=== PATIENT | female | born 1975 | race Caucasian/White ===

== ENCOUNTER 2019-12-11 06:45 | Outpatient (RCR) | payer BC, SELFPAY ==
--- NOTE | 2019-11-15 | CT_ITS ---
Radation Therapy Planning CT images; total exam DLP: 1465.07 mGy-cm MTDD
--- NOTE | 2019-11-15 17:37 | ONC CON_ITS ---
Dr. Mahoney New Patient Note Patient: KEN OLIVIER < Unit #: [id number]: 1975 Dicatated By: Beni Mahoney M.D.Date of Visit: Nov 15, 2019 Onc MED New Patient/Consult Referring Physician: Dr. oJel Carlos Jr, M.D. Chief Complaint: Lung cancer. 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 She is a non-smoker and she has been in good general health. In August she had seen her primary care physician with fever and cough, initially suspected to be pneumonia. Repeat chest x-ray after antibiotic therapy showed persistent mass in the left lung. Chest CT showed a large left upper lobe lung mass with associated mediastinal adenopathy, highly suspicious for malignancy. She underwent bronchoscopy on 09/17/2019 with brushings from the left upper lobe bronchus showing atypical cells, suspicious for malignancy. A repeat PET/CT on 10/10/2019 showed a 5.7 x 5.2 cm mass with SUV 22.7. A left hilar lymph node measuring 14 mm had elevated SUV of 5.0, and a small node in the aortopulmonary window had increased SUV at 4.4. There were no other areas of abnormal uptake. A left adrenal gland nodule measuring up to 2.5 cm appeared consistent with benign adenoma. On 11/12/2019 she underwent left video-assisted thorascopic surgical biopsy of station 5 AP window lymph nodes. At surgery was noted that her tumor was invading the left chest wall. The AP window lymph nodes were found to be positive for metastatic carcinoma, and with those findings resection was not attempted. Pathology report indicates just scant malignant cells which are consistent with non-small cell carcinoma. PD-L1 and molecular analysis are reportedly in process, but with results pending. She had been feeling well up until her illness and August. She has since then had some decline in activity tolerance, though prior to surgery she was still able to do light work. ECOG score is 1. She has had some decline in her appetite following the surgery, but her weight is stable. She has no fever, night sweats, or hot flashes. She has not had hoarseness, sore throat, or difficulty swallowing. She still has some cough, mainly in the mornings. She occasionally brings up clear mucus, but it is mostly nonproductive. She has had no hemoptysis. She has a having some mild pleuritic pain since the surgery. She says her breathing is okay, though. Her acid reflux is adequately managed with omeprazole. She sometimes has loose stools. She has frequent urination. She has no significant joint or bone pain. She reports having occasional headache and occasional orthostatic dizziness since the surgery. She has no focal neurologic symptoms. Past Medical History: Her only other medical illness is gastroesophageal reflux disease. Past Surgical History: She underwent bronchoscopy on 09/17/2019 and she underwent left videol-assisted thorascopic surgical biopsy of AP window lymph node on 11/09/2019. Her only other surgery was a tubal ligation. Medications: guaiFENesin ER (1200 mg) Tablet SR 12 HR Oral daily, HYDROcodone-Acetaminophen 1 Tablet (of 7.5-325 mg) Oral q 6 hours PRN, Omeprazole 1 Tablet (of 20 mg) Capsule Delayed Release Oral daily, Ondansetron HCl 1 Tablet (of 4 mg) Tablet Oral q 6 hours PRN Allergies: No Known Allergies. Social History: Ms. OLIVIER is . She is a non-smoker. She does not drink alcohol. Family History: Both parents are still living, father at age 70 and mother at age 68. She has one sister, age 39, who also is in good health. Review Of Symptoms: Constitutional - Her energy is generally pretty good. She is able to do light work. Her appetite has been down since her surgery. Her weight is stable. No fever, chills, hot flashes, or night sweats. ECOG score is 1, Eyes - Her vision is gradually worsening, but nothing severe, ENMT - No hearing loss or tinnitus. No sinus congestion/drainage. No mouth sores. No sore throat or difficulty swallowing, Hematologic/Lymphatic - No abnormal bruising or bleeding, Respiratory - No shortness of breath. She has a cough in the morning, but it is nonproductive. She is having mild pleuritic pain since the surgery. No hemoptysis, Cardiovascular - No angina pain. No palpitations, Gastrointestinal - No nausea or vomiting. Her acid reflux is managed with omeprazole. She has occasional loose stools. No blood in the stool or black stools, Genitourinary (F) - No dysuria or hematuria. She has urinary frequency. No urgency or incontinence, Musculoskeletal - She has some pain associated with her recent surgery. She has no other joint or bone pain, Integumentary - No skin complications, Neurologic - She has occasional sinus headaches. She has had occasional orthostatic dizziness since her surgery. No numbness/paresthesias or other focal neurologic symptoms, Psychiatric - She has had some stress and anxiety since her diagnosis. No insomnia. Vital Signs: Performed on Nov 15, 2019 14:06: 68.00 in, 227.8 lbs, 98.8 F, 79, 20, 119/81 mm(hg), 93 % (LOW), 3, and Performed on Nov 15, 2019 14:06: 34.637 kg/m2 (HIGH). Physical Examination: Constitutional - She appears to be in good general health, Eyes - Sclerae nonicteric. Conjunctivae clear, ENMT - No lesions noted in the oral cavity, Neck - No mass or thyromegaly, Hematologic/Lymphatic - No cervical, clavicular, or axillary adenopathy, Respiratory - The right lung sounds clear. Breath sounds are diminished at the left lung base, Cardiovascular - Heart rhythm is regular. There is no murmur, gallop, or rub noted, Chest - Her thoracotomy incision appears to be healing well, Abdomen - Soft and non-tender. Liver and spleen are not enlarged. There is no abdominal mass or ascites noted and there is no inguinal adenopathy, Back/Spine - No spine or CVA tenderness noted, Extremities - There is no edema, but the left leg appears larger than the right and the left calf circumference measures 3 cm greater. Pedal pulses are palpable bilaterally, Integumentary - No rashes. No suspicious skin lesions noted, Neurologic - No focal neurologic deficits noted. Impression: 1. 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 Molecular analysis and PD-L1 expression are not yet available. She is a non-smoker. 2. She underwent video-assisted thoracotomy with biopsy of station 5 AP window lymph nodes on 11/09/2019. Her tumor was found to be invading the chest wall. 3. She has pre-existing GERD, adequately managed with medication. Plan: I reviewed the PET/CT findings, the surgical findings, and the pathology results. We discussed the clinical implications. She has non-small cell carcinoma involving the upper lobe of the left lung. There is biopsy proven mediastinal lymph node involvement and there was evidence had thoracotomy of chest wall invasion. As such, her disease was inoperable. She has scheduled to have a brain MRI to complete her staging. In the absence of any evidence of metastatic involvement, the recommended treatment will be radiation administered concurrently with weekly carboplatin/paclitaxel chemotherapy. Recommendations for any further treatment will depend on additional pathologic studies. If these are not able to be obtained from the biopsy specimen, I will request a next generation sequencing study by liquid biopsy. I reviewed anticipated side effects with the chemotherapy which may include nausea/vomiting, fatigue, alopecia, low blood counts, and neuropathy, among others. She has indicated that she is willing to proceed with treatment as recommended. She will need to have a Port-A-Cath placed for venous access, I will try and have that arranged with Dr. Carlos. I anticipate starting treatment as soon as the radiation planning has been completed. Signed By: Beni Mahoney M.D. <<Signature on File>>
--- NOTE | 2019-11-18 14:37 | N.ONRAD NP_ITS ---
Radiation Oncology New Patient Visit Patient: KEN OLIVIER MR#: [id number] : 1975> Age: 44> Sex: Female> Dictated by: Dr. Derrick Lee Date of Service: 11/15/2019 Referring Physician(s) : Dr. Joel Carlos Jr Primary Diagnosis: C34.12 - malignant neoplasm of upper lobe, left bronchus or lung, Diagnosed 11/15/2019 (active), stage iiib, t3, n2, m0. Chief complaint: Lung cancer History of Present Illness: This is a 44-year-old female who presented with productive cough and fever and was diagnosed with pneumonia in August 2019. She was treated with antibiotics and had a follow-up CT of chest in September 2019 which showed a persistent large left upper lung mass and mediastinal lymphadenopathy suspicious for malignancy. She underwent a bronchoscopy with left upper lobe bronchus brushing on September 17, 2019 that showed some atypical cells suspicious for malignancy. Subsequently she had a PET/CT on September 20. It showed a large 5.7 x 5.2 cm left lateral upper lobe mass with max SUV of 22.7. There is a 1.4 cm left hilum lymphadenopathy with SUV of 5 and a lymph node in the AP window with increased FDG activity. A 2.5 cm low-density nodule of the left adrenal gland with no increased activity consistent with benign adenoma. The patient underwent left VATS with biopsy of the station 5 AP window lymphadenopathy. It was found that the large left upper lobe mass has invasion of the left chest wall. Pathology was consistent with non-small cell lung cancer, PD-L1 and molecular markers are pending. The patient notes severe dry cough and the pain at the incision sites of VATS but denies shortness of breath, hemoptysis, chest wall pain, headaches, nausea, vomiting, vision change, focal neurological deficits or significant weight loss. Current Medications: GuaiFENesin ER, hYDROcodone-Acetaminophen, omeprazole, ondansetron HCl. Allergies: No Known Allergies Medical History: - Gastroesophageal reflux disease. No history of collagen vascular disease. No previous radiation therapy. Surgical History: Bronchoscopy on 09/17/2019, left videol-assisted thorascopic surgical biopsy of AP window lymph node on 11/09/2019 and tubal ligation. Family History: Father is alive. Mother is alive. Sister is alive. Both parents are still living, father at age 70 and mother at age 68. She has one sister, age 39, who also is in good health. Social History: Last screened on 11/13/2019 - Never smoked. Last screened on 11/13/2019 - Never drank. Review of Systems: Constitutional - Complains of lack of appetite since surgery on last Tuesday11/09/19. Complains of mild fatigue. Denies fever, night sweats and change in weight. Eyes - Denies blurred vision. ENMT - Denies dysphagia, ear pain, mouth dryness, stomatitis and altered taste. Neck - Denies neck pain. Integumentary - Has healing incisional line along the left breast and where the chest tube was deaccessed. Breasts - Denies pain. Cardiovascular - Complains of edema in the left foot. Denies arrhythmias and chest pain. Respiratory - Complains of cough which is non-productive since August 2019.. Denies dyspnea, hemoptysis and wheezing. Gastrointestinal - Complains of intermittent diarrhea. Complains of satiety. Denies abdominal pain, constipation, melena / GI bleeding, nausea and vomiting. Genitourinary (F) - Complains of nocturia gets up about 3 to 4 times per night. Denies dysuria, frequency, urgency, vaginal discharge / bleeding and vaginal spotting. Musculoskeletal - Denies arthritis, bone pain, joint pain and muscle weakness. Has left side pain with coughing from having biopsy and chest tube. Neurologic - Complains of intermittent dizziness that occurs upon sitting to standing. Complains of headaches occasionally. Denies abnormal gait. Endocrine - Denies diabetes, hot flashes and thyroid disease. Hematologic/Lymphatic - Denies tender or enlarged lymph nodes.. Vital Signs: Performed on 11/15/2019 2:06 PM BMI - 34.637 kg/m2 (high), Height - 68.00 in, Weight - 227.8 lbs, Temperature - 98.8 f, Pulse - 79, Respiration - 20, O2 Sat - 93 % (low), Pain - 3 and BP - 119/ 81 mm(hg). Physical Exam: Pertinent to diagnosis and treatment. General: Alert and oriented x 3. No acute distress. HEENT: Normocephalic, atraumatic. EOMI ( Extraocular Movements Intact), PERRLA ( Pupils Equal, Round, Reactive to Light and Accommodation), Sclerae anicteric. Oral cavity is clear without lesions, masses or ulcers. NECK: Supple without supraclavicular or jugular lymphadenopathy. LUNGS: Clear to auscultation bilaterally without rales, rhonchi or wheeze. HEART: Regular rate and rhythm, normal S1 and S2 without murmur, gallop or rub. MUSCULOSKELETAL: No tenderness or percussion pain over the axial skeleton, scapulae or pelvis. ABDOMEN: Soft, nontender, nondistended without masses or organomegaly. Bowel sounds are present. EXTREMITIES: No peripheral edema is identified. Limited motor and sensory examination are grossly intact and symmetric bilaterally. NEUROLOGIC: Cranial nerves II ???XII are grossly intact. Normal sensation, strength 5/5 in all extremities, normal gait, no ataxia. Performance Status: 1 - No physically strenuous activity, but ambulatory and able to carry out light or sedentary work (e.g. office work, light house work). (ECOG) Pathology: non-small cell carcinoma Lab: None pending Imaging: See HPI Impression: This is a 44-year-old female with a recently diagnosed locally advanced non-small cell carcinoma involving the left upper lobe, hilum and mediastinum. Plan: The patient needs a MRI of the brain to complete staging work-up. If there is no evidence of diffuse brain metastasis, we would recommend concurrent chemoradiation therapy to the lung cancer. I went over the procedure for radiation therapy to the chest with the patient. The benefit, risks and potential side effects of radiotherapy to the chest were explained to the patient. The potential side effects include but not limited to fatigue, skin reaction, radiation pneumonitis, esophagitis with odynophagia/dysphagia, damages to the heart/vessels, brachial plexus and spinal cord. Ms Olivier expressed good understanding and decided to proceed with the recommended treatment. The patient has signed an informed consent for radiotherapy. She will undergo CT simulation today. Radiation treatment planning will be completed and radiotherapy will be ready to start on November 19, 2019 or as soon as chemotherapy/insurance approval is ready to start. Signed by: 11/18/2019 2:36:30 PM <<Signature on File>> CPT Code: CPT Code:
[2019-12-03 09:59] LABS: Basophils % 0.1 %; Hematocrit 36.7 % (37.0-47.0); Hemoglobin 11.1 g/dL (11.5-15.3); Lymphocytes # 0.6 10^3/uL (0.8-4.8); Mean Corpuscular HGB Conc 30.2 g/dL (30.0-36.0); Mean Corpuscular Hemoglobin 23.3 pg (28.0-34.0); Mean Corpuscular Volume 76.9 fL (81-99); Mean Platelet Volume 10.8 fL (7.4-10.4); Monocytes # 0.1 10^3/uL (0.2-0.9); Monocytes % 0.3 %; Neutrophils # 15.4 10^3/uL (1.8-7.7); Nucleated Red Blood Cells % 0 %; Platelet Count 345 10^3/cmm (130-400); Red Blood Count 4.77 10^6/uL (4.1-5.3); White Blood Count 16.2 10^3/uL (4.0-10.0)
[2019-12-03 10:17] LABS: Alanine Aminotransferase 16 U/L (0-33); Albumin Level 4.1 g/dL (3.5-5.2); Alkaline Phosphatase 104 IU/L (35-105); Anion Gap 14.8 (5-19); Aspartate Amino Transferase 13 U/L (0-32); Blood Urea Nitrogen 17 mg/dL (6-20); Calcium 10.3 mg/dL (8.5-10.5); Carbon Dioxide 28 mmol/L (22-29); Chloride 95 mmol/L (98-107); Globulin 3.7 g/dL (1.3-4.6); Glomerular Filtration Rate 59.7 mL/min (90-130); Glucose 285 mg/dL (65-115); Osmolality Calculated 285 mOsm/kg (285-295); Potassium 3.8 mmol/L (3.5-5.1); Sodium 134 mmol/L (136-145); Total Bilirubin 0.6 mg/dL (0.15-1.2); Total Protein 7.8 g/dL (6.6-8.7)
[2019-12-03] MEDS: sodium chloride 0.9% 250 ML 75 ML IV (11:05)
[2019-12-03] MEDS: sodium chloride 0.9% 1,000 ML 999 ML IV (12:05)
[2019-12-03] MEDS: EPINEPHrine 1 mg/mL INJ 0.5 MG SUBCUT (12:10)
[2019-12-03 12:24] LABS: Iron 20 ug/dL (37-145); Percent Saturation 9.7 % (20-50); Total Iron Binding Capacity 206 mcg/dl; Unsaturated Iron Binding 186 ug/dL (112-347)
[2019-12-03] MEDS: ibuprofen 600 mg Tablet PO (13:05)
[2019-12-03] MEDS: LORazepam 2 mg/mL INJ 1 mL 0.5 MG IV (13:08)
[2019-12-05] MEDS: sodium chloride 0.9% 250 ML 75 ML IV (09:30)
--- NOTE | 2019-12-05 09:33 | ONCRAD TMN_ITS ---
Radiation Oncology Weekly Treatment Management Patient: KEN OLIVIER MR#: [id number] : 1975> Age: 44> Sex: Female Dictated by: Dr. Cleve Herrera Date of Service: 12/05/2019 Referring Physician(s) : Dr. Joel Carlos Jr Primary Diagnosis: C34.12 - Malignant neoplasm of upper lobe, left bronchus or lung, Diagnosed 11/15/2019 (Active) Stage IIIB, T3, N2, M0 Radiotherapy to date: Course: LT Lung, Treatment Site: LT [id number], Ref. ID: [id number], Energy: 6X, Dose/Fx (cGy): 200, #Fx: , Dose Correction (cGy): 0, Total Dose (cGy): 600, Start Date: 12/03/2019, Elapsed Days: 2 Current Complaints/Interval History: She has had 3 treatments. Radiation is going well. On Tuesday she had chemotherapy initiated. However she had a reaction and it had to be stopped. She will be getting alternate chemotherapy today. Her weight measures down 21 pounds since 11/15/2019. Should her appetite had been low but it is improving. Her general appearance is that of being well-nourished. She does not appear to have had any excessive weight loss and she was surprised. She is eating well and so we will just continue to monitor her weight for now. Pulmonary symptoms are minimal. She has a mild nonproductive cough. She does have some tenderness where she had surgery on her chest. Lungs are clear to auscultation with no rales, rhonchi, or wheezes. Heart rhythm is regular. No murmur or gallop. Continue radiation. She will proceed on to chemotherapy this morning. She did ask for review of side effects related to radiation. I discussed the acute effects that might occur. Discussed that there is a small risk of severe lung or heart injury, though not expected. Current Medications: Abraxane, cARBOplatin, dexamethasone, dexamethasone Sodium Phosphate, diphenhydrAMINE HCl, famotidine in NaCl, ferrous Sulfate, guaiFENesin ER, hYDROcodone-Acetaminophen, lORazepam, omeprazole, ondansetron HCl, palonosetron HCl, prochlorperazine Maleate. Allergies: No Known Allergies Vital Signs: Physical Exam: Appears stable, no skin erythema or desquamation. Performance Status: 1 - No physically strenuous activity, but ambulatory and able to carry out light or sedentary work (e.g. office work, light house work). (ECOG) Lab: None pending in Radiation Oncology. Test performed on 12/03/2019 9:30 AM WBC - 16.2 10 3/ul (high), HGB - 11.1 g/dl (low), HCT - 36.7 % (low), MCV - 76.9 fl (low), MCH - 23.3 pg (low), MPV - 10.8 fl (high), Neutrophils - 15.4 10 3/ul (high), Lymphocytes - 0.6 10 3/ul (low), Monocytes - 0.1 10 3/ul (low), Sodium - 134 mmol/l (low), Chloride - 95 mmol/l (low), Creatinine - 1.0 mg/dl (high), eGFR - 59.7 ml/min (low), Glucose - 285 mg/dl (high), Iron - 20 mcg/dl (low) and % Iron Saturation - 9.7 % (low). Imaging: No new diagnostic imaging was performed since the last weekly treatment visit. All radiation therapy related imaging (including but not limited to kV, MV, and CBCT generated images) was reviewed. Appropriate changes, if any, were made to assure accurate target localization. Impression/Plan: Tolerating treatment well with expected side effects. Continue treatment as planned. CPT: 21330 Signed by: Dr. Cleve Herrera>12/05/2019 9:32:00 AM <<Signature on File>>
== END 2019-12-11 23:59 | disposition home or self-care (01) ==
LOC: ONCMED 06:45
PROVIDERS: Internal Medicine Medical Oncology; Absent Provider Radiology Radiation Oncology; PCP Family Medicine; Referring Provider Surgery
DX: Z51.0 Encounter for antineoplastic radiation therapy (principal); Z51.11 Encounter for antineoplastic chemotherapy; C34.12 Malignant neoplasm of upper lobe, left bronchus or lung; C77.1 Secondary and unspecified malignant neoplasm of intrathoracic lymph nodes; D35.02 Benign neoplasm of left adrenal gland; K21.9 Gastro-esophageal reflux disease without esophagitis; Z79.891 Long term (current) use of opiate analgesic; Z79.899 Other long term (current) drug therapy
CPT/HCPCS: 77300; 77301; 77334; 77338; 77386; 77470; 80053; 83540; 83550; 85025; 96361; 96367; 96372; 96375; 96409; 96413; 96417; 99205; 99215; J0171; J1100; J1200; J2060; J2469; J2930; J3490; J7030; J7050; J9045; J9264; J9267; Q9967

== ENCOUNTER 2020-01-10 06:49 | Outpatient (RCR) | payer BC, SELFPAY ==
[2019-12-12 08:39] LABS: Basophils % 0.3 %; Eosinophils # 0.2 10^3/uL (0.0-0.8); Eosinophils % 1.6 %; Hematocrit 31.1 % (37.0-47.0); Hemoglobin 9.6 g/dL (11.5-15.3); Lymphocytes # 0.4 10^3/uL (0.8-4.8); Lymphocytes % 2.7 %; Mean Corpuscular HGB Conc 30.9 g/dL (30.0-36.0); Mean Corpuscular Hemoglobin 24.1 pg (28.0-34.0); Mean Corpuscular Volume 77.9 fL (81-99); Monocytes % 6.8 %; Neutrophils # 12.2 10^3/uL (1.8-7.7); Neutrophils % 87.5 %; Nucleated Red Blood Cells % 0 %; Platelet Count 299 10^3/cmm (130-400); Red Blood Count 3.99 10^6/uL (4.1-5.3)
[2019-12-12 08:57] LABS: Alanine Aminotransferase 11 U/L (0-33); Albumin Level 3.3 g/dL (3.5-5.2); Alkaline Phosphatase 96 IU/L (35-105); Anion Gap 15.8 (5-19); Aspartate Amino Transferase 9 U/L (0-32); Blood Urea Nitrogen 8 mg/dL (6-20); Calcium 9.4 mg/dL (8.5-10.5); Carbon Dioxide 25 mmol/L (22-29); Chloride 97 mmol/L (98-107); Glomerular Filtration Rate 77.2 mL/min (90-130); Glucose 106 mg/dL (65-115); Osmolality Calculated 274 mOsm/kg (285-295); Potassium 3.8 mmol/L (3.5-5.1); Sodium 134 mmol/L (136-145); Total Bilirubin 0.5 mg/dL (0.15-1.2); Total Protein 6.3 g/dL (6.6-8.7)
[2019-12-12] MEDS: sodium chloride 0.9% 100 ML 75 ML (10:00)
[2019-12-12] MEDS: sodium chloride 0.9% 100 ML 45 ML (10:00)
--- NOTE | 2019-12-12 13:53 | ONC FU_ITS ---
Dr. Mahoney Patient Follow-Up Note Patient: KEN OLIVIER Unit #: [id number]: 1975 Dicatated By: Beni Mahoney M.D.Date of Visit:Dec 12, 2019 Onc Med Follow-up/Prog Note Chief Complaint: Lung cancer. 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 She is a non-smoker and she has been in good general health. In August she had seen her primary care physician with fever and cough, initially suspected to be pneumonia. Repeat chest x-ray after antibiotic therapy showed persistent mass in the left lung. Chest CT showed a large left upper lobe lung mass with associated mediastinal adenopathy, highly suspicious for malignancy. She underwent bronchoscopy on 09/17/2019 with brushings from the left upper lobe bronchus showing atypical cells, suspicious for malignancy. A repeat PET/CT on 10/10/2019 showed a 5.7 x 5.2 cm mass with SUV 22.7. A left hilar lymph node measuring 14 mm had elevated SUV of 5.0, and a small node in the aortopulmonary window had increased SUV at 4.4. There were no other areas of abnormal uptake. A left adrenal gland nodule measuring up to 2.5 cm appeared consistent with benign adenoma. On 11/12/2019 she underwent left video-assisted thorascopic surgical biopsy of station 5 AP window lymph nodes. At surgery it was noted that her tumor was invading the left chest wall. The AP window lymph nodes were found to be positive for metastatic carcinoma, and with those findings resection was not attempted. Pathology report indicated just scant malignant cells which were consistent with non-small cell carcinoma. A [employer] next generation sequencing study showed no actionable mutations. The PD-L1 was positive at 25%. I had seen her initially on 11/15/2019. In the setting of stage IIIb disease, she was recommended to undergo chemoradiation utilizing weekly cisplatin/paclitaxel. At the time I also recommended further molecular analysis with a [facility] 360 study. It showed the presence of an EGFR L747P mutation. Her only other medical illnesses GERD. She has a non-smoker. INTERIM HISTORY: On 12/03/2019 she began treatment with her week 1 carboplatin/paclitaxel concurrently with radiation. Her treatment had to be stopped due to an almost immediate hypersensitivity reaction to the paclitaxel. The reaction was adequately managed with IV Solu-Medrol, subcutaneous epinephrine, and other supportive measures which included IV fluids, oxygen, and albuterol/Atrovent by pulmonary nebulizer. She then returned on 12/05/2019 to restart treatment with carboplatin/Abraxane, which she tolerated without acute toxicity. She is seen for a follow-up visit. As noted, she had no acute toxicity with her chemotherapy treatment last week. That evening she did have an episode of burning in her throat and upper chest, but it resolved after drinking water. She says her energy is okay. Her ECOG score is 1. Her appetite is getting better, but she is still losing weight. She has not had fever. She had one episode of sweating after taking Tylenol. She has some sinus drainage, and she has a little bit of soreness in her mouth. She has started treatment for thrush. She says her breathing is okay. She has some mucus/cough. She has not been having chest pain. She had one episode of nausea. Her acid reflux is generally controlled with omeprazole. Bowel and bladder function have been okay. She has no significant joint or bone pain. She had a little bit of dizziness. She has not had headache, and she has no numbness/paresthesia or other focal neurologic symptoms. Medications: Ferrous Sulfate 1 Tablet (of 325 (65 fe) mg) Tablet Oral daily, HYDROcodone-Acetaminophen 1 Tablet (of 7.5-325 mg) Oral q 6 hours PRN, LORazepam 0.5 - 1 Tablet (of 1 mg) Oral t.i.d. PRN, Omeprazole 1 Tablet (of 20 mg) Capsule Delayed Release Oral daily, Ondansetron HCl 1 Tablet (of 4 mg) Tablet Oral q 6 hours PRN, Prochlorperazine Maleate 1 Tablet (of 10 mg) Oral q 4 hours PRN Allergies: No Known Allergies. Review of Systems: Constitutional - Her energy level is generally okay. She does some light housework. Her appetite is good and weight is down a few pounds. No fever, chills, hot flashes, or night sweats. ECOG score is 1, ENMT - She has some sinus drainage. She has trush to her mouth, she was started on Magic Mouthwash yesterday. No sore throat or difficulty swallowing, Hematologic/Lymphatic - No abnormal bruising or bleeding, Respiratory - No shortness of breath. No cough. No pleuritic pain or hemoptysis, Cardiovascular - No angina pain. No palpitations, Gastrointestinal - She had one episode of nausea that was controlled with Compazine. No vomiting. She takes Prilosec for heartburn. No diarrhea or constipation. No blood in the stool or black stools, Genitourinary (F) - No dysuria or hematuria. No urinary frequency. No urgency or incontinence, Musculoskeletal - No joint or bone pain, Integumentary - No skin complications, Neurologic - No headache or dizziness. No numbness/paresthesias or other focal neurologic symptoms, Psychiatric - Her anxiety is controlled with lorazepam. No insomnia. Vital Signs: Performed on Dec 12, 2019 09:17 Height - 68.00 in Weight - 199.8 lbs (LOW) BSA - 2.04 sq.m BMI - 30.38 (HIGH) Temperature - 97.9 F (LOW) Pulse - 90 /min Respiration - 18 /min BP - 122/73 mm(hg) O2 Sat - 99 % Pain - 0 Physical Examination: Constitutional - She looks pretty good generally, Eyes - Sclerae nonicteric. Conjunctivae clear, ENMT - There is a slight white exudate on the tongue. There are no other lesions noted in the oral cavity, Hematologic/Lymphatic - No cervical, clavicular, or axillary adenopathy, Respiratory - Lungs sound clear, Cardiovascular - Heart rhythm is regular. There is no murmur, gallop, or rub noted, Abdomen - Soft and non-tender. Liver and spleen are not enlarged. There is no abdominal mass or ascites noted and there is no inguinal adenopathy, Extremities - No edema, Integumentary - No skin eruption, Neurologic - No focal neurologic deficits noted. Lab/Imaging: Test performed on Dec 12, 2019 08:12 Sodium 134 mmol/L Potassium 3.8 mmol/L Chloride 97 mmol/L CO2 25 mmol/L Anion Gap 15.8 BUN 8 mg/dL Creatinine 0.8 mg/dL Cr Clearance (Est) 125.72 mL/min eGFR 77.2 mL/min Glucose 106 mg/dL Calcium 9.4 mg/dL Protein, Total 6.3 g/dL Albumin 3.3 g/dL Globulin 3.0 g/dL Bilirubin, Total 0.5 mg/dL ALT (SGPT) 11 U/L AST (SGOT) 9 U/L Alkaline Phosphatase 96 IU/L WBC 14.0 10 3/uL RBC 3.99 10 6/uL HGB 9.6 g/dL HCT 31.1 % MCV 77.9 fL MCH 24.1 pg MCHC 30.9 g/dL RDW 15.0 % Platelet Count 299 10 3/cmm MPV 10.0 fL Neutrophils 12.2 10 3/uL Lymphocytes 0.4 10 3/uL Monocytes 1.0 10 3/uL Eosinophils 0.2 10 3/uL Basophils 0.0 10 3/uL Neutrophil % 87.5 % Lymphocyte % 2.7 % Monocyte % 6.8 % Eosinophil % 1.6 % Basophils % 0.3 % Test performed on Dec 03, 2019 09:30 Iron 20 mcg/dL Iron Binding Capacity (TIBC) 206 mcg/dl % Iron Saturation 9.7 % UIBC 186 mcg/dL Impression: 1. 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 A [employer] next generation sequencing study showed no actionable mutations. The PD-L1 was positive at 25%. A [employer] 360 study showed the presence of an exon 19 EGFR mutation ( L747P mutation). 2. She underwent video-assisted thoracotomy with biopsy of station 5 AP window lymph nodes on 11/09/2019. Her tumor was found to be invading the chest wall. 3. She has pre-existing GERD, adequately managed with medication. 4. She has moderately severe anemia with serum iron studies consistent with iron deficiency. On 12/03/2019 she began weekly carboplatin/paclitaxel chemotherapy, currently with radiation. Her week 1 chemotherapy infusion was stopped almost immediately due to hypersensitivity reaction to paclitaxel. She then returned on 12/04/2021 restart treatment with week 1 carboplatin/Abraxane, which she began concurrently with radiation. She tolerated it well. Plan: She will continue with week 2 carboplatin/Abraxane. The dosages will remain the same. We discussed the fact that she potentially will be eligible for maintenance immunotherapy with durvalumab, depending on how well she responds to the chemoradiation. 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 As such, she also may be eligible for treatment with afatinib if there is evidence of disease progression. She will be scheduled for a follow-up visit in 1 week. In the meantime, she will continue oral iron supplementation with ferrous sulfate 325 mg daily. She was unable to tolerate it twice a day. Signed By: Beni Mahoney M.D. <<Signature on File>>
--- NOTE | 2019-12-18 09:09 | ONCRAD TMN_ITS ---
Radiation Oncology Weekly Treatment Management Patient: KEN LOIVIER MR#: [id number] : 1975> Age: 44> Sex: Female Dictated by: Dr. Baljit Abreu Date of Service: 12/18/2019 Referring Physician(s) : Dr. Joel Carlos Jr Primary Diagnosis: C34.12 - Malignant neoplasm of upper lobe, left bronchus or lung, Diagnosed 11/15/2019 (Active) Stage IIIB, T3, N2, M0 Radiotherapy to date: Course: LT Lung, Treatment Site: LT [id number], Ref. ID: [id number], Energy: 6X, Dose/Fx (cGy): 200, #Fx: , Dose Correction (cGy): 0, Total Dose (cGy): 2,400, Start Date: 12/03/2019, Elapsed Days: 15 Current Complaints/Interval History: Current Medications: Abraxane, cARBOplatin, dexamethasone, dexamethasone Sodium Phosphate, diphenhydrAMINE HCl, famotidine in NaCl, ferrous Sulfate, hYDROcodone-Acetaminophen, lORazepam, lORazepam, magic Mouthwash, omeprazole, ondansetron HCl, palonosetron HCl, prochlorperazine Maleate, prochlorperazine Maleate. Allergies: No Known Allergies Vital Signs: Physical Exam: Appears stable, no skin erythema or desquamation. Performance Status: 1 - No physically strenuous activity, but ambulatory and able to carry out light or sedentary work (e.g. office work, light house work). (ECOG) Lab: None pending in Radiation Oncology. Test performed on 12/03/2019 9:30 AM Iron - 20 mcg/dl (low), % Iron Saturation - 9.7 % (low), Test performed on 12/12/2019 8:12 AM WBC - 14.0 10 3/ul (high), RBC - 3.99 10 6/ul (low), HGB - 9.6 g/dl (low), HCT - 31.1 % (low), MCV - 77.9 fl (low), MCH - 24.1 pg (low), Neutrophils - 12.2 10 3/ul (high), Lymphocytes - 0.4 10 3/ul (low), Monocytes - 1.0 10 3/ul (high), Sodium - 134 mmol/l (low), Chloride - 97 mmol/l (low), eGFR - 77.2 ml/min (low), Protein, Total - 6.3 g/dl (low) and Albumin - 3.3 g/dl (low). Imaging: No new diagnostic imaging was performed since the last weekly treatment visit. All radiation therapy related imaging (including but not limited to kV, MV, and CBCT generated images) was reviewed. Appropriate changes, if any, were made to assure accurate target localization. Impression/Plan: Tolerating treatment well with expected side effects. Continue treatment as planned. CPT: 27333 Signed by: Dr. Baljit Abreu>12/18/2019 9:07:30 AM <<Signature on File>>
[2019-12-19 08:34] LABS: Basophils % 0.4 %; Eosinophils # 0.1 10^3/uL (0.0-0.8); Eosinophils % 0.9 %; Hematocrit 30.2 % (37.0-47.0); Hemoglobin 9.2 g/dL (11.5-15.3); Lymphocytes # 0.2 10^3/uL (0.8-4.8); Lymphocytes % 2.9 %; Mean Corpuscular HGB Conc 30.5 g/dL (30.0-36.0); Mean Corpuscular Hemoglobin 23.9 pg (28.0-34.0); Mean Corpuscular Volume 78.4 fL (81-99); Mean Platelet Volume 9.8 fL (7.4-10.4); Monocytes # 0.5 10^3/uL (0.2-0.9); Monocytes % 6.7 %; Neutrophils # 6.2 10^3/uL (1.8-7.7); Neutrophils % 88.2 %; Nucleated Red Blood Cells % 0 %; Platelet Count 241 10^3/cmm (130-400); Red Blood Count 3.85 10^6/uL (4.1-5.3); Red Cell Distribution Width 16.3 % (12.1-15.1)
[2019-12-19 09:02] LABS: Alanine Aminotransferase 7 U/L (0-33); Albumin Level 3.5 g/dL (3.5-5.2); Alkaline Phosphatase 93 IU/L (35-105); Anion Gap 17.3 (5-19); Aspartate Amino Transferase 9 U/L (0-32); Blood Urea Nitrogen 6 mg/dL (6-20); Calcium 9.5 mg/dL (8.5-10.5); Carbon Dioxide 26 mmol/L (22-29); Chloride 95 mmol/L (98-107); Globulin 3.6 g/dL (1.3-4.6); Glomerular Filtration Rate 67.4 mL/min (90-130); Glucose 130 mg/dL (65-115); Osmolality Calculated 278 mOsm/kg (285-295); Potassium 3.3 mmol/L (3.5-5.1); Sodium 135 mmol/L (136-145); Total Bilirubin 0.6 mg/dL (0.15-1.2); Total Protein 7.1 g/dL (6.6-8.7)
[2019-12-19] MEDS: sodium chloride 0.9% 200 ML 300 ML (10:00)
--- NOTE | 2019-12-19 13:01 | ONC FU_ITS ---
Dr. Mahoney Patient Follow-Up Note Patient: KEN OLIVIER < Unit #: [id number]: 1975 Dicatated By: Beni Mahoney M.D.Date of Visit:Dec 19, 2019 Onc Med Follow-up/Prog Note Chief Complaint: Lung cancer. 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 Her tumor was determined to be PD-L1 positive at 25%. 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 She is a non-smoker and she has been in good general health. In August she had seen her primary care physician with fever and cough, initially suspected to be pneumonia. Repeat chest x-ray after antibiotic therapy showed persistent mass in the left lung. Chest CT showed a large left upper lobe lung mass with associated mediastinal adenopathy, highly suspicious for malignancy. She underwent bronchoscopy on 09/17/2019 with brushings from the left upper lobe bronchus showing atypical cells, suspicious for malignancy. A repeat PET/CT on 10/10/2019 showed a 5.7 x 5.2 cm mass with SUV 22.7. A left hilar lymph node measuring 14 mm had elevated SUV of 5.0, and a small node in the aortopulmonary window had increased SUV at 4.4. There were no other areas of abnormal uptake. A left adrenal gland nodule measuring up to 2.5 cm appeared consistent with benign adenoma. On 11/12/2019 she underwent left video-assisted thorascopic surgical biopsy of station 5 AP window lymph nodes. At surgery it was noted that her tumor was invading the left chest wall. The AP window lymph nodes were found to be positive for metastatic carcinoma, and with those findings resection was not attempted. Pathology report indicated just scant malignant cells which were consistent with non-small cell carcinoma. A [employer] next generation sequencing study showed no actionable mutations. The PD-L1 was positive at 25%. I had seen her initially on 11/15/2019. In the setting of stage IIIb disease, she was recommended to undergo chemoradiation utilizing weekly cisplatin/paclitaxel. At the time I also recommended further molecular analysis with a [facility] 360 study. It showed the presence of an EGFR L747P mutation. Her only other medical illnesses GERD. She has a non-smoker. INTERIM HISTORY: On 12/03/2019 she began treatment with her week 1 carboplatin/paclitaxel concurrently with radiation. Her treatment had to be stopped due to an almost immediate hypersensitivity reaction to the paclitaxel. The reaction was adequately managed with IV Solu-Medrol, subcutaneous epinephrine, and other supportive measures which included IV fluids, oxygen, and albuterol/Atrovent by pulmonary nebulizer. She then returned on 12/05/2019 to restart treatment with carboplatin/Abraxane, which she tolerated without acute toxicity. She continued with her week 2 treatment on 12/12/2019. She is seen for a follow-up visit. She has been feeling pretty good generally. She does have significant fatigue and some decrease in appetite for the first 2 to 3 days after treatment, but she then gradually feels better. Her ECOG score is 1. Her appetite is okay now. She has not had fever or night sweats. Her oral thrush has improved. She has noticed a little more mucus in her throat, and she does have a slight cough with it. She has no shortness of breath. She still occasionally has a little pain in the left side of her chest. She has had some acid reflux, but that has improved with taking omeprazole twice a day. Bowel and bladder function have been okay. She has no significant joint or bone pain. She has no numbness/paresthesia or other neuropathy symptoms. Medications: Ferrous Sulfate 1 Tablet (of 325 (65 fe) mg) Tablet Oral daily, HYDROcodone-Acetaminophen 1 Tablet (of 7.5-325 mg) Oral q 6 hours PRN, LORazepam 0.5 - 1 Tablet (of 1 mg) Oral t.i.d. PRN, Omeprazole 1 Tablet (of 20 mg) Capsule Delayed Release Oral daily, Ondansetron HCl 1 Tablet (of 4 mg) Tablet Oral q 6 hours PRN, Prochlorperazine Maleate 1 Tablet (of 10 mg) Oral q 4 hours PRN Allergies: No Known Allergies. Review of Systems: Constitutional - Her energy level is okay. She is able to do some light work at night. Her appetite is improved. Her weight is down a few pounds. No fever, chills, hot flashes, or night sweats. ECOG score is 1, ENMT - She has sinus drainage. The thrush in her mouth and throat has improved. No sore throat or difficulty swallowing, Hematologic/Lymphatic - No abnormal bruising or bleeding, Respiratory - No shortness of breath. No cough. No pleuritic pain or hemoptysis, Cardiovascular - No angina pain. No palpitations, Gastrointestinal - No nausea or vomiting. She has heartburn, slightly worse at night. It is adequately managed with Prilosec. No diarrhea or constipation. No blood in the stool or black stools, Genitourinary (F) - No dysuria or hematuria. No urinary frequency. No urgency or incontinence, Musculoskeletal - No joint or bone pain, Integumentary - No skin complications, Neurologic - No headache or dizziness. No numbness/paresthesias or other focal neurologic symptoms, Psychiatric - She has some mild anxiety, but it is well controlled with lorazapam. No depression. No insomnia. Vital Signs: Performed on Dec 19, 2019 09:35 Height - 68.00 in Weight - 194.4 lbs (LOW) BSA - 2.02 sq.m BMI - 29.56 Temperature - 97.3 F (LOW) Pulse - 98 /min Respiration - 18 /min BP - 121/60 mm(hg) O2 Sat - 98 % Pain - 0 Physical Examination: Constitutional - She looks pretty good generally, Eyes - Sclerae nonicteric. Conjunctivae clear, ENMT - There are no lesions noted in the oral cavity, Hematologic/Lymphatic - No cervical, clavicular, or axillary adenopathy, Respiratory - Lungs sound clear with slightly diminished air movement at the left base, Cardiovascular - Heart rhythm is regular. There is no murmur, gallop, or rub noted, Abdomen - Soft and non-tender. Liver and spleen are not enlarged. There is no abdominal mass or ascites noted and there is no inguinal adenopathy, Extremities - No edema, Integumentary - No skin eruption, Neurologic - No focal neurologic deficits noted. Lab/Imaging: Test performed on Dec 19, 2019 08:10 Sodium 135 mmol/L Potassium 3.3 mmol/L Chloride 95 mmol/L CO2 26 mmol/L Anion Gap 17.3 BUN 6 mg/dL eGFR 67.4 mL/min Glucose 130 mg/dL Calcium 9.5 mg/dL Protein, Total 7.1 g/dL Albumin 3.5 g/dL Globulin 3.6 g/dL Bilirubin, Total 0.6 mg/dL ALT (SGPT) 7 U/L AST (SGOT) 9 U/L Alkaline Phosphatase 93 IU/L WBC 7.0 10 3/uL RBC 3.85 10 6/uL HGB 9.2 g/dL HCT 30.2 % MCV 78.4 fL MCH 23.9 pg MCHC 30.5 g/dL RDW 16.3 % Platelet Count 241 10 3/cmm MPV 9.8 fL Neutrophils 6.2 10 3/uL Lymphocytes 0.2 10 3/uL Monocytes 0.5 10 3/uL Eosinophils 0.1 10 3/uL Basophils 0.0 10 3/uL Neutrophil % 88.2 % Lymphocyte % 2.9 % Monocyte % 6.7 % Eosinophil % 0.9 % Basophils % 0.4 % Impression: 1. 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 A [employer] next generation sequencing study showed no actionable mutations. The PD-L1 was positive at 25%. A [employer] 360 study showed the presence of an exon 19 EGFR mutation ( L747P mutation). 2. She underwent video-assisted thoracotomy with biopsy of station 5 AP window lymph nodes on 11/09/2019. Her tumor was found to be invading the chest wall. 3. She has pre-existing GERD, adequately managed with medication. 4. She has moderately severe anemia with serum iron studies consistent with iron deficiency. On 12/03/2019 she began weekly carboplatin/paclitaxel chemotherapy, currently with radiation. Her week 1 chemotherapy infusion was stopped almost immediately due to hypersensitivity reaction to paclitaxel. She then returned on 12/04/2021 to restart treatment with week 1 carboplatin/Abraxane, which she began concurrently with radiation. She tolerated it well. She continued with her week 2 treatment on 12/12/2019. She is having some fatigue and anorexia for the first 2 to 3 days following treatment, but she is otherwise tolerating it well. In particular, she is having no neuropathy symptoms. She remains moderately anemic. Plan: She will continue with week 3 carboplatin/Abraxane. The dosages will remain the same. She will increase her iron supplement to twice a day. Her medications will otherwise remain the same. I will see her again in 1 week. Signed By: Beni Mahoney M.D. <<Signature on File>>
[2019-12-25 09:36] LABS: Basophils % 0.5 %; Eosinophils % 0.4 %; Hematocrit 32.8 % (37.0-47.0); Lymphocytes # 0.4 10^3/uL (0.8-4.8); Lymphocytes % 6.6 %; Mean Corpuscular HGB Conc 30.5 g/dL (30.0-36.0); Mean Corpuscular Hemoglobin 24.3 pg (28.0-34.0); Mean Corpuscular Volume 79.6 fL (81-99); Mean Platelet Volume 9.6 fL (7.4-10.4); Monocytes # 0.4 10^3/uL (0.2-0.9); Monocytes % 7.1 %; Neutrophils # 4.8 10^3/uL (1.8-7.7); Neutrophils % 84.9 %; Nucleated Red Blood Cells % 0 %; Platelet Count 212 10^3/cmm (130-400); Red Blood Count 4.12 10^6/uL (4.1-5.3); Red Cell Distribution Width 17.5 % (12.1-15.1); White Blood Count 5.6 10^3/uL (4.0-10.0)
--- NOTE | 2019-12-25 09:50 | ONCRAD TMN_ITS ---
Radiation Oncology Weekly Treatment Management Patient: KEN OLIVIER MR#: [id number] : 1975> Age: 44> Sex: Female Dictated by: Dr. Baljit Abreu Date of Service: 12/25/2019 Referring Physician(s) : Dr. Joel Carlos Jr Primary Diagnosis: C34.12 - Malignant neoplasm of upper lobe, left bronchus or lung, Diagnosed 11/15/2019 (Active) Stage IIIB, T3, N2, M0 Radiotherapy to date: Course: LT Lung, Treatment Site: LT [id number], Ref. ID: [id number], Energy: 6X, Dose/Fx (cGy): 200, #Fx: , Dose Correction (cGy): 0, Total Dose (cGy): 3,400, Start Date: 12/03/2019, Elapsed Days: Current Complaints/Interval History: Constitutional Complains of mild fatigue. Denies lack of appetite, fever, night sweats and change in weight. ENMT Denies dysphagia, stomatitis and altered taste. Integumentary Has no redness to the skin Cardiovascular Denies chest pain. Respiratory Complains of a mild cough and has improved. Denies dyspnea and wheezing. Current Medications: Abraxane, cARBOplatin, dexamethasone, dexamethasone Sodium Phosphate, diphenhydrAMINE HCl, famotidine in NaCl, ferrous Sulfate, hYDROcodone-Acetaminophen, lORazepam, lORazepam, magic Mouthwash, omeprazole, ondansetron HCl, palonosetron HCl, prochlorperazine Maleate, prochlorperazine Maleate. Allergies: No Known Allergies Vital Signs: Performed on 12/25/2019 9:25 AM BMI - 29.467 kg/m2 (high), Height - 68.00 in, Weight - 193.8 lbs, Temperature - 97.8 f, Pulse - 88, Respiration - 18, O2 Sat - 96 %, Pain - 0 and BP - 100/ 64 mm(hg)(/low). Physical Exam: Appears stable, no skin erythema or desquamation. Performance Status: 1 - No physically strenuous activity, but ambulatory and able to carry out light or sedentary work (e.g. office work, light house work). (ECOG) Lab: None pending in Radiation Oncology. Test performed on 12/03/2019 9:30 AM Iron - 20 mcg/dl (low), % Iron Saturation - 9.7 % (low), Test performed on 12/19/2019 8:10 AM RBC - 3.85 10 6/ul (low), HGB - 9.2 g/dl (low), HCT - 30.2 % (low), MCV - 78.4 fl (low), MCH - 23.9 pg (low), RDW - 16.3 % (high), Lymphocytes - 0.2 10 3/ul (low), Sodium - 135 mmol/l (low), Potassium - 3.3 mmol/l (low), Chloride - 95 mmol/l (low), eGFR - 67.4 ml/min (low) and Glucose - 130 mg/dl (high). Imaging: No new diagnostic imaging was performed since the last weekly treatment visit. All radiation therapy related imaging (including but not limited to kV, MV, and CBCT generated images) was reviewed. Appropriate changes, if any, were made to assure accurate target localization. Impression/Plan: Tolerating treatment well with expected side effects. Continue treatment as planned. CPT: 76212 Signed by: Dr. Baljit Abreu>12/25/2019 9:49:09 AM <<Signature on File>>
[2019-12-25 10:06] LABS: Alanine Aminotransferase 7 U/L (0-33); Albumin Level 3.8 g/dL (3.5-5.2); Alkaline Phosphatase 87 IU/L (35-105); Aspartate Amino Transferase 14 U/L (0-32); Blood Urea Nitrogen 8 mg/dL (6-20); Calcium 9.8 mg/dL (8.5-10.5); Carbon Dioxide 26 mmol/L (22-29); Chloride 96 mmol/L (98-107); Globulin 3.4 g/dL (1.3-4.6); Glomerular Filtration Rate 67.4 mL/min (90-130); Glucose 102 mg/dL (65-115); Osmolality Calculated 278 mOsm/kg (285-295); Sodium 136 mmol/L (136-145); Total Bilirubin 0.4 mg/dL (0.15-1.2); Total Protein 7.2 g/dL (6.6-8.7)
[2019-12-25] MEDS: sodium chloride 0.9% 100 ML 35 ML (11:10)
--- NOTE | 2019-12-26 | CT_ITS ---
Radiation Therapy Planning CT images; total exam DLP: 1075.44 mGy-cm MTDD
--- NOTE | 2019-12-26 10:29 | ONC FU_ITS ---
Dr. Mahoney Patient Follow-Up Note Patient: KEN OLIVIER < Unit #: [id number]: 1975 Dicatated By: Beni Mahoney M.D.Date of Visit:Dec 25, 2019 Onc Med Follow-up/Prog Note Chief Complaint: Lung cancer. 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 Her tumor was determined to be PD-L1 positive at 25%. 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 She is a non-smoker and she has been in good general health. In August she had seen her primary care physician with fever and cough, initially suspected to be pneumonia. Repeat chest x-ray after antibiotic therapy showed persistent mass in the left lung. Chest CT showed a large left upper lobe lung mass with associated mediastinal adenopathy, highly suspicious for malignancy. She underwent bronchoscopy on 09/17/2019 with brushings from the left upper lobe bronchus showing atypical cells, suspicious for malignancy. A repeat PET/CT on 10/10/2019 showed a 5.7 x 5.2 cm mass with SUV 22.7. A left hilar lymph node measuring 14 mm had elevated SUV of 5.0, and a small node in the aortopulmonary window had increased SUV at 4.4. There were no other areas of abnormal uptake. A left adrenal gland nodule measuring up to 2.5 cm appeared consistent with benign adenoma. On 11/12/2019 she underwent left video-assisted thorascopic surgical biopsy of station 5 AP window lymph nodes. At surgery it was noted that her tumor was invading the left chest wall. The AP window lymph nodes were found to be positive for metastatic carcinoma, and with those findings resection was not attempted. Pathology report indicated just scant malignant cells which were consistent with non-small cell carcinoma. A [employer] next generation sequencing study showed no actionable mutations. The PD-L1 was positive at 25%. I had seen her initially on 11/15/2019. In the setting of stage IIIb disease, she was recommended to undergo chemoradiation utilizing weekly cisplatin/paclitaxel. At the time I also recommended further molecular analysis with a [facility] 360 study. It showed the presence of an EGFR L747P mutation. Her only other medical illnesses GERD. She has a non-smoker. INTERIM HISTORY: On 12/03/2019 she began treatment with her week 1 carboplatin/paclitaxel concurrently with radiation. Her treatment had to be stopped due to an almost immediate hypersensitivity reaction to the paclitaxel. The reaction was adequately managed with IV Solu-Medrol, subcutaneous epinephrine, and other supportive measures which included IV fluids, oxygen, and albuterol/Atrovent by pulmonary nebulizer. She then returned on 12/05/2019 to restart treatment with carboplatin/Abraxane, which she tolerated without acute toxicity. She continued with her week 2 chemotherapy on 12/12/2019 and with week 3 on 12/19/2019. She is seen for a scheduled visit. She has been feeling good generally. She says her energy is decent. She is able to do light work. ECOG score is 1. She has good appetite. She has no fever or night sweats. She had sore mouth, but that has improved. She still has some cough, but that also is better. She does not complain of shortness of breath or chest pain. She has not been having nausea. Her acid reflux symptoms are being managed adequately with Prilosec. Constipation is being managed adequately with MiraLAX. She has no complaints. She has no significant joint or bone pain. She has no numbness/paresthesia or other symptoms of neuropathy. Medications: Ferrous Sulfate 1 Tablet (of 325 (65 fe) mg) Tablet Oral daily, HYDROcodone-Acetaminophen 1 Tablet (of 7.5-325 mg) Oral q 6 hours PRN, LORazepam 0.5 - 1 Tablet (of 1 mg) Oral t.i.d. PRN, Omeprazole 1 Tablet (of 20 mg) Capsule Delayed Release Oral daily, Ondansetron HCl 1 Tablet (of 4 mg) Tablet Oral q 6 hours PRN, Prochlorperazine Maleate 1 Tablet (of 10 mg) Oral q 4 hours PRN Allergies: No Known Allergies. Review of Systems: Constitutional - Her energy level is good. She has felt good over this past week. She is doing some light housework. Her appetite is better and weight is stable. No fever, chills, hot flashes, or night sweats. ECOG score is 1, ENMT - She has sinus drainage. Her mouth and throat soreness has improved. No difficulty swallowing, Hematologic/Lymphatic - No abnormal bruising or bleeding, Respiratory - No shortness of breath. No cough. No pleuritic pain or hemoptysis, Cardiovascular - No angina pain. No palpitations, Gastrointestinal - No nausea or vomiting. Her heartburn is well managed with Prilosec. No diarrhea. S he has constipation that is adequately managed with Miralax. No blood in the stool or black stools, Genitourinary (F) - No dysuria or hematuria. No urinary frequency. No urgency or incontinence, Musculoskeletal - No joint or bone pain, Integumentary - No skin complications, Neurologic - No headache or dizziness. No numbness/paresthesias or other focal neurologic symptoms, Psychiatric - No anxiety or depression. No insomnia, Constitutional - Complains of mild fatigue. Denies lack of appetite, fever, night sweats and change in weight, ENMT - Denies dysphagia, stomatitis and altered taste, Integumentary - Has no redness to the skin, Cardiovascular - Denies chest pain, Respiratory - Complains of a mild cough and has improved. Denies dyspnea and wheezing. Vital Signs: Performed on Dec 25, 2019 09:25 Height - 68.00 in Weight - 193.8 lbs Temperature - 97.8 F Pulse - 88 Respiration - 18 BP - 100/64 mm(hg) O2 Sat - 96 % Pain - 0 Performed on Dec 25, 2019 09:25 BMI - 29.467 kg/m2 (HIGH) Performed on Oct 26, 2019 10:30 Height - 68.00 in Weight - 194.2 lbs (HIGH) BSA - 2.02 sq.m BMI - 29.53 Temperature - 97.8 F (LOW) Pulse - 94 /min Respiration - 18 /min BP - 108/71 mm(hg) O2 Sat - 96 % Pain - 0 Physical Examination: Constitutional - She looks pretty good generally, Eyes - Sclerae nonicteric. Conjunctivae clear, ENMT - There are no lesions noted in the oral cavity, Hematologic/Lymphatic - No cervical, clavicular, or axillary adenopathy, Respiratory - Lungs sound clear, Cardiovascular - Heart rhythm is regular. There is no murmur, gallop, or rub noted, Abdomen - Soft and non-tender. Liver and spleen are not enlarged. There is no abdominal mass or ascites noted and there is no inguinal adenopathy, Extremities - No edema, Integumentary - No skin eruption, Neurologic - No focal neurologic deficits noted. Lab/Imaging: Test performed on Dec 25, 2019 09:10 Sodium 136 mmol/L Potassium 4.0 mmol/L Chloride 96 mmol/L CO2 26 mmol/L Anion Gap 18.0 BUN 8 mg/dL Creatinine 0.9 mg/dL Cr Clearance (Est) 111.7500 mL/min eGFR 67.4 mL/min Glucose 102 mg/dL Calcium 9.8 mg/dL Protein, Total 7.2 g/dL Albumin 3.8 g/dL Globulin 3.4 g/dL Bilirubin, Total 0.4 mg/dL ALT (SGPT) 7 U/L AST (SGOT) 14 U/L Alkaline Phosphatase 87 IU/L WBC 5.6 10 3/uL RBC 4.12 10 6/uL HGB 10.0 g/dL HCT 32.8 % MCV 79.6 fL MCH 24.3 pg MCHC 30.5 g/dL RDW 17.5 % Platelet Count 212 10 3/cmm MPV 9.6 fL Neutrophils 4.8 10 3/uL Lymphocytes 0.4 10 3/uL Monocytes 0.4 10 3/uL Eosinophils 0.0 10 3/uL Basophils 0.0 10 3/uL Neutrophil % 84.9 % Lymphocyte % 6.6 % Monocyte % 7.1 % Eosinophil % 0.4 % Basophils % 0.5 % Impression: 1. 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 A [employer] next generation sequencing study showed no actionable mutations. The PD-L1 was positive at 25%. A [employer] 360 study showed the presence of an exon 19 EGFR mutation ( L747P mutation). 2. She underwent video-assisted thoracotomy with biopsy of station 5 AP window lymph nodes on 11/09/2019. Her tumor was found to be invading the chest wall. 3. She has pre-existing GERD, adequately managed with medication. 4. She has moderately severe anemia with serum iron studies consistent with iron deficiency. On 12/03/2019 she began weekly carboplatin/paclitaxel chemotherapy, currently with radiation. Her week 1 chemotherapy infusion was stopped almost immediately due to hypersensitivity reaction to paclitaxel. She then returned on 12/04/2021 to restart treatment with week 1 carboplatin/Abraxane, which she began concurrently with radiation. She tolerated it well. She continued with her week 2 treatment on 12/12/2019 and with week 3 on 12/19/2019. She initially had some fatigue and anorexia following treatment, but thosse symptoms have improved. She has otherwise been tolerating it very well. She remains mildly anemic. Plan: She will continue with week 4 carboplatin/Abraxane and she continues her radiation. The chemotherapy dosages will remain the same. She will continue her iron supplement twice a day. I will see her again in 1 week. Signed By: Beni Mahoney M.D. <<Signature on File>>
[2020-01-02 09:59] LABS: Basophils % 1.1 %; Eosinophils % 0.4 %; Hematocrit 30.1 % (37.0-47.0); Hemoglobin 9.2 g/dL (11.5-15.3); Lymphocytes # 0.3 10^3/uL (0.8-4.8); Lymphocytes % 10.8 %; Mean Corpuscular HGB Conc 30.6 g/dL (30.0-36.0); Mean Corpuscular Hemoglobin 24.3 pg (28.0-34.0); Mean Corpuscular Volume 79.6 fL (81-99); Mean Platelet Volume 9.8 fL (7.4-10.4); Monocytes # 0.2 10^3/uL (0.2-0.9); Monocytes % 8.3 %; Neutrophils # 2.2 10^3/uL (1.8-7.7); Neutrophils % 78.7 %; Nucleated Red Blood Cells % 0 %; Platelet Count 119 10^3/cmm (130-400); Red Blood Count 3.78 10^6/uL (4.1-5.3); Red Cell Distribution Width 19.5 % (12.1-15.1); White Blood Count 2.8 10^3/uL (4.0-10.0)
[2020-01-02 10:19] LABS: Alanine Aminotransferase 11 U/L (0-33); Albumin Level 3.8 g/dL (3.5-5.2); Alkaline Phosphatase 78 IU/L (35-105); Anion Gap 14.8 (5-19); Aspartate Amino Transferase 15 U/L (0-32); Blood Urea Nitrogen 8 mg/dL (6-20); Calcium 9.4 mg/dL (8.5-10.5); Carbon Dioxide 27 mmol/L (22-29); Chloride 102 mmol/L (98-107); Globulin 2.6 g/dL (1.3-4.6); Glomerular Filtration Rate 77.2 mL/min (90-130); Glucose 90 mg/dL (65-115); Osmolality Calculated 285 mOsm/kg (285-295); Potassium 3.8 mmol/L (3.5-5.1); Sodium 140 mmol/L (136-145); Total Bilirubin 0.4 mg/dL (0.15-1.2); Total Protein 6.4 g/dL (6.6-8.7)
[2020-01-02] MEDS: sodium chloride 0.9% 250 ML 75 ML IV (12:35)
--- NOTE | 2020-01-02 13:48 | ONCRAD TMN_ITS ---
Radiation Oncology Weekly Treatment Management Patient: KEN OLIVIER MR#: [id number] : 1975> Age: 44> Sex: Female Dictated by: Kurt Menendez Date of Service: 01/02/2020 Referring Physician(s) : Dr. Joel Carlos Jr Primary Diagnosis: C34.12 - Malignant neoplasm of upper lobe, left bronchus or lung, Diagnosed 11/15/2019 (Active) Stage IIIB, T3, N2, M0 Radiotherapy to date: Course: LT Lung, Treatment Site: LT [id number], Ref. ID: [id number], Energy: 6X, Dose/Fx (cGy): 200, #Fx: , Dose Correction (cGy): 0, Total Dose (cGy): 4,400, Start Date: 12/03/2019, End Date: 01/01/2020, Elapsed Days: 29 Treatment Site: [id number], Ref. ID: [id number], Energy: 6X, Dose/Fx (cGy): 200, #Fx: , Dose Correction (cGy): 0, Total Dose (cGy): 200, Start Date: 01/02/2020, Elapsed Days: 0 Current Complaints/Interval History: Had an episode of presumed thrush that cleared with gargling and magic mouth wash. Eating ok with normal swallowing. No F,C,N,or V. Cough improved now just sinus drainage. Energy ok with mild fatigue. Constitutional Complains of mild fatigue off and on. Denies lack of appetite, fever, night sweats and change in weight. ENMT Denies dysphagia. Cardiovascular Denies chest pain. Respiratory Complains of a mild cough which happens occasionally. Denies dyspnea, hemoptysis and wheezing. Current Medications: Abraxane, cARBOplatin, dexamethasone, dexamethasone Sodium Phosphate, diphenhydrAMINE HCl, famotidine in NaCl, ferrous Sulfate, hYDROcodone-Acetaminophen, lORazepam, magic Mouthwash, omeprazole, ondansetron HCl, palonosetron HCl, prochlorperazine Maleate, prochlorperazine Maleate. Allergies: No Known Allergies Vital Signs: Performed on 01/02/2020 8:43 AM BMI - 29.559 kg/m2 (high), Height - 68.00 in, Weight - 194.4 lbs, Temperature - 97.7 f, Pulse - 91, Respiration - 20, O2 Sat - 98 %, Pain - 0 and BP - 104/ 73 mm(hg). Physical Exam: Appears stable, no skin erythema or desquamation. Performance Status: 1 - No physically strenuous activity, but ambulatory and able to carry out light or sedentary work (e.g. office work, light house work). (ECOG) Lab: None pending in Radiation Oncology. Test performed on 12/03/2019 9:30 AM Iron - 20 mcg/dl (low), % Iron Saturation - 9.7 % (low), Test performed on 12/25/2019 9:10 AM HGB - 10.0 g/dl (low), HCT - 32.8 % (low), MCV - 79.6 fl (low), MCH - 24.3 pg (low), RDW - 17.5 % (high), Lymphocytes - 0.4 10 3/ul (low), Chloride - 96 mmol/l (low) and eGFR - 67.4 ml/min (low). Imaging: No new diagnostic imaging was performed since the last weekly treatment visit. All radiation therapy related imaging (including but not limited to kV, MV, and CBCT generated images) was reviewed. Appropriate changes, if any, were made to assure accurate target localization. Impression/Plan: Tolerating treatment well with expected side effects. Continue treatment as planned. CPT: 48526 Signed by: Dr. Kurt Menendez>01/02/2020 1:48:33 PM <<Signature on File>>
--- NOTE | 2020-01-05 14:29 | ONC FU_ITS ---
Dr. Mahoney Patient Follow-Up Note Patient: KEN OLIVIER < Unit #: [id number]: 1975 Dicatated By: Beni Mahoney M.D.Date of Visit:Jan 02, 2020 Onc Med Follow-up/Prog Note Chief Complaint: Lung cancer. 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 Her tumor was determined to be PD-L1 positive at 25%. 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 She is a non-smoker and she has been in good general health. In August she had seen her primary care physician with fever and cough, initially suspected to be pneumonia. Repeat chest x-ray after antibiotic therapy showed persistent mass in the left lung. Chest CT showed a large left upper lobe lung mass with associated mediastinal adenopathy, highly suspicious for malignancy. She underwent bronchoscopy on 09/17/2019 with brushings from the left upper lobe bronchus showing atypical cells, suspicious for malignancy. A repeat PET/CT on 10/10/2019 showed a 5.7 x 5.2 cm mass with SUV 22.7. A left hilar lymph node measuring 14 mm had elevated SUV of 5.0, and a small node in the aortopulmonary window had increased SUV at 4.4. There were no other areas of abnormal uptake. A left adrenal gland nodule measuring up to 2.5 cm appeared consistent with benign adenoma. On 11/12/2019 she underwent left video-assisted thorascopic surgical biopsy of station 5 AP window lymph nodes. At surgery it was noted that her tumor was invading the left chest wall. The AP window lymph nodes were found to be positive for metastatic carcinoma, and with those findings resection was not attempted. Pathology report indicated just scant malignant cells which were consistent with non-small cell carcinoma. A [employer] next generation sequencing study showed no actionable mutations. The PD-L1 was positive at 25%. I had seen her initially on 11/15/2019. In the setting of stage IIIb disease, she was recommended to undergo chemoradiation utilizing weekly cisplatin/paclitaxel. At the time I also recommended further molecular analysis with a [facility] study. It showed the presence of an EGFR L747P mutation. Her only other medical illnesses GERD. She has a non-smoker. INTERIM HISTORY: On 12/03/2019 she began treatment with her week 1 carboplatin/paclitaxel concurrently with radiation. Her treatment had to be stopped due to an almost immediate hypersensitivity reaction to the paclitaxel. The reaction was adequately managed with IV Solu-Medrol, subcutaneous epinephrine, and other supportive measures which included IV fluids, oxygen, and albuterol/Atrovent by pulmonary nebulizer. She then returned on 12/05/2019 to restart treatment with carboplatin/Abraxane, which she tolerated without acute toxicity. She continued with her week 2 chemotherapy on 12/12/2019, with week 3 on 12/19/2019, and with week 4 on 12/25/2019. She is seen for a scheduled visit. She has been feeling pretty good generally. She has had more fatigue since her treatment last week. During the first night after that treatment and she had an episode in which she became very chilled and then felt very hot. She then had a couple of episodes of vomiting. Her appetite was down for a couple of days. She is still doing light work. ECOG score is 1. She has had no mouth sores. She has some cough, but not that bad. She does not complain of shortness of breath. She has occasional sharp pain in the chest. She has no other GI or complaints. She has no significant joint or bone pain. She has had a little shaking in her hands at times. She has had no numbness/paresthesia or other symptoms of neuropathy. Medications: Ferrous Sulfate 1 Tablet (of 325 (65 fe) mg) Tablet Oral daily, HYDROcodone-Acetaminophen 1 Tablet (of 7.5-325 mg) Oral q 6 hours PRN, LORazepam 0.5 - 1 Tablet (of 1 mg) Oral t.i.d. PRN, Omeprazole 1 Tablet (of 20 mg) Capsule Delayed Release Oral daily, Ondansetron HCl 1 Tablet (of 4 mg) Tablet Oral q 6 hours PRN, Prochlorperazine Maleate 1 Tablet (of 10 mg) Oral q 4 hours PRN Allergies: No Known Allergies. Review of Systems: Constitutional - Her energy level has declined somewthat. Her appetite is good and weight is stable. No fever. She had an episode of chilling followed by hot flashes the day after her last treatment. No sweating. ECOG score is 1, ENMT - She has sinus drainage. No mouth sores. No sore throat or difficulty swallowing, Hematologic/Lymphatic - No abnormal bruising or bleeding, Respiratory - No shortness of breath. She has a slight cough. No pleuritic pain or hemoptysis, Cardiovascular - No angina pain. No palpitations, Gastrointestinal - She had some nausea and vomiting the day after last treatment, since resolved. Her acid reflux is well managed with Prilosec. No diarrhea or constipation. No blood in the stool or black stools, Genitourinary (F) - No dysuria or hematuria. No urinary frequency. No urgency or incontinence, Musculoskeletal - No joint or bone pain, Integumentary - No skin complications, Neurologic - No headache or dizziness. No numbness/paresthesias. She is having some intermittent shaking in hands, Psychiatric - No anxiety or depression. No insomnia, Constitutional - Complains of mild fatigue off and on. Denies lack of appetite, fever, night sweats and change in weight, ENMT - Denies dysphagia, Cardiovascular - Denies chest pain, Respiratory - Complains of a mild cough which happens occasionally. Denies dyspnea, hemoptysis and wheezing. Vital Signs: Performed on Jan 02, 2020 11:20 Height - 68.00 in Weight - 194.4 lbs BSA - 2.02 sq.m BMI - 29.56 Temperature - 97.7 F (LOW) Pulse - 91 /min Respiration - 20 /min BP - 104/73 mm(hg) O2 Sat - 98 % Pain - 0 Performed on Jan 02, 2020 08:43 Height - 68.00 in Weight - 194.4 lbs Temperature - 97.7 F Pulse - 91 Respiration - 20 BP - 104/73 mm(hg) O2 Sat - 98 % Pain - 0 Performed on Jan 02, 2020 08:43 BMI - 29.559 kg/m2 (HIGH) Physical Examination: Constitutional - She looks pretty good generally, Eyes - Sclerae nonicteric. Conjunctivae clear, ENMT - No lesions noted in the oral cavity, Hematologic/Lymphatic - No cervical, clavicular, or axillary adenopathy, Respiratory - Lungs are clear with good air movement bilaterally, Cardiovascular - Heart rhythm is regular. There is no murmur, gallop, or rub noted, Abdomen - Soft and non-tender. Liver and spleen are not enlarged. There is no abdominal mass or ascites noted and there is no inguinal adenopathy, Extremities - No edema, Integumentary - No skin eruption, Neurologic - No focal neurologic deficits noted. Lab/Imaging: Test performed on Jan 02, 2020 09:45 Sodium 140 mmol/L Potassium 3.8 mmol/L Chloride 102 mmol/L CO2 27 mmol/L Anion Gap 14.8 BUN 8 mg/dL Creatinine 0.8 mg/dL Cr Clearance (Est) 125.7200 mL/min eGFR 77.2 mL/min Glucose 90 mg/dL Calcium 9.4 mg/dL Protein, Total 6.4 g/dL Albumin 3.8 g/dL Globulin 2.6 g/dL Bilirubin, Total 0.4 mg/dL ALT (SGPT) 11 U/L AST (SGOT) 15 U/L Alkaline Phosphatase 78 IU/L WBC 2.8 10 3/uL RBC 3.78 10 6/uL HGB 9.2 g/dL HCT 30.1 % MCV 79.6 fL MCH 24.3 pg MCHC 30.6 g/dL RDW 19.5 % Platelet Count 119 10 3/cmm MPV 9.8 fL Neutrophils 2.2 10 3/uL Lymphocytes 0.3 10 3/uL Monocytes 0.2 10 3/uL Eosinophils 0.0 10 3/uL Basophils 0.0 10 3/uL Neutrophil % 78.7 % Lymphocyte % 10.8 % Monocyte % 8.3 % Eosinophil % 0.4 % Basophils % 1.1 % Impression: 1. 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 A [employer] next generation sequencing study showed no actionable mutations. The PD-L1 was positive at 25%. A [employer] 360 study showed the presence of an exon 19 EGFR mutation ( L747P mutation). 2. She underwent video-assisted thoracotomy with biopsy of station 5 AP window lymph nodes on 11/09/2019. Her tumor was found to be invading the chest wall. 3. She has pre-existing GERD, adequately managed with medication. 4. She has moderately severe anemia with serum iron studies consistent with iron deficiency. On 12/03/2019 she began weekly carboplatin/paclitaxel chemotherapy, currently with radiation. Her week 1 chemotherapy infusion was stopped almost immediately due to hypersensitivity reaction to paclitaxel. She then returned on 12/04/2021 to restart treatment with week 1 carboplatin/Abraxane, which she began concurrently with radiation. She tolerated it well. She continued with her week 2 treatment on 12/12/2019, with week 3 on 12/19/2019, and with week 4 on 12/25/2019. She has had some fatigue and anorexia with the chemotherapy. Following her week 4 treatment she also had an episode in which she became chilled and then hot, and she had a couple episodes of vomiting. She remains moderately anemic. Overall, though, she is tolerating the treatment well. Plan: She will continue with week 5 carboplatin/Abraxane and she continues her radiation. The chemotherapy dosages will remain the same. I will see her for her 6th treatment in 1 week. Signed By: Beni Mahoney M.D. <<Signature on File>>
[2020-01-08 09:09] LABS: Basophils % 1.3 %; Eosinophils % 1.3 %; Hematocrit 28.5 % (37.0-47.0); Hemoglobin 8.8 g/dL (11.5-15.3); Lymphocytes # 0.3 10^3/uL (0.8-4.8); Lymphocytes % 17.4 %; Mean Corpuscular HGB Conc 30.9 g/dL (30.0-36.0); Mean Corpuscular Hemoglobin 24.3 pg (28.0-34.0); Mean Corpuscular Volume 78.7 fL (81-99); Mean Platelet Volume 10.2 fL (7.4-10.4); Monocytes # 0.1 10^3/uL (0.2-0.9); Monocytes % 5.4 %; Neutrophils # 1.1 10^3/uL (1.8-7.7); Neutrophils % 73.3 %; Nucleated Red Blood Cells % 0 %; Platelet Count 68 10^3/cmm (130-400); Red Blood Count 3.62 10^6/uL (4.1-5.3); Red Cell Distribution Width 20.6 % (12.1-15.1); White Blood Count 1.5 10^3/uL (4.0-10.0)
[2020-01-08 09:19] LABS: Alanine Aminotransferase 18 U/L (0-33); Albumin Level 4.1 g/dL (3.5-5.2); Alkaline Phosphatase 68 IU/L (35-105); Anion Gap 16.9 (5-19); Aspartate Amino Transferase 17 U/L (0-32); Blood Urea Nitrogen 9 mg/dL (6-20); Calcium 9.3 mg/dL (8.5-10.5); Carbon Dioxide 26 mmol/L (22-29); Chloride 99 mmol/L (98-107); Globulin 2.9 g/dL (1.3-4.6); Glomerular Filtration Rate 90.1 mL/min (90-130); Glucose 99 mg/dL (65-115); Osmolality Calculated 282 mOsm/kg (285-295); Potassium 3.9 mmol/L (3.5-5.1); Sodium 138 mmol/L (136-145); Total Bilirubin 0.5 mg/dL (0.15-1.2)
--- NOTE | 2020-01-08 13:12 | ONCRAD TMN_ITS ---
Radiation Oncology Weekly Treatment Management Patient: KEN OLIVIER MR#: [id number] : 1975> Age: 44> Sex: Female Dictated by: Dr. Kurt Menendez Date of Service: 01/08/2020 Referring Physician(s) : Dr. Joel Carlos Jr Primary Diagnosis: C34.12 - Malignant neoplasm of upper lobe, left bronchus or lung, Diagnosed 11/15/2019 (Active) Stage IIIB, T3, N2, M0 Radiotherapy to date: Course: LT Lung, Treatment Site: LT [id number], Ref. ID: [id number], Energy: 6X, Dose/Fx (cGy): 200, #Fx: , Dose Correction (cGy): 0, Total Dose (cGy): 4,400, Start Date: 12/03/2019, End Date: 01/01/2020, Elapsed Days: 29 Treatment Site: [id number], Ref. ID: [id number], Energy: 6X, Dose/Fx (cGy): 200, #Fx: , Dose Correction (cGy): 0, Total Dose (cGy): 1,000, Start Date: 01/02/2020, Elapsed Days: 6 Current Complaints/Interval History: Loss of appetite but some improvement over the last 1 ??? days. Energy ok. Swallowing ok. No WIGGINS, N or V. Resumes chemo today if CBC is ok. Constitutional Complains of lack of appetite. Complains of mild fatigue. Complains of change in weight in which she is down 3.2 lbs. since last OTV. Denies fever and night sweats. ENMT Complains of altered taste. Denies dysphagia and stomatitis. Cardiovascular Denies arrhythmias, chest pain and edema. Respiratory Denies cough, dyspnea, hemoptysis and wheezing. Current Medications: Abraxane, cARBOplatin, dexamethasone, dexamethasone Sodium Phosphate, diphenhydrAMINE HCl, famotidine in NaCl, ferrous Sulfate, hYDROcodone-Acetaminophen, lORazepam, magic Mouthwash, omeprazole, ondansetron HCl, palonosetron HCl, prochlorperazine Maleate, prochlorperazine Maleate. Allergies: No Known Allergies Vital Signs: Performed on 01/08/2020 9:06 AM BMI - 29.072 kg/m2 (high), Height - 68.00 in, Weight - 191.2 lbs, Temperature - 97.0 f, Pulse - 90, Respiration - 18, O2 Sat - 98 %, Pain - 0 and BP - 106/ 75 mm(hg). Physical Exam: Appears stable, no skin erythema or desquamation. Performance Status: 1 - No physically strenuous activity, but ambulatory and able to carry out light or sedentary work (e.g. office work, light house work). (ECOG) Lab: None pending in Radiation Oncology. Test performed on 12/03/2019 9:30 AM Iron - 20 mcg/dl (low), % Iron Saturation - 9.7 % (low), Test performed on 01/02/2020 9:45 AM WBC - 2.8 10 3/ul (low), RBC - 3.78 10 6/ul (low), HGB - 9.2 g/dl (low), HCT - 30.1 % (low), MCV - 79.6 fl (low), MCH - 24.3 pg (low), RDW - 19.5 % (high), Platelet Count - 119 10 3/cmm (low), Lymphocytes - 0.3 10 3/ul (low), eGFR - 77.2 ml/min (low) and Protein, Total - 6.4 g/dl (low). Imaging: No new diagnostic imaging was performed since the last weekly treatment visit. All radiation therapy related imaging (including but not limited to kV, MV, and CBCT generated images) was reviewed. Appropriate changes, if any, were made to assure accurate target localization. Impression/Plan: Tolerating treatment well with expected side effects. Continue treatment as planned. CPT: 84834 Signed by: Dr. Kurt Menendez>01/08/2020 1:10:56 PM <<Signature on File>>
--- NOTE | 2020-01-09 12:55 | ONC FU_ITS ---
Dr. Mahoney Patient Follow-Up Note Patient: KEN OLIVIER < Unit #: [id number]: 1975 Dicatated By: Beni Mahoney M.D.Date of Visit:Jan 08, 2020 Onc Med Follow-up/Prog Note Chief Complaint: Lung cancer. 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 Her tumor was determined to be PD-L1 positive at 25%. 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 She is a non-smoker and she has been in good general health. In August she had seen her primary care physician with fever and cough, initially suspected to be pneumonia. Repeat chest x-ray after antibiotic therapy showed persistent mass in the left lung. Chest CT showed a large left upper lobe lung mass with associated mediastinal adenopathy, highly suspicious for malignancy. She underwent bronchoscopy on 09/17/2019 with brushings from the left upper lobe bronchus showing atypical cells, suspicious for malignancy. A repeat PET/CT on 10/10/2019 showed a 5.7 x 5.2 cm mass with SUV 22.7. A left hilar lymph node measuring 14 mm had elevated SUV of 5.0, and a small node in the aortopulmonary window had increased SUV at 4.4. There were no other areas of abnormal uptake. A left adrenal gland nodule measuring up to 2.5 cm appeared consistent with benign adenoma. On 11/12/2019 she underwent left video-assisted thorascopic surgical biopsy of station 5 AP window lymph nodes. At surgery it was noted that her tumor was invading the left chest wall. The AP window lymph nodes were found to be positive for metastatic carcinoma, and with those findings resection was not attempted. Pathology report indicated just scant malignant cells which were consistent with non-small cell carcinoma. A [employer] next generation sequencing study showed no actionable mutations. The PD-L1 was positive at 25%. I had seen her initially on 11/15/2019. In the setting of stage IIIb disease, she was recommended to undergo chemoradiation utilizing weekly cisplatin/paclitaxel. At the time I also recommended further molecular analysis [facility]. It showed the presence of an EGFR L747P mutation. Her only other medical illnesses GERD. She has a non-smoker. INTERIM HISTORY: On 12/03/2019 she began treatment with her week 1 carboplatin/paclitaxel concurrently with radiation. Her treatment had to be stopped due to an almost immediate hypersensitivity reaction to the paclitaxel. The reaction was adequately managed with IV Solu-Medrol, subcutaneous epinephrine, and other supportive measures which included IV fluids, oxygen, and albuterol/Atrovent by pulmonary nebulizer. She then returned on 12/05/2019 to restart treatment with carboplatin/Abraxane, which she tolerated without acute toxicity. She continued with her week 2 chemotherapy on 12/12/2019, with week 3 on 12/19/2019, and with week 4 on 12/25/2019. She is seen for a scheduled visit. She has been feeling a little well for this past week. She again had a chill followed by 1 episode of nausea/vomiting during the evening after her treatment last week. Since then she has been more tired and she has had no appetite. She has had no mouth sores. She has barely any residual cough, and she does not complain of shortness of breath. She has just occasional twinge of pain in the chest area. She has no other GI or complaints. She has no significant joint or bone pain. She has no numbness/paresthesia or other focal neurologic symptoms. Medications: Ferrous Sulfate 1 Tablet (of 325 (65 fe) mg) Tablet Oral daily, HYDROcodone-Acetaminophen 1 Tablet (of 7.5-325 mg) Oral q 6 hours PRN, LORazepam 0.5 - 1 Tablet (of 1 mg) Oral t.i.d. PRN, Omeprazole 1 Tablet (of 20 mg) Capsule Delayed Release Oral daily, Ondansetron HCl 1 Tablet (of 4 mg) Tablet Oral q 6 hours PRN, Prochlorperazine Maleate 1 Tablet (of 10 mg) Oral q 4 hours PRN Allergies: Review of Systems: Constitutional - She is feeling slightly weaker, and her energy is low. Her appetite is good and weight is stable. No fever. She had one episode of chills after last treatment. No hot flashes or night sweats. ECOG score is 1, ENMT - No sinus congestion/drainage. No mouth sores. No sore throat or difficulty swallowing, Hematologic/Lymphatic - No abnormal bruising or bleeding, Respiratory - No shortness of breath. Her cough is improved. No pleuritic pain or hemoptysis, Cardiovascular - No angina pain. No palpitations, Gastrointestinal - She had one episode of nausea or vomiting following last treatment, since resolved. Her heartburn is well managed with Prilosec twice daily. No diarrhea or constipation. No blood in the stool or black stools, Genitourinary (F) - No dysuria or hematuria. No urinary frequency. No urgency or incontinence, Musculoskeletal - No joint or bone pain, Integumentary - No skin complications, Neurologic - No headache or dizziness. No numbness/paresthesias or other focal neurologic symptoms, Psychiatric - No anxiety or depression. No insomnia, Constitutional - Complains of lack of appetite. Complains of mild fatigue. Complains of change in weight in which she is down 3.2 lbs. since last OTV. Denies fever and night sweats, ENMT - Complains of altered taste. Denies dysphagia and stomatitis, Cardiovascular - Denies arrhythmias, chest pain and edema, Respiratory - Denies cough, dyspnea, hemoptysis and wheezing. Vital Signs: Performed on Jan 08, 2020 09:06 Height - 68.00 in Weight - 191.2 lbs Temperature - 97.0 F Pulse - 90 Respiration - 18 BP - 106/75 mm(hg) O2 Sat - 98 % Pain - 0 Performed on Jan 08, 2020 09:06 BMI - 29.072 kg/m2 (HIGH) Physical Examination: Constitutional - She still looks pretty good generally, Eyes - Sclerae nonicteric. Conjunctivae clear, ENMT - No lesions noted in the oral cavity, Hematologic/Lymphatic - No cervical, clavicular, or axillary adenopathy, Respiratory - Lungs sound clear, Cardiovascular - Heart rhythm is regular. There is no murmur, gallop, or rub noted, Abdomen - Soft and non-tender. Liver and spleen are not enlarged. There is no abdominal mass or ascites noted and there is no inguinal adenopathy, Extremities - No edema, Integumentary - No skin eruption, Neurologic - No focal neurologic deficits noted. Lab/Imaging: Test performed on Jan 08, 2020 08:50 Sodium 138 mmol/L Potassium 3.9 mmol/L Chloride 99 mmol/L CO2 26 mmol/L Anion Gap 16.9 BUN 9 mg/dL Creatinine 0.7 mg/dL Cr Clearance (Est) 143.6800 mL/min eGFR 90.1 mL/min Glucose 99 mg/dL Calcium 9.3 mg/dL Protein, Total 7.0 g/dL Albumin 4.1 g/dL Globulin 2.9 g/dL Bilirubin, Total 0.5 mg/dL ALT (SGPT) 18 U/L AST (SGOT) 17 U/L Alkaline Phosphatase 68 IU/L WBC 1.5 10 3/uL RBC 3.62 10 6/uL HGB 8.8 g/dL HCT 28.5 % MCV 78.7 fL MCH 24.3 pg MCHC 30.9 g/dL RDW 20.6 % Platelet Count 68 10 3/cmm MPV 10.2 fL Neutrophils 1.1 10 3/uL Lymphocytes 0.3 10 3/uL Monocytes 0.1 10 3/uL Eosinophils 0.0 10 3/uL Basophils 0.0 10 3/uL Neutrophil % 73.3 % Lymphocyte % 17.4 % Monocyte % 5.4 % Eosinophil % 1.3 % Basophils % 1.3 % Impression: 1. 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 A [employer] next generation sequencing study showed no actionable mutations. The PD-L1 was positive at 25%. A [employer] study showed the presence of an exon 19 EGFR mutation ( L747P mutation). 2. She underwent video-assisted thoracotomy with biopsy of station 5 AP window lymph nodes on 11/09/2019. Her tumor was found to be invading the chest wall. 3. She has pre-existing GERD, adequately managed with medication. 4. She has moderately severe anemia with serum iron studies consistent with iron deficiency. On 12/03/2019 she began weekly carboplatin/paclitaxel chemotherapy, currently with radiation. Her week 1 chemotherapy infusion was stopped almost immediately due to hypersensitivity reaction to paclitaxel. She then returned on 12/04/2021 to restart treatment with week 1 carboplatin/Abraxane, which she began concurrently with radiation. She tolerated it well. She continued with her week 2 treatment on 12/12/2019, with week 3 on 12/19/2019, and with week 4 on 12/25/2019. She has had some fatigue and anorexia with the chemotherapy. Following her week 4 she also had an episode in which she became chilled and then hot, and she had a couple episodes of vomiting. She again experienced a chill followed by nausea/vomiting after her week 5 treatment. She has since then had more fatigue and anorexia, and there has been further decline in her blood counts. Plan: In view of her declining blood counts and performance status, I am going to withhold her week 6 chemotherapy. She will continue with radiation. She also will continue her oral iron supplement. I will see her again in 2 weeks. I will repeat her serum iron studies with that visit. If she is not showing response to the oral iron supplementation, I will plan then to give her parenteral iron replacement with Injectafer. In addition, she will then be evaluated for maintenance immunotherapy with durvalumab. Signed By: Beni Mahoney M.D. <<Signature on File>>
== END 2020-01-10 23:59 | disposition home or self-care (01) ==
LOC: ONCMED 06:49
PROVIDERS: Internal Medicine Medical Oncology; Absent Provider Radiology Radiation Oncology; PCP Family Medicine; Referring Provider Surgery; Visit Provider Radiology Radiation Oncology
DX: Z51.0 Encounter for antineoplastic radiation therapy (principal); Z51.11 Encounter for antineoplastic chemotherapy; C34.12 Malignant neoplasm of upper lobe, left bronchus or lung; D64.9 Anemia, unspecified; K21.9 Gastro-esophageal reflux disease without esophagitis; Z79.899 Other long term (current) drug therapy; Z79.891 Long term (current) use of opiate analgesic
CPT/HCPCS: 36591; 77300; 77301; 77336; 77338; 77386; 80053; 85025; 96367; 96413; 96417; 99214; J1100; J1200; J2469; J3490; J7050; J9045; J9264

== ENCOUNTER 2020-01-30 06:45 | Outpatient (RCR) | payer BC, SELFPAY ==
[2020-01-30 15:50] LABS: Basophils % 0.8 %; Hematocrit 29.4 % (37.0-47.0); Hemoglobin 9.4 g/dL (11.5-15.3); Lymphocytes # 0.5 10^3/uL (0.8-4.8); Lymphocytes % 12.1 %; Mean Corpuscular Hemoglobin 28.9 pg (28.0-34.0); Mean Corpuscular Volume 90.5 fL (81-99); Mean Platelet Volume 9.7 fL (7.4-10.4); Monocytes # 0.5 10^3/uL (0.2-0.9); Monocytes % 12.9 %; Neutrophils # 2.8 10^3/uL (1.8-7.7); Neutrophils % 72.7 %; Nucleated Red Blood Cells % 0 %; Platelet Count 244 10^3/cmm (130-400); Positive M 1; Red Blood Count 3.25 10^6/uL (4.1-5.3); White Blood Count 3.9 10^3/uL (4.0-10.0)
[2020-01-30 16:14] LABS: Alanine Aminotransferase 11 U/L (0-33); Albumin Level 3.7 g/dL (3.5-5.2); Alkaline Phosphatase 63 IU/L (35-105); Anion Gap 13.7 (5-19); Aspartate Amino Transferase 15 U/L (0-32); Blood Urea Nitrogen 12 mg/dL (6-20); Calcium 9.1 mg/dL (8.5-10.5); Carbon Dioxide 24 mmol/L (22-29); Chloride 107 mmol/L (98-107); Ferritin 45 ng/mL (15-150); Globulin 2.5 g/dL (1.3-4.6); Glomerular Filtration Rate 77.2 mL/min (90-130); Glucose 100 mg/dL (65-115); Iron 194 ug/dL (37-145); Osmolality Calculated 288 mOsm/kg (285-295); Percent Saturation 91.5 % (20-50); Potassium 3.7 mmol/L (3.5-5.1); Sodium 141 mmol/L (136-145); Thyroid Stimulating Hormone 2.36 uIU/mL (0.27-4.20); Total Bilirubin 0.3 mg/dL (0.15-1.2); Total Iron Binding Capacity 212 mcg/dl; Total Protein 6.2 g/dL (6.6-8.7); Unsaturated Iron Binding 18 ug/dL (112-347)
--- NOTE | 2020-02-03 12:21 | ONC FU_ITS ---
Dr. Mahoney Patient Follow-Up Note Patient: KEN OLIVIER Unit #: [id number]: 1975 Dicatated By: Beni Mahoney M.D.Date of Visit:January 30, 2020 Onc Med Follow-up/Prog Note Chief Complaint: Lung cancer. 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 Her tumor was determined to be PD-L1 positive at 25%. 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 She is a non-smoker and she has been in good general health. In August she had seen her primary care physician with fever and cough, initially suspected to be pneumonia. Repeat chest x-ray after antibiotic therapy showed persistent mass in the left lung. Chest CT showed a large left upper lobe lung mass with associated mediastinal adenopathy, highly suspicious for malignancy. She underwent bronchoscopy on 09/17/2019 with brushings from the left upper lobe bronchus showing atypical cells, suspicious for malignancy. A repeat PET/CT on 10/10/2019 showed a 5.7 x 5.2 cm mass with SUV 22.7. A left hilar lymph node measuring 14 mm had elevated SUV of 5.0, and a small node in the aortopulmonary window had increased SUV at 4.4. There were no other areas of abnormal uptake. A left adrenal gland nodule measuring up to 2.5 cm appeared consistent with benign adenoma. On 11/12/2019 she underwent left video-assisted thorascopic surgical biopsy of station 5 AP window lymph nodes. At surgery it was noted that her tumor was invading the left chest wall. The AP window lymph nodes were found to be positive for metastatic carcinoma, and with those findings resection was not attempted. Pathology report indicated just scant malignant cells which were consistent with non-small cell carcinoma. A [employer] next generation sequencing study showed no actionable mutations. The PD-L1 was positive at 25%. I had seen her initially on 11/15/2019. In the setting of stage IIIb disease, she was recommended to undergo chemoradiation utilizing weekly cisplatin/paclitaxel. At the time I also recommended further molecular analysis with a [employer] study. It showed the presence of an EGFR L747P mutation. Her only other medical illnesses GERD. She has a non-smoker. INTERIM HISTORY: On 12/03/2019 she began treatment with her week 1 carboplatin/paclitaxel concurrently with radiation. Her treatment had to be stopped due to an almost immediate hypersensitivity reaction to the paclitaxel. The reaction was adequately managed with IV Solu-Medrol, subcutaneous epinephrine, and other supportive measures which included IV fluids, oxygen, and albuterol/Atrovent by pulmonary nebulizer. She then returned on 12/05/2019 to restart treatment with carboplatin/Abraxane, which she tolerated without acute toxicity. She continued with her week 2 chemotherapy on 12/12/2019, with week 3 on 12/19/2019, with week 4 on 12/25/2019, and with week 5 on 01/02/2020. Her week 6 treatment was held due to declining blood counts and performance status. She completed radiation on 01/16/2020 to a total dose of 6600 cGy. She is seen for a scheduled visit. She has been feeling better generally since completing treatment. Her energy and activity tolerance have improved. Her ECOG score is 1. She has good appetite. She has no fever or night sweats. Her main complaint is that she has had occasional episodes of gasping for a deep breath, though she doesn't really feel short of breath. She does not have cough. She has had some discomfort in her chest or back on the left side. She recurrently has no GI or complaints. She has no other joint or bone pain. She does not complain of headache. She does tend to get dizzy if she bends over. She has no focal neurologic symptoms. She still has some shaking. Medications: Ferrous Sulfate 1 Tablet (of 325 (65 fe) mg) Tablet Oral daily, HYDROcodone-Acetaminophen 1 Tablet (of 7.5-325 mg) Oral q 6 hours PRN, LORazepam 0.5 - 1 Tablet (of 1 mg) Oral t.i.d. PRN, Omeprazole 1 Tablet (of 20 mg) Capsule Delayed Release Oral daily, Ondansetron HCl 1 Tablet (of 4 mg) Tablet Oral q 6 hours PRN, Prochlorperazine Maleate 1 Tablet (of 10 mg) Oral q 4 hours PRN Allergies: She has no known medication allergies. Review of Systems: Constitutional - She is feeling better generally. She is doing some walking and some housework. Her appetite is good and weight is stable. No fever or night sweats. ECOG score is 1, ENMT - No sinus congestion/drainage. No mouth sores. No sore throat or difficulty swallowing, Hematologic/Lymphatic - No abnormal bruising or bleeding, Respiratory - She has occasional gasping for a deep breath, though she doesn't feel short of breath. She does not complain of cough. She has had some pain in her chest or back on the left side. No hemoptysis, Cardiovascular - No angina pain. No palpitations, Gastrointestinal - No nausea or vomiting. No heartburn or acid reflux. No diarrhea or constipation. No blood in the stool or black stools, Genitourinary (F) - No dysuria or hematuria. No urinary frequency. No urgency or incontinence, Musculoskeletal - No other joint or bone pain, Integumentary - No skin complications, Neurologic - No headache. She has dizziness with bending over. No numbness/paresthesias or other focal neurologic symptoms. She still has some shaking, Psychiatric - No anxiety or depression. No insomnia. Vital Signs: Performed on January 30, 2020 16:13 Height - 68.00 in Weight - 201.4 lbs (HIGH) BSA - 2.05 sq.m BMI - 30.62 (HIGH) Temperature - 97.8 F (LOW) Pulse - 66 /min Respiration - 18 /min BP - 124/72 mm(hg) O2 Sat - 100 % Pain - 0 Physical Examination: Constitutional - She looks better generally, Eyes - Sclerae nonicteric. Conjunctivae clear, ENMT - No lesions noted in the oral cavity, Hematologic/Lymphatic - No cervical, clavicular, or axillary adenopathy, Respiratory - Lungs are clear. She has good air movement bilaterally, Cardiovascular - Heart rhythm is regular. There is no murmur, gallop, or rub noted, Abdomen - Soft. Liver and spleen are not enlarged. There is no abdominal mass or ascites noted and there is no inguinal adenopathy, Extremities - No edema, Integumentary - No skin eruption, Neurologic - No focal neurologic deficits noted. Lab/Imaging: Test performed on January 30, 2020 15:20 Ferritin 45 ng/mL Iron 194 mcg/dL Sodium 141 mmol/L TSH 2.36 uIU/mL Iron Binding Capacity (TIBC) 212 mcg/dl Potassium 3.7 mmol/L % Iron Saturation 91.5 % Chloride 107 mmol/L CO2 24 mmol/L UIBC 18 mcg/dL Anion Gap 13.7 BUN 12 mg/dL Creatinine 0.8 mg/dL Cr Clearance (Est) 125.7200 mL/min eGFR 77.2 mL/min Glucose 100 mg/dL Calcium 9.1 mg/dL Protein, Total 6.2 g/dL Albumin 3.7 g/dL Globulin 2.5 g/dL Bilirubin, Total 0.3 mg/dL ALT (SGPT) 11 U/L AST (SGOT) 15 U/L Alkaline Phosphatase 63 IU/L WBC 3.9 10 3/uL RBC 3.25 10 6/uL HGB 9.4 g/dL HCT 29.4 % MCV 90.5 fL MCH 28.9 pg MCHC 32.0 g/dL Platelet Count 244 10 3/cmm MPV 9.7 fL Neutrophils 2.8 10 3/uL Lymphocytes 0.5 10 3/uL Monocytes 0.5 10 3/uL Eosinophils 0.0 10 3/uL Basophils 0.0 10 3/uL Neutrophil % 72.7 % Lymphocyte % 12.1 % Monocyte % 12.9 % Eosinophil % 1.0 % Basophils % 0.8 % Impression: 1. 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 A [employer] next generation sequencing study showed no actionable mutations. The PD-L1 was positive at 25%. A [employer] study showed the presence of an exon 19 EGFR mutation ( L747P mutation). 2. She underwent video-assisted thoracotomy with biopsy of station 5 AP window lymph nodes on 11/09/2019. Her tumor was found to be invading the chest wall. 3. She has pre-existing GERD, adequately managed with medication. 4. She has moderately severe anemia with serum iron studies consistent with iron deficiency. On 12/03/2019 she began weekly carboplatin/paclitaxel chemotherapy, currently with radiation. Her week 1 chemotherapy infusion was stopped almost immediately due to hypersensitivity reaction to paclitaxel. She then returned on 12/04/2021 to restart treatment with week 1 carboplatin/Abraxane, which she began concurrently with radiation. She tolerated it well. She continued with her week 2 treatment on 12/12/2019, with week 3 on 12/19/2019, with week 4 on 12/25/2019, and with week 5 on 01/02/2020. Her week 6 treatment was withheld due to declining blood counts and performance status. She completed radiation on 01/16/2020, total dose 6600 cGy. She has since then been showing some improvement in her energy/activity tolerance, though she remains mildly anemic. Overall, she has tolerated the treatment well. Based on the treatment planning CT for her boost, she likely has had a very good response to the treatment. Plan: She will be scheduled for restaging chest CT. If she is confirmed to have responded well to the treatment, she will then begin maintenance therapy with durvalumab. If or when she has disease progression, she would potentially be a candidate for treatment with a TKI for the EGFR mutation. Signed By: Beni Maohney M.D. <<Signature on File>>
== END 2020-02-10 23:59 | disposition home or self-care (01) ==
LOC: ONCMED 06:45
PROVIDERS: PCP Family Medicine; Referring Provider Surgery; Visit Provider Internal Medicine Medical Oncology
DX: Z51.0 Encounter for antineoplastic radiation therapy (principal); C34.12 Malignant neoplasm of upper lobe, left bronchus or lung; K21.9 Gastro-esophageal reflux disease without esophagitis; D50.9 Iron deficiency anemia, unspecified; Z79.899 Other long term (current) drug therapy
CPT/HCPCS: 36591; 77386; 80053; 82728; 83540; 83550; 84443; 85025; 99214

== ENCOUNTER 2020-02-06 10:20 | Outpatient (CLI) | payer BC, SELFPAY ==
--- NOTE | 2020-02-06 | CT_ITS ---
WS: [id number] CT CHEST WITH INTRAVENOUS CONTRAST HISTORY: LUNG CANCER TECHNIQUE: Contiguous 5 mm axial imaging performed on the thorax. Coronal and sagittal reformats are submitted. All CT scans at [facility] use at least one of these dose optimization techniq ues: automated exposure control; mA and/or kV adjustment per patient size (includes targeted exams wh ere dose is matched to clinical indication); or iterative reconstruction. CONTRAST: Omnipaque 300; 95 mL IV. DLP: 718.97 mGy.cm COMPARISON: PET/CT 10/10/2019 Lungs and central airway: Hyperexpanded lungs from emphysema. No neoplasm centered in the LEFT upper lobe along the fissure has slightly decreased in size now extending over length of 4.6 cm x 3.4 x 2.8 cm. There is adjacent pleural thickening and tethering. Soft tissue extends along the adjacent bronc hus. No new masses. Pleura: There is pleural thickening along the mid LEFT thorax measuring up to 9 mm. This is associate d with the neoplasm in the LEFT upper lobe. Heart and pericardium: Mildly enlarged cardiac chambers. Mediastinum and sobia: Enlarged lymph node lateral to the LEFT pulmonary artery measures 1.4 cm in melissa meter. Slight decrease in size since the prior PET/CT. No additional enlarged lymph nodes. Vessels: Normal size aortic and pulmonary artery. No coronary artery calcifications. Chest wall and lower neck: No soft tissue masses. Upper abdomen: Cholelithiasis. Numerous stones in the gallbladder without acute cholecystitis. LEFT adrenal gland mass measures 2.0 x 1.5 cm with no change in size. Normal RIGHT adrenal gland. Vis ualized liver is negative. Spleen is incompletely visualized but does appear to be enlarged. There is at least mild enlargement of the spleen. Osseous structures: No osteoblastic or osteolytic bone disease. CT/CT chest w con* [id number] IMPRESSION: 1. Slight decrease in size of the LEFT upper lobe neoplasm now measuring 4.6 x 3.4 x 2.8 cm. 2. Slight decrease in size of the LEFT suprahilar (AP window) lymph node now m easuring 1.4 cm. 3. No change in the LEFT adrenal gland mass likely metastatic disease.
[2020-02-06] MEDS: iohexol 300 mg/mL 100 mL Btl IV (11:22)
== END 2020-02-06 10:21 | disposition home or self-care (01) ==
LOC: RAD 10:23
PROVIDERS: PCP Family Medicine; Visit Provider Internal Medicine Medical Oncology
DX: C34.92 Malignant neoplasm of unspecified part of left bronchus or lung (principal)
CPT/HCPCS: 71260

== ENCOUNTER 2020-03-03 06:44 | Outpatient (RCR) | payer BC, SELFPAY ==
[2020-02-18] MEDS: sodium chloride 0.9% 250 ML 300 ML IV (10:50)
--- NOTE | 2020-02-25 17:45 | ONCRAD EPV_ITS ---
Radiation Oncology Established Patient Visit Patient: YUAN MR#: [id number] : 1975> Age: 44> Sex: Female> Dictated by: Dr. Cleve Herrera Date of Service: 02/25/2020 Referring Physician(s) : Dr. Joel Carlos Jr Diagnosis: C34.12 - Malignant neoplasm of upper lobe, left bronchus or lung, Diagnosed 11/15/2019 (Active) Stage IIIB, T3, N2, M0 Radiotherapy to Date: Course: LT Lung, Treatment Site: LT [id number], Ref. ID: [id number], Energy: 6X, Dose/Fx (cGy): 200, #Fx: , Dose Correction (cGy): 0, Total Dose (cGy): 4,400, Start Date: 12/03/2019, End Date: 01/01/2020, Elapsed Days: 29 Treatment Site: [id number], Ref. ID: [id number], Energy: 6X, Dose/Fx (cGy): 200, #Fx: , Dose Correction (cGy): 0, Total Dose (cGy): 2,200, Start Date: 01/02/2020, End Date: 01/16/2020, Elapsed Days: 14 Chief Complaint / History of Present Illness: Ms. Alvarez returns for follow-up approximately 6 weeks after finishing combined chemotherapy and radiation for non-small cell carcinoma of the lung. She tolerated treatment well. Her sixth course of chemotherapy was deleted because of a decline in blood counts and performance status. She tolerated radiation well. She had mild esophagitis briefly during treatment but that symptom resolved promptly. She had a mild skin reaction on her back which has resolved, though she does have some itching of the skin at times. She has no dyspnea, troublesome cough, sputum production, or hemoptysis. No troublesome chest discomfort. She had a chest CT performed 02/06/2020. The scan shows a slight decrease and the left upper lobe primary cancer as well as the left suprahilar lymphadenopathy. No change was noted gilmar left adrenal gland mass that is likely benign in view of no change in size at all. The scan did show slight splenomegaly, unlikely related to the cancer but significance uncertain. She has started immunotherapy which is planned for a year. Current Medications: Dexamethasone, ferrous Sulfate, hYDROcodone-Acetaminophen, imfinzi, lORazepam, omeprazole, ondansetron HCl, prochlorperazine Maleate, prochlorperazine Maleate. Allergies: paclitaxel. Current Complaints / Review of Systems: Constitutional - Denies lack of appetite, fatigue, fever, night sweats and change in weight. Eyes - Denies blurred vision and double vision. ENMT - Denies dysphagia, ear pain, mouth dryness, stomatitis, altered taste and tinnitus. Neck - Denies neck pain. Integumentary - Denies rash. Breasts - Denies pain. Cardiovascular - Complains of chest pain in the anterior left chest wall that causes her to gasp for air and then goes away. Denies arrhythmias and edema. Respiratory - Denies cough, dyspnea and wheezing. Gastrointestinal - Denies abdominal pain, constipation, diarrhea, heartburn / dyspepsia, melena / GI bleeding, nausea and vomiting. Genitourinary (F) - Complains of nocturia gets up about 3 times per night. Denies dysuria, frequency, urgency, vaginal discharge / bleeding and vaginal spotting. Musculoskeletal - Denies bone pain and joint pain. Neurologic - Denies dizziness, abnormal gait and headaches. Endocrine - Denies diabetes and thyroid disease. Hematologic/Lymphatic - Denies tender or enlarged lymph nodes.. Vital Signs: Performed on 02/25/2020 3:27 PM BMI - 31.383 kg/m2 (high), Height - 68.00 in, Weight - 206.4 lbs, Temperature - 98.2 f, Pulse - 84, Respiration - 18, O2 Sat - 98 %, Pain - 0, Fatigue - 0 and BP - 111/ 75 mm(hg). Physical Exam: General: Alert and oriented x 3. No acute distress. NECK: Supple without supraclavicular or jugular lymphadenopathy. LUNGS: Clear to auscultation bilaterally without rales, rhonchi or wheeze. HEART: Regular rate and rhythm, normal S1 and S2 without murmur, gallop or rub. MUSCULOSKELETAL: No tenderness or percussion pain over the axial skeleton, scapulae or pelvis. ABDOMEN: Soft, nontender, nondistended without masses or organomegaly. Bowell sounds are normal. Performance Status: KPS: 9/10 Lab: None pending. Test performed on 01/08/2020 8:50 AM RDW - 20.6 % (high), Test performed on 01/30/2020 3:20 PM WBC - 3.9 10 3/ul (low), RBC - 3.25 10 6/ul (low), HGB - 9.4 g/dl (low), HCT - 29.4 % (low), Lymphocytes - 0.5 10 3/ul (low), eGFR - 77.2 ml/min (low), Protein, Total - 6.2 g/dl (low), Iron - 194 mcg/dl (high), % Iron Saturation - 91.5 % (high) and UIBC - 18 mcg/dl (low). Pathology: Primary, c34.12 - malignant neoplasm of upper lobe, left bronchus or lung, Diagnosed 11/15/2019 (active) stage iiib, t3, n2, m0. Imaging: See HPI Impression: Doing well.. She tolerated treatment well. She has slight chest discomfort associated with intermittent and unpredictable episodes of gasping for air. She feels normal prior to such episodes and normal after them as well. I discussed with her this may be related to inflammation of the lung caused by treatment. She was somewhat concerned about the CT report. I pointed out that it was done only 3 weeks after completing treatment. She has had a decrease in the measurements of the areas of known cancer. The adrenal mass is completely unchanged and that means that it is likely benign. Splenomegaly appears to be minimal. She will continue immunotherapy. Disposition she will return for follow-up in approximately 4 months. We will attempt to schedule her on a day she receives immunotherapy. Signed by: 02/25/2020 5:44:58 PM <<Signature on File>> Time spent with patient: CPT Code: CPT Code:
[2020-03-03 15:05] LABS: Alanine Aminotransferase 12 U/L (0-33); Alkaline Phosphatase 74 IU/L (35-105); Anion Gap 15.9 (5-19); Aspartate Amino Transferase 15 U/L (0-32); Blood Urea Nitrogen 14 mg/dL (6-20); Calcium 9.4 mg/dL (8.5-10.5); Carbon Dioxide 26 mmol/L (22-29); Chloride 102 mmol/L (98-107); Globulin 2.6 g/dL (1.3-4.6); Glomerular Filtration Rate 90.1 mL/min (90-130); Glucose 130 mg/dL (65-115); Osmolality Calculated 288 mOsm/kg (285-295); Potassium 3.9 mmol/L (3.5-5.1); Sodium 140 mmol/L (136-145); Thyroid Stimulating Hormone 0.11 uIU/mL (0.27-4.20); Total Bilirubin 0.3 mg/dL (0.15-1.2); Total Protein 6.6 g/dL (6.6-8.7)
--- NOTE | 2020-03-03 16:07 | ONC FU_ITS ---
[facility] Patient Note Patient: KEN ALVAREZ Unit #: [id number]: 1975 Dictated By: Glen MadridDate of Visit: Mar 03, 2020 Onc MED Follow-Up/Prog Note Chief Complaint: Lung cancer. 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 Her tumor was determined to be PD-L1 positive at 25%. 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 She is a non-smoker and she has been in good general health. In August she had seen her primary care physician with fever and cough, initially suspected to be pneumonia. Repeat chest x-ray after antibiotic therapy showed persistent mass in the left lung. Chest CT showed a large left upper lobe lung mass with associated mediastinal adenopathy, highly suspicious for malignancy. She underwent bronchoscopy on 09/17/2019 with brushings from the left upper lobe bronchus showing atypical cells, suspicious for malignancy. A repeat PET/CT on 10/10/2019 showed a 5.7 x 5.2 cm mass with SUV 22.7. A left hilar lymph node measuring 14 mm had elevated SUV of 5.0, and a small node in the aortopulmonary window had increased SUV at 4.4. There were no other areas of abnormal uptake. A left adrenal gland nodule measuring up to 2.5 cm appeared consistent with benign adenoma. On 11/12/2019 she underwent left video-assisted thorascopic surgical biopsy of station 5 AP window lymph nodes. At surgery it was noted that her tumor was invading the left chest wall. The AP window lymph nodes were found to be positive for metastatic carcinoma, and with those findings resection was not attempted. Pathology report indicated just scant malignant cells which were consistent with non-small cell carcinoma. A [employer] - Financial Reconciliation next generation sequencing study showed no actionable mutations. The PD-L1 was positive at 25%. Dr Mahoney had seen her initially on 11/15/2019. In the setting of stage IIIb disease, she was recommended to undergo chemoradiation utilizing weekly cisplatin/paclitaxel. At the time he also recommended further molecular analysis with a Guardant 360 study. It showed the presence of an EGFR L747P mutation. Her only other medical illnesses GERD. She has a non-smoker. INTERIM HISTORY: On 12/03/2019 she began treatment with her week 1 carboplatin/paclitaxel concurrently with radiation. Her treatment had to be stopped due to an almost immediate hypersensitivity reaction to the paclitaxel. The reaction was adequately managed with IV Solu-Medrol, subcutaneous epinephrine, and other supportive measures which included IV fluids, oxygen, and albuterol/Atrovent by pulmonary nebulizer. She then returned on 12/05/2019 to restart treatment with carboplatin/Abraxane, which she tolerated without acute toxicity. She continued with her week 2 chemotherapy on 12/12/2019, with week 3 on 12/19/2019, with week 4 on 12/25/2019, and with week 5 on 01/02/2020. Her week 6 treatment was held due to declining blood counts and performance status. She completed radiation on 01/16/2020 to a total dose of [address] of the chest with contrast on 02/06/2020 reported slight decrease in the size of the left upper lobe neoplasm now measuring 4.6 x 3.4 x 2.8 cm. Also slight decrease in the size of the left suprahilar (AP window0 lymph node now measuring 1.4 cm. There was no change in the left adrenal gland mass- likely metastatic disease . Mrs. Alvarez began her first cycle of maintenance durvalumab on February 18, 2020. Mrs Alvarez is here today for followup. She is due for cycle 2 durvalumab (Imfinzi). She states overall she feels good. Her energy is good. She states that she did have some muscle soreness as if she had been working too hard although she has been active she states she has not done anything out of her ordinary as far as lifting pulling or doing a lot of strenuous work. She states she been cleaning her house and organizing but not enough to justify the myalgias and joint pain she had been having. She denies any fever or chills. She denies any diarrhea or constipation. She denies any abdominal pain. She denies shortness of breath or cough. She states she has occasional sudden gasp that comes and goes. She states that is been there for some time and is no different???no more frequent or lasting longer than her normal. She denies any productive cough. She denies any vision changes or headaches. She denies chest pain or palpitations. She has had no nausea or vomiting. She denies any lower extremity edema. She states that she has had some neck soreness. She states her throat feels fine and has had no trouble swallowing. She denies mouth sores. She states the neck is just tender and had been sore to touch. She states she has not been sure if it has been swelling or not. She denies any rash. She denies any periods of confusion or mental status changes. Her ECOG is 0. Past Medical History: Gastroesophageal reflux disease Past Surgical History: Tubal ligation Left video-assisted thorascopic surgical biopsy of AP window lymph node in 2019 Bronchoscopy in 2020 Allergies: paclitaxel Medications: Ferrous Sulfate 1 Tablet (of 325 (65 fe) mg) Tablet Oral daily HYDROcodone-Acetaminophen 1 Tablet (of 7.5-325 mg) Oral q 6 hours PRN LORazepam 0.5 - 1 Tablet (of 1 mg) Oral t.i.d. PRN Omeprazole 1 Tablet (of 20 mg) Capsule Delayed Release Oral daily Ondansetron HCl 1 Tablet (of 4 mg) Tablet Oral q 6 hours PRN Prochlorperazine Maleate 1 Tablet (of 10 mg) Oral q 4 hours PRN Family History: Ms. ALVAREZ's mother is alive. Ms. ALVAREZ's father is alive. Ms. ALVAREZ has 1 sister who is alive. Both parents are still living, father at age 70 and mother at age 68. She has one sister, age 39, who also is in good health. Social History: Ms. ALVAREZ is and she is an unknown. Ms. ALVAREZ has never smoked. She has no history of drinking. Review Of Symptoms: Constitutional Denies fevers, chills, night sweats, excessive fatigue or weight loss. Allergic/Immunologic No reactions. Eyes Denies significant visual changes. No diplopia. No amaurosis. ENMT Denies changes in hearing, sore throat, mouth sores, difficulty or changes in swallowing ability, and/or sinus drainage. She states her neck is sore and some tenderness to touch. NO problems swallowing and no mouth sores. Neck is just sore and tender. She states she is not sure if it has been swelling or not. Endocrine No diabetes, thyroid disease or hormone replacement. Denies hot flashes or night sweats. Hematologic/Lymphatic Denies easy bruising or bleeding. The patient denies any tender or palpable lymph nodes. Respiratory Denies dyspnea on exertion, chest pain, cough or hemoptysis. Denies orthopnea. Occasional catch my breath spells -sudden onset and leave as quick. No more frequent or lasting any longer than her normal . Cardiovascular Denies anginal chest pain, palpitations or orthopnea. Gastrointestinal Denies nausea, vomiting, diarrhea, GI bleeding, or constipation. Denies change in bowel habits and/or stool color, no heartburn or early satiety. Genitourinary (F) No hematuria, hesitancy, incontinence, vaginal bleeding, discharge or other problems with urination. Musculoskeletal She has been having myalgia in her quads, arms and generalized joint pain over the last week. She denies any swelling or redness. No decreased range of motion. Integumentary Denies chronic rashes, inflammation, ulcerations or skin changes. Neurologic Denies headache, blurred vision, and no areas of focal weakness or numbness. Normal gait. No sensory problems. Psychiatric Denies insomnia, depression, wm or mood swings. Vital Signs: Performed on Mar 03, 2020 13:47 Height - 68.00 in Weight - 205.6 lbs (LOW) BSA - 2.07 sq.m BMI - 31.26 (HIGH) Temperature - 98.2 F (LOW) Pulse - 80 /min Respiration - 16 /min BP - 145/69 mm(hg) (HIGH) O2 Sat - 98 % Pain - 0,0 - Fully active, able to carry on all predisease activities without restrictions. (ECOG) Physical Examination: Constitutional Alert, oriented, no acute distress. Skin pink, warm and dry. Head Normocephalic; atraumatic. Eyes Conjunctivae and sclerae are clear and without icterus. Pupils are reactive and equal. Neck Supple without masses or thyromegaly. No jugular venous distension. Slight tenderness on exam on both sides of her neck. Mild swelling without redness or any rash/lesions noted. Unable to palpate thyroid at present. Hematologic/Lymphatic No petechiae or purpura. No tender or palpable lymph nodes in the cervical or supraclavicular areas. Respiratory Lungs are clear to auscultation without rhonchi or wheezing. Cardiovascular Regular rate and rhythm of heart without murmurs,clicks, gallops or rubs. Abdomen Non-tender, non-distended, no masses or ascites. No guarding or rebound tenderness. No pulsatile masses. Back/Spine Non-tender to palpation. Extremities No visible deformities, no cyanosis, clubbing or edema. Musculoskeletal No tenderness or swelling, normal range of motion without obvious weakness. Integumentary No rashes or lesions. Neurologic No sensory or motor deficits, normal cerebellar function, normal gait. Psychiatric Alert and oriented times three. Coherent speech. Verbalizes understanding of our discussions today. Laboratory:Test performed on Mar 03, 2020 14:25 Sodium 140 mmol/L TSH 0.11 uIU/mL Potassium 3.9 mmol/L Chloride 102 mmol/L CO2 26 mmol/L Anion Gap 15.9 BUN 14 mg/dL Creatinine 0.7 mg/dL Cr Clearance (Est) 144.8300 mL/min eGFR 90.1 mL/min Glucose 130 mg/dL Calcium 9.4 mg/dL Protein, Total 6.6 g/dL Albumin 4.0 g/dL Globulin 2.6 g/dL Bilirubin, Total 0.3 mg/dL ALT (SGPT) 12 U/L AST (SGOT) 15 U/L Alkaline Phosphatase 74 IU/L Test performed on January 30, 2020 15:20 Ferritin 45 ng/mL Iron 194 mcg/dL Iron Binding Capacity (TIBC) 212 mcg/dl % Iron Saturation 91.5 % UIBC 18 mcg/dL WBC 3.9 10 3/uL RBC 3.25 10 6/uL HGB 9.4 g/dL HCT 29.4 % MCV 90.5 fL MCH 28.9 pg MCHC 32.0 g/dL Platelet Count 244 10 3/cmm MPV 9.7 fL Neutrophils 2.8 10 3/uL Lymphocytes 0.5 10 3/uL Monocytes 0.5 10 3/uL Eosinophils 0.0 10 3/uL Basophils 0.0 10 3/uL Neutrophil % 72.7 % Lymphocyte % 12.1 % Monocyte % 12.9 % Eosinophil % 1.0 % Basophils % 0.8 % Test performed on Jan 08, 2020 08:50 RDW 20.6 % Impression: 1. 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 A [employer] - Financial Reconciliation next generation sequencing study showed no actionable mutations. The PD-L1 was positive at 25%. A Guardant 360 study showed the presence of an exon 19 EGFR mutation ( [id number] mutation). 2. She underwent video-assisted thoracotomy with biopsy of station 5 AP window lymph nodes on 11/09/2019. Her tumor was found to be invading the chest wall. 3. She has pre-existing GERD, adequately managed with medication. 4. She has moderately severe anemia with serum iron studies consistent with iron deficiency. On 12/03/2019 she began weekly carboplatin/paclitaxel chemotherapy, currently with radiation. Her week 1 chemotherapy infusion was stopped almost immediately due to hypersensitivity reaction to paclitaxel. She then returned on 12/04/2021 to restart treatment with week 1 carboplatin/Abraxane, which she began concurrently with radiation. She tolerated it well. She continued with her week 2 treatment on 12/12/2019, with week 3 on 12/19/2019, with week 4 on 12/25/2019, and with week 5 on 01/02/2020. Her week 6 treatment was withheld due to declining blood counts and performance status. She completed radiation on 01/16/2020, total dose 6600 cGy. She has since then been showing some improvement in her energy/activity tolerance, though she remains mildly anemic. Overall, she has tolerated the treatment well. Based on the treatment planning CT for her boost, she likely had a very good response to the treatment. This was confirmed with CT of the chest with contrast on 02/06/2020. It reported slight decrease in the size of the left upper lobe neoplasm now measuring 4.6 x 3.4 x 2.8 cm. Also slight decrease in the size of the left suprahilar (AP window0 lymph node now measuring 1.4 cm. There was no change in the left adrenal gland mass- likely metastatic disease . Mrs. Alvarez began her first cycle of maintenance durvalumab on February 18, 2020. She presents today with myalgia, generalized joint and throat pain. The TSH is suppressed at 0.11 compared to 2.36 in January 2020. We will hold the planned dose of durvalumab for today due to thyroiditis by subjective assessment and TSH of 0.11. Plan: 1. TSH and CMP today prior to treatment. Need to rule out thyroiditis before proceed with treatment. (No labs were ordered for today). 2. Hold planned Durvalumab due to thyroiditis. Her TSH today is 0.11 compared to 2.36 in January 2020. Her symptoms are improving by her report today therefore we will hold off on treating her with steroids at this point. She is aware that if she has any worsening symptoms such as increased tenderness any difficulty swallowing any fever or chills anything is different for her she is to call us at which time we will most likely implement the steroids. 3. She is due to be back in 2 weeks at which time to have a CBC CMP and TSH. We will reassess treated her with the durvalumab at that time. 4. Her CMP did not show any liver inflammation or any elevation of her alk phos. 5. Mrs. Alvarez was instructed to contact us in the interim should questions or problems arise. Again she was encouraged to contact us of any symptoms worsening or if she feels that she is having any additional problems. 6. Per Dr Mahoney's last office note: If or when she has disease progression, she would potentially be a candidate for treatment with a TKI for the EGFR mutation. Signed By: Glen Madrid-, AOCNP Beni Mahoney MD <<Signature on File>>
== END 2020-03-11 23:59 | disposition home or self-care (01) ==
LOC: ONCMED 06:44
PROVIDERS: PCP Family Medicine; Referring Provider Surgery; Visit Provider Nurse Practitioner
DX: Z51.12 Encounter for antineoplastic immunotherapy (principal); C34.12 Malignant neoplasm of upper lobe, left bronchus or lung; E06.4 Drug-induced thyroiditis; T45.1X5A Adverse effect of antineoplastic and immunosuppressive drugs, initial encounter; K21.9 Gastro-esophageal reflux disease without esophagitis; D50.9 Iron deficiency anemia, unspecified; Z79.899 Other long term (current) drug therapy; Z92.3 Personal history of irradiation; Z92.21 Personal history of antineoplastic chemotherapy
CPT/HCPCS: 36591; 80053; 84443; 96413; 99214; J7050; J9173

== ENCOUNTER 2020-03-31 06:47 | Outpatient (RCR) | payer BC, SELFPAY ==
[2020-03-17 12:43] LABS: Basophils % 0.5 %; Eosinophils # 0.3 10^3/uL (0.0-0.8); Eosinophils % 4.8 %; Hematocrit 34.6 % (37.0-47.0); Hemoglobin 11.5 g/dL (11.5-15.3); Lymphocytes # 0.7 10^3/uL (0.8-4.8); Lymphocytes % 11.1 %; Mean Corpuscular HGB Conc 33.2 g/dL (30.0-36.0); Mean Corpuscular Hemoglobin 30.5 pg (28.0-34.0); Mean Corpuscular Volume 91.8 fL (81-99); Monocytes # 0.6 10^3/uL (0.2-0.9); Monocytes % 9.6 %; Neutrophils # 4.3 10^3/uL (1.8-7.7); Neutrophils % 73.8 %; Nucleated Red Blood Cells % 0 %; Platelet Count 176 10^3/cmm (130-400); Red Blood Count 3.77 10^6/uL (4.1-5.3); White Blood Count 5.8 10^3/uL (4.0-10.0)
[2020-03-17 13:17] LABS: Alanine Aminotransferase 11 U/L (0-33); Albumin Level 3.8 g/dL (3.5-5.2); Alkaline Phosphatase 72 IU/L (35-105); Anion Gap 15.9 (5-19); Aspartate Amino Transferase 14 U/L (0-32); Blood Urea Nitrogen 13 mg/dL (6-20); Calcium 9.2 mg/dL (8.5-10.5); Carbon Dioxide 26 mmol/L (22-29); Chloride 102 mmol/L (98-107); Globulin 2.9 g/dL (1.3-4.6); Glomerular Filtration Rate 90.1 mL/min (90-130); Glucose 118 mg/dL (65-115); Osmolality Calculated 287 mOsm/kg (285-295); Potassium 3.9 mmol/L (3.5-5.1); Sodium 140 mmol/L (136-145); Thyroid Stimulating Hormone 0.13 uIU/mL (0.27-4.20); Total Bilirubin 0.2 mg/dL (0.15-1.2); Total Protein 6.7 g/dL (6.6-8.7)
[2020-03-17 14:27] LABS: Free T4 Free Thyroxine 0.86 ng/dL (0.82-1.77); T3 Free 2.5 PG/ML (2.0-4.4)
--- NOTE | 2020-03-21 14:24 | ONC FU_ITS ---
Dr. Mahoney Patient Follow-Up Note Patient: KEN OLIVIER Unit #: [id number]: 1975 Dicatated By: Beni Mahoney M.D.Date of Visit:Mar 17, 2020 Onc Med Follow-up/Prog Note Chief Complaint: Lung cancer. 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 Her tumor was determined to be PD-L1 positive at 25%. 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 She is a non-smoker and she has been in good general health. In August she had seen her primary care physician with fever and cough, initially suspected to be pneumonia. Repeat chest x-ray after antibiotic therapy showed persistent mass in the left lung. Chest CT showed a large left upper lobe lung mass with associated mediastinal adenopathy, highly suspicious for malignancy. She underwent bronchoscopy on 09/17/2019 with brushings from the left upper lobe bronchus showing atypical cells, suspicious for malignancy. A repeat PET/CT on 10/10/2019 showed a 5.7 x 5.2 cm mass with SUV 22.7. A left hilar lymph node measuring 14 mm had elevated SUV of 5.0, and a small node in the aortopulmonary window had increased SUV at 4.4. There were no other areas of abnormal uptake. A left adrenal gland nodule measuring up to 2.5 cm appeared consistent with benign adenoma. On 11/12/2019 she underwent left video-assisted thorascopic surgical biopsy of station 5 AP window lymph nodes. At surgery it was noted that her tumor was invading the left chest wall. The AP window lymph nodes were found to be positive for metastatic carcinoma, and with those findings resection was not attempted. Pathology report indicated just scant malignant cells which were consistent with non-small cell carcinoma. A [employer] next generation sequencing study showed no actionable mutations. The PD-L1 was positive at 25%. I had seen her initially on 11/15/2019. In the setting of stage IIIb disease, she was recommended to undergo chemoradiation utilizing weekly cisplatin/paclitaxel. At the time I also recommended further molecular analysis with a Guardant 360 study. It showed the presence of an EGFR L747P mutation. On 12/03/2019 she began treatment with her week 1 carboplatin/paclitaxel concurrently with radiation. Her treatment had to be stopped due to an almost immediate hypersensitivity reaction to the paclitaxel. The reaction was adequately managed with IV Solu-Medrol, subcutaneous epinephrine, and other supportive measures which included IV fluids, oxygen, and albuterol/Atrovent by pulmonary nebulizer. She then returned on 12/05/2019 to restart treatment with carboplatin/Abraxane, which she tolerated without acute toxicity. She continued with her week 2 chemotherapy on 12/12/2019, with week 3 on 12/19/2019, with week 4 on 12/25/2019, and with week 5 on 01/02/2020. Her week 6 treatment was held due to declining blood counts and performance status. She completed radiation on 01/16/2020 to a total dose of 6600 cGy. Her restaging chest CT on 02/06/2020 showed a slight decrease in the left upper lobe neoplasm measuring 4.6 x 3.4 x 2.8 cm and a slight decrease in the size of the left suprahilar lymph node measuring 1.4 cm. There was no change in the left adrenal gland mass. As there was evidence of some response, she was recommended to begin maintenance immunotherapy with durvalumab. Her only other medical illnesses GERD. She has a non-smoker. INTERIM HISTORY: She began cycle 1 of maintenance durvalumab on 02/18/2020. She tolerated it without acute toxicity. At her scheduled follow-up visit on 03/03/2020, she was had clinical evidence of acute thyroiditis, and her treatment was put on hold. She is seen for a scheduled visit. She reports that she has been feeling a little tired. She has doing housework, though, and she also is working part-time at the [employer]. She has good appetite. She has not had fever or night sweats. She does have some hot flashes. She does not complain of shortness of breath, cough, or chest pain. Her acid reflux symptoms are adequately managed with omeprazole. She has no other GI or complaints. She has no significant joint or bone pain. She has no focal neurologic symptoms. Medications: Ferrous Sulfate 1 Tablet (of 325 (65 fe) mg) Tablet Oral daily, HYDROcodone-Acetaminophen 1 Tablet (of 7.5-325 mg) Oral q 6 hours PRN, LORazepam 0.5 - 1 Tablet (of 1 mg) Oral t.i.d. PRN, Omeprazole 1 Tablet (of 20 mg) Capsule Delayed Release Oral daily, Ondansetron HCl 1 Tablet (of 4 mg) Tablet Oral q 6 hours PRN, Prochlorperazine Maleate 1 Tablet (of 10 mg) Oral q 4 hours PRN Allergies: paclitaxel Review of Systems: Constitutional - She is feeling pretty tired. She is able to do light house work and she is working part-time. Her appetite is good and weight is stable. No fever or night sweats. She is having hot flashes. ECOG score is 1, ENMT - No sinus congestion/drainage. No mouth sores. No sore throat or difficulty swallowing, Hematologic/Lymphatic - No abnormal bruising or bleeding, Respiratory - No shortness of breath. No cough. No pleuritic pain or hemoptysis, Cardiovascular - No angina pain. No palpitations, Gastrointestinal - No nausea or vomiting. Her heartburn is adequately managed with omeprazole. No diarrhea or constipation. No blood in the stool or black stools, Genitourinary (F) - No dysuria or hematuria. No urinary frequency. No urgency or incontinence, Musculoskeletal - No joint or bone pain, Integumentary - No skin complications, Neurologic - No headache or dizziness. No numbness or tingling. No other focal neurologic symptoms, Psychiatric - No anxiety or depression. No insomnia. Vital Signs: Performed on Mar 17, 2020 13:32 Height - 68.00 in Weight - 205.4 lbs (LOW) BSA - 2.07 sq.m BMI - 31.23 (HIGH) Temperature - 97.8 F (LOW) Pulse - 74 /min Respiration - 18 /min BP - 123/76 mm(hg) O2 Sat - 100 % Pain - 0 Physical Examination: Neck - She has a palpable goiter, but it is not tender, Constitutional - She looks pretty good generally, Eyes - Sclerae nonicteric. Conjunctivae clear, ENMT - No lesions noted in the oral cavity, Hematologic/Lymphatic - No cervical, clavicular, or axillary adenopathy, Respiratory - Lungs are clear with slightly diminished air movement bilaterally, Cardiovascular - Heart rhythm is regular. There is no murmur, gallop, or rub noted, Abdomen - Soft. Liver and spleen are not enlarged. There is no abdominal mass or ascites noted and there is no inguinal adenopathy, Extremities - No edema, Integumentary - No skin eruption, Neurologic - No focal neurologic deficits noted. Lab/Imaging: Test performed on Mar 17, 2020 12:10 Sodium 140 mmol/L T3, Free 2.5 PG/ML T4, Free 0.86 ng/dL TSH 0.13 uIU/mL Potassium 3.9 mmol/L Chloride 102 mmol/L CO2 26 mmol/L Anion Gap 15.9 BUN 13 mg/dL Creatinine 0.7 mg/dL Cr Clearance (Est) 144.8300 mL/min eGFR 90.1 mL/min Glucose 118 mg/dL Calcium 9.2 mg/dL Protein, Total 6.7 g/dL Albumin 3.8 g/dL Globulin 2.9 g/dL Bilirubin, Total 0.2 mg/dL ALT (SGPT) 11 U/L AST (SGOT) 14 U/L Alkaline Phosphatase 72 IU/L WBC 5.8 10 3/uL RBC 3.77 10 6/uL HGB 11.5 g/dL HCT 34.6 % MCV 91.8 fL MCH 30.5 pg MCHC 33.2 g/dL RDW 11.0 % Platelet Count 176 10 3/cmm MPV 10.0 fL Neutrophils 4.3 10 3/uL Lymphocytes 0.7 10 3/uL Monocytes 0.6 10 3/uL Eosinophils 0.3 10 3/uL Basophils 0.0 10 3/uL Neutrophil % 73.8 % Lymphocyte % 11.1 % Monocyte % 9.6 % Eosinophil % 4.8 % Basophils % 0.5 % NRBC % 0 % Impression: 1. 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 A [employer] next generation sequencing study showed no actionable mutations. The PD-L1 was positive at 25%. A Guardant 360 study showed the presence of an exon 19 EGFR mutation ( L747P mutation). 2. She underwent video-assisted thoracotomy with biopsy of station 5 AP window lymph nodes on 11/09/2019. Her tumor was found to be invading the chest wall. 3. She has pre-existing GERD, adequately managed with medication. 4. She has moderately severe anemia with serum iron studies consistent with iron deficiency. On 12/03/2019 she began weekly carboplatin/paclitaxel chemotherapy, currently with radiation. Her week 1 chemotherapy infusion was stopped almost immediately due to hypersensitivity reaction to paclitaxel. She then returned on 12/04/2021 to restart treatment with week 1 carboplatin/Abraxane, which she began concurrently with radiation. She tolerated it well. She continued with her week 2 treatment on 12/12/2019, with week 3 on 12/19/2019, with week 4 on 12/25/2019, and with week 5 on 01/02/2020. Her week 6 treatment was withheld due to declining blood counts and performance status. She completed radiation on 01/16/2020, total dose [address] on 02/06/2020 showed only a slight decrease in the left upper lobe mass and in the left suprahilar mass. The left adrenal mass appeared unchanged. With evidence of some response to the treatment, she was recommended to continue on to maintenance immunotherapy with durvalumab. She began cycle 1 on 02/18/2020. At her scheduled follow-up visit on 03/03/2020 she had clinical evidence of acute thyroiditis, and her treatment was put on hold. Her symptoms have since then improved, though her TSH level is still mildly decreased. She continues to have some fatigue. Overall, she appears to be doing well clinically. Plan: She will continue now with cycle 2 of maintenance durvalumab at 914 mg by IV infusion. She returns for treatment in 2 weeks and for a follow-up visit in 4 weeks. Signed By: Beni Mahoney M.D. <<Signature on File>>
== END 2020-04-11 23:59 | disposition home or self-care (01) ==
LOC: ONCMED 06:47
PROVIDERS: PCP Family Medicine; Referring Provider Surgery; Visit Provider Internal Medicine Medical Oncology
DX: Z51.12 Encounter for antineoplastic immunotherapy (principal); C34.12 Malignant neoplasm of upper lobe, left bronchus or lung; C77.1 Secondary and unspecified malignant neoplasm of intrathoracic lymph nodes; E06.4 Drug-induced thyroiditis; T45.1X5A Adverse effect of antineoplastic and immunosuppressive drugs, initial encounter; D35.02 Benign neoplasm of left adrenal gland; K21.9 Gastro-esophageal reflux disease without esophagitis; Z79.891 Long term (current) use of opiate analgesic; E04.9 Nontoxic goiter, unspecified; D50.9 Iron deficiency anemia, unspecified; Z92.3 Personal history of irradiation; Z92.21 Personal history of antineoplastic chemotherapy
CPT/HCPCS: 80053; 84439; 84443; 84481; 85025; 96413; 99214; J7050; J9173

== ENCOUNTER 2020-05-06 05:38 | Outpatient (RCR) | payer BC, SELFPAY ==
[2020-04-14 12:18] LABS: Basophils # 0.1 10^3/uL (0.0-0.1); Basophils % 1.1 %; Eosinophils # 0.2 10^3/uL (0.0-0.8); Eosinophils % 3.1 %; Hematocrit 37.3 % (37.0-47.0); Hemoglobin 12.2 g/dL (11.5-15.3); Lymphocytes # 0.7 10^3/uL (0.8-4.8); Lymphocytes % 12.5 %; Mean Corpuscular HGB Conc 32.7 g/dL (30.0-36.0); Mean Corpuscular Hemoglobin 29.7 pg (28.0-34.0); Mean Corpuscular Volume 90.8 fL (81-99); Mean Platelet Volume 9.5 fL (7.4-10.4); Monocytes # 0.4 10^3/uL (0.2-0.9); Monocytes % 7.7 %; Neutrophils # 4.08 10^3/uL (1.8-7.7); Neutrophils % 75.2 %; Nucleated Red Blood Cells % 0 %; Platelet Count 165 10^3/cmm (130-400); Red Blood Count 4.11 10^6/uL (4.1-5.3); Red Cell Distribution Width 11.9 % (12.1-15.1); White Blood Count 5.4 10^3/uL (4.0-10.0)
[2020-04-14 12:45] LABS: Alanine Aminotransferase 8 U/L (0-33); Albumin Level 4.2 g/dL (3.5-5.2); Alkaline Phosphatase 66 IU/L (35-105); Aspartate Amino Transferase 19 U/L (0-32); Blood Urea Nitrogen 15 mg/dL (6-20); Calcium 9.1 mg/dL (8.5-10.5); Carbon Dioxide 25 mmol/L (22-29); Chloride 102 mmol/L (98-107); Globulin 2.4 g/dL (1.3-4.6); Glucose 92 mg/dL (65-115); Sodium 136 mmol/L (136-145); Total Bilirubin 0.2 mg/dL (0.15-1.2); Total Protein 6.6 g/dL (6.6-8.7)
[2020-04-14 12:54] LABS: Glomerular Filtration Rate 53.5 mL/min (90-130)
[2020-04-14 13:42] LABS: T3 Free 0.4 PG/ML (2.0-4.4)
--- NOTE | 2020-04-17 09:11 | CT_ITS ---
WS: [id number] CT CHEST TECHNIQUE: Contrast enhanced CT of the chest with coronal and sagittal reformatted images. CLINICAL INFORMATION: LUNG CANCER, POST TREATMENT NEW PAIN , SHORTNESS OF BREATH COMPARISON: CT chest February 06, 2020 and PET/CT October 10, 2019 DLP: 978.[address] scans at [facility] use at least one of these dose optimization techniques: automat ed exposure control; mA and/or kV adjustment per patient size (includes targeted exams where dose is matched to clinical indication); or iterative reconstruction. FINDINGS: Chronic emphysematous changes. Again seen is the left upper lobe neoplasm measuring approximately 2.6 x 2.1 x 2.6 cm AP by transverse by craniocaudal. This is decreased in size from previous. Associated pleural thickening is unchanged. Interstitial thickening in the left upper lobe likely inflammatory. New patchy airspace infiltrates in the left lower lobe likely infectious or inflammatory. Recommend correlation for pneumonitis. Right lung is well aerated. No mediastinal or hilar lymphadenopathy. Small pericardial effusion. Prev iously described AP window lymph node has essentially resolved. Normal caliber thoracic aorta. Cholelithiasis. Stable 2.0x 1.[address] mass[address] CT/CT chest w con* [id number] IMPRESSION: 1. Left upper lobe neoplasm decreased in size today measuring 2.6 x 2.1 x 2.6 CM. Stable pleural thickening. 2. Patchy airspace infiltrates in the left lower lobe new from previous likely infectious or inflammatory. Recommend correlation for pneumonitis. 3. Presented described left AP window lymph node has resolved. No mediastinal or hilar lymphadenopathy. 4. Small pericardial effusion. 5. Stable left adrenal mass measuring 2.0 x1.5 CM. 6. Cholelithiasis.
[2020-04-17] MEDS: iohexol 300 mg/mL 100 mL Btl IV (09:27)
--- NOTE | 2020-04-18 11:53 | ONC FU_ITS ---
Dr. Mahoney Patient Follow-Up Note Patient: KEN OLIVIER Unit #: [id number]: 1975 Dicatated By: Beni Mahoney M.D.Date of Visit:Apr 18, 2020 Onc Med Follow-up/Prog Note Chief Complaint: Lung cancer. 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 Her tumor was determined to be PD-L1 positive at 25%. 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 She is a non-smoker and she has been in good general health. In August she had seen her primary care physician with fever and cough, initially suspected to be pneumonia. Repeat chest x-ray after antibiotic therapy showed persistent mass in the left lung. Chest CT showed a large left upper lobe lung mass with associated mediastinal adenopathy, highly suspicious for malignancy. She underwent bronchoscopy on 09/17/2019 with brushings from the left upper lobe bronchus showing atypical cells, suspicious for malignancy. A repeat PET/CT on 10/10/2019 showed a 5.7 x 5.2 cm mass with SUV 22.7. A left hilar lymph node measuring 14 mm had elevated SUV of 5.0, and a small node in the aortopulmonary window had increased SUV at 4.4. There were no other areas of abnormal uptake. A left adrenal gland nodule measuring up to 2.5 cm appeared consistent with benign adenoma. On 11/12/2019 she underwent left video-assisted thorascopic surgical biopsy of station 5 AP window lymph nodes. At surgery it was noted that her tumor was invading the left chest wall. The AP window lymph nodes were found to be positive for metastatic carcinoma, and with those findings resection was not attempted. Pathology report indicated just scant malignant cells which were consistent with non-small cell carcinoma. A [employer] next generation sequencing study showed no actionable mutations. The PD-L1 was positive at 25%. I had seen her initially on 11/15/2019. In the setting of stage IIIb disease, she was recommended to undergo chemoradiation utilizing weekly cisplatin/paclitaxel. At the time I also recommended further molecular analysis with a [employer] 360 study. It showed the presence of an EGFR L747P mutation. On 12/03/2019 she began treatment with her week 1 carboplatin/paclitaxel concurrently with radiation. Her treatment had to be stopped due to an almost immediate hypersensitivity reaction to the paclitaxel. The reaction was adequately managed with IV Solu-Medrol, subcutaneous epinephrine, and other supportive measures which included IV fluids, oxygen, and albuterol/Atrovent by pulmonary nebulizer. She then returned on 12/05/2019 to restart treatment with carboplatin/Abraxane, which she tolerated without acute toxicity. She continued with her week 2 chemotherapy on 12/12/2019, with week 3 on 12/19/2019, with week 4 on 12/25/2019, and with week 5 on 01/02/2020. Her week 6 treatment was held due to declining blood counts and performance status. She completed radiation on 01/16/2020 to a total dose of 6600 [address]Gy[address] Her [address] CT on 02/06/2020 showed a slight decrease in the left upper lobe neoplasm measuring 4.6 x 3.4 x 2.8 cm and a slight decrease in the size of the left suprahilar lymph node measuring 1.4 cm. There was no change in the left adrenal gland mass. As there was evidence of some response, she was recommended to begin maintenance immunotherapy with durvalumab. Her only other medical illnesses GERD. She has a non-smoker. INTERIM HISTORY: She began cycle 1 of maintenance durvalumab on 02/18/2020. She tolerated it without acute toxicity. At her scheduled follow-up visit on 03/03/2020, she was had clinical evidence of acute thyroiditis, and her treatment was put on hold. She was then able to continue with cycle 2 on 03/17/2020 and with cycle 3 on 03/31/2020. She was seen for a scheduled visit on 04/14/2020. At that point she had multiple new complaints, the most significant being numbness/tingling in both arms. She had significant weight gain. Her TSH was found to be markedly elevated at 223.60 ???IU/mL compared to 0.13 ???IU/mL 1 month earlier. Her treatment was put on hold, and she started steroid therapy with prednisone 20 mg daily along with levothyroxine [address] of the chest on 04/17/2020 showed decrease in the size of the left upper lobe neoplasm measuring 2.6 x 2.1 x 2.6 cm. There was new patchy airspace infiltrates in the left lower lobe, likely infectious or inflammatory. A previously described left AP window was noted to have resolved. There was no mediastinal or hilar lymphadenopathy noted. There was a small pericardial effusion. A left adrenal mass measuring 2.0 x 1.5 cm appeared stable. She is seen for a followup visit. She has been feeling somewhat better on the steroid therapy, though she continues to have tingling and burning pain in both arms, right worse than left. She also has some pressure and stiffness in her hands. She says her energy is fairly decent. She has been working more, but she does have to rest. ECOG score is 1. She has good appetite. She has had significant weight gain during the past month, at least 10 pounds. She does not have fever or night sweats. She has a little bit of cough associated with sinus drainage. She does not complain of shortness of breath or chest pain. Overall, she does feel that her breathing is better. She has no GI/ complaints other than a little bit of heartburn. She is not having any other joint or bone pain. Medications: Ferrous Sulfate 1 Tablet (of 325 (65 fe) mg) Tablet Oral daily, HYDROcodone-Acetaminophen 1 Tablet (of 7.5-325 mg) Oral q 6 hours PRN, Levothyroxine Sodium 1 Tablet (of 50 mcg) Oral daily, LORazepam 0.5 - 1 Tablet (of 1 mg) Oral t.i.d. PRN, Omeprazole 1 Tablet (of 20 mg) Capsule Delayed Release Oral daily, Ondansetron HCl 1 Tablet (of 4 mg) Tablet Oral q 6 hours PRN, predniSONE 1 Tablet (of 20 mg) Oral daily, Prochlorperazine Maleate 1 Tablet (of 10 mg) Oral q 4 hours PRN Allergies: paclitaxel Review of Systems: Constitutional - Her energy is fairly decent. She has been working more, but she does have to rest. Appetite is good. She has had significant weight gain. No fever, night sweats, or hot flashes. ECOG score is 1, ENMT - She has some sinus drainage. No mouth sores. No sore throat or difficulty swallowing, Hematologic/Lymphatic - No abnormal bruising or bleeding, Respiratory - No shortness of breath. She has cough with the sinus drainage. No pleuritic pain or hemoptysis, Cardiovascular - No angina pain. No palpitations, Gastrointestinal - No nausea or vomiting. She has been having a little heartburn. No diarrhea or constipation. No blood in the stool or black stools, Genitourinary (F) - No dysuria or hematuria. No urinary frequency. No urgency or incontinence, Musculoskeletal - She has pressure and stiffness in her hands, Integumentary - No skin rash, Neurologic - She has had some headache. No dizziness. She has numbness/tingling and burning pain in both arms, right worse than left, Psychiatric - No anxiety or depression. She is sleeping better now. Vital Signs: Performed on Apr 18, 2020 08:49 Height - 68.00 in Weight - 216.0 lbs (HIGH) BSA - 2.11 sq.m BMI - 32.84 (HIGH) Temperature - 97.1 F (LOW) Pulse - 60 /min Respiration - 20 /min BP - 135/77 mm(hg) O2 Sat - 99 % Pain - 1 Physical Examination: Constitutional - She looks good generally, Eyes - Sclerae nonicteric. Conjunctivae clear, ENMT - No lesions noted in the oral cavity, Hematologic/Lymphatic - No cervical, clavicular, or axillary adenopathy, Respiratory - Lungs sound clear. She has pretty good air movement bilaterally, Cardiovascular - Heart rhythm is regular. There is no murmur, gallop, or rub noted, Abdomen - Soft. Liver and spleen are not enlarged. There is no abdominal mass or ascites noted and there is no inguinal adenopathy, Extremities - No edema, Neurologic - No focal neurologic deficits noted. Lab/Imaging: Test performed on Apr 14, 2020 11:42 Sodium 136 mmol/L T3, Free 0.4 PG/ML T4, Free 0.10 ng/dL TSH 223.60 uIU/mL Potassium 4.0 mmol/L Chloride 102 mmol/L CO2 25 mmol/L Anion Gap 13.0 BUN 15 mg/dL Creatinine 1.1 mg/dL Cr Clearance (Est) 92.1600 mL/min eGFR 53.5 mL/min Glucose 92 mg/dL Calcium 9.1 mg/dL Protein, Total 6.6 g/dL Albumin 4.2 g/dL Globulin 2.4 g/dL Bilirubin, Total 0.2 mg/dL ALT (SGPT) 8 U/L AST (SGOT) 19 U/L Alkaline Phosphatase 66 IU/L WBC 5.4 10 3/uL RBC 4.11 10 6/uL HGB 12.2 g/dL HCT 37.3 % MCV 90.8 fL MCH 29.7 pg MCHC 32.7 g/dL RDW 11.9 % Platelet Count 165 10 3/cmm MPV 9.5 fL Neutrophils 4.08 10 3/uL Lymphocytes 0.7 10 3/uL Monocytes 0.4 10 3/uL Eosinophils 0.2 10 3/uL Basophils 0.1 10 3/uL Neutrophil % 75.2 % Lymphocyte % 12.5 % Monocyte % 7.7 % Eosinophil % 3.1 % Basophils % 1.1 % NRBC % 0 % Impression: 1. 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 A [employer] next generation sequencing study showed no actionable mutations. The PD-L1 was positive at 25%. A [employer] study showed the presence of an exon 19 EGFR mutation ( L747P mutation). 2. She underwent video-assisted thoracotomy with biopsy of station 5 AP window lymph nodes on 11/09/2019. Her tumor was found to be invading the chest wall. 3. She has pre-existing GERD, adequately managed with medication. 4. She has moderately severe anemia with serum iron studies consistent with iron deficiency. On 12/03/2019 she began weekly carboplatin/paclitaxel chemotherapy, currently with radiation. Her week 1 chemotherapy infusion was stopped almost immediately due to hypersensitivity reaction to paclitaxel. She then returned on 12/04/2021 to restart treatment with week 1 carboplatin/Abraxane, which she began concurrently with radiation. She tolerated it well. She continued with her week 2 treatment on 12/12/2019, with week 3 on 12/19/2019, with week 4 on 12/25/2019, and with week 5 on 01/02/2020. Her week 6 treatment was withheld due to declining blood counts and performance status. She completed radiation on 01/16/2020, total dose [address] on 02/06/2020 showed only a slight decrease in the left upper lobe mass and in the left suprahilar mass. The left adrenal mass appeared unchanged. With evidence of some response to the treatment, she was recommended to continue on to maintenance immunotherapy with durvalumab. She began cycle 1 on 02/18/2020. At her scheduled follow-up visit on 03/03/2020 she had clinical evidence of acute thyroiditis, and her treatment was put on hold. Her symptoms had subsequently improved, and she then continued with cycle 2 of durvalumab on 03/17/2020 and with cycle 3 on 03/31/2020. At her follow-up visit on 04/14/2020, she had multiple new complaints, most significantly numbness/tingling in both arms. Her TSH level was found to be markedly elevated. Her treatment was put on hold. She restarted steroid therapy with prednisone 20 mg daily she also started levothyroxine 50 mcg daily. Her restaging chest CT on 04/17/2020 showed significant decrease in the left upper lobe mass compared to the pretreatment study. There was some new left lower lobe infiltrate, which I suspect is due to treatment related pneumonitis. She is not symptomatic with it. Overall, she has been feeling better since she restarted the prednisone, though she continues to have significant numbness/tingling in both arms. Plan: Her treatment will remain on hold. She is advised to increase the prednisone to 40 mg daily for 1 week, then decrease back to 20 mg daily. She will continue levothyroxine 50 mcg daily. She will be scheduled for a follow-up visit in 2 weeks. Signed By: Beni Mahoney M.D. <<Signature on File>>
--- NOTE | 2020-04-18 23:02 | ONC FU_ITS ---
[facility] Patient Note Patient: KEN ALVAREZ Unit #: [id number]: 1975 Dictated By: Glen MadridDate of Visit: Apr 14, 2020 Onc MED Follow-Up/Prog Note Chief Complaint: Lung cancer. 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 Her tumor was determined to be PD-L1 positive at 25%. 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 She is a non-smoker and she has been in good general health. In August she had seen her primary care physician with fever and cough, initially suspected to be pneumonia. Repeat chest x-ray after antibiotic therapy showed persistent mass in the left lung. Chest CT showed a large left upper lobe lung mass with associated mediastinal adenopathy, highly suspicious for malignancy. She underwent bronchoscopy on 09/17/2019 with brushings from the left upper lobe bronchus showing atypical cells, suspicious for malignancy. A repeat PET/CT on 10/10/2019 showed a 5.7 x 5.2 cm mass with SUV 22.7. A left hilar lymph node measuring 14 mm had elevated SUV of 5.0, and a small node in the aortopulmonary window had increased SUV at 4.4. There were no other areas of abnormal uptake. A left adrenal gland nodule measuring up to 2.5 cm appeared consistent with benign adenoma. On 11/12/2019 she underwent left video-assisted thorascopic surgical biopsy of station 5 AP window lymph nodes. At surgery it was noted that her tumor was invading the left chest wall. The AP window lymph nodes were found to be positive for metastatic carcinoma, and with those findings resection was not attempted. Pathology report indicated just scant malignant cells which were consistent with non-small cell carcinoma. A [employer] next generation sequencing study showed no actionable mutations. The PD-L1 was positive at 25%. Dr Mahoney had seen her initially on 11/15/2019. In the setting of stage IIIb disease, she was recommended to undergo chemoradiation utilizing weekly cisplatin/paclitaxel. At the time Dr Mahoney also recommended further molecular analysis with a [employer]ant 360 study. It showed the presence of an EGFR L747P mutation. On 12/03/2019 she began treatment with her week 1 carboplatin/paclitaxel concurrently with radiation. Her treatment had to be stopped due to an almost immediate hypersensitivity reaction to the paclitaxel. The reaction was adequately managed with IV Solu-Medrol, subcutaneous epinephrine, and other supportive measures which included IV fluids, oxygen, and albuterol/Atrovent by pulmonary nebulizer. She then returned on 12/05/2019 to restart treatment with carboplatin/Abraxane, which she tolerated without acute toxicity. She continued with her week 2 chemotherapy on 12/12/2019, with week 3 on 12/19/2019, with week 4 on 12/25/2019, and with week 5 on 01/02/2020. Her week 6 treatment was held due to declining blood counts and performance status. She completed radiation on 01/16/2020 to a total dose of 6600 cGy. Her restaging chest CT on 02/06/2020 showed a slight decrease in the left upper lobe neoplasm measuring 4.6 x 3.4 x 2.8 cm and a slight decrease in the size of the left suprahilar lymph node measuring 1.4 cm. There was no change in the left adrenal gland mass. As there was evidence of some response, she was recommended to begin maintenance immunotherapy with durvalumab. Her only other medical illnesses GERD. She has a non-smoker. INTERIM HISTORY: She began cycle 1 of maintenance durvalumab on 02/18/2020. She tolerated it without acute toxicity. At her scheduled follow-up visit on 03/03/2020, she was had clinical evidence of acute thyroiditis, and her treatment was put on hold. She did resume the durvalumab on 03/17/2020 and 03/31/2020. Ms Alvarez is here today for followup. She is due for durvalumab. She state she has been having shooting pain from her elbos to her fingers & thumb, which can also feel like pressure, burning. She states is has been there off and on for sometime, but suddenly worsened about 2-3 days after her last treatment. She also states she has been having shoulder pain in the upper part and this seems to make my hands tingle too . She state Tylenol and Aleve do not help the discomfort. She states Advil may a little. She denies any shortness of breath or dyspnea. She states the gasphing spells she had been having have resolved. She denies any diarrhea or constipation. She denies any edema. She states her hair has not been thing like it was. She states for the most part her energy is good. She denies any fever or chills. He appetite has been good. Her ECOG is 1. Past Medical History: Gastroesophageal reflux disease Past Surgical History: Tubal ligation Left video-assisted thorascopic surgical biopsy of AP window lymph node in 2019 Bronchoscopy in 2019 Allergies: paclitaxel Medications: Ferrous Sulfate 1 Tablet (of 325 (65 fe) mg) Tablet Oral daily HYDROcodone-Acetaminophen 1 Tablet (of 7.5-325 mg) Oral q 6 hours PRN Levothyroxine Sodium 1 Tablet (of 50 mcg) Oral daily LORazepam 0.5 - 1 Tablet (of 1 mg) Oral t.i.d. PRN Omeprazole 1 Tablet (of 20 mg) Capsule Delayed Release Oral daily Ondansetron HCl 1 Tablet (of 4 mg) Tablet Oral q 6 hours PRN predniSONE 1 Tablet (of 20 mg) Oral daily Prochlorperazine Maleate 1 Tablet (of 10 mg) Oral q 4 hours PRN Family History: Ms. ALVAREZ's mother is alive. Ms. ALVAREZ's father is alive. Ms. ALVAREZ has 1 sister who is alive. Both parents are still living, father at age 70 and mother at age 68. She has one sister, age 39, who also is in good health. Social History: Ms. ALVAREZ is and she is an unknown. Ms. ALVAREZ has never smoked. She has no history of drinking. Review Of Symptoms: Constitutional Denies fevers, chills, night sweats. Has had increased fatigue weight gain-10 pounds since last visit. Allergic/Immunologic seasonal allergies Eyes Denies significant visual changes. No diplopia. No amaurosis. ENMT Denies changes in hearing, sore throat, mouth sores, difficulty or changes in swallowing ability. Has had increased sinus drainage. She states her neck is sore and some tenderness to touch. NO problems swallowing and no mouth sores. Neck is just sore and tender. She states she is not sure if it has been swelling or not. Endocrine increased fatigue, hair loss better. Hematologic/Lymphatic Denies easy bruising or bleeding. The patient denies any tender or palpable lymph nodes. Respiratory Denies dyspnea on exertion, chest pain, cough or hemoptysis. Denies orthopnea. Occasional catch my breath spells -have essentially resolved. Cardiovascular Denies anginal chest pain, palpitations or orthopnea. Gastrointestinal Denies nausea, vomiting, diarrhea, GI bleeding, or constipation. Denies change in bowel habits and/or stool color, no heartburn or early satiety. Genitourinary (F) No hematuria, hesitancy, incontinence, vaginal bleeding, discharge or other problems with urination. Musculoskeletal She has been having myalgia in her quads, arms and generalized joint pain better but still there. Integumentary Denies chronic rashes, inflammation, ulcerations or skin changes. Neurologic Denies headache, blurred vision, and no areas of focal weakness or numbness. Normal gait. New onset of sharp, pressure burning pain from shoulders to hands. Seems to start in elbows and radiates to middle fingers R > L but both sides affected. Started about 2-3 days after Imfinzi treatment on 03/31/2020. Worse at night. Psychiatric Denies insomnia, depression, wm or mood swings. Vital Signs: Performed on Apr 14, 2020 13:11 Height - 68.00 in Weight - 215.2 lbs (HIGH) BSA - 2.11 sq.m BMI - 32.72 (HIGH) Temperature - 96.9 F (LOW) Pulse - 60 /min Respiration - 17 /min BP - 120/74 mm(hg) O2 Sat - 100 % Pain - 0,0 - Fully active, able to carry on all predisease activities without restrictions. (ECOG) Physical Examination: Constitutional Alert, oriented, no acute distress. Skin pink, warm and dry. Head Normocephalic; atraumatic. Eyes Conjunctivae and sclerae are clear and without icterus. Pupils are reactive and equal. Chest Left chest wall port a cath unremarkable. Back/Spine Non-tender to palpation. Extremities No visible deformities, no cyanosis, clubbing or edema. Musculoskeletal No tenderness or swelling, normal range of motion without obvious weakness. Integumentary No rashes or lesions. Neurologic No sensory or motor deficits, normal cerebellar function, normal gait. Psychiatric Alert and oriented times three. Coherent speech. Verbalizes understanding of our discussions today. Laboratory:Test performed on Apr 14, 2020 11:42 Sodium 136 mmol/L T3, Free 0.4 PG/ML T4, Free 0.10 ng/dL TSH 223.60 uIU/mL Potassium 4.0 mmol/L Chloride 102 mmol/L CO2 25 mmol/L Anion Gap 13.0 BUN 15 mg/dL Creatinine 1.1 mg/dL Cr Clearance (Est) 92.1600 mL/min eGFR 53.5 mL/min Glucose 92 mg/dL Calcium 9.1 mg/dL Protein, Total 6.6 g/dL Albumin 4.2 g/dL Globulin 2.4 g/dL Bilirubin, Total 0.2 mg/dL ALT (SGPT) 8 U/L AST (SGOT) 19 U/L Alkaline Phosphatase 66 IU/L WBC 5.4 10 3/uL RBC 4.11 10 6/uL HGB 12.2 g/dL HCT 37.3 % MCV 90.8 fL MCH 29.7 pg MCHC 32.7 g/dL RDW 11.9 % Platelet Count 165 10 3/cmm MPV 9.5 fL Neutrophils 4.08 10 3/uL Lymphocytes 0.7 10 3/uL Monocytes 0.4 10 3/uL Eosinophils 0.2 10 3/uL Basophils 0.1 10 3/uL Neutrophil % 75.2 % Lymphocyte % 12.5 % Monocyte % 7.7 % Eosinophil % 3.1 % Basophils % 1.1 % NRBC % 0 % Test performed on January 30, 2020 15:20 Ferritin 45 ng/mL Iron 194 mcg/dL Iron Binding Capacity (TIBC) 212 mcg/dl % Iron Saturation 91.5 % UIBC 18 mcg/dL Impression: 1. 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 A [employer] next generation sequencing study showed no actionable mutations. The PD-L1 was positive at 25%. A Guardant 360 study showed the presence of an exon 19 EGFR mutation ( [id number] mutation). 2. She underwent video-assisted thoracotomy with biopsy of station 5 AP window lymph nodes on 11/09/2019. Her tumor was found to be invading the chest wall. 3. She has pre-existing GERD, adequately managed with medication. 4. She has moderately severe anemia with serum iron studies consistent with iron deficiency. On 12/03/2019 she began weekly carboplatin/paclitaxel chemotherapy, currently with radiation. Her week 1 chemotherapy infusion was stopped almost immediately due to hypersensitivity reaction to paclitaxel. She then returned on 12/04/2021 to restart treatment with week 1 carboplatin/Abraxane, which she began concurrently with radiation. She tolerated it well. She continued with her week 2 treatment on 12/12/2019, with week 3 on 12/19/2019, with week 4 on 12/25/2019, and with week 5 on 01/02/2020. Her week 6 treatment was withheld due to declining blood counts and performance status. She completed radiation on 01/16/2020, total dose 6600 cGy. She has since then been showing some improvement in her energy/activity tolerance, though she remains mildly anemic. Overall, she has tolerated the treatment well. Based on the treatment planning CT for her boost, she likely had a very good response to the treatment. This was confirmed with CT of the chest with contrast on 02/06/2020. It reported slight decrease in the size of the left upper lobe neoplasm now measuring 4.6 x 3.4 x 2.8 cm. Also slight decrease in the size of the left suprahilar (AP window0 lymph node now measuring 1.4 cm. There was no change in the left adrenal gland mass- likely metastatic disease . Mrs. Alvarez began her first cycle of maintenance durvalumab on February 18, 2020. She presented for followup in February with myalgia, generalized joint and throat pain. The TSH was suppressed at 0.11 compared to 2.36 in January 2020. We held the planned dose of durvalumab due to thyroiditis by subjective assessment and TSH of 0.11. She did resume the durvalumab on 03/17/2020 and 03/31/2020. She presents today for consideration of treatment and was found to have a significantly elevated TSH. Plan: 1. TSH is reported at 223.6 today. 2. Hold planned Durvalumab due to thyroiditis. 3. Start Prednisone 20 mg daily and Synthyroid 50 mcg daily for thyroiditis. . 4. Her CMP did not show any liver inflammation or any elevation of her alk phos. 5. She will have restaging imaging and followup after that with repeat CBC, CMP ,Thyroid profile. 6. Mrs. Alvarez was instructed to contact us in the interim should questions or problems arise. Again she was encouraged to contact us of any symptoms worsening or if she feels that she is having any additional problems. 6. Per Dr Mahoney's previous office note: If or when she has disease progression, she would potentially be a candidate for treatment with a TKI for the EGFR mutation. 7. We did discuss possibly using gabapentin 100 mg at hs for the neuropathy type pain, but have elected to hold off for now due to implementing the steroid and thyroid medication. Signed By: Glen Madrid-, AOCNP Beni Mahoney MD <<Signature on File>>
[2020-05-06 09:50] LABS: Basophils % 0.4 %; Hematocrit 41.2 % (37.0-47.0); Hemoglobin 13.1 g/dL (11.5-15.3); Lymphocytes # 1.4 10^3/uL (0.8-4.8); Lymphocytes % 16.1 %; Mean Corpuscular HGB Conc 31.8 g/dL (30.0-36.0); Mean Corpuscular Hemoglobin 29.3 pg (28.0-34.0); Mean Corpuscular Volume 92.2 fL (81-99); Mean Platelet Volume 9.3 fL (7.4-10.4); Monocytes # 0.6 10^3/uL (0.2-0.9); Monocytes % 6.7 %; Neutrophils # 6.78 10^3/uL (1.8-7.7); Neutrophils % 76.2 %; Nucleated Red Blood Cells % 0 %; Platelet Count 182 10^3/cmm (130-400); Red Blood Count 4.47 10^6/uL (4.1-5.3); Red Cell Distribution Width 13.2 % (12.1-15.1); White Blood Count 8.9 10^3/uL (4.0-10.0)
[2020-05-06 10:24] LABS: Alanine Aminotransferase 10 U/L (0-33); Albumin Level 4.2 g/dL (3.5-5.2); Alkaline Phosphatase 64 IU/L (35-105); Anion Gap 14.1 (5-19); Aspartate Amino Transferase 12 U/L (0-32); Blood Urea Nitrogen 16 mg/dL (6-20); Calcium 9.3 mg/dL (8.5-10.5); Carbon Dioxide 27 mmol/L (22-29); Chloride 103 mmol/L (98-107); Free T4 Free Thyroxine 0.61 ng/dL (0.82-1.77); Globulin 2.6 g/dL (1.3-4.6); Glomerular Filtration Rate 59.7 mL/min (90-130); Glucose 89 mg/dL (65-115); Osmolality Calculated 286 mOsm/kg (285-295); Potassium 4.1 mmol/L (3.5-5.1); Sodium 140 mmol/L (136-145); T3 Free 1.1 PG/ML (2.0-4.4); Total Bilirubin 0.3 mg/dL (0.15-1.2); Total Protein 6.8 g/dL (6.6-8.7)
--- NOTE | 2020-05-10 21:41 | ONC FU_ITS ---
[facility] Patient Note Patient: KEN ALVAREZ Unit #: [id number]: 1975 Dictated By: Glen MadridDate of Visit: May 06, 2020 Onc MED Follow-Up/Prog Note Chief Complaint: Lung cancer. 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 Her tumor was determined to be PD-L1 positive at 25%. 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 She is a non-smoker and she has been in good general health. In August she had seen her primary care physician with fever and cough, initially suspected to be pneumonia. Repeat chest x-ray after antibiotic therapy showed persistent mass in the left lung. Chest CT showed a large left upper lobe lung mass with associated mediastinal adenopathy, highly suspicious for malignancy. She underwent bronchoscopy on 09/17/2019 with brushings from the left upper lobe bronchus showing atypical cells, suspicious for malignancy. A repeat PET/CT on 10/10/2019 showed a 5.7 x 5.2 cm mass with SUV 22.7. A left hilar lymph node measuring 14 mm had elevated SUV of 5.0, and a small node in the aortopulmonary window had increased SUV at 4.4. There were no other areas of abnormal uptake. A left adrenal gland nodule measuring up to 2.5 cm appeared consistent with benign adenoma. On 11/12/2019 she underwent left video-assisted thorascopic surgical biopsy of station 5 AP window lymph nodes. At surgery it was noted that her tumor was invading the left chest wall. The AP window lymph nodes were found to be positive for metastatic carcinoma, and with those findings resection was not attempted. Pathology report indicated just scant malignant cells which were consistent with non-small cell carcinoma. A [employer] next generation sequencing study showed no actionable mutations. The PD-L1 was positive at 25%. Dr Mahoney had seen her initially on 11/15/2019. In the setting of stage IIIb disease, she was recommended to undergo chemoradiation utilizing weekly cisplatin/paclitaxel. At the time he also recommended further molecular analysis with a [employer] 360 study. It showed the presence of an EGFR L747P mutation. On 12/03/2019 she began treatment with her week 1 carboplatin/paclitaxel concurrently with radiation. Her treatment had to be stopped due to an almost immediate hypersensitivity reaction to the paclitaxel. The reaction was adequately managed with IV Solu-Medrol, subcutaneous epinephrine, and other supportive measures which included IV fluids, oxygen, and albuterol/Atrovent by pulmonary nebulizer. She then returned on 12/05/2019 to restart treatment with carboplatin/Abraxane, which she tolerated without acute toxicity. She continued with her week 2 chemotherapy on 12/12/2019, with week 3 on 12/19/2019, with week 4 on 12/25/2019, and with week 5 on 01/02/2020. Her week 6 treatment was held due to declining blood counts and performance status. She completed radiation on 01/16/2020 to a total dose of 6600 cGy. Her restaging chest CT on 02/06/2020 showed a slight decrease in the left upper lobe neoplasm measuring 4.6 x 3.4 x 2.8 cm and a slight decrease in the size of the left suprahilar lymph node measuring 1.4 cm. There was no change in the left adrenal gland mass. As there was evidence of some response, she was recommended to begin maintenance immunotherapy with durvalumab. Her only other medical illnesses GERD. She has a non-smoker. INTERIM HISTORY: She began cycle 1 of maintenance durvalumab on 02/18/2020. She tolerated it without acute toxicity. At her scheduled follow-up visit on 03/03/2020, she was had clinical evidence of acute thyroiditis, and her treatment was put on hold. She was then able to continue with cycle 2 on 03/17/2020 and with cycle 3 on 03/31/2020. She was seen for a scheduled visit on 04/14/2020. At that point she had multiple new complaints, the most significant being numbness/tingling in both arms. She had significant weight gain. Her TSH was found to be markedly elevated at 223.60 ???IU/mL compared to 0.13 ???IU/mL 1 month earlier. Her treatment was put on hold, and she started steroid therapy with prednisone 20 mg daily along with levothyroxine [address] of the chest on 04/17/2020 showed decrease in the size of the left upper lobe neoplasm measuring 2.6 x 2.1 x 2.6 cm. There was new patchy airspace infiltrates in the left lower lobe, likely infectious or inflammatory. A previously described left AP window was noted to have resolved. There was no mediastinal or hilar lymphadenopathy noted. There was a small pericardial effusion. A left adrenal mass measuring 2.0 x 1.5 cm appeared stable. Ms. Alvarez is here today for follow-up. She states overall she is doing much better. She states she feels more human and is able to concentrate better. She states her energy is better. She denies any fever or chills. She is had some hot flashes which are significantly better. She denies any mouth sores sore throat or difficulty swallowing. She denies any cough. She is had no hemoptysis. She is occasionally short of breath but states overall it is significantly better. She denies any chest wall pain. She denies any angina. She denies palpitations. She states overall she is doing good. She is working more regular and is having to fill in for her [id number] at work which makes me work a little harder and challenges me some as it is a new job for me . She states she is tolerating this well. She states before she started on the thyroid medication a steroid she felt foggy but thinks that that is much better now. She denies any new pain. Her ECOG is 0. Past Medical History: Gastroesophageal reflux disease Past Surgical History: Tubal ligation Left video-assisted thorascopic surgical biopsy of AP window lymph node in 2019 Bronchoscopy in 2019 Allergies: paclitaxel Medications: Ferrous Sulfate 1 Tablet (of 325 (65 fe) mg) Tablet Oral daily HYDROcodone-Acetaminophen 1 Tablet (of 7.5-325 mg) Oral q 6 hours PRN Levothyroxine Sodium 1 Tablet (of 50 mcg) Oral daily LORazepam 0.5 - 1 Tablet (of 1 mg) Oral t.i.d. PRN Omeprazole 1 Tablet (of 20 mg) Capsule Delayed Release Oral daily Ondansetron HCl 1 Tablet (of 4 mg) Tablet Oral q 6 hours PRN predniSONE 1 Tablet (of 20 mg) Oral daily Prochlorperazine Maleate 1 Tablet (of 10 mg) Oral q 4 hours PRN Family History: Ms. ALVAREZ's mother is alive. Ms. ALVAREZ's father is alive. Ms. ALVAREZ has 1 sister who is alive. Both parents are still living, father at age 70 and mother at age 68. She has one sister, age 39, who also is in good health. Social History: Ms. ALVAREZ is and she is an unknown. Ms. ALVAREZ has never smoked. She has no history of drinking. Review Of Symptoms: Constitutional Denies fevers, chills, night sweats. Feels much better overall. Allergic/Immunologic seasonal allergies Eyes Denies significant visual changes. No diplopia. No amaurosis. ENMT Denies changes in hearing, sore throat, mouth sores, difficulty or changes in swallowing ability. Endocrine Feels better overall- less fogginess Hematologic/Lymphatic Denies easy bruising or bleeding. The patient denies any tender or palpable lymph nodes. Respiratory Denies dyspnea on exertion, chest pain, cough or hemoptysis. Denies orthopnea. Cardiovascular Denies anginal chest pain, palpitations or orthopnea. Gastrointestinal Denies nausea, vomiting, diarrhea, GI bleeding, or constipation. Denies change in bowel habits and/or stool color, no heartburn or early satiety. Genitourinary (F) No hematuria, hesitancy, incontinence, vaginal bleeding, discharge or other problems with urination. Musculoskeletal Denies joint pain, swelling or redness. No decreased range of motion. Integumentary Denies chronic rashes, inflammation, ulcerations or skin changes. Neurologic Denies headache, blurred vision, and no areas of focal weakness or numbness. Normal gait. No sensory problems. Psychiatric Denies insomnia, depression, wm or mood swings. Vital Signs: Performed on May 06, 2020 11:09 Height - 68.00 in Weight - 218.2 lbs (HIGH) BSA - 2.12 sq.m BMI - 33.18 (HIGH) Temperature - 97.4 F (LOW) Pulse - 97 /min Respiration - 18 /min BP - 116/80 mm(hg) O2 Sat - 95 % (LOW) Pain - 0,0 - Fully active, able to carry on all predisease activities without restrictions. (ECOG) Physical Examination: Constitutional Alert, oriented, no acute distress. Skin pink, warm and dry. Head Normocephalic; atraumatic. Eyes Conjunctivae and sclerae are clear and without icterus. Pupils are reactive and equal. Neck Supple without masses or thyromegaly. No jugular venous distension. Hematologic/Lymphatic No petechiae or purpura. No tender or palpable lymph nodes in the cervical or supraclavicular areas. Chest Left chest wall port a cath unremarkable. Abdomen Non-tender, non-distended, no masses or ascites. Back/Spine Non-tender to palpation. Extremities No visible deformities, no cyanosis, clubbing or edema. Musculoskeletal No tenderness or swelling, normal range of motion without obvious weakness. Integumentary No rashes or lesions. Neurologic No sensory or motor deficits, normal cerebellar function, normal gait. Psychiatric Alert and oriented times three. Coherent speech. Verbalizes understanding of our discussions today. Laboratory:Test performed on May 06, 2020 09:35 Sodium 140 mmol/L T3, Free 1.1 PG/ML T4, Free 0.61 ng/dL TSH 144.10 uIU/mL Potassium 4.1 mmol/L Chloride 103 mmol/L CO2 27 mmol/L Anion Gap 14.1 BUN 16 mg/dL Creatinine 1.0 mg/dL Cr Clearance (Est) 101.3800 mL/min eGFR 59.7 mL/min Glucose 89 mg/dL Calcium 9.3 mg/dL Protein, Total 6.8 g/dL Albumin 4.2 g/dL Globulin 2.6 g/dL Bilirubin, Total 0.3 mg/dL ALT (SGPT) 10 U/L AST (SGOT) 12 U/L Alkaline Phosphatase 64 IU/L WBC 8.9 10 3/uL RBC 4.47 10 6/uL HGB 13.1 g/dL HCT 41.2 % MCV 92.2 fL MCH 29.3 pg MCHC 31.8 g/dL RDW 13.2 % Platelet Count 182 10 3/cmm MPV 9.3 fL Neutrophils 6.78 10 3/uL Lymphocytes 1.4 10 3/uL Monocytes 0.6 10 3/uL Eosinophils 0.0 10 3/uL Basophils 0.0 10 3/uL Neutrophil % 76.2 % Lymphocyte % 16.1 % Monocyte % 6.7 % Eosinophil % 0.0 % Basophils % 0.4 % NRBC % 0 % Test performed on January 30, 2020 15:20 Ferritin 45 ng/mL Iron 194 mcg/dL Iron Binding Capacity (TIBC) 212 mcg/dl % Iron Saturation 91.5 % UIBC 18 mcg/dL Impression: 1. 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 A [employer] next generation sequencing study showed no actionable mutations. The PD-L1 was positive at 25%. A [employer] study showed the presence of an exon 19 EGFR mutation ( [id number] mutation). 2. She underwent video-assisted thoracotomy with biopsy of station 5 AP window lymph nodes on 11/09/2019. Her tumor was found to be invading the chest wall. 3. She has pre-existing GERD, adequately managed with medication. 4. She has moderately severe anemia with serum iron studies consistent with iron deficiency. On 12/03/2019 she began weekly carboplatin/paclitaxel chemotherapy, currently with radiation. Her week 1 chemotherapy infusion was stopped almost immediately due to hypersensitivity reaction to paclitaxel. She then returned on 12/04/2021 to restart treatment with week 1 carboplatin/Abraxane, which she began concurrently with radiation. She tolerated it well. She continued with her week 2 treatment on 12/12/2019, with week 3 on 12/19/2019, with week 4 on 12/25/2019, and with week 5 on 01/02/2020. Her week 6 treatment was withheld due to declining blood counts and performance status. She completed radiation on 01/16/2020, total dose [address] on 02/06/2020 showed only a slight decrease in the left upper lobe mass and in the left suprahilar mass. The left adrenal mass appeared unchanged. With evidence of some response to the treatment, she was recommended to continue on to maintenance immunotherapy with durvalumab. She began cycle 1 on 02/18/2020. At her scheduled follow-up visit on 03/03/2020 she had clinical evidence of acute thyroiditis, and her treatment was put on hold. Her symptoms had subsequently improved, and she then continued with cycle 2 of durvalumab on 03/17/2020 and with cycle 3 on 03/31/2020. At her follow-up visit on 04/14/2020, she had multiple new complaints, most significantly numbness/tingling in both arms. Her TSH level was found to be markedly elevated. Her treatment was put on hold. She restarted steroid therapy with prednisone 20 mg daily she also started levothyroxine 50 mcg daily. Her restaging chest CT on 04/17/2020 showed significant decrease in the left upper lobe mass compared to the pretreatment study. There was some new left lower lobe infiltrate, which was suspected to be due to treatment related pneumonitis. She was not symptomatic with it. Overall, she has been feeling better since she restarted the prednisone. She completed Prednisone 20 mg dosing today. Plan: 1. Her treatment will remain on hold. 2. Continue Prednisone @ 10 mg po daily until next followup. 3. Increase levothyroxine to 100 mcg daily. 4. Today's labs were reviewed in detail and discussed with Ms Alvarez and a copy was given to her. WBC 8.9, hemoglobin 13.1, platelets 182,000, potassium 4.1 glucose 89 creatinine 1.0 LFTs are normal TSH is improved at 144.10. It was 223.6 on April 14, 2020. Her free T4 is 0.61 and free T3 is 1.1 both of which are improved. 5. We will plan to see her back in 2 weeks with repeat CBC CMP TSH free T3 and free T4. 6. Ms. Alvarez was encouraged to contact us in the interim should questions or problems arise. Signed By: Glen Madrid-, AOCNP Beni Mahoney MD <<Signature on File>>
== END 2020-05-12 23:59 | disposition home or self-care (01) ==
LOC: ONCMED 05:38
PROVIDERS: PCP Family Medicine; Referring Provider Surgery; Visit Provider Nurse Practitioner
DX: C34.12 Malignant neoplasm of upper lobe, left bronchus or lung (principal); E06.4 Drug-induced thyroiditis; T45.1X5A Adverse effect of antineoplastic and immunosuppressive drugs, initial encounter; K21.9 Gastro-esophageal reflux disease without esophagitis; D50.9 Iron deficiency anemia, unspecified
CPT/HCPCS: 36591; 71260; 80053; 84439; 84443; 84481; 85025; 99214; Q9967

== ENCOUNTER 2020-06-04 06:20 | Outpatient (RCR) | payer BC, SELFPAY ==
[2020-05-21 08:51] LABS: Basophils % 0.4 %; Hematocrit 40.3 % (37.0-47.0); Lymphocytes # 0.9 10^3/uL (0.8-4.8); Lymphocytes % 11.9 %; Mean Corpuscular HGB Conc 32.3 g/dL (30.0-36.0); Mean Corpuscular Hemoglobin 29.7 pg (28.0-34.0); Mean Corpuscular Volume 92.2 fL (81-99); Monocytes # 0.6 10^3/uL (0.2-0.9); Monocytes % 7.7 %; Neutrophils # 6.04 10^3/uL (1.8-7.7); Neutrophils % 79.3 %; Nucleated Red Blood Cells % 0 %; Platelet Count 172 10^3/cmm (130-400); Red Blood Count 4.37 10^6/uL (4.1-5.3); Red Cell Distribution Width 14.3 % (12.1-15.1); White Blood Count 7.6 10^3/uL (4.0-10.0)
[2020-05-21 09:17] LABS: Alanine Aminotransferase 9 U/L (0-33); Albumin Level 4.1 g/dL (3.5-5.2); Alkaline Phosphatase 67 IU/L (35-105); Anion Gap 12.9 (5-19); Aspartate Amino Transferase 11 U/L (0-32); Blood Urea Nitrogen 16 mg/dL (6-20); Carbon Dioxide 28 mmol/L (22-29); Chloride 103 mmol/L (98-107); Free T4 Free Thyroxine 1.19 ng/dL (0.82-1.77); Globulin 2.7 g/dL (1.3-4.6); Glomerular Filtration Rate 77.2 mL/min (90-130); Glucose 100 mg/dL (65-115); Osmolality Calculated 286 mOsm/kg (285-295); Potassium 3.9 mmol/L (3.5-5.1); Sodium 140 mmol/L (136-145); Thyroid Stimulating Hormone 21.72 uIU/mL (0.27-4.20); Total Bilirubin 0.4 mg/dL (0.15-1.2); Total Protein 6.8 g/dL (6.6-8.7)
--- NOTE | 2020-05-24 13:56 | ONC FU_ITS ---
Dr. Mahoney Patient Follow-Up Note Patient: KEN OLIVIER Unit #: [id number]: 1975 Dicatated By: Beni Mahoney M.D.Date of Visit:May 21, 2020 Onc Med Follow-up/Prog Note Chief Complaint: Lung cancer. 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 Her tumor was determined to be PD-L1 positive at 25%. 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 She is a non-smoker and she has been in good general health. In August she had seen her primary care physician with fever and cough, initially suspected to be pneumonia. Repeat chest x-ray after antibiotic therapy showed persistent mass in the left lung. Chest CT showed a large left upper lobe lung mass with associated mediastinal adenopathy, highly suspicious for malignancy. She underwent bronchoscopy on 09/17/2019 with brushings from the left upper lobe bronchus showing atypical cells, suspicious for malignancy. A repeat PET/CT on 10/10/2019 showed a 5.7 x 5.2 cm mass with SUV 22.7. A left hilar lymph node measuring 14 mm had elevated SUV of 5.0, and a small node in the aortopulmonary window had increased SUV at 4.4. There were no other areas of abnormal uptake. A left adrenal gland nodule measuring up to 2.5 cm appeared consistent with benign adenoma. On 11/12/2019 she underwent left video-assisted thorascopic surgical biopsy of station 5 AP window lymph nodes. At surgery it was noted that her tumor was invading the left chest wall. The AP window lymph nodes were found to be positive for metastatic carcinoma, and with those findings resection was not attempted. Pathology report indicated just scant malignant cells which were consistent with non-small cell carcinoma. A [employer] next generation sequencing study showed no actionable mutations. The PD-L1 was positive at 25%. I had seen her initially on 11/15/2019. In the setting of stage IIIb disease, she was recommended to undergo chemoradiation utilizing weekly cisplatin/paclitaxel. At the time I also recommended further molecular analysis with a [employer] 360 study. It showed the presence of an EGFR L747P mutation. On 12/03/2019 she began treatment with her week 1 carboplatin/paclitaxel concurrently with radiation. Her treatment had to be stopped due to an almost immediate hypersensitivity reaction to the paclitaxel. The reaction was adequately managed with IV Solu-Medrol, subcutaneous epinephrine, and other supportive measures which included IV fluids, oxygen, and albuterol/Atrovent by pulmonary nebulizer. She then returned on 12/05/2019 to restart treatment with carboplatin/Abraxane, which she tolerated without acute toxicity. She continued with her week 2 chemotherapy on 12/12/2019, with week 3 on 12/19/2019, with week 4 on 12/25/2019, and with week 5 on 01/02/2020. Her week 6 treatment was held due to declining blood counts and performance status. She completed radiation on 01/16/2020 to a total dose of 6600 [address] Her [address]aging chest [address] on 02/06/2020 showed a slight decrease in the left upper lobe neoplasm measuring 4.6 x 3.4 x 2.8 cm and a slight decrease in the size of the left suprahilar lymph node measuring 1.4 cm. There was no change in the left adrenal gland mass. As there was evidence of some response, she was recommended to begin maintenance immunotherapy with durvalumab. Her only other medical illnesses GERD. She has a non-smoker. INTERIM HISTORY: She began cycle 1 of maintenance durvalumab on 02/18/2020. She tolerated it without acute toxicity. At her scheduled follow-up visit on 03/03/2020, she was had clinical evidence of acute thyroiditis, and her treatment was put on hold. She was then able to continue with cycle 2 on 03/17/2020 and with cycle 3 on 03/31/2020. She was seen for a scheduled visit on 04/14/2020. At that point she had multiple new complaints, the most significant being numbness/tingling in both arms. She had significant weight gain. Her TSH was found to be markedly elevated at 223.60 ???IU/mL compared to 0.13 ???IU/mL 1 month earlier. Her treatment was put on hold, and she started steroid therapy with prednisone 20 mg daily along with levothyroxine [address] of the chest on 04/17/2020 showed decrease in the size of the left upper lobe neoplasm measuring 2.6 x 2.1 x 2.6 cm. There was new patchy airspace infiltrates in the left lower lobe, likely infectious or inflammatory. A previously described left AP window was noted to have resolved. There was no mediastinal or hilar lymphadenopathy noted. There was a small pericardial effusion. A left adrenal mass measuring 2.0 x 1.5 cm appeared stable. At that point her treatment remained on hold. She is seen for a followup visit. She still has some fatigue, but overall she is doing more. She has good appetite. She has not had fever or night sweating. She has hot flashes off and on. She occasionally has gasps of air, but her breathing is otherwise okay. She has been having a little more cough. She has some tenderness in the area of her radiation field. She otherwise does not have chest pain. She has no GI or complaints. She has no significant joint or bone pain. She does not complain of headache or dizziness. She has no focal neurologic symptoms. Medications: Ferrous Sulfate 1 Tablet (of 325 (65 fe) mg) Tablet Oral daily, HYDROcodone-Acetaminophen 1 Tablet (of 7.5-325 mg) Oral q 6 hours PRN, Levothyroxine Sodium 1 Tablet (of 100 mcg) Oral daily, LORazepam 0.5 - 1 Tablet (of 1 mg) Oral t.i.d. PRN, Omeprazole 1 Tablet (of 20 mg) Capsule Delayed Release Oral daily, Ondansetron HCl 1 Tablet (of 4 mg) Tablet Oral q 6 hours PRN, predniSONE 0.5 Tablet (of 20 mg) Oral daily, Prochlorperazine Maleate 1 Tablet (of 10 mg) Oral q 4 hours PRN Allergies: paclitaxel Review of Systems: Constitutional - She has some fatigue. Appetite is good and weight is stable. No fever or night sweats. She has hot flashes. ECOG score is 1, ENMT - No sinus congestion/drainage. No mouth sores. No sore throat or difficulty swallowing, Hematologic/Lymphatic - No abnormal bruising or bleeding, Respiratory - She occasioanally gasps for air. Her breathing is otherwise OK. She has a little more cough. No pleuritic pain or hemoptysis, Cardiovascular - No angina pain. No palpitations, Gastrointestinal - No nausea or vomiting. No heartburn or acid reflux. No diarrhea or constipation. No blood in the stool or black stools, Genitourinary (F) - No dysuria or hematuria. No urinary frequency. No urgency or incontinence, Musculoskeletal - No joint or bone pain, Integumentary - No skin rash, Neurologic - No headache or dizziness. No numbness or tingling. No other focal neurologic symptoms, Psychiatric - No anxiety or depression. No insomnia. Vital Signs: Performed on May 21, 2020 09:59 Height - 68.00 in Weight - 220.4 lbs (HIGH) BSA - 2.13 sq.m BMI - 33.51 (HIGH) Temperature - 97.5 F (LOW) Pulse - 82 /min Respiration - 22 /min BP - 120/53 mm(hg) O2 Sat - 98 % Pain - 0 Physical Examination: Constitutional - She looks good generally, Eyes - Sclerae nonicteric. Conjunctivae clear, ENMT - No lesions noted in the oral cavity, Hematologic/Lymphatic - No cervical, clavicular, or axillary adenopathy, Respiratory - Lungs sound clear with slightly diminished air movement bilaterally, Cardiovascular - Heart rhythm is regular. There is no murmur, gallop, or rub noted, Abdomen - Soft. Liver and spleen are not enlarged. There is no abdominal mass or ascites noted and there is no inguinal adenopathy, Extremities - No edema, Neurologic - No focal neurologic deficits noted. Lab/Imaging: Test performed on May 21, 2020 08:40 Sodium 140 mmol/L TSH 21.72 uIU/mL Potassium 3.9 mmol/L T4, Free 1.19 ng/dL Chloride 103 mmol/L CO2 28 mmol/L Anion Gap 12.9 BUN 16 mg/dL Creatinine 0.8 mg/dL Cr Clearance (Est) 126.7200 mL/min eGFR 77.2 mL/min Glucose 100 mg/dL Calcium 9.0 mg/dL Protein, Total 6.8 g/dL Albumin 4.1 g/dL Globulin 2.7 g/dL Bilirubin, Total 0.4 mg/dL ALT (SGPT) 9 U/L AST (SGOT) 11 U/L Alkaline Phosphatase 67 IU/L WBC 7.6 10 3/uL RBC 4.37 10 6/uL HGB 13.0 g/dL HCT 40.3 % MCV 92.2 fL MCH 29.7 pg MCHC 32.3 g/dL RDW 14.3 % Platelet Count 172 10 3/cmm MPV 9.0 fL Neutrophils 6.04 10 3/uL Lymphocytes 0.9 10 3/uL Monocytes 0.6 10 3/uL Eosinophils 0.0 10 3/uL Basophils 0.0 10 3/uL Neutrophil % 79.3 % Lymphocyte % 11.9 % Monocyte % 7.7 % Eosinophil % 0.0 % Basophils % 0.4 % NRBC % 0 % Test performed on May 06, 2020 09:35 T3, Free 1.1 PG/ML Test performed on January 30, 2020 15:20 Ferritin 45 ng/mL Iron 194 mcg/dL Iron Binding Capacity (TIBC) 212 mcg/dl % Iron Saturation 91.5 % UIBC 18 mcg/dL Impression: 1. 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 A [employer] next generation sequencing study showed no actionable mutations. The PD-L1 was positive at 25%. A [employer] 360 study showed the presence of an exon 19 EGFR mutation ( [id number] mutation). 2. She underwent video-assisted thoracotomy with biopsy of station 5 AP window lymph nodes on 11/09/2019. Her tumor was found to be invading the chest wall. 3. She has pre-existing GERD, adequately managed with medication. 4. She has moderately severe anemia with serum iron studies consistent with iron deficiency. On 12/03/2019 she began weekly carboplatin/paclitaxel chemotherapy, currently with radiation. Her week 1 chemotherapy infusion was stopped almost immediately due to hypersensitivity reaction to paclitaxel. She then returned on 12/04/2021 to restart treatment with week 1 carboplatin/Abraxane, which she began concurrently with radiation. She tolerated it well. She continued with her week 2 treatment on 12/12/2019, with week 3 on 12/19/2019, with week 4 on 12/25/2019, and with week 5 on 01/02/2020. Her week 6 treatment was withheld due to declining blood counts and performance status. She completed radiation on 01/16/2020, total dose [address] on 02/06/2020 showed only a slight decrease in the left upper lobe mass and in the left suprahilar mass. The left adrenal mass appeared unchanged. With evidence of some response to the treatment, she was recommended to continue on to maintenance immunotherapy with durvalumab. She began cycle 1 on 02/18/2020. At her scheduled follow-up visit on 03/03/2020 she had clinical evidence of acute thyroiditis, and her treatment was put on hold. Her symptoms had subsequently improved, and she then continued with cycle 2 of durvalumab on 03/17/2020 and with cycle 3 on 03/31/2020. At her follow-up visit on 04/14/2020, she had multiple new complaints, most significantly numbness/tingling in both arms. Her TSH level was found to be markedly elevated. Her treatment was put on hold. She restarted steroid therapy with prednisone 20 mg daily she also started levothyroxine 50 mcg daily. Her restaging chest CT on 04/17/2020 showed significant decrease in the left upper lobe mass compared to the pretreatment study. There was some new left lower lobe infiltrate, which I suspected to have been treatment related pneumonitis. She was not symptomatic with it. Overall, she improved clinically on the prednisone and levothyroxine, and she was able to begin tapering prednisone. Her TSH now has come down significantly, and she appears to be doing well clinically on 20 mg of prednisone daily. Plan: She will restart treatment with durvalumab at the same dosage. Prednisone will now be decreased to 10 mg daily. She continues levothyroxine 100 mcg daily. She returns in 2 weeks. Signed By: Beni Mahoney M.D. <<Signature on File>>
[2020-06-04] MEDS: sodium chloride 0.9% (100 ml) 100 ML 75 ML (15:05)
--- NOTE | 2020-06-14 15:22 | ONC FU_ITS ---
[facility] Patient Note Patient: KEN ALVAREZ Unit #: [id number]: [id number] Dictated By: Glen MadridDate of Visit: Jun 04, 2020 Onc MED Follow-Up/Prog Note Chief Complaint: Lung cancer. 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 Her tumor was determined to be PD-L1 positive at 25%. 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 She is a non-smoker and she has been in good general health. In August she had seen her primary care physician with fever and cough, initially suspected to be pneumonia. Repeat chest x-ray after antibiotic therapy showed persistent mass in the left lung. Chest CT showed a large left upper lobe lung mass with associated mediastinal adenopathy, highly suspicious for malignancy. She underwent bronchoscopy on 09/17/2019 with brushings from the left upper lobe bronchus showing atypical cells, suspicious for malignancy. A repeat PET/CT on 10/10/2019 showed a 5.7 x 5.2 cm mass with SUV 22.7. A left hilar lymph node measuring 14 mm had elevated SUV of 5.0, and a small node in the aortopulmonary window had increased SUV at 4.4. There were no other areas of abnormal uptake. A left adrenal gland nodule measuring up to 2.5 cm appeared consistent with benign adenoma. On 11/12/2019 she underwent left video-assisted thorascopic surgical biopsy of station 5 AP window lymph nodes. At surgery it was noted that her tumor was invading the left chest wall. The AP window lymph nodes were found to be positive for metastatic carcinoma, and with those findings resection was not attempted. Pathology report indicated just scant malignant cells which were consistent with non-small cell carcinoma. A DTT next generation sequencing study showed no actionable mutations. The PD-L1 was positive at 25%. Dr Mahoney had seen her initially on 11/15/2019. In the setting of stage IIIb disease, she was recommended to undergo chemoradiation utilizing weekly cisplatin/paclitaxel. At the time it was also recommended further molecular analysis with a Guardant 360 study. It showed the presence of an EGFR L747P mutation. On 12/03/2019 she began treatment with her week 1 carboplatin/paclitaxel concurrently with radiation. Her treatment had to be stopped due to an almost immediate hypersensitivity reaction to the paclitaxel. The reaction was adequately managed with IV Solu-Medrol, subcutaneous epinephrine, and other supportive measures which included IV fluids, oxygen, and albuterol/Atrovent by pulmonary nebulizer. She then returned on 12/05/2019 to restart treatment with carboplatin/Abraxane, which she tolerated without acute toxicity. She continued with her week 2 chemotherapy on 12/12/2019, with week 3 on 12/19/2019, with week 4 on 12/25/2019, and with week 5 on 01/02/2020. Her week 6 treatment was held due to declining blood counts and performance status. She completed radiation on 01/16/2020 to a total dose of 6600 cGy[address] Her restaging chest CT on 02/06/2020 showed a slight decrease in the left upper lobe neoplasm measuring 4.6 x 3.4 x 2.8 cm and a slight decrease in the size of the left suprahilar lymph node measuring 1.4 cm. There was no change in the left adrenal gland mass. As there was evidence of some response, she was recommended to begin maintenance immunotherapy with durvalumab. Her only other medical illnesses GERD. She has a non-smoker. INTERIM HISTORY: She began cycle 1 of maintenance durvalumab on 02/18/2020. She tolerated it without acute toxicity. At her scheduled follow-up visit on 03/03/2020, she was had clinical evidence of acute thyroiditis, and her treatment was put on hold. She was then able to continue with cycle 2 on 03/17/2020 and with cycle 3 on 03/31/2020. She was seen for a scheduled visit on 04/14/2020. At that point she had multiple new complaints, the most significant being numbness/tingling in both arms. She had significant weight gain. Her TSH was found to be markedly elevated at 223.60 ???IU/mL compared to 0.13 ???IU/mL 1 month earlier. Her treatment was put on hold, and she started steroid therapy with prednisone 20 mg daily along with levothyroxine [address] of the chest on 04/17/2020 showed decrease in the size of the left upper lobe neoplasm measuring 2.6 x 2.1 x 2.6 cm. There was new patchy airspace infiltrates in the left lower lobe, likely infectious or inflammatory. A previously described left AP window was noted to have resolved. There was no mediastinal or hilar lymphadenopathy noted. There was a small pericardial effusion. A left adrenal mass measuring 2.0 x 1.5 cm appeared stable. At that point her treatment remained on hold. Was able to resume the durvalumab on May 21, 2020. Her TSH at that time had significantly improved to 21.72. Ms. Alvarez is here today for follow-up. She states she is doing well. She states she felt really good after her last treatment and has had no further fatigue. She states she is actually working full-time doing her job and 1 of her coworkers. She states she is staying mentally challenged and has some fatigue from that but not physically. She states overall she feels great. She is had some seasonal allergy but states overall they have been mild. She denies any fever or chills. She is had no symptoms of COVID-19. She denies any known exposure or pending personal COVID testing. She states her appetite is good. She denies any shortness of breath orthopnea. She denies any dyspnea. She has had no orthopnea. She denies any pain with expiration. She has had no diarrhea or constipation. She denies any joint/muscle pain. She denies any lower extremity edema. Her ECOG is 0. Past Medical History: Gastroesophageal reflux disease Past Surgical History: Tubal ligation Left video-assisted thorascopic surgical biopsy of AP window lymph node in 2019 Bronchoscopy in 2019 Allergies: paclitaxel Medications: Ferrous Sulfate 1 Tablet (of 325 (65 fe) mg) Tablet Oral daily HYDROcodone-Acetaminophen 1 Tablet (of 7.5-325 mg) Oral q 6 hours PRN Levothyroxine Sodium 1 Tablet (of 100 mcg) Oral daily LORazepam 0.5 - 1 Tablet (of 1 mg) Oral t.i.d. PRN Omeprazole 1 Tablet (of 20 mg) Capsule Delayed Release Oral daily Ondansetron HCl 1 Tablet (of 4 mg) Tablet Oral q 6 hours PRN predniSONE 0.5 Tablet (of 20 mg) Oral daily Prochlorperazine Maleate 1 Tablet (of 10 mg) Oral q 4 hours PRN Family History: Ms. ALVAREZ's mother is alive. Ms. ALVAREZ's father is alive. Ms. ALVAREZ has 1 sister who is alive. Both parents are still living, father at age 70 and mother at age 68. She has one sister, age 39, who also is in good health. Social History: Ms. ALVAREZ is and she is an unknown. Ms. ALVAREZ has never smoked. She has no history of drinking. Review Of Symptoms: Constitutional Denies fevers, chills, night sweats. Feels good overall. Allergic/Immunologic seasonal allergies-mild Eyes Denies significant visual changes. No diplopia. No amaurosis. ENMT Denies changes in hearing, sore throat, mouth sores, difficulty or changes in swallowing ability. Endocrine Feels better overall- less fogginess Hematologic/Lymphatic Denies easy bruising or bleeding. The patient denies any tender or palpable lymph nodes. Respiratory Denies dyspnea on exertion, chest pain, cough or hemoptysis. Denies orthopnea. Cardiovascular Denies anginal chest pain, palpitations or orthopnea. Gastrointestinal Denies nausea, vomiting, diarrhea, GI bleeding, or constipation. Denies change in bowel habits and/or stool color, no heartburn or early satiety. Genitourinary (F) No hematuria, hesitancy, incontinence, vaginal bleeding, discharge or other problems with urination. Musculoskeletal Denies joint pain, swelling or redness. No decreased range of motion. Integumentary Denies chronic rashes, inflammation, ulcerations or skin changes. Neurologic Denies headache, blurred vision, and no areas of focal weakness or numbness. Normal gait. No sensory problems. Psychiatric Denies insomnia, depression, wm or mood swings. Vital Signs: Performed on Jun 04, 2020 14:28 Height - 68.00 in Weight - 227.0 lbs (HIGH) BSA - 2.16 sq.m BMI - 34.52 (HIGH) Temperature - 97.6 F (LOW) Pulse - 71 /min Respiration - 24 /min BP - 128/71 mm(hg) O2 Sat - 97 % Pain - 0,0 - Fully active, able to carry on all predisease activities without restrictions. (ECOG) Physical Examination: Constitutional Alert, oriented, no acute distress. Skin pink, warm and dry. Head Normocephalic; atraumatic. Eyes Conjunctivae and sclerae are clear and without icterus. Pupils are reactive and equal. Neck Supple without masses or thyromegaly. No jugular venous distension. Hematologic/Lymphatic No petechiae or purpura. No tender or palpable lymph nodes in the cervical or supraclavicular areas. Respiratory Lungs are clear to auscultation without rhonchi or wheezing. Cardiovascular Regular rate and rhythm of heart without murmurs,clicks, gallops or rubs. Chest Left chest wall port a cath unremarkable. Abdomen Non-tender, non-distended, no masses or ascites. Back/Spine Non-tender to palpation. Extremities No visible deformities, no cyanosis, clubbing or edema. Musculoskeletal No tenderness or swelling, normal range of motion without obvious weakness. Integumentary No rashes or lesions. Neurologic No sensory or motor deficits, normal cerebellar function, normal gait. Psychiatric Alert and oriented times three. Coherent speech. Verbalizes understanding of our discussions today. Laboratory:Test performed on Jun 04, 2020 14:57 TSH 7.80 uIU/mL Test performed on May 21, 2020 08:40 Sodium 140 mmol/L Potassium 3.9 mmol/L T4, Free 1.19 ng/dL Chloride 103 mmol/L CO2 28 mmol/L Anion Gap 12.9 BUN 16 mg/dL Creatinine 0.8 mg/dL Cr Clearance (Est) 142.83 mL/min eGFR 77.2 mL/min Glucose 100 mg/dL Calcium 9.0 mg/dL Osmolality - Calculated 286 mOsm/kg Protein, Total 6.8 g/dL Albumin 4.1 g/dL Globulin 2.7 g/dL Bilirubin, Total 0.4 mg/dL ALT (SGPT) 9 U/L AST (SGOT) 11 U/L Alkaline Phosphatase 67 IU/L WBC 7.6 10 3/uL RBC 4.37 10 6/uL HGB 13.0 g/dL HCT 40.3 % MCV 92.2 fL MCH 29.7 pg MCHC 32.3 g/dL RDW 14.3 % Platelet Count 172 10 3/cmm MPV 9.0 fL Neutrophils 6.04 10 3/uL Lymphocytes 0.9 10 3/uL Monocytes 0.6 10 3/uL Eosinophils 0.0 10 3/uL Basophils 0.0 10 3/uL Neutrophil % 79.3 % Lymphocyte % 11.9 % Monocyte % 7.7 % Eosinophil % 0.0 % Basophils % 0.4 % NRBC % 0 % Impression: 1. 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 A DTT next generation sequencing study showed no actionable mutations. The PD-L1 was positive at 25%. A Guardant 360 study showed the presence of an exon 19 EGFR mutation ( [id number] mutation). 2. She underwent video-assisted thoracotomy with biopsy of station 5 AP window lymph nodes on 11/09/2019. Her tumor was found to be invading the chest wall. 3. She has pre-existing GERD, adequately managed with medication. 4. She has moderately severe anemia with serum iron studies consistent with iron deficiency. On 12/03/2019 she began weekly carboplatin/paclitaxel chemotherapy, currently with radiation. Her week 1 chemotherapy infusion was stopped almost immediately due to hypersensitivity reaction to paclitaxel. She then returned on 12/04/2021 to restart treatment with week 1 carboplatin/Abraxane, which she began concurrently with radiation. She tolerated it well. She continued with her week 2 treatment on 12/12/2019, with week 3 on 12/19/2019, with week 4 on 12/25/2019, and with week 5 on 01/02/2020. Her week 6 treatment was withheld due to declining blood counts and performance status. She completed radiation on 01/16/2020, total dose [address] on 02/06/2020 showed only a slight decrease in the left upper lobe mass and in the left suprahilar mass. The left adrenal mass appeared unchanged. With evidence of some response to the treatment, she was recommended to continue on to maintenance immunotherapy with durvalumab. She began cycle 1 on 02/18/2020. At her scheduled follow-up visit on 03/03/2020 she had clinical evidence of acute thyroiditis, and her treatment was put on hold. Her symptoms had subsequently improved, and she then continued with cycle 2 of durvalumab on 03/17/2020 and with cycle 3 on 03/31/2020. At her follow-up visit on 04/14/2020, she had multiple new complaints, most significantly numbness/tingling in both arms. Her TSH level was found to be markedly elevated. Her treatment was put on hold. She restarted steroid therapy with prednisone 20 mg daily she also started levothyroxine 50 mcg daily. Her restaging chest CT on 04/17/2020 showed significant decrease in the left upper lobe mass compared to the pretreatment study. There was some new left lower lobe infiltrate, which I suspected to have been treatment related pneumonitis. She was not symptomatic with it. Overall, she improved clinically on the prednisone and levothyroxine, and she was able to begin tapering prednisone. Her TSH now has come down significantly, and she appears to be doing well clinically on 10 mg of prednisone daily. Plan: 1. Proceed with cycle 5 durvalumab at the same dosage. 2. Prednisone is at 10 mg daily. She may try weaning to 5 mg daily if she has no recurrence of her symptoms. IF she does, she will resume at 10 mg daily. 3. She continues levothyroxine 100 mcg daily. TSH today is 7.8 after resuming durvalumab last week. On May 21 it was 21.72. 4. We will plan to see her back in 2 weeks with CBC CMP and repeat TSH. She may need further thyroid medication adjustment at that time. 5. Mrs. Alvarez is instructed to contact us in interim should questions or problems arise. Signed By: Glen Madrid-, [facility] Beni Mahoney MD <<Signature on File>>
== END 2020-06-11 23:59 | disposition home or self-care (01) ==
LOC: ONCMED 06:20
PROVIDERS: Internal Medicine Medical Oncology; PCP Family Medicine; Referring Provider Surgery; Visit Provider Nurse Practitioner
DX: Z51.12 Encounter for antineoplastic immunotherapy (principal); C34.12 Malignant neoplasm of upper lobe, left bronchus or lung; E06.4 Drug-induced thyroiditis; T45.1X5A Adverse effect of antineoplastic and immunosuppressive drugs, initial encounter; K21.9 Gastro-esophageal reflux disease without esophagitis; D50.9 Iron deficiency anemia, unspecified; Z92.3 Personal history of irradiation; Z79.899 Other long term (current) drug therapy; Z79.52 Long term (current) use of systemic steroids
CPT/HCPCS: 80053; 84439; 84443; 85025; 96413; 99214; J7050; J9173

== ENCOUNTER 2020-07-02 05:41 | Outpatient (RCR) | payer BC, SELFPAY ==
[2020-06-18 10:00] LABS: Basophils % 0.5 %; Hematocrit 39.8 % (37.0-47.0); Hemoglobin 12.9 g/dL (11.5-15.3); Lymphocytes % 12.7 %; Mean Corpuscular HGB Conc 32.4 g/dL (30.0-36.0); Mean Corpuscular Hemoglobin 31.1 pg (28.0-34.0); Mean Corpuscular Volume 95.9 fL (81-99); Mean Platelet Volume 9.4 fL (7.4-10.4); Monocytes # 0.6 10^3/uL (0.2-0.9); Monocytes % 7.8 %; Neutrophils # 5.85 10^3/uL (1.8-7.7); Neutrophils % 78.5 %; Nucleated Red Blood Cells % 0 %; Platelet Count 178 10^3/cmm (130-400); Red Blood Count 4.15 10^6/uL (4.1-5.3); Red Cell Distribution Width 14.9 % (12.1-15.1); White Blood Count 7.5 10^3/uL (4.0-10.0)
[2020-06-18 10:40] LABS: Alanine Aminotransferase 11 U/L (0-33); Albumin Level 3.9 g/dL (3.5-5.2); Alkaline Phosphatase 69 IU/L (35-105); Anion Gap 14.6 (5-19); Aspartate Amino Transferase 10 U/L (0-32); Blood Urea Nitrogen 13 mg/dL (6-20); Calcium 8.9 mg/dL (8.5-10.5); Carbon Dioxide 24 mmol/L (22-29); Chloride 105 mmol/L (98-107); Globulin 2.4 g/dL (1.3-4.6); Glomerular Filtration Rate 67.4 mL/min (90-130); Glucose 111 mg/dL (65-115); Osmolality Calculated 291 mOsm/kg (285-295); Potassium 3.6 mmol/L (3.5-5.1); Sodium 140 mmol/L (136-145); Thyroid Stimulating Hormone 5.22 uIU/mL (0.27-4.20); Total Bilirubin 0.3 mg/dL (0.15-1.2); Total Protein 6.3 g/dL (6.6-8.7)
[2020-06-18] MEDS: sodium chloride 0.9% 250 ML 200 ML IV (11:18)
--- NOTE | 2020-06-18 13:05 | ONC FU_ITS ---
Dr. Mahoney Patient Follow-Up Note Patient: Luz Elena Alvarez < Unit #: [id number]: 1975 Dicatated By: Beni Mahoney M.D.Date of Visit:Jun 18, 2020 Onc Med Follow-up/Prog Note Chief Complaint: Lung cancer. 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 Her tumor was determined to be PD-L1 positive at 25%. 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 She is a non-smoker and she has been in good general health. In August she had seen her primary care physician with fever and cough, initially suspected to be pneumonia. Repeat chest x-ray after antibiotic therapy showed persistent mass in the left lung. Chest CT showed a large left upper lobe lung mass with associated mediastinal adenopathy, highly suspicious for malignancy. She underwent bronchoscopy on 09/17/2019 with brushings from the left upper lobe bronchus showing atypical cells, suspicious for malignancy. A repeat PET/CT on 10/10/2019 showed a 5.7 x 5.2 cm mass with SUV 22.7. A left hilar lymph node measuring 14 mm had elevated SUV of 5.0, and a small node in the aortopulmonary window had increased SUV at 4.4. There were no other areas of abnormal uptake. A left adrenal gland nodule measuring up to 2.5 cm appeared consistent with benign adenoma. On 11/12/2019 she underwent left video-assisted thorascopic surgical biopsy of station 5 AP window lymph nodes. At surgery it was noted that her tumor was invading the left chest wall. The AP window lymph nodes were found to be positive for metastatic carcinoma, and with those findings resection was not attempted. Pathology report indicated just scant malignant cells which were consistent with non-small cell carcinoma. A [employer] next generation sequencing study showed no actionable mutations. The PD-L1 was positive at 25%. I had seen her initially on 11/15/2019. In the setting of stage IIIb disease, she was recommended to undergo chemoradiation utilizing weekly cisplatin/paclitaxel. At the time I also recommended further molecular analysis with a Guardant 360 study. It showed the presence of an EGFR [id number] mutation. On 12/03/2019 she began treatment with her week 1 carboplatin/paclitaxel concurrently with radiation. Her treatment had to be stopped due to an almost immediate hypersensitivity reaction to the paclitaxel. The reaction was adequately managed with IV Solu-Medrol, subcutaneous epinephrine, and other supportive measures which included IV fluids, oxygen, and albuterol/Atrovent by pulmonary nebulizer. She then returned on 12/05/2019 to restart treatment with carboplatin/Abraxane, which she tolerated without acute toxicity. She continued with her week 2 chemotherapy on 12/12/2019, with week 3 on 12/19/2019, with week 4 on 12/25/2019, and with week 5 on 01/02/2020. Her week 6 treatment was held due to declining blood counts and performance status. She completed radiation on 01/16/2020 to a total dose of 6600 cGy. Her restaging chest CT on 02/06/2020 showed a slight decrease in the left upper lobe neoplasm measuring 4.6 x 3.4 x 2.8 cm and a slight decrease in the size of the left suprahilar lymph node measuring 1.4 cm. There was no change in the left adrenal gland mass. As there was evidence of some response, she was recommended to begin maintenance immunotherapy with durvalumab. Her only other medical illnesses GERD. She has a non-smoker. INTERIM HISTORY: She began cycle 1 of maintenance durvalumab on 02/18/2020. She tolerated it without acute toxicity. At her scheduled follow-up visit on 03/03/2020, she was had clinical evidence of acute thyroiditis, and her treatment was put on hold. She was then able to continue with cycle 2 on 03/17/2020 and with cycle 3 on 03/31/2020. She was seen for a scheduled visit on 04/14/2020. At that point she had multiple new complaints, the most significant being numbness/tingling in both arms. She had significant weight gain. Her TSH was found to be markedly elevated at 223.60 ???IU/mL compared to 0.13 ???IU/mL 1 month earlier. Her treatment was put on hold, and she started steroid therapy with prednisone 20 mg daily along with levothyroxine [address] of the chest on 04/17/2020 showed decrease in the size of the left upper lobe neoplasm measuring 2.6 x 2.1 x 2.6 cm. There was new patchy airspace infiltrates in the left lower lobe, likely infectious or inflammatory. A previously described left AP window was noted to have resolved. There was no mediastinal or hilar lymphadenopathy noted. There was a small pericardial effusion. A left adrenal mass measuring 2.0 x 1.5 cm appeared stable. At that point her treatment remained on hold. As of 05/21/2020 she was able to continue with cycle 4 of divalumab at the full dosage. She tolerated it well and continued with cycle 5 on 06/04/2020. She is seen for a follow-up visit. She has been feeling good generally. She has good energy and she has normal activity. ECOG score is 0. Her appetite is good. She has no fever or night sweats. She still has some shortness of breath with occasional gasping moments. She still has a little bit of cough and she has some tenderness in her upper left chest area. She otherwise does not have chest pain. She currently has no GI or complaints. She has no significant joint or bone pain. She does not complain of headache or dizziness. She has no focal neurologic symptoms. Medications: Citalopram Hydrobromide 1 Tablet (of 20 mg) Tablet Oral daily, Ferrous Sulfate 1 Tablet (of 325 (65 fe) mg) Tablet Oral daily, HYDROcodone-Acetaminophen 1 Tablet (of 7.5-325 mg) Oral q 6 hours PRN, Levothyroxine Sodium 1 Tablet (of 100 mcg) Oral daily, LORazepam 0.5 - 1 Tablet (of 1 mg) Oral t.i.d. PRN, Omeprazole 1 Tablet (of 20 mg) Capsule Delayed Release Oral daily, Ondansetron HCl 1 Tablet (of 4 mg) Tablet Oral q 6 hours PRN, predniSONE 0.5 Tablet (of 20 mg) Oral daily, Prochlorperazine Maleate 1 Tablet (of 10 mg) Oral q 4 hours PRN Allergies: paclitaxel Review of Systems: Constitutional - She has good energy and she has normal activity. Appetite is good and weight is stable. No fever, night sweats, or hot flashes. ECOG score is 0, ENMT - She has some sinus drainage. No mouth sores. No sore throat or difficulty swallowing, Hematologic/Lymphatic - No abnormal bruising or bleeding, Respiratory - She has some shortness of breath with activity and she still has occasional gasping moments. She has a little bit of cough. She still has a little tenderness on the upper left chest area. No pleuritic pain or hemoptysis, Cardiovascular - No angina pain. No palpitations, Gastrointestinal - No nausea or vomiting. Her acid reflux is adequately managed with medication. No diarrhea or constipation. No blood in the stool or black stools, Genitourinary (F) - No dysuria or hematuria. No urinary frequency. No urgency or incontinence, Musculoskeletal - No joint or bone pain, Integumentary - No skin rash, Neurologic - No headache or dizziness. No numbness or tingling. No other focal neurologic symptoms, Psychiatric - No anxiety or depression. No insomnia. Vital Signs: Performed on Jun 18, 2020 10:17 Height - 68.00 in Weight - 225.4 lbs Temperature - 98.0 F Pulse - 71 Respiration - 16 BP - 115/75 mm(hg) O2 Sat - 97 % Pain - 0 Fatigue - 0 Performed on Jun 18, 2020 10:17 BMI - 34.272 kg/m2 (HIGH) Physical Examination: Constitutional - She looks good generally, Eyes - Sclerae nonicteric. Conjunctivae clear, ENMT - No lesions noted in the oral cavity, Hematologic/Lymphatic - No cervical, clavicular, or axillary adenopathy, Respiratory - Lungs sound clear with slightly diminished air movement bilaterally, Cardiovascular - Heart rhythm is regular. There is no murmur, gallop, or rub noted, Abdomen - Soft. Liver and spleen are not enlarged. There is no abdominal mass or ascites noted and there is no inguinal adenopathy, Extremities - No edema, Neurologic - No focal neurologic deficits noted. Lab/Imaging: Test performed on Jun 18, 2020 09:30 Sodium 140 mmol/L TSH 5.22 uIU/mL Potassium 3.6 mmol/L Chloride 105 mmol/L CO2 24 mmol/L Anion Gap 14.6 BUN 13 mg/dL Creatinine 0.9 mg/dL Cr Clearance (Est) 126.9600 mL/min eGFR 67.4 mL/min Glucose 111 mg/dL Osmolality - Calculated 291 mOsm/kg Calcium 8.9 mg/dL Protein, Total 6.3 g/dL Albumin 3.9 g/dL Globulin 2.4 g/dL Bilirubin, Total 0.3 mg/dL ALT (SGPT) 11 U/L AST (SGOT) 10 U/L Alkaline Phosphatase 69 IU/L WBC 7.5 10 3/uL RBC 4.15 10 6/uL HGB 12.9 g/dL HCT 39.8 % MCV 95.9 fL MCH 31.1 pg MCHC 32.4 g/dL RDW 14.9 % Platelet Count 178 10 3/cmm MPV 9.4 fL Neutrophils 5.85 10 3/uL Lymphocytes 1.0 10 3/uL Monocytes 0.6 10 3/uL Eosinophils 0.0 10 3/uL Basophils 0.0 10 3/uL Neutrophil % 78.5 % Lymphocyte % 12.7 % Monocyte % 7.8 % Eosinophil % 0.0 % Basophils % 0.5 % NRBC % 0 % Impression: 1. 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 A [employer] next generation sequencing study showed no actionable mutations. The PD-L1 was positive at 25%. A Guardant 360 study showed the presence of an exon 19 EGFR mutation ( [id number] mutation). 2. She underwent video-assisted thoracotomy with biopsy of station 5 AP window lymph nodes on 11/09/2019. Her tumor was found to be invading the chest wall. 3. She has pre-existing GERD, adequately managed with medication. 4. She has moderately severe anemia with serum iron studies consistent with iron deficiency. On 12/03/2019 she began weekly carboplatin/paclitaxel chemotherapy, currently with radiation. Her week 1 chemotherapy infusion was stopped almost immediately due to hypersensitivity reaction to paclitaxel. She then returned on 12/04/2021 to restart treatment with week 1 carboplatin/Abraxane, which she began concurrently with radiation. She tolerated it well. She continued with her week 2 treatment on 12/12/2019, with week 3 on 12/19/2019, with week 4 on 12/25/2019, and with week 5 on 01/02/2020. Her week 6 treatment was withheld due to declining blood counts and performance status. She completed radiation on 01/16/2020, total dose [address] on 02/06/2020 showed only a slight decrease in the left upper lobe mass and in the left suprahilar mass. The left adrenal mass appeared unchanged. With evidence of some response to the treatment, she was recommended to continue on to maintenance immunotherapy with durvalumab. She began cycle 1 on 02/18/2020. At her scheduled follow-up visit on 03/03/2020 she had clinical evidence of acute thyroiditis, and her treatment was put on hold. Her symptoms had subsequently improved, and she then continued with cycle 2 of durvalumab on 03/17/2020 and with cycle 3 on 03/31/2020. At her follow-up visit on 04/14/2020, she had multiple new complaints, most significantly numbness/tingling in both arms. Her TSH level was found to be markedly elevated. Her treatment was put on hold. She restarted steroid therapy with prednisone 20 mg daily she also started levothyroxine 50 mcg daily. Her restaging chest CT on 04/17/2020 showed significant decrease in the left upper lobe mass compared to the pretreatment study. There was some new left lower lobe infiltrate, which I suspected to have been treatment related pneumonitis. She was not symptomatic with it. Overall, she improved clinically on the prednisone and levothyroxine, and she was able to begin tapering prednisone. Her TSH now has come down significantly, and she appears to be doing well clinically on 20 mg of prednisone daily. She then continue to taper prednisone and she continued with cycle 4 of durvalumab on 05/21/2020 and with cycle 5 on 06/04/2020. She is currently tolerating treatment well and she appears to be doing very well clinically. Plan: She will continue with cycle 6 of durvalumab. The dosage remains the same. She also will continue levothyroxine at 100 mcg daily. She will be scheduled for treatment in 2 weeks and for a follow-up visit with restaging CT scans in 4 weeks. Signed By: Beni Mahoney M.D. <<Signature on File>>
--- NOTE | 2020-06-18 21:38 | ONCRAD EPV_ITS ---
Radiation Oncology Established Patient Visit Patient: Antonio Laguna [id number] : 1975> Age: 44> Sex: Female> Dictated by: Dr. Jimmy Little Date of Service: 06/18/2020 Referring Physician(s) : Dr. Joel Carlos Jr Diagnosis: E06.4 - Drug-induced thyroiditis, Diagnosed 03/03/2020 (Active) C34.12 - Malignant neoplasm of upper lobe, left bronchus or lung, Diagnosed 11/15/2019 (Active) Stage IIIB, T3, N2, M0 Radiotherapy to Date: Course: LT Lung, Treatment Site: LT [id number], Ref. ID: [id number], Energy: 6X, Dose/Fx (cGy): 200, #Fx: , Dose Correction (cGy): 0, Total Dose (cGy): 4,400, Start Date: 12/03/2019, End Date: 01/01/2020, Elapsed Days: 29 Course: LT Lung, Treatment Site: [id number], Ref. ID: [id number], Energy: 6X, Dose/Fx (cGy): 200, #Fx: , Dose Correction (cGy): 0, Total Dose (cGy): 2,200, Start Date: 01/02/2020, End Date: 01/16/2020, Elapsed Days: 14 Current History: The patient is seen in follow-up today and she is tolerating adjuvant durvalumab well. The patient reports no progressive shortness of breath, no hemoptysis, no chest wall pain, no bone pain, no headaches, no seizures, no numbness/weakness. Most recent CT of the chest (04/17/2020 versus 02/06/2020 and PET/CT dated 10/10/2019) revealed a decrease in size in the left upper lobe mass now measuring 2.6 x 2.1 x 2.6 cm. Current Medications: Dexamethasone, ferrous Sulfate, hYDROcodone-Acetaminophen, imfinzi, levo-T, levothyroxine Sodium, levothyroxine Sodium, lORazepam, omeprazole, ondansetron HCl, predniSONE, predniSONE, prochlorperazine Maleate, prochlorperazine Maleate. Allergies: paclitaxel. Current Complaints / Review of Systems: ROS Constitutional - She has good energy and she has normal activity. Appetite is good and weight is stable. No fever, night sweats, or hot flashes. ECOG score is 0. ROS ENMT - She has some sinus drainage. No mouth sores. No sore throat or difficulty swallowing. ROS Hematologic/Lymphatic - No abnormal bruising or bleeding. ROS Respiratory - She has some shortness of breath with activity and she still has occasional gasping moments. She has a little bit of cough. She still has a little tenderness on the upper left chest area. No pleuritic pain or hemoptysis. ROS Cardiovascular - No angina pain. No palpitations. ROS Gastrointestinal - No nausea or vomiting. Her acid reflux is adequately managed with medication. No diarrhea or constipation. No blood in the stool or black stools. ROS Genitourinary (F) - No dysuria or hematuria. No urinary frequency. No urgency or incontinence. ROS Musculoskeletal - No joint or bone pain. ROS Integumentary - No skin rash. ROS Neurologic - No headache or dizziness. No numbness or tingling. No other focal neurologic symptoms. ROS Psychiatric - No anxiety or depression. No insomnia.. Vital Signs: Performed on 06/18/2020 10:17 AM BMI - 34.272 kg/m2 (high), Height - 68.00 in, Weight - 225.4 lbs, Temperature - 98.0 f, Pulse - 71, Respiration - 16, O2 Sat - 97 %, Pain - 0, Fatigue - 0 and BP - 115/ 75 mm(hg). Physical Exam: General: Alert and oriented x 3. No acute distress. HEENT: Normocephalic, atraumatic. Extraocular Movements Intact: Pupils Equal, Round, Reactive to Light and Accommodation: Sclerae anicteric. Oral cavity is clear without lesions, masses or ulcers. NECK: Supple without supraclavicular or jugular lymphadenopathy. LUNGS: Clear to auscultation bilaterally without rales, rhonchi or wheeze. HEART: Regular rate and rhythm, normal S1 and S2 without murmur, gallop or rub. MUSCULOSKELETAL: No tenderness or percussion pain over the axial skeleton, scapulae or pelvis. EXTREMITIES: No peripheral edema is identified. Limited motor and sensory examination are grossly intact and symmetric bilaterally. NEUROLOGIC: Cranial nerves II ???XII are grossly intact. Normal sensation, strength 5/5 in all extremities, normal gait, no ataxia. Performance Status: 0 - Fully active, able to carry on all predisease activities without restrictions. (ECOG) Lab: None pending. Test performed on 01/30/2020 3:20 PM Iron - 194 mcg/dl (high), % Iron Saturation - 91.5 % (high), UIBC - 18 mcg/dl (low), Test performed on 05/06/2020 9:35 AM T3, Free - 1.1 pg/ml (low), Test performed on 05/21/2020 8:40 AM eGFR - 77.2 ml/min (low) and Test performed on 06/04/2020 2:57 PM TSH - 7.80 uiu/ml (high). Impression: The patient is a 44-year-old female with stage IIIb non-small cell lung carcinoma status post definitive concurrent chemoradiation therapy (completed 01/16/2020), who is currently undergoing durvalumab therapy. She is tolerating therapy well and there is no clinical or radiographic evidence of disease progression. Dr. Mahoney intends to obtain a CT of the chest in the next 3 months. It is recommended that the patient follow-up with radiation oncology in 6 months. Signed by: 06/18/2020 9:36:46 PM <<Signature on File>> Time spent with patient: CPT Code: CPT Code:
== END 2020-07-12 23:59 | disposition home or self-care (01) ==
LOC: ONCMED 05:41
PROVIDERS: PCP Family Medicine; Referring Provider Surgery; Visit Provider Internal Medicine Medical Oncology
DX: Z51.12 Encounter for antineoplastic immunotherapy (principal); C34.12 Malignant neoplasm of upper lobe, left bronchus or lung; C77.1 Secondary and unspecified malignant neoplasm of intrathoracic lymph nodes; C79.89 Secondary malignant neoplasm of other specified sites; D50.9 Iron deficiency anemia, unspecified; E03.9 Hypothyroidism, unspecified; Z92.3 Personal history of irradiation; Z79.899 Other long term (current) drug therapy; Z79.52 Long term (current) use of systemic steroids
CPT/HCPCS: 80053; 84443; 85025; 96413; 99214; J7050; J9173

== ENCOUNTER 2020-07-28 11:10 | Outpatient (CLI) | payer BC, SELFPAY ==
--- NOTE | 2020-07-28 11:31 | CT_ITS ---
WS: [id number] Exam: CT chest w con* [id number] Date/Time of Exam: 07/28/2020 11:38 AM Reason For Exam: MALIGNANT NEOPLASM OF UPPER LOBE, LEFT BRONCHUS OR LUNG DLP: 1011.[address] scans at [facility] use at least one of these dose optimization techniques: automat ed exposure control; mA and/or kV adjustment per patient size (includes targeted exams where dose is matched to clinical indication); or iterative reconstruction. Comparison 04/17/2020. Left upper lobe pulmonary mass again noted which is slightly larger. The mass measures approximately 2.2 x 2.8 cm with associated lateral pleural thickening. Pleural thickening is increased along the up per lateral left pleural cavity. There are associated patchy infiltrates in the left upper lobe and l eft lower lobe that may be secondary to post obstructive pneumonia. The right lung is fully inflated and clear. The trachea and proximal mainstem bronchi are patent. There is atelectasis and infiltrate in the lingula. No significant mediastinal lymphadenopathy seen. The thoracic aorta is normal in ramsey iber. The central pulmonary arteries are clear. Small pericardial effusion. No pleural effusion. Enla rging left adrenal mass measures 2.3 x 3.1 cm on today's exam as opposed to 1.8 x 8 2.3 cm on the matty or study. This may represent a metastatic adrenal lesion. Normal right adrenal gland. Gallstones but no sign of acute cholecystitis. No destructive bone lesions. Signs of left thoracotomy. A left subcla vian port extends into the right atrium. CT/CT chest w con* [id number] IMPRESSION: 1. Left upper lobe pulmonary mass slightly larger than noted on the previous st udy. Increased pleural thickening along the upper lateral left pleural cavity. 2. Patchy infiltrates in the left upper and lower lobes which may represent pos tobstructive pneumonia. 3. No significant mediastinal lymphadenopathy. 4. Enlarging left adrenal mass since previous exam.
[2020-07-28] MEDS: iohexol 300 mg/mL 100 mL Btl IV (11:53)
== END 2020-07-28 11:11 | disposition home or self-care (01) ==
LOC: RADWPI 11:15
PROVIDERS: PCP Family Medicine; Visit Provider Internal Medicine Medical Oncology
DX: C34.12 Malignant neoplasm of upper lobe, left bronchus or lung (principal); R91.8 Other nonspecific abnormal finding of lung field; D44.12 Neoplasm of uncertain behavior of left adrenal gland
CPT/HCPCS: 71260; Q9967

== ENCOUNTER 2020-07-30 05:32 | Outpatient (RCR) | payer BC, SELFPAY ==
[2020-07-16 09:31] LABS: Basophils % 0.5 %; Hematocrit 38.4 % (37.0-47.0); Hemoglobin 12.7 g/dL (11.5-15.3); Lymphocytes # 0.6 10^3/uL (0.8-4.8); Lymphocytes % 7.3 %; Mean Corpuscular HGB Conc 33.1 g/dL (30.0-36.0); Mean Corpuscular Hemoglobin 31.4 pg (28.0-34.0); Mean Platelet Volume 9.2 fL (7.4-10.4); Monocytes # 0.5 10^3/uL (0.2-0.9); Monocytes % 6.4 %; Neutrophils # 6.61 10^3/uL (1.8-7.7); Neutrophils % 85.3 %; Nucleated Red Blood Cells % 0 %; Platelet Count 173 10^3/cmm (130-400); Red Blood Count 4.04 10^6/uL (4.1-5.3); Red Cell Distribution Width 12.6 % (12.1-15.1); White Blood Count 7.8 10^3/uL (4.0-10.0)
[2020-07-16 10:03] LABS: Alanine Aminotransferase 11 U/L (0-33); Albumin Level 3.7 g/dL (3.5-5.2); Alkaline Phosphatase 71 IU/L (35-105); Anion Gap 11.3 (5-19); Aspartate Amino Transferase 10 U/L (0-32); Blood Urea Nitrogen 13 mg/dL (6-20); Calcium 8.6 mg/dL (8.5-10.5); Carbon Dioxide 27 mmol/L (22-29); Chloride 104 mmol/L (98-107); Globulin 2.5 g/dL (1.3-4.6); Glomerular Filtration Rate 67.4 mL/min (90-130); Glucose 95 mg/dL (65-115); Osmolality Calculated 286 mOsm/kg (285-295); Potassium 4.3 mmol/L (3.5-5.1); Sodium 138 mmol/L (136-145); Thyroid Stimulating Hormone 9.92 uIU/mL (0.27-4.20); Total Bilirubin 0.2 mg/dL (0.15-1.2); Total Protein 6.2 g/dL (6.6-8.7)
[2020-07-16 10:44] LABS: Free T4 Free Thyroxine 1.13 ng/dL (0.82-1.77)
[2020-07-16] MEDS: sodium chloride 0.9% 250 ML 75 ML IV (10:45)
--- NOTE | 2020-07-19 14:27 | ONC FU_ITS ---
Dr. Mahoney Patient Follow-Up Note Patient: Luz Elena Alvarez Unit #: [id number]: 1975 Dicatated By: Beni Mahoney M.D.Date of Visit:Jul 16, 2020 Onc Med Follow-up/Prog Note Chief Complaint: Lung cancer. 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 Her tumor was determined to be PD-L1 positive at 25%. 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 She is a non-smoker and she has been in good general health. In August she had seen her primary care physician with fever and cough, initially suspected to be pneumonia. Repeat chest x-ray after antibiotic therapy showed persistent mass in the left lung. Chest CT showed a large left upper lobe lung mass with associated mediastinal adenopathy, highly suspicious for malignancy. She underwent bronchoscopy on 09/17/2019 with brushings from the left upper lobe bronchus showing atypical cells, suspicious for malignancy. A repeat PET/CT on 10/10/2019 showed a 5.7 x 5.2 cm mass with SUV 22.7. A left hilar lymph node measuring 14 mm had elevated SUV of 5.0, and a small node in the aortopulmonary window had increased SUV at 4.4. There were no other areas of abnormal uptake. A left adrenal gland nodule measuring up to 2.5 cm appeared consistent with benign adenoma. On 11/12/2019 she underwent left video-assisted thorascopic surgical biopsy of station 5 AP window lymph nodes. At surgery it was noted that her tumor was invading the left chest wall. The AP window lymph nodes were found to be positive for metastatic carcinoma, and with those findings resection was not attempted. Pathology report indicated just scant malignant cells which were consistent with non-small cell carcinoma. A [employer] next generation sequencing study showed no actionable mutations. The PD-L1 was positive at 25%. I had seen her initially on 11/15/2019. In the setting of stage IIIb disease, she was recommended to undergo chemoradiation utilizing weekly cisplatin/paclitaxel. At the time I also recommended further molecular analysis with a Guardant 360 study. It showed the presence of an EGFR L747P mutation. On 12/03/2019 she began treatment with her week 1 carboplatin/paclitaxel concurrently with radiation. Her treatment had to be stopped due to an almost immediate hypersensitivity reaction to the paclitaxel. The reaction was adequately managed with IV Solu-Medrol, subcutaneous epinephrine, and other supportive measures which included IV fluids, oxygen, and albuterol/Atrovent by pulmonary nebulizer. She then returned on 12/05/2019 to restart treatment with carboplatin/Abraxane, which she tolerated without acute toxicity. She continued with her week 2 chemotherapy on 12/12/2019, with week 3 on 12/19/2019, with week 4 on 12/25/2019, and with week 5 on 01/02/2020. Her week 6 treatment was held due to declining blood counts and performance status. She completed radiation on 01/16/2020 to a total dose of 6600 cGy[address] Her restaging chest CT on 02/06/2020 showed a slight decrease in the left upper lobe neoplasm measuring 4.6 x 3.4 x 2.8 cm and a slight decrease in the size of the left suprahilar lymph node measuring 1.4 cm. There was no change in the left adrenal gland mass. As there was evidence of some response, she was recommended to begin maintenance immunotherapy with durvalumab. Her only other medical illnesses GERD. She has a non-smoker. INTERIM HISTORY: She began cycle 1 of maintenance durvalumab on 02/18/2020. She tolerated it without acute toxicity. At her scheduled follow-up visit on 03/03/2020, she was had clinical evidence of acute thyroiditis, and her treatment was put on hold. She was then able to continue with cycle 2 on 03/17/2020 and with cycle 3 on 03/31/2020. She was seen for a scheduled visit on 04/14/2020. At that point she had multiple new complaints, the most significant being numbness/tingling in both arms. She had significant weight gain. Her TSH was found to be markedly elevated at 223.60 ???IU/mL compared to 0.13 ???IU/mL 1 month earlier. Her treatment was put on hold, and she started steroid therapy with prednisone 20 mg daily along with levothyroxine [address] of the chest on 04/17/2020 showed decrease in the size of the left upper lobe neoplasm measuring 2.6 x 2.1 x 2.6 cm. There was new patchy airspace infiltrates in the left lower lobe, likely infectious or inflammatory. A previously described left AP window was noted to have resolved. There was no mediastinal or hilar lymphadenopathy noted. There was a small pericardial effusion. A left adrenal mass measuring 2.0 x 1.5 cm appeared stable. At that point her treatment remained on hold. As of 05/21/2020 she was able to continue with cycle 4 of divalumab at the full dosage. She tolerated it well and she then continued treatment at 2-week intervals. She is seen for a follow-up visit. She has been feeling pretty good generally, though her energy is down a little. She also has been a little more short of breath and she has been coughing more. She continues have some mild pain intermittently in the upper left chest. Her ECOG score is 1. She has good appetite. She has no fever or night sweats. She has no GI or complaints. She has no significant joint or bone pain. She does not complain of headache or dizziness. She has no focal neurologic symptoms. Medications: Citalopram Hydrobromide 1 Tablet (of 20 mg) Tablet Oral daily, Ferrous Sulfate 1 Tablet (of 325 (65 fe) mg) Tablet Oral daily, HYDROcodone-Acetaminophen 1 Tablet (of 7.5-325 mg) Oral q 6 hours PRN, Levothyroxine Sodium 1 Tablet (of 100 mcg) Oral daily, LORazepam 0.5 - 1 Tablet (of 1 mg) Oral t.i.d. PRN, Omeprazole 1 Tablet (of 20 mg) Capsule Delayed Release Oral daily, Ondansetron HCl 1 Tablet (of 4 mg) Tablet Oral q 6 hours PRN, predniSONE 0.5 Tablet (of 20 mg) Oral daily, Prochlorperazine Maleate 1 Tablet (of 10 mg) Oral q 4 hours PRN Allergies: paclitaxel Review of Systems: Constitutional - She has been feeling pretty good, but her energy has been down a little. Her appetite is good. She has no fever, night sweats, or hot flashes. ECOG score is 1, ENMT - No sinus congestion/drainage. No mouth sores. No sore throat or difficulty swallowing, Hematologic/Lymphatic - No abnormal bruising or bleeding, Respiratory - She has some shortness of breath and she has been coughing a little more. She has a little pain in the upper chest. No hemoptysis, Cardiovascular - No angina pain. No palpitations, Gastrointestinal - No nausea or vomiting. No heartburn or acid reflux. No diarrhea or constipation. No blood in the stool or black stools, Genitourinary (F) - No dysuria or hematuria. No urinary frequency. No urgency or incontinence, Musculoskeletal - No joint or bone pain, Integumentary - No skin rash, Neurologic - No headache or dizziness. No numbness or tingling. No other focal neurologic symptoms, Psychiatric - No anxiety or depression. No insomnia. Vital Signs: Performed on Jul 16, 2020 10:04 Height - 68.00 in Weight - 234.2 lbs (HIGH) BSA - 2.19 sq.m BMI - 35.61 (HIGH) Temperature - 97.5 F (LOW) Pulse - 72 /min Respiration - 20 /min BP - 124/71 mm(hg) O2 Sat - 100 % Pain - 0 Physical Examination: Constitutional - She looks good generally, Eyes - Sclerae nonicteric. Conjunctivae clear, ENMT - No lesions noted in the oral cavity, Hematologic/Lymphatic - No cervical, clavicular, or axillary adenopathy, Respiratory - Lungs sound clear with slightly diminished air movement bilaterally, Cardiovascular - Heart rhythm is regular. There is no murmur, gallop, or rub noted, Abdomen - Soft. Liver and spleen are not enlarged. There is no abdominal mass or ascites noted and there is no inguinal adenopathy, Extremities - No edema, Neurologic - No focal neurologic deficits noted. Lab/Imaging: Test performed on Jul 16, 2020 09:00 Sodium 138 mmol/L T4, Free 1.13 ng/dL TSH 9.92 uIU/mL Potassium 4.3 mmol/L Chloride 104 mmol/L CO2 27 mmol/L Anion Gap 11.3 BUN 13 mg/dL Creatinine 0.9 mg/dL Cr Clearance (Est) 126.9600 mL/min eGFR 67.4 mL/min Glucose 95 mg/dL Osmolality - Calculated 286 mOsm/kg Calcium 8.6 mg/dL Protein, Total 6.2 g/dL Albumin 3.7 g/dL Globulin 2.5 g/dL Bilirubin, Total 0.2 mg/dL ALT (SGPT) 11 U/L AST (SGOT) 10 U/L Alkaline Phosphatase 71 IU/L WBC 7.8 10 3/uL RBC 4.04 10 6/uL HGB 12.7 g/dL HCT 38.4 % MCV 95.0 fL MCH 31.4 pg MCHC 33.1 g/dL RDW 12.6 % Platelet Count 173 10 3/cmm MPV 9.2 fL Neutrophils 6.61 10 3/uL Lymphocytes 0.6 10 3/uL Monocytes 0.5 10 3/uL Eosinophils 0.0 10 3/uL Basophils 0.0 10 3/uL Neutrophil % 85.3 % Lymphocyte % 7.3 % Monocyte % 6.4 % Eosinophil % 0.0 % Basophils % 0.5 % NRBC % 0 % Impression: 1. 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 A [employer] next generation sequencing study showed no actionable mutations. The PD-L1 was positive at 25%. A Guardant 360 study showed the presence of an exon 19 EGFR mutation ( [id number] mutation). 2. She underwent video-assisted thoracotomy with biopsy of station 5 AP window lymph nodes on 11/09/2019. Her tumor was found to be invading the chest wall. 3. She has pre-existing GERD, adequately managed with medication. 4. She has moderately severe anemia with serum iron studies consistent with iron deficiency. On 12/03/2019 she began weekly carboplatin/paclitaxel chemotherapy, currently with radiation. Her week 1 chemotherapy infusion was stopped almost immediately due to hypersensitivity reaction to paclitaxel. She then returned on 12/04/2021 to restart treatment with week 1 carboplatin/Abraxane, which she began concurrently with radiation. She tolerated it well. She continued with her week 2 treatment on 12/12/2019, with week 3 on 12/19/2019, with week 4 on 12/25/2019, and with week 5 on 01/02/2020. Her week 6 treatment was withheld due to declining blood counts and performance status. She completed radiation on 01/16/2020, total dose [address] on 02/06/2020 showed only a slight decrease in the left upper lobe mass and in the left suprahilar mass. The left adrenal mass appeared unchanged. With evidence of some response to the treatment, she was recommended to continue on to maintenance immunotherapy with durvalumab. She began cycle 1 on 02/18/2020. At her scheduled follow-up visit on 03/03/2020 she had clinical evidence of acute thyroiditis, and her treatment was put on hold. Her symptoms had subsequently improved, and she then continued with cycle 2 of durvalumab on 03/17/2020 and with cycle 3 on 03/31/2020. At her follow-up visit on 04/14/2020, she had multiple new complaints, most significantly numbness/tingling in both arms. Her TSH level was found to be markedly elevated. Her treatment was put on hold. She restarted steroid therapy with prednisone 20 mg daily she also started levothyroxine 50 mcg daily. Her restaging chest CT on 04/17/2020 showed significant decrease in the left upper lobe mass compared to the pretreatment study. There was some new left lower lobe infiltrate, which I suspected to have been treatment related pneumonitis. She was not symptomatic with it. Overall, she improved clinically on the prednisone and levothyroxine, and she was able to begin tapering prednisone. Her TSH now has come down significantly, and she appears to be doing well clinically on 20 mg of prednisone daily. She then continue to taper prednisone and she continued with cycle 4 of durvalumab on 05/21/2020. She tolerated it well and she then continued treatment at 2-week intervals. She has now completed 7 cycles. She is still doing well clinically, though she is now having a little more fatigue and there has been some increase in her shortness of breath and cough. Her TSH level has increased slightly. Plan: She will continue with cycle 8 of durvalumab. The dosage remains the same. Her levothyroxine dosage will be increased to 112 mcg daily. Prednisone will now be reduced to 5 mg daily. She will have restaging CT scan prior to her next treatment, which will be in 2 weeks. Signed By: Beni Mahoney M.D. <<Signature on File>>
[2020-07-30] MEDS: sodium chloride 0.9% 250 ML 75 ML IV (08:35)
== END 2020-08-11 23:59 | disposition home or self-care (01) ==
LOC: ONCMED 05:32
PROVIDERS: PCP Family Medicine; Referring Provider Surgery; Visit Provider Internal Medicine Medical Oncology
DX: Z51.12 Encounter for antineoplastic immunotherapy (principal); C34.12 Malignant neoplasm of upper lobe, left bronchus or lung; E06.4 Drug-induced thyroiditis; T45.1X5A Adverse effect of antineoplastic and immunosuppressive drugs, initial encounter; K21.9 Gastro-esophageal reflux disease without esophagitis; D50.9 Iron deficiency anemia, unspecified; Z79.899 Other long term (current) drug therapy
CPT/HCPCS: 80053; 84439; 84443; 85025; 90471; 90686; 96413; 99214; J7050; J9173

== ENCOUNTER 2020-09-10 05:33 | Outpatient (RCR) | payer BC, SELFPAY ==
[2020-08-13 09:26] LABS: Basophils % 0.5 %; Hematocrit 38.2 % (37.0-47.0); Hemoglobin 12.7 g/dL (11.5-15.3); Lymphocytes # 0.8 10^3/uL (0.8-4.8); Lymphocytes % 10.3 %; Mean Corpuscular HGB Conc 33.2 g/dL (30.0-36.0); Mean Corpuscular Hemoglobin 31.2 pg (28.0-34.0); Mean Corpuscular Volume 93.9 fL (81-99); Mean Platelet Volume 9.3 fL (7.4-10.4); Monocytes # 0.7 10^3/uL (0.2-0.9); Monocytes % 9.9 %; Neutrophils # 5.79 10^3/uL (1.8-7.7); Neutrophils % 78.6 %; Nucleated Red Blood Cells % 0 %; Platelet Count 196 10^3/cmm (130-400); Red Blood Count 4.07 10^6/uL (4.1-5.3); Red Cell Distribution Width 11.8 % (12.1-15.1); White Blood Count 7.4 10^3/uL (4.0-10.0)
[2020-08-13 10:08] LABS: Alanine Aminotransferase 12 U/L (0-33); Albumin Level 3.9 g/dL (3.5-5.2); Alkaline Phosphatase 75 IU/L (35-105); Anion Gap 13.1 (5-19); Aspartate Amino Transferase 11 U/L (0-32); Blood Urea Nitrogen 16 mg/dL (6-20); Calcium 8.9 mg/dL (8.5-10.5); Carbon Dioxide 28 mmol/L (22-29); Chloride 105 mmol/L (98-107); Globulin 2.4 g/dL (1.3-4.6); Glomerular Filtration Rate 59.4 mL/min (90-130); Glucose 90 mg/dL (65-115); Osmolality Calculated 295 mOsm/kg (285-295); Potassium 4.1 mmol/L (3.5-5.1); Sodium 142 mmol/L (136-145); Thyroid Stimulating Hormone 3.49 uIU/mL (0.27-4.20); Total Bilirubin 0.3 mg/dL (0.15-1.2); Total Protein 6.3 g/dL (6.6-8.7)
[2020-08-13 11:56] LABS: Free T4 Free Thyroxine 1.37 ng/dL (0.82-1.77)
[2020-08-13 15:13] LABS: Erythrocyte Sedimentation Rate 14 mm/hr (0-15)
--- NOTE | 2020-08-17 13:54 | ONC FU_ITS ---
Dr. Mahoney Patient Follow-Up Note Patient: Luz Elena Alvarez Unit #: [id number]: 1975 Dicatated By: Beni Mahoney M.D.Date of Visit:Aug 13, 2020 Onc Med Follow-up/Prog Note Chief Complaint: Lung cancer. 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 Her tumor was determined to be PD-L1 positive at 25%. 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 She is a non-smoker and she has been in good general health. In August she had seen her primary care physician with fever and cough, initially suspected to be pneumonia. Repeat chest x-ray after antibiotic therapy showed persistent mass in the left lung. Chest CT showed a large left upper lobe lung mass with associated mediastinal adenopathy, highly suspicious for malignancy. She underwent bronchoscopy on 09/17/2019 with brushings from the left upper lobe bronchus showing atypical cells, suspicious for malignancy. A repeat PET/CT on 10/10/2019 showed a 5.7 x 5.2 cm mass with SUV 22.7. A left hilar lymph node measuring 14 mm had elevated SUV of 5.0, and a small node in the aortopulmonary window had increased SUV at 4.4. There were no other areas of abnormal uptake. A left adrenal gland nodule measuring up to 2.5 cm appeared consistent with benign adenoma. On 11/12/2019 she underwent left video-assisted thorascopic surgical biopsy of station 5 AP window lymph nodes. At surgery it was noted that her tumor was invading the left chest wall. The AP window lymph nodes were found to be positive for metastatic carcinoma, and with those findings resection was not attempted. Pathology report indicated just scant malignant cells which were consistent with non-small cell carcinoma. A [employer] next generation sequencing study showed no actionable mutations. The PD-L1 was positive at 25%. I had seen her initially on 11/15/2019. In the setting of stage IIIb disease, she was recommended to undergo chemoradiation utilizing weekly cisplatin/paclitaxel. At the time I also recommended further molecular analysis with a Guardant 360 study. It showed the presence of an EGFR L747P mutation. On 12/03/2019 she began treatment with her week 1 carboplatin/paclitaxel concurrently with radiation. Her treatment had to be stopped due to an almost immediate hypersensitivity reaction to the paclitaxel. The reaction was adequately managed with IV Solu-Medrol, subcutaneous epinephrine, and other supportive measures which included IV fluids, oxygen, and albuterol/Atrovent by pulmonary nebulizer. She then returned on 12/05/2019 to restart treatment with carboplatin/Abraxane, which she tolerated without acute toxicity. She continued with her week 2 chemotherapy on 12/12/2019, with week 3 on 12/19/2019, with week 4 on 12/25/2019, and with week 5 on 01/02/2020. Her week 6 treatment was held due to declining blood counts and performance status. She completed radiation on 01/16/2020 to a total dose of 6600 [address] Her [address] on 02/06/2020 showed a slight decrease in the left upper lobe neoplasm measuring 4.6 x 3.4 x 2.8 cm and a slight decrease in the size of the left suprahilar lymph node measuring 1.4 cm. There was no change in the left adrenal gland mass. As there was evidence of some response, she was recommended to begin maintenance immunotherapy with durvalumab. Her only other medical illnesses GERD. She has a non-smoker. INTERIM HISTORY: She began cycle 1 of maintenance durvalumab on 02/18/2020. She tolerated it without acute toxicity. At her scheduled follow-up visit on 03/03/2020, she was had clinical evidence of acute thyroiditis, and her treatment was put on hold. She was then able to continue with cycle 2 on 03/17/2020 and with cycle 3 on 03/31/2020. She was seen for a scheduled visit on 04/14/2020. At that point she had multiple new complaints, the most significant being numbness/tingling in both arms. She had significant weight gain. Her TSH was found to be markedly elevated at 223.60 ???IU/mL compared to 0.13 ???IU/mL 1 month earlier. Her treatment was put on hold, and she started steroid therapy with prednisone 20 mg daily along with levothyroxine [address] of the chest on 04/17/2020 showed decrease in the size of the left upper lobe neoplasm measuring 2.6 x 2.1 x 2.6 cm. There was new patchy airspace infiltrates in the left lower lobe, likely infectious or inflammatory. A previously described left AP window was noted to have resolved. There was no mediastinal or hilar lymphadenopathy noted. There was a small pericardial effusion. A left adrenal mass measuring 2.0 x 1.5 cm appeared stable. At that point her treatment remained on hold. As of 05/21/2020 she was able to continue with cycle 4 of divalumab at the full dosage. She tolerated it well and she then continued treatment at 2-week intervals. Repeat chest CT on 07/28/2020 showed slight increase in the left upper lobe pulmonary mass along with increased pleural thickening. Patchy infiltrates in the left upper and lower lobes were felt to possibly be due to obstructive pneumonia. The left adrenal mass had increased slightly, to 2.3 x 3.1 cm compared to 1.8 x 2.3 cm. She continued with cycle 9 of nivolumab on 07/30/2020. She is seen for a follow-up visit. She continues to have some fatigue. She says she has not been resting very well. Her ECOG score is 1. She has good appetite. She has no fever or night sweats. She has some shortness of breath with activity. She also has cough, which has gotten a little worse. She has some discomfort and tenderness in the upper left chest and in the left arm. She also has noticed that her numbness has gotten a little worse with the lower dose of prednisone. Medications: Citalopram Hydrobromide 1 Tablet (of 20 mg) Tablet Oral daily, Ferrous Sulfate 1 Tablet (of 325 (65 fe) mg) Tablet Oral daily, HYDROcodone-Acetaminophen 1 Tablet (of 7.5-325 mg) Oral q 6 hours PRN, Levothyroxine Sodium 1 Tablet (of 100 mcg) Oral daily, LORazepam 0.5 - 1 Tablet (of 1 mg) Oral t.i.d. PRN, Omeprazole 1 Tablet (of 20 mg) Capsule Delayed Release Oral daily, Ondansetron HCl 1 Tablet (of 4 mg) Tablet Oral q 6 hours PRN, predniSONE 1 Tablet (of 5 mg) Oral daily, Prochlorperazine Maleate 1 Tablet (of 10 mg) Oral q 4 hours PRN Allergies: paclitaxel Review of Systems: Constitutional - She still has fatigue and she has not been resting well. She is doing light work. Appetite is good and weight is stable. No fever, night sweats, or hot flashes. ECOG score is 1, ENMT - No sinus congestion/drainage. No mouth sores. No sore throat or difficulty swallowing, Hematologic/Lymphatic - No abnormal bruising or bleeding, Respiratory - She has mild shortness of breath activity. Her cough is a little worse. No pleuritic pain or hemoptysis, Cardiovascular - No angina pain. No palpitations, Gastrointestinal - No nausea or vomiting. No heartburn or acid reflux. No diarrhea or constipation. No blood in the stool or black stools, Genitourinary (F) - No dysuria or hematuria. No urinary frequency. No urgency or incontinence, Musculoskeletal - She is having some pain in her left arm and she has some mild discomfort in the upper left chest area, Integumentary - No skin rash, Neurologic - No headache or dizziness. She has started having some numbness again with the lower dose of prednisone. No other focal neurologic symptoms, Psychiatric - She has some anxiety/depression. Vital Signs: Performed on Aug 13, 2020 10:24 Height - 68.00 in Weight - 236.2 lbs (HIGH) BSA - 2.19 sq.m BMI - 35.91 (HIGH) Temperature - 97.6 F (LOW) Pulse - 60 /min Respiration - 18 /min BP - 141/73 mm(hg) (HIGH) O2 Sat - 98 % Pain - 0 Physical Examination: Constitutional - She looks pretty good generally, Eyes - Sclerae nonicteric. Conjunctivae clear, ENMT - No lesions noted in the oral cavity, Hematologic/Lymphatic - No cervical, clavicular, or axillary adenopathy, Respiratory - Lungs sound clear with some decrease in air movement bilaterally, Cardiovascular - Heart rhythm is regular. There is no murmur, gallop, or rub noted, Abdomen - Soft. Liver and spleen are not enlarged. There is no abdominal mass or ascites noted and there is no inguinal adenopathy, Extremities - No edema, Neurologic - No focal neurologic deficits noted. Lab/Imaging: Test performed on Aug 13, 2020 09:09 Sodium 142 mmol/L T4, Free 1.37 ng/dL TSH 3.49 uIU/mL Potassium 4.1 mmol/L Chloride 105 mmol/L CO2 28 mmol/L Anion Gap 13.1 BUN 16 mg/dL Creatinine 1.0 mg/dL Cr Clearance (Est) 113.0500 mL/min eGFR 59.4 mL/min Glucose 90 mg/dL Osmolality - Calculated 295 mOsm/kg Calcium 8.9 mg/dL Protein, Total 6.3 g/dL Albumin 3.9 g/dL Globulin 2.4 g/dL Bilirubin, Total 0.3 mg/dL ALT (SGPT) 12 U/L AST (SGOT) 11 U/L Alkaline Phosphatase 75 IU/L ESR (Sed Rate) 14 mm/hr WBC 7.4 10 3/uL RBC 4.07 10 6/uL HGB 12.7 g/dL HCT 38.2 % MCV 93.9 fL MCH 31.2 pg MCHC 33.2 g/dL RDW 11.8 % Platelet Count 196 10 3/cmm MPV 9.3 fL Neutrophils 5.79 10 3/uL Lymphocytes 0.8 10 3/uL Monocytes 0.7 10 3/uL Eosinophils 0.0 10 3/uL Basophils 0.0 10 3/uL Neutrophil % 78.6 % Lymphocyte % 10.3 % Monocyte % 9.9 % Eosinophil % 0.0 % Basophils % 0.5 % NRBC % 0 % Impression: 1. 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 A [employer] next generation sequencing study showed no actionable mutations. The PD-L1 was positive at 25%. A Guardant 360 study showed the presence of an exon 19 EGFR mutation ( [id number] mutation). 2. She underwent video-assisted thoracotomy with biopsy of station 5 AP window lymph nodes on 11/09/2019. Her tumor was found to be invading the chest wall. 3. She has pre-existing GERD, adequately managed with medication. 4. She has moderately severe anemia with serum iron studies consistent with iron deficiency. On 12/03/2019 she began weekly carboplatin/paclitaxel chemotherapy, currently with radiation. Her week 1 chemotherapy infusion was stopped almost immediately due to hypersensitivity reaction to paclitaxel. She then returned on 12/04/2021 to restart treatment with week 1 carboplatin/Abraxane, which she began concurrently with radiation. She tolerated it well. She continued with her week 2 treatment on 12/12/2019, with week 3 on 12/19/2019, with week 4 on 12/25/2019, and with week 5 on 01/02/2020. Her week 6 treatment was withheld due to declining blood counts and performance status. She completed radiation on 01/16/2020, total dose [address] on 02/06/2020 showed only a slight decrease in the left upper lobe mass and in the left suprahilar mass. The left adrenal mass appeared unchanged. With evidence of some response to the treatment, she was recommended to continue on to maintenance immunotherapy with durvalumab. She began cycle 1 on 02/18/2020. At her scheduled follow-up visit on 03/03/2020 she had clinical evidence of acute thyroiditis, and her treatment was put on hold. Her symptoms had subsequently improved, and she then continued with cycle 2 of durvalumab on 03/17/2020 and with cycle 3 on 03/31/2020. At her follow-up visit on 04/14/2020, she had multiple new complaints, most significantly numbness/tingling in both arms. Her TSH level was found to be markedly elevated. Her treatment was put on hold. She restarted steroid therapy with prednisone 20 mg daily she also started levothyroxine 50 mcg daily. Her restaging chest CT on 04/17/2020 showed significant decrease in the left upper lobe mass compared to the pretreatment study. There was some new left lower lobe infiltrate, which I suspected to have been treatment related pneumonitis. She was not symptomatic with it. Overall, she improved clinically on the prednisone and levothyroxine, and she was able to begin tapering prednisone. Her TSH now has come down significantly, and she appears to be doing well clinically on 20 mg of prednisone daily. She then continue to taper prednisone and she continued with cycle 4 of durvalumab on 05/21/2020. She tolerated it well and she then continued treatment at 2-week intervals. Her restaging chest CT on 07/28/2020 reported a slight increase in the left upper lobe pulmonary mass and some increased infiltrate, felt to be suspicious for postobstructive pneumonia. There was a slight increase in the left adrenal mass. She continued with cycle 9 of nivolumab on 07/30/2020. In the meantime, I did have an opportunity to review the CT scan with the radiologist, and there appears to be a significantly increased infiltrates in the area around the pulmonary mass, though did appear to be more likely inflammatory, either from radiation or from pneumonitis associated with her immunotherapy. The left adrenal mass had definitely increased, it was previously PET negative, so the significance of that finding is uncertain. In the meantime, she does report some worsening of cough and her numbness also has increased with her prednisone dosage reduced to 5 mg daily. Plan: She will continue with cycle 10 of durvalumab. The dosage remains the same. She will increase prednisone back up to 20 mg daily for 3 days and she will then continue at 10 mg daily. She will be scheduled for treatment in 2 weeks and for a follow-up visit in 4 weeks. Signed By: Beni Mahoney M.D. <<Signature on File>>
[2020-08-27] MEDS: sodium chloride 0.9% 250 ML 75 ML IV (14:28)
[2020-09-10 12:00] LABS: Basophils # 0.1 10^3/uL (0.0-0.1); Basophils % 0.6 %; Hematocrit 40.3 % (37.0-47.0); Hemoglobin 13.1 g/dL (11.5-15.3); Lymphocytes # 0.9 10^3/uL (0.8-4.8); Lymphocytes % 9.8 %; Mean Corpuscular HGB Conc 32.5 g/dL (30.0-36.0); Mean Corpuscular Hemoglobin 30.6 pg (28.0-34.0); Mean Corpuscular Volume 94.2 fL (81-99); Mean Platelet Volume 9.4 fL (7.4-10.4); Monocytes # 0.6 10^3/uL (0.2-0.9); Monocytes % 6.7 %; Neutrophils # 7.22 10^3/uL (1.8-7.7); Neutrophils % 82.3 %; Nucleated Red Blood Cells % 0 %; Platelet Count 209 10^3/cmm (130-400); Red Blood Count 4.28 10^6/uL (4.1-5.3); Red Cell Distribution Width 11.9 % (12.1-15.1); White Blood Count 8.8 10^3/uL (4.0-10.0)
[2020-09-10 12:31] LABS: Alanine Aminotransferase 9 U/L (0-33); Albumin Level 3.8 g/dL (3.5-5.2); Alkaline Phosphatase 72 IU/L (35-105); Anion Gap 15.8 (5-19); Aspartate Amino Transferase 10 U/L (0-32); Blood Urea Nitrogen 17 mg/dL (6-20); Calcium 8.9 mg/dL (8.5-10.5); Carbon Dioxide 26 mmol/L (22-29); Chloride 103 mmol/L (98-107); Globulin 2.8 g/dL (1.3-4.6); Glomerular Filtration Rate 59.4 mL/min (90-130); Glucose 123 mg/dL (65-115); Osmolality Calculated 295 mOsm/kg (285-295); Potassium 3.8 mmol/L (3.5-5.1); Sodium 141 mmol/L (136-145); Thyroid Stimulating Hormone 9.98 uIU/mL (0.27-4.20); Total Bilirubin 0.3 mg/dL (0.15-1.2); Total Protein 6.6 g/dL (6.6-8.7)
[2020-09-10] MEDS: sodium chloride 0.9% 250 ML 75 ML IV (15:36)
--- NOTE | 2020-09-16 09:16 | ONC FU_ITS ---
[facility] Patient Note Patient: Luz Elena Alvarez Unit #: [id number]: [id number] Dictated By: Glen MadridDate of Visit: Sep 10, 2020 Onc MED Follow-Up/Prog Note Chief Complaint: Lung cancer. 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 Her tumor was determined to be PD-L1 positive at 25%. 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 She is a non-smoker and she has been in good general health. In August she had seen her primary care physician with fever and cough, initially suspected to be pneumonia. Repeat chest x-ray after antibiotic therapy showed persistent mass in the left lung. Chest CT showed a large left upper lobe lung mass with associated mediastinal adenopathy, highly suspicious for malignancy. She underwent bronchoscopy on 09/17/2019 with brushings from the left upper lobe bronchus showing atypical cells, suspicious for malignancy. A repeat PET/CT on 10/10/2019 showed a 5.7 x 5.2 cm mass with SUV 22.7. A left hilar lymph node measuring 14 mm had elevated SUV of 5.0, and a small node in the aortopulmonary window had increased SUV at 4.4. There were no other areas of abnormal uptake. A left adrenal gland nodule measuring up to 2.5 cm appeared consistent with benign adenoma. On 11/12/2019 she underwent left video-assisted thorascopic surgical biopsy of station 5 AP window lymph nodes. At surgery it was noted that her tumor was invading the left chest wall. The AP window lymph nodes were found to be positive for metastatic carcinoma, and with those findings resection was not attempted. Pathology report indicated just scant malignant cells which were consistent with non-small cell carcinoma. A [employer] next generation sequencing study showed no actionable mutations. The PD-L1 was positive at 25%. Dr Mahoney had seen her initially on 11/15/2019. In the setting of stage IIIb disease, she was recommended to undergo chemoradiation utilizing weekly cisplatin/paclitaxel. At the time he also recommended further molecular analysis with a [employer] 360 study. It showed the presence of an EGFR L747P mutation. On 12/03/2019 she began treatment with her week 1 carboplatin/paclitaxel concurrently with radiation. Her treatment had to be stopped due to an almost immediate hypersensitivity reaction to the paclitaxel. The reaction was adequately managed with IV Solu-Medrol, subcutaneous epinephrine, and other supportive measures which included IV fluids, oxygen, and albuterol/Atrovent by pulmonary nebulizer. She then returned on 12/05/2019 to restart treatment with carboplatin/Abraxane, which she tolerated without acute toxicity. She continued with her week 2 chemotherapy on 12/12/2019, with week 3 on 12/19/2019, with week 4 on 12/25/2019, and with week 5 on 01/02/2020. Her week 6 treatment was held due to declining blood counts and performance status. She completed radiation on 01/16/2020 to a total dose of 6600 cGy. Her restaging chest CT on 02/06/2020 showed a slight decrease in the left upper lobe neoplasm measuring 4.6 x 3.4 x 2.8 cm and a slight decrease in the size of the left suprahilar lymph node measuring 1.4 cm. There was no change in the left adrenal gland mass. As there was evidence of some response, she was recommended to begin maintenance immunotherapy with durvalumab. Her only other medical illnesses GERD. She has a non-smoker. INTERIM HISTORY: She began cycle 1 of maintenance durvalumab on 02/18/2020. She tolerated it without acute toxicity. At her scheduled follow-up visit on 03/03/2020, she was had clinical evidence of acute thyroiditis, and her treatment was put on hold. She was then able to continue with cycle 2 on 03/17/2020 and with cycle 3 on 03/31/2020. She was seen for a scheduled visit on 04/14/2020. At that point she had multiple new complaints, the most significant being numbness/tingling in both arms. She had significant weight gain. Her TSH was found to be markedly elevated at 223.60 ???IU/mL compared to 0.13 ???IU/mL 1 month earlier. Her treatment was put on hold, and she started steroid therapy with prednisone 20 mg daily along with levothyroxine [address] of the chest on 04/17/2020 showed decrease in the size of the left upper lobe neoplasm measuring 2.6 x 2.1 x 2.6 cm. There was new patchy airspace infiltrates in the left lower lobe, likely infectious or inflammatory. A previously described left AP window was noted to have resolved. There was no mediastinal or hilar lymphadenopathy noted. There was a small pericardial effusion. A left adrenal mass measuring 2.0 x 1.5 cm appeared stable. At that point her treatment remained on hold. As of 05/21/2020 she was able to continue with cycle 4 of divalumab at the full dosage. She tolerated it well and she then continued treatment at 2-week intervals. Repeat chest CT on 07/28/2020 showed slight increase in the left upper lobe pulmonary mass along with increased pleural thickening. Patchy infiltrates in the left upper and lower lobes were felt to possibly be due to obstructive pneumonia. The left adrenal mass had increased slightly, to 2.3 x 3.1 cm compared to 1.8 x 2.3 cm. She continued with cycle 9 of durvalumab on 07/30/2020. She is now completed 11 cycles of the durvalumab. Ms. Alvarez is here today for follow-up. She is due for cycle 12 durvalumab. She states since resuming the prednisone her neuropathy is better. She denies any new concerns. She denies any fever or chills. She is had no mouth sores sore throat or difficulty swallowing. She denies any cough or shortness of breath. She denies any hemoptysis. She states overall she feels pretty good. She denies any diarrhea or abdominal pain. She denies any constipation. She is had no urinary symptoms. She is had no vaginal bleeding or discharge. 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 She does tire but recovers well with rest. Her ECOG is 0. Past Medical History: Gastroesophageal reflux disease Past Surgical History: Tubal ligation Flu vaccine in 2019 - 2019 Left video-assisted thorascopic surgical biopsy of AP window lymph node in 2020 Bronchoscopy in 2020 Allergies: paclitaxel Medications: Citalopram Hydrobromide 1 Tablet (of 20 mg) Tablet Oral daily Ferrous Sulfate 1 Tablet (of 325 (65 fe) mg) Tablet Oral daily HYDROcodone-Acetaminophen 1 Tablet (of 7.5-325 mg) Oral q 6 hours PRN Levothyroxine Sodium 1 Tablet (of 100 mcg) Oral daily LORazepam 0.5 - 1 Tablet (of 1 mg) Oral t.i.d. PRN Omeprazole 1 Tablet (of 20 mg) Capsule Delayed Release Oral daily Ondansetron HCl 1 Tablet (of 4 mg) Tablet Oral q 6 hours PRN predniSONE 1 Tablet (of 10 mg) Oral b.i.d. Prochlorperazine Maleate 1 Tablet (of 10 mg) Oral q 4 hours PRN Family History: Ms. Alvarez's mother is alive. Ms. Alvarez's father is alive. Ms. Alvarez has 1 sister who is alive. Both parents are still living, father at age 70 and mother at age 68. She has one sister, age 39, who also is in good health. Social History: Ms. Alvarez is and she is an unknown. Ms. Alvarez has never smoked. She has no history of drinking. Review Of Symptoms: Constitutional Denies fevers, chills, night sweats. She states she is doing good overall. Eyes Denies significant visual changes. No diplopia. No amaurosis. ENMT Denies changes in hearing, sore throat, mouth sores, difficulty or changes in swallowing ability. Endocrine Feels better overall- less fogginess Hematologic/Lymphatic Denies easy bruising or bleeding. The patient denies any tender or palpable lymph nodes. Respiratory Denies dyspnea on exertion, chest pain, cough or hemoptysis. Denies orthopnea. Cardiovascular Denies anginal chest pain, palpitations or orthopnea. Gastrointestinal Denies nausea, vomiting, diarrhea, GI bleeding, or constipation. Denies change in bowel habits and/or stool color, no heartburn or early satiety. Genitourinary (F) No hematuria, hesitancy, incontinence, vaginal bleeding, discharge or other problems with urination. Musculoskeletal Denies joint pain, swelling or redness. No decreased range of motion. Integumentary Denies chronic rashes, inflammation, ulcerations or skin changes. Neurologic Denies headache, blurred vision, and no areas of focal weakness or numbness. Normal gait. No sensory problems. Psychiatric Denies insomnia, depression, wm or mood swings. Vital Signs: Performed on Sep 10, 2020 14:50 Height - 68.00 in Temperature - 98 F (LOW) Pulse - 73 /min Respiration - 18 /min BP - 118/77 mm(hg) O2 Sat - 98 % Pain - 0 Fatigue - 0 Performed on Sep 10, 2020 12:59 Height - 68.00 in Weight - 245.4 lbs (HIGH) BSA - 2.23 sq.m BMI - 37.31 (HIGH) Temperature - 97.3 F (LOW) Pulse - 76 /min Respiration - 18 /min BP - 120/65 mm(hg) O2 Sat - 94 % (LOW) Pain - 0,0 - Fully active, able to carry on all predisease activities without restrictions. (ECOG) Physical Examination: Constitutional Alert, oriented, no acute distress. Skin pink, warm and dry. Head Normocephalic; atraumatic. Eyes Conjunctivae and sclerae are clear and without icterus. Pupils are reactive and equal. Neck Supple without masses or thyromegaly. No jugular venous distension. Hematologic/Lymphatic No petechiae or purpura. No tender or palpable lymph nodes in the cervical or supraclavicular areas. Respiratory Lungs are clear to auscultation without rhonchi or wheezing. Cardiovascular Regular rate and rhythm of heart without murmurs,clicks, gallops or rubs. Chest Left chest wall port a cath unremarkable. Abdomen Non-tender, non-distended, no masses or ascites. Back/Spine Non-tender to palpation. Extremities No visible deformities, no cyanosis, clubbing or edema. Musculoskeletal No tenderness or swelling, normal range of motion without obvious weakness. Integumentary No rashes or lesions. Neurologic No sensory or motor deficits, normal cerebellar function, normal gait. Psychiatric Alert and oriented times three. Coherent speech. Verbalizes understanding of our discussions today. Laboratory:Test performed on Sep 10, 2020 11:33 Sodium 141 mmol/L TSH 9.98 uIU/mL Potassium 3.8 mmol/L Chloride 103 mmol/L CO2 26 mmol/L Anion Gap 15.8 BUN 17 mg/dL Creatinine 1.0 mg/dL Cr Clearance (Est) 113.0500 mL/min eGFR 59.4 mL/min Glucose 123 mg/dL Osmolality - Calculated 295 mOsm/kg Calcium 8.9 mg/dL Protein, Total 6.6 g/dL Albumin 3.8 g/dL Globulin 2.8 g/dL Bilirubin, Total 0.3 mg/dL ALT (SGPT) 9 U/L AST (SGOT) 10 U/L Alkaline Phosphatase 72 IU/L WBC 8.8 10 3/uL RBC 4.28 10 6/uL HGB 13.1 g/dL HCT 40.3 % MCV 94.2 fL MCH 30.6 pg MCHC 32.5 g/dL RDW 11.9 % Platelet Count 209 10 3/cmm MPV 9.4 fL Neutrophils 7.22 10 3/uL Lymphocytes 0.9 10 3/uL Monocytes 0.6 10 3/uL Eosinophils 0.0 10 3/uL Basophils 0.1 10 3/uL Neutrophil % 82.3 % Lymphocyte % 9.8 % Monocyte % 6.7 % Eosinophil % 0.0 % Basophils % 0.6 % NRBC % 0 % Test performed on Aug 13, 2020 09:09 T4, Free 1.37 ng/dL ESR (Sed Rate) 14 mm/hr Test performed on May 06, 2020 09:35 T3, Free 1.1 PG/ML Impression: 1. 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 A [employer] next generation sequencing study showed no actionable mutations. The PD-L1 was positive at 25%. A [employer] study showed the presence of an exon 19 EGFR mutation ( [id number] mutation). 2. She underwent video-assisted thoracotomy with biopsy of station 5 AP window lymph nodes on 11/09/2019. Her tumor was found to be invading the chest wall. 3. She has pre-existing GERD, adequately managed with medication. 4. She has moderately severe anemia with serum iron studies consistent with iron deficiency. On 12/03/2019 she began weekly carboplatin/paclitaxel chemotherapy, currently with radiation. Her week 1 chemotherapy infusion was stopped almost immediately due to hypersensitivity reaction to paclitaxel. She then returned on 12/04/2021 to restart treatment with week 1 carboplatin/Abraxane, which she began concurrently with radiation. She tolerated it well. She continued with her week 2 treatment on 12/12/2019, with week 3 on 12/19/2019, with week 4 on 12/25/2019, and with week 5 on 01/02/2020. Her week 6 treatment was withheld due to declining blood counts and performance status. She completed radiation on 01/16/2020, total dose [address] on 02/06/2020 showed only a slight decrease in the left upper lobe mass and in the left suprahilar mass. The left adrenal mass appeared unchanged. With evidence of some response to the treatment, she was recommended to continue on to maintenance immunotherapy with durvalumab. She began cycle 1 on 02/18/2020. At her scheduled follow-up visit on 03/03/2020 she had clinical evidence of acute thyroiditis, and her treatment was put on hold. Her symptoms had subsequently improved, and she then continued with cycle 2 of durvalumab on 03/17/2020 and with cycle 3 on 03/31/2020. At her follow-up visit on 04/14/2020, she had multiple new complaints, most significantly numbness/tingling in both arms. Her TSH level was found to be markedly elevated. Her treatment was put on hold. She restarted steroid therapy with prednisone 20 mg daily she also started levothyroxine 50 mcg daily. Her restaging chest CT on 04/17/2020 showed significant decrease in the left upper lobe mass compared to the pretreatment study. There was some new left lower lobe infiltrate, which I suspected to have been treatment related pneumonitis. She was not symptomatic with it. Overall, she improved clinically on the prednisone and levothyroxine, and she was able to begin tapering prednisone. Her TSH now has come down significantly, and she appears to be doing well clinically on 20 mg of prednisone daily. She then continue to taper prednisone and she continued with cycle 4 of durvalumab on 05/21/2020. She tolerated it well and she then continued treatment at 2-week intervals. Her restaging chest CT on 07/28/2020 reported a slight increase in the left upper lobe pulmonary mass and some increased infiltrate, felt to be suspicious for postobstructive pneumonia. There was a slight increase in the left adrenal mass. She continued with cycle 9 of nivolumab on 07/30/2020. In the meantime, I did have an opportunity to review the CT scan with the radiologist, and there appears to be a significantly increased infiltrates in the area around the pulmonary mass, though did appear to be more likely inflammatory, either from radiation or from pneumonitis associated with her immunotherapy. The left adrenal mass had definitely increased, it was previously PET negative, so the significance of that finding is uncertain. In the meantime, she does report some worsening of cough and her numbness also has increased with her prednisone dosage reduced to 5 mg daily. Plan: 1. Proceed with cycle 12 durvalumab. 2. She may taper the prednisone back to 20 mg daily for 3 days after treatment and then continue back at 10 mg daily if needed. 3. Labs from 09/10/2020 were reviewed in detail and discussed with Ms. Alvarez and a copy was given to her. WBC 8.8, hemoglobin 13.1, platelets are 9000 ANC is 7220. Potassium 3.8 creatinine 1.0 LFTs are normal. TSH is 9.98. 4. She will return in 2 weeks for durvalumab and plan for follow-up visit in 4 weeks with CBC CMP repeat thyroid profile. I did not change her thyroid dosing today as she is asymptomatic and it tends to wax and wane for her. Her last dose change was July 16, 2020 at which time she was given 112 mcg of levothyroxine. 5. Mrs. Alvarez was instructed to contact us in interim should questions or problems arise. Signed By: Glen Madrid-, [facility] Beni Mahoney MD <<Signature on File>>
== END 2020-09-11 23:59 | disposition home or self-care (01) ==
LOC: ONCMED 05:33
PROVIDERS: Internal Medicine Medical Oncology; PCP Family Medicine; Referring Provider Surgery; Visit Provider Nurse Practitioner
DX: Z51.12 Encounter for antineoplastic immunotherapy (principal); C34.12 Malignant neoplasm of upper lobe, left bronchus or lung; E06.4 Drug-induced thyroiditis; T45.1X5A Adverse effect of antineoplastic and immunosuppressive drugs, initial encounter; K21.9 Gastro-esophageal reflux disease without esophagitis; D50.9 Iron deficiency anemia, unspecified; Z79.899 Other long term (current) drug therapy
CPT/HCPCS: 80053; 84439; 84443; 85025; 85651; 96413; 99214; J7050; J9173

== ENCOUNTER 2020-10-08 05:34 | Outpatient (RCR) | payer BC, SELFPAY ==
[2020-09-24] MEDS: sodium chloride 0.9% 250 ML 75 ML IV (14:58)
[2020-10-08 14:30] LABS: Basophils # 0.1 10^3/uL (0.0-0.1); Basophils % 0.5 %; Hematocrit 40.7 % (37.0-47.0); Lymphocytes # 0.6 10^3/uL (0.8-4.8); Lymphocytes % 4.3 %; Mean Corpuscular HGB Conc 31.9 g/dL (30.0-36.0); Mean Corpuscular Hemoglobin 30.1 pg (28.0-34.0); Mean Corpuscular Volume 94.2 fL (81-99); Monocytes # 0.5 10^3/uL (0.2-0.9); Monocytes % 3.3 %; Nucleated Red Blood Cells % 0 %; Platelet Count 226 10^3/cmm (130-400); Red Blood Count 4.32 10^6/uL (4.1-5.3); Red Cell Distribution Width 12.3 % (12.1-15.1); White Blood Count 14.1 10^3/uL (4.0-10.0)
[2020-10-08 15:11] LABS: Alanine Aminotransferase 11 U/L (0-33); Albumin Level 3.8 g/dL (3.5-5.2); Alkaline Phosphatase 83 IU/L (35-105); Anion Gap 14.3 (5-19); Aspartate Amino Transferase 13 U/L (0-32); Blood Urea Nitrogen 14 mg/dL (6-20); Calcium 9.2 mg/dL (8.5-10.5); Carbon Dioxide 26 mmol/L (22-29); Chloride 104 mmol/L (98-107); Free T4 Free Thyroxine 1.13 ng/dL (0.82-1.77); Globulin 2.8 g/dL (1.3-4.6); Glomerular Filtration Rate 67.1 mL/min (90-130); Glucose 139 mg/dL (65-115); Osmolality Calculated 293 mOsm/kg (285-295); Potassium 4.3 mmol/L (3.5-5.1); Sodium 140 mmol/L (136-145); T3 Free 2.2 PG/ML (2.0-4.4); Thyroid Stimulating Hormone 3.94 uIU/mL (0.27-4.20); Total Bilirubin 0.3 mg/dL (0.15-1.2); Total Protein 6.6 g/dL (6.6-8.7)
--- NOTE | 2020-10-10 08:06 | ONC FU_ITS ---
Dr. Mahoney Patient Follow-Up Note Patient: Luz Elena Alvarez Unit #: [id number]: 1975 Dicatated By: Beni Mahoney M.D.Date of Visit:Oct 08, 2020 Onc Med Follow-up/Prog Note Chief Complaint: Lung cancer. 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 Her tumor was determined to be PD-L1 positive at 25%. 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 She is a non-smoker and she has been in good general health. In August she had seen her primary care physician with fever and cough, initially suspected to be pneumonia. Repeat chest x-ray after antibiotic therapy showed persistent mass in the left lung. Chest CT showed a large left upper lobe lung mass with associated mediastinal adenopathy, highly suspicious for malignancy. She underwent bronchoscopy on 09/17/2019 with brushings from the left upper lobe bronchus showing atypical cells, suspicious for malignancy. A repeat PET/CT on 10/10/2019 showed a 5.7 x 5.2 cm mass with SUV 22.7. A left hilar lymph node measuring 14 mm had elevated SUV of 5.0, and a small node in the aortopulmonary window had increased SUV at 4.4. There were no other areas of abnormal uptake. A left adrenal gland nodule measuring up to 2.5 cm appeared consistent with benign adenoma. On 11/12/2019 she underwent left video-assisted thorascopic surgical biopsy of station 5 AP window lymph nodes. At surgery it was noted that her tumor was invading the left chest wall. The AP window lymph nodes were found to be positive for metastatic carcinoma, and with those findings resection was not attempted. Pathology report indicated just scant malignant cells which were consistent with non-small cell carcinoma. A [employer] next generation sequencing study showed no actionable mutations. The PD-L1 was positive at 25%. Dr Mahoney had seen her initially on 11/15/2019. In the setting of stage IIIb disease, she was recommended to undergo chemoradiation utilizing weekly cisplatin/paclitaxel. At the time he also recommended further molecular analysis with a Guardant 360 study. It showed the presence of an EGFR L747P mutation. On 12/03/2019 she began treatment with her week 1 carboplatin/paclitaxel concurrently with radiation. Her treatment had to be stopped due to an almost immediate hypersensitivity reaction to the paclitaxel. The reaction was adequately managed with IV Solu-Medrol, subcutaneous epinephrine, and other supportive measures which included IV fluids, oxygen, and albuterol/Atrovent by pulmonary nebulizer. She then returned on 12/05/2019 to restart treatment with carboplatin/Abraxane, which she tolerated without acute toxicity. She continued with her week 2 chemotherapy on 12/12/2019, with week 3 on 12/19/2019, with week 4 on 12/25/2019, and with week 5 on 01/02/2020. Her week 6 treatment was held due to declining blood counts and performance status. She completed radiation on 01/16/2020 to a total dose of 6600 cGy. Her restaging chest CT on 02/06/2020 showed a slight decrease in the left upper lobe neoplasm measuring 4.6 x 3.4 x 2.8 cm and a slight decrease in the size of the left suprahilar lymph node measuring 1.4 cm. There was no change in the left adrenal gland mass. As there was evidence of some response, she was recommended to begin maintenance immunotherapy with durvalumab. Her only other medical illnesses GERD. She has a non-smoker. INTERIM HISTORY: She began cycle 1 of maintenance durvalumab on 02/18/2020. She tolerated it without acute toxicity. At her scheduled follow-up visit on 03/03/2020, she was had clinical evidence of acute thyroiditis, and her treatment was put on hold. She was then able to continue with cycle 2 on 03/17/2020 and with cycle 3 on 03/31/2020. She was seen for a scheduled visit on 04/14/2020. At that point she had multiple new complaints, the most significant being numbness/tingling in both arms. She had significant weight gain. Her TSH was found to be markedly elevated at 223.60 ???IU/mL compared to 0.13 ???IU/mL 1 month earlier. Her treatment was put on hold, and she started steroid therapy with prednisone 20 mg daily along with levothyroxine [address] of the chest on 04/17/2020 showed decrease in the size of the left upper lobe neoplasm measuring 2.6 x 2.1 x 2.6 cm. There was new patchy airspace infiltrates in the left lower lobe, likely infectious or inflammatory. A previously described left AP window was noted to have resolved. There was no mediastinal or hilar lymphadenopathy noted. There was a small pericardial effusion. A left adrenal mass measuring 2.0 x 1.5 cm appeared stable. At that point her treatment remained on hold. As of 05/21/2020 she was able to continue with cycle 4 of divalumab at the full dosage. She tolerated it well and she then continued treatment at 2-week intervals. Repeat chest CT on 07/28/2020 showed slight increase in the left upper lobe pulmonary mass along with increased pleural thickening. Patchy infiltrates in the left upper and lower lobes were felt to possibly be due to obstructive pneumonia. The left adrenal mass had increased slightly, to 2.3 x 3.1 cm compared to 1.8 x 2.3 cm. She continued with cycle 9 of durvalumab on 07/30/2020. As of 09/24/2020 she completed cycle 13 of durvalumab. She is seen for a scheduled visit. She complains that she has no energy. For the past week and a half she has been having sinusitis symptoms, including sinus pressure and draining of yellow and sometimes blood mucus. She has not had fever or night sweats, but she has had some chills. Appetite has been okay and her weight has been stable. She has not had sore mouth or throat. She does have some shortness of breath and she has had some cough. She does not complain of chest pain. She occasionally has nausea. Her acid reflux is adequately managed with medication. Bowel and bladder function have been okay. She occasionally has joint pain, but that has been doing pretty well. She reports having some dizziness and she occasionally has numbness/tingling. Medications: Citalopram Hydrobromide 1 Tablet (of 20 mg) Tablet Oral daily, Ferrous Sulfate 1 Tablet (of 325 (65 fe) mg) Tablet Oral daily, Levothyroxine Sodium 1 Tablet (of 112 mcg) Oral daily, Omeprazole 1 Tablet (of 20 mg) Capsule Delayed Release Oral daily, predniSONE 1 Tablet (of 10 mg) Oral daily Allergies: paclitaxel Vital Signs: Performed on Oct 08, 2020 15:10 Height - 68.00 in Weight - 249 lbs (HIGH) BSA - 2.24 sq.m BMI - 37.86 (HIGH) Temperature - 98.0 F (LOW) Pulse - 76 /min Respiration - 18 /min BP - 156/80 mm(hg) (HIGH) O2 Sat - 98 % Pain - 0 Physical Examination: Constitutional - She looks pretty good generally, Eyes - Sclerae nonicteric. Conjunctivae clear, ENMT - No lesions noted in the oral cavity, Neck - There is slight soft tissue swelling in the neck area. There is no mass or thyromegaly noted, Hematologic/Lymphatic - No cervical, clavicular, or axillary adenopathy, Respiratory - Lungs sound clear with some decrease in air movement bilaterally, Cardiovascular - Heart rhythm is regular. There is no murmur, gallop, or rub noted, Abdomen - Soft. Liver and spleen are not enlarged. There is no abdominal mass or ascites noted and there is no inguinal adenopathy, Extremities - No edema, Neurologic - No focal neurologic deficits noted. Lab/Imaging: Test performed on Oct 08, 2020 14:17 Sodium 140 mmol/L T3, Free 2.2 PG/ML T4, Free 1.13 ng/dL TSH 3.94 uIU/mL Potassium 4.3 mmol/L Chloride 104 mmol/L CO2 26 mmol/L Anion Gap 14.3 BUN 14 mg/dL Creatinine 0.9 mg/dL Cr Clearance (Est) 125.6100 mL/min eGFR 67.1 mL/min Glucose 139 mg/dL Osmolality - Calculated 293 mOsm/kg Calcium 9.2 mg/dL Protein, Total 6.6 g/dL Albumin 3.8 g/dL Globulin 2.8 g/dL Bilirubin, Total 0.3 mg/dL ALT (SGPT) 11 U/L AST (SGOT) 13 U/L Alkaline Phosphatase 83 IU/L WBC 14.1 10 3/uL RBC 4.32 10 6/uL HGB 13.0 g/dL HCT 40.7 % MCV 94.2 fL MCH 30.1 pg MCHC 31.9 g/dL RDW 12.3 % Platelet Count 226 10 3/cmm MPV 9.0 fL Neutrophils 12.80 10 3/uL Lymphocytes 0.6 10 3/uL Monocytes 0.5 10 3/uL Eosinophils 0.0 10 3/uL Basophils 0.1 10 3/uL Neutrophil % 91.0 % Lymphocyte % 4.3 % Monocyte % 3.3 % Eosinophil % 0.0 % Basophils % 0.5 % NRBC % 0 % Problem List: 1. Non-small cell carcinoma involving the upper lobe of the left lung, stage IIIB (T3, N2, M0). A [employer] next generation sequencing study showed no actionable mutations. The PD-L1 was positive at 25%. A Guardant 360 study showed the presence of an exon 19 EGFR mutation ( L747P mutation). 2. She underwent video-assisted thoracotomy with biopsy of station 5 AP window lymph nodes on 11/09/2019. Her tumor was found to be invading the chest wall. 3. She has pre-existing GERD, adequately managed with medication. 4. She had moderately severe anemia with serum iron studies consistent with iron deficiency. Problems Addressed with this Encounter and Plan: 1. Non-small cell carcinoma involving the upper lobe of the left lung, stage IIIB (T3, N2, M0). She underwent video-assisted thoracotomy with biopsy of station 5 AP window lymph nodes on 11/09/2019. Her tumor was found to be invading the chest wall. PD-L1 expression was positive at 25%. A Guardant 360 study showed the presence of an exon 19 EGFR mutation ( L747P mutation). She had CT evidence of response to intial chemoradiation, completed on 01/16/2020 to a total dose of 6600 cGy. She began cycle 1 of maintenance immunotherapy with durvalumab on 02/18/2020. It was complicated by acute thyroiditis, requiring treatment interruption and steroid therapy. She later required steroid therapy for radiation pneumonitis. Her restaging chest CT on 04/17/2020, though, did show significant decrease in the left upper lobe mass compared to the pretreatment study. She continued maintenance durvalumab with low-dose prednisone. She continues to have some fatigue and shortness of breath, though overall she still feels pretty good generally. In the absence of any evidence of diseae progression she will continue with cycle 14 of durvalumab. The dosage remains the same. She will be scheduled for treatment in 2 weeks and for a follow-up visit in 4 weeks. She will have restaging CT scans with that visit. 2. Treatment related pneumonitis. It has improved with steroid therapy. She will continue prednisone at 10 mg daily. 3. She has symptoms of acute sinusitis. She will be given antibiotic therapy with azithromycin. Signed By: Beni Mahoney M.D. <<Signature on File>>
== END 2020-10-12 23:59 | disposition home or self-care (01) ==
LOC: ONCMED 05:34
PROVIDERS: PCP Family Medicine; Referring Provider Surgery; Visit Provider Internal Medicine Medical Oncology
DX: Z51.12 Encounter for antineoplastic immunotherapy (principal); C34.12 Malignant neoplasm of upper lobe, left bronchus or lung; E06.4 Drug-induced thyroiditis; K21.9 Gastro-esophageal reflux disease without esophagitis; D50.9 Iron deficiency anemia, unspecified; J70.0 Acute pulmonary manifestations due to radiation; Z79.52 Long term (current) use of systemic steroids; J01.90 Acute sinusitis, unspecified; Z79.899 Other long term (current) drug therapy
CPT/HCPCS: 80053; 84439; 84443; 84481; 85025; 96413; 99214; J7050; J9173

== ENCOUNTER 2020-10-22 10:16 | Outpatient (CLI) | payer BC, SELFPAY ==
--- NOTE | 2020-10-22 10:26 | CT_ITS ---
WS: [id number] CT CHEST TECHNIQUE: Contrast enhanced CT of the chest with coronal and sagittal reformatted images. CLINICAL INFORMATION: LUNG CANCER COMPARISON: CT 07/28/2020 and 04/17/2020. January 29 December 31, 2019 DLP: 939.[address] scans at [facility] use at least one of these dose optimization techniques: automat ed exposure control; mA and/or kV adjustment per patient size (includes targeted exams where dose is matched to clinical indication); or iterative reconstruction. FINDINGS: Small pericardial effusion. Again seen is the left upper lobe neoplasm with associated pleural thicke stormy. This measures approximately 2.6 x 1.7 cm not significant change in size not significant change from previous. Increased associated pleural thickening along the left upper lobe and left lower lobe. Persistent and similar appearing postobstructive pneumonia in the left lower lobe with air bronchogr ams. Slightly progressed left upper lobe postobstructive pneumonia. Slightly increased volume loss le ft lung today. Right lung is well aerated. Normal caliber thoracic aorta. Proximal main pulmonary arteries are normal. Right lung is well aerate d. Cholelithiasis. Heterogeneous enhancing progressed left adrenal metastasis today measuring 4.6 x 3.6 cm. Previously this measured 2.2 x 3.1 cm. Right adrenal gland is normal. Normal GE junction. Small s plenule. No axillary lymphadenopathy. CT/CT chest w con* [id number] IMPRESSION: 1. Previously described left hilar neoplasm not significantly changed today me asuring 1.7 x 2.6 cm. 2. Significantly progressed left adrenal metastasis today measuring 4.6 x 3.6 cm. 3. Progressed pleural thickening with small amount pleural fluid left hemithor ax with multinodular thickening. Findings are suspicious for progressed disease . 4. Small pericardial effusion. 5. Slightly progressed but similar-appearing postobstructive pneumonia in left upper lobe and left lower lobe. 6. Cholelithiasis.
[2020-10-22] MEDS: iohexol 300 mg/mL 100 mL Btl IV (10:37)
== END 2020-10-22 10:17 | disposition home or self-care (01) ==
LOC: CT 10:22 → ONCMED 10:54
PROVIDERS: PCP Family Medicine; Visit Provider Internal Medicine Medical Oncology
DX: Z51.12 Encounter for antineoplastic immunotherapy (principal); C34.12 Malignant neoplasm of upper lobe, left bronchus or lung; E06.4 Drug-induced thyroiditis; T45.1X5A Adverse effect of antineoplastic and immunosuppressive drugs, initial encounter
CPT/HCPCS: 71260; 96413; J7050; J9173

== ENCOUNTER 2020-11-14 07:49 | Outpatient (CLI) | payer BC, SELFPAY ==
--- NOTE | 2020-11-14 11:47 | ONC FU_ITS ---
Dr. Mahoney Patient Follow-Up Note Patient: Luz Elena Alvarez Unit #: [id number]: [id number] Dicatated By: Beni Mahoney M.D.Date of Visit:Nov 14, 2020 Onc Med Follow-up/Prog Note Chief Complaint: Lung cancer. 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 Her tumor was determined to be PD-L1 positive at 25%. 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 She is a non-smoker and she has been in good general health. In August 2019 she had seen her primary care physician with fever and cough, initially suspected to be pneumonia. Repeat chest x-ray after antibiotic therapy showed persistent mass in the left lung. Chest CT showed a large left upper lobe lung mass with associated mediastinal adenopathy, highly suspicious for malignancy. She underwent bronchoscopy on 09/17/2019 with brushings from the left upper lobe bronchus showing atypical cells, suspicious for malignancy. A repeat PET/CT on 10/10/2019 showed a 5.7 x 5.2 cm mass with SUV 22.7. A left hilar lymph node measuring 14 mm had elevated SUV of 5.0, and a small node in the aortopulmonary window had increased SUV at 4.4. There were no other areas of abnormal uptake. A left adrenal gland nodule measuring up to 2.5 cm appeared consistent with benign adenoma. On 11/12/2019 she underwent left video-assisted thorascopic surgical biopsy of station 5 AP window lymph nodes. At surgery it was noted that her tumor was invading the left chest wall. The AP window lymph nodes were found to be positive for metastatic carcinoma, and with those findings resection was not attempted. Pathology report indicated just scant malignant cells which were consistent with non-small cell carcinoma. A [employer] next generation sequencing study showed no actionable mutations. The PD-L1 was positive at 25%. I had seen her initially on 11/15/2019. In the setting of stage IIIb disease, she was recommended to undergo chemoradiation utilizing weekly carboplatin/paclitaxel. At the time I also recommended further molecular analysis with a [facility] 360 study. It showed the presence of an EGFR L747P mutation. On 12/03/2019 she began treatment with her week 1 carboplatin/paclitaxel concurrently with radiation. Her treatment had to be stopped due to an almost immediate hypersensitivity reaction to the paclitaxel. The reaction was adequately managed with IV Solu-Medrol, subcutaneous epinephrine, and other supportive measures which included IV fluids, oxygen, and albuterol/Atrovent by pulmonary nebulizer. She then returned on 12/05/2019 to restart treatment with carboplatin/Abraxane, which she tolerated without acute toxicity. She continued treatment weekly through week 5 on 01/02/2020. Her week 6 treatment was held due to declining blood counts and performance status. She completed radiation on 01/16/2020 to a total dose of 6600 [address] Her [address]aging [address] on 02/06/2020 showed a slight decrease in the left upper lobe neoplasm measuring 4.6 x 3.4 x 2.8 cm and a slight decrease in the size of the left suprahilar lymph node measuring 1.4 cm. There was no change in the left adrenal gland mass. As there was evidence of some response, she was recommended to begin maintenance immunotherapy with durvalumab. She began cycle 1 of maintenance durvalumab on 02/18/2020. The initial phase of her maintenance therapy was complicated by hyperthyroidism, requiring a temporary treatment delay, and subsequently by hypothyroidism which required steroid therapy. Her treatment was put on hold after the 3rd cycle. Restaging CT of the chest on 04/17/2020 showed decrease in the size of the left upper lobe neoplasm measuring 2.6 x 2.1 x 2.6 cm. There was new patchy airspace infiltrates in the left lower lobe, likely infectious or inflammatory. A previously described left AP window was noted to have resolved. There was no mediastinal or hilar lymphadenopathy noted. There was a small pericardial effusion. A left adrenal mass measuring 2.0 x 1.5 cm appeared stable. At that point her treatment remained on hold, but as of 05/21/2020 she was able to continue with cycle 4 of durvalumab at the full dosage. She tolerated it well and she then continued treatment at 2-week intervals. Repeat chest CT on 07/28/2020 showed slight increase in the left upper lobe pulmonary mass along with increased pleural thickening. Patchy infiltrates in the left upper and lower lobes were felt to possibly be due to obstructive pneumonia. The left adrenal mass had increased slightly, to 2.3 x 3.1 cm compared to 1.8 x 2.3 cm. She continued with cycle 9 of durvalumab on 07/30/2020, and thereafter she continued treatment at 2-week intervals. In August she required an increase in her steroid dosage for suspected radiation pneumonitis. She was then maintained on low-dose steroid therapy with prednisone 10 mg daily. As of 10/22/2020 she completed cycle 15 of durvalumab. Her only other medical illnesses is GERD. She is a non-smoker. INTERIM HISTORY: Her repeat chest CT on 10/22/2020 reported left upper lobe neoplasm with associated pleural thickening measuring approximately 2.6 x 1.7 cm, not significantly changed from the previous study. There appeared to be progression of the left pleural thickening with multinodular thickening and with a small amount of pleural fluid in the left hemithorax. There was similar-appearing postobstructive pneumonia in the left lower lobe with air bronchograms. Left upper lobe postobstructive pneumonia. Slightly progressed and there was slightly increased volume loss in the left lung. There was significant progression of the left adrenal mass measuring 4.6 x 3.6 cm. With those findings, treatment was put on hold. She is seen for a follow-up visit. He says she is still going, but she is tired a lot. ECOG score is 1. She has good appetite. She has no fever or night sweats. She has sinus drainage, which is chronic. She has some shortness of breath. Her main complaint is that she cannot get rid of her cough/chest congestion despite having 2 rounds of antibiotic therapy. She has also been having some pain in the area of her thoracoscopy incision and she has occasional sharp pleuritic pain in the left chest. Her heart rate tends to go up with activity. She has no GI or complaints. She has no significant joint or bone pain. She does not complain of headache or dizziness. She currently he has no numbness/paresthesia or other focal neurologic symptoms. Medications: Citalopram Hydrobromide 1 Tablet (of 20 mg) Tablet Oral daily, Ferrous Sulfate 1 Tablet (of 325 (65 fe) mg) Tablet Oral daily, Levothyroxine Sodium 1 Tablet (of 112 mcg) Oral daily, Omeprazole 1 Tablet (of 20 mg) Capsule Delayed Release Oral daily, predniSONE 1 Tablet (of 10 mg) Oral daily Allergies: paclitaxel Vital Signs: Performed on Nov 14, 2020 09:43 Height - 68.00 in Weight - 251.6 lbs (HIGH) BSA - 2.25 sq.m BMI - 38.26 (HIGH) Temperature - 97.4 F (LOW) Pulse - 86 /min Respiration - 17 /min BP - 127/82 mm(hg) O2 Sat - 95 % (LOW) Pain - 0 Physical Examination: Constitutional - She looks pretty good generally, Eyes - Sclerae nonicteric. Conjunctivae clear, ENMT - No lesions noted in the oral cavity, Hematologic/Lymphatic - No cervical, clavicular, or axillary adenopathy, Respiratory - Lungs sound clear with some decrease in air movement bilaterally, Cardiovascular - Heart rhythm is regular. There is no murmur, gallop, or rub noted, Abdomen - Soft. Liver and spleen are not enlarged. There is no abdominal mass or ascites noted and there is no inguinal adenopathy, Extremities - No edema, Neurologic - No focal neurologic deficits noted. Lab/Imaging: Test performed on Oct 08, 2020 14:17 Sodium 140 mmol/L T3, Free 2.2 PG/ML T4, Free 1.13 ng/dL TSH 3.94 uIU/mL Potassium 4.3 mmol/L Chloride 104 mmol/L CO2 26 mmol/L Anion Gap 14.3 BUN 14 mg/dL Creatinine 0.9 mg/dL Cr Clearance (Est) 125.6100 mL/min eGFR 67.1 mL/min Glucose 139 mg/dL Osmolality - Calculated 293 mOsm/kg Calcium 9.2 mg/dL Protein, Total 6.6 g/dL Albumin 3.8 g/dL Globulin 2.8 g/dL Bilirubin, Total 0.3 mg/dL ALT (SGPT) 11 U/L AST (SGOT) 13 U/L Alkaline Phosphatase 83 IU/L WBC 14.1 10 3/uL RBC 4.32 10 6/uL HGB 13.0 g/dL HCT 40.7 % MCV 94.2 fL MCH 30.1 pg MCHC 31.9 g/dL RDW 12.3 % Platelet Count 226 10 3/cmm MPV 9.0 fL Neutrophils 12.80 10 3/uL Lymphocytes 0.6 10 3/uL Monocytes 0.5 10 3/uL Eosinophils 0.0 10 3/uL Basophils 0.1 10 3/uL Neutrophil % 91.0 % Lymphocyte % 4.3 % Monocyte % 3.3 % Eosinophil % 0.0 % Basophils % 0.5 % NRBC % 0 % Test performed on Aug 13, 2020 09:09 ESR (Sed Rate) 14 mm/hr Problem List: 1. Non-small cell carcinoma involving the upper lobe of the left lung, stage IIIB (T3, N2, M0) at initial diagnosis in September 2019. A [employer] next generation sequencing study showed no actionable mutations. The PD-L1 was positive at 25%. A [employer] 360 study showed the presence of an exon 19 EGFR mutation ( L747P mutation). 2. She underwent video-assisted thoracotomy with biopsy of station 5 AP window lymph nodes on 11/09/2019. Her tumor was found to be invading the chest wall. 3. She has pre-existing GERD, adequately managed with medication. 4. She had moderately severe anemia with serum iron studies consistent with iron deficiency. 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 She underwent video-assisted thoracotomy with biopsy of station 5 AP window lymph nodes on 11/09/2019. Her tumor was found to be invading the chest wall. PD-L1 expression was positive at 25%. A [employer] 360 study showed the presence of an exon 19 EGFR mutation ( L747P mutation). She had CT evidence of response to intial chemoradiation, completed on 01/16/2020 to a total dose of 6600 cGy. She began cycle 1 of maintenance immunotherapy with durvalumab on 02/18/2020. It was complicated by acute thyroiditis, requiring treatment interruption and steroid therapy. Her restaging chest CT on 04/17/2020 showed significant decrease in the left upper lobe mass compared to the pretreatment study. She continued maintenance durvalumab along with low-dose prednisone. In August she required an increase in steroid dosage for suspected radiation pneumonitis. She had symptomatic improvement, and she then continued low-dose steroid therapy with prednisone 10 mg daily. Her restaging chest CT on 10/22/2020 showed no obvious increase in the primary lung tumor in the left upper lobe. There was increased pleural thickening and postobstructive pneumonia involving both the upper lobe and lower lobe. The was significant increase in the left adrenal mass measuring 4.6 x 3.6 cm, now presumed to be metastatic. With those findings, her maintenance durvalumab was put on hold. She has had worsening cough/chest congestion during the past month. It has not improved with antibiotic therapy. I reviewed the CT images with the patient and her . There has been progressive worsening of the opacities in the left lung, though the nodule associated with the primary tumor does not appear to have increased. It is uncertain to what extent the CT findings may be due to pneumonitis and/or fibrosis or to progression of the lung cancer. Based on the initial PET/CT findings, the left adrenal mass was presumed to have been an adenoma, but with the recent increase in size, it is presumed to be metastatic. I discussed options for further treatment. She has an atypical EGFR mutation. I was able to find the least one report in the literature were another patient with that mutation did show response to a tyrosine kinase inhibitor, and I think that may be the best choice for her next line of therapy. However, under the circumstances, I feel that would be preferable to first have her evaluated by a lung cancer specialist, and I will try and arrange that through [facility]. In the meantime, I am going to have her try a short-term steroid bolus to see if she gets any symptomatic benefit. Signed By: Beni Mahoney M.D. <<Signature on File>>
== END 2020-11-14 07:50 | disposition home or self-care (01) ==
LOC: ONCMED 07:55
PROVIDERS: PCP Family Medicine; Visit Provider Internal Medicine Medical Oncology
DX: C34.12 Malignant neoplasm of upper lobe, left bronchus or lung (principal); C79.89 Secondary malignant neoplasm of other specified sites; K21.9 Gastro-esophageal reflux disease without esophagitis; D50.9 Iron deficiency anemia, unspecified; E27.9 Disorder of adrenal gland, unspecified; Z45.2 Encounter for adjustment and management of vascular access device; Z92.3 Personal history of irradiation; Z79.899 Other long term (current) drug therapy
CPT/HCPCS: 96523; 99215

== ENCOUNTER 2020-11-27 06:18 | Outpatient (CLI) | payer BC, SELFPAY | END 2020-11-27 06:19 | disposition home or self-care (01) | LOC: ONCMED 06:20 | PROVIDERS: PCP Family Medicine; Visit Provider Internal Medicine Medical Oncology | DX: C34.12 Malignant neoplasm of upper lobe, left bronchus or lung (principal); E06.4 Drug-induced thyroiditis | CPT/HCPCS: 36591 ==

== ENCOUNTER 2021-01-07 14:36 | Outpatient (CLI) | payer BC, SELFPAY ==
[2021-01-07 15:14] LABS: Basophils % 0.3 %; Hematocrit 39.3 % (37.0-47.0); Hemoglobin 12.5 g/dL (11.5-15.3); Lymphocytes # 0.5 10^3/uL (0.8-4.8); Lymphocytes % 2.9 %; Mean Corpuscular HGB Conc 31.8 g/dL (30.0-36.0); Mean Corpuscular Hemoglobin 29.4 pg (28.0-34.0); Mean Corpuscular Volume 92.5 fL (81-99); Mean Platelet Volume 9.4 fL (7.4-10.4); Monocytes # 0.3 10^3/uL (0.2-0.9); Monocytes % 2.1 %; Neutrophils # 14.84 10^3/uL (1.8-7.7); Neutrophils % 93.5 %; Nucleated Red Blood Cells % 0 %; Platelet Count 185 10^3/cmm (130-400); Red Blood Count 4.25 10^6/uL (4.1-5.3); White Blood Count 15.9 10^3/uL (4.0-10.0)
[2021-01-07 16:04] LABS: Alanine Aminotransferase 10 U/L (0-33); Albumin Level 3.8 g/dL (3.5-5.2); Alkaline Phosphatase 63 IU/L (35-105); Anion Gap 14.8 (5-19); Aspartate Amino Transferase 8 U/L (0-32); Blood Urea Nitrogen 16 mg/dL (6-20); Calcium 8.7 mg/dL (8.5-10.5); Carbon Dioxide 27 mmol/L (22-29); Chloride 100 mmol/L (98-107); Globulin 2.6 g/dL (1.3-4.6); Glomerular Filtration Rate 67.1 mL/min (90-130); Glucose 121 mg/dL (65-115); Osmolality Calculated 286 mOsm/kg (285-295); Potassium 4.8 mmol/L (3.5-5.1); Sodium 137 mmol/L (136-145); Thyroid Stimulating Hormone 8.99 uIU/mL (0.27-4.20); Total Bilirubin 0.4 mg/dL (0.15-1.2); Total Protein 6.4 g/dL (6.6-8.7)
== END 2021-01-07 14:37 | disposition home or self-care (01) ==
LOC: ONCMED 14:38
PROVIDERS: PCP Family Medicine; Visit Provider Nurse Practitioner
DX: C34.12 Malignant neoplasm of upper lobe, left bronchus or lung (principal); E06.4 Drug-induced thyroiditis
CPT/HCPCS: 36415; 36591; 80053; 84443; 85025

== ENCOUNTER 2021-01-12 05:39 | Outpatient (CLI) | payer BC, SELFPAY ==
--- NOTE | 2021-01-20 21:35 | ONC FU_ITS ---
[facility] Patient Note Patient: Luz Elena Alvarez Unit #: [id number]: [id number] Dictated By: Glen MadridDate of Visit: January 12, 2021 Onc MED Follow-Up/Prog Note Chief Complaint: Lung cancer. 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 Her tumor was determined to be PD-L1 positive at 25%. 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 She is a non-smoker and she has been in good general health. In August 2019 she had seen her primary care physician with fever and cough, initially suspected to be pneumonia. Repeat chest x-ray after antibiotic therapy showed persistent mass in the left lung. Chest CT showed a large left upper lobe lung mass with associated mediastinal adenopathy, highly suspicious for malignancy. She underwent bronchoscopy on 09/17/2019 with brushings from the left upper lobe bronchus showing atypical cells, suspicious for malignancy. A repeat PET/CT on 10/10/2019 showed a 5.7 x 5.2 cm mass with SUV 22.7. A left hilar lymph node measuring 14 mm had elevated SUV of 5.0, and a small node in the aortopulmonary window had increased SUV at 4.4. There were no other areas of abnormal uptake. A left adrenal gland nodule measuring up to 2.5 cm appeared consistent with benign adenoma. On 11/12/2019 she underwent left video-assisted thorascopic surgical biopsy of station 5 AP window lymph nodes. At surgery it was noted that her tumor was invading the left chest wall. The AP window lymph nodes were found to be positive for metastatic carcinoma, and with those findings resection was not attempted. Pathology report indicated just scant malignant cells which were consistent with non-small cell carcinoma. A [employer] next generation sequencing study showed no actionable mutations. The PD-L1 was positive at 25%. Dr Mahoney had seen her initially on 11/15/2019. In the setting of stage IIIb disease, she was recommended to undergo chemoradiation utilizing weekly carboplatin/paclitaxel. At the time Dr Mahoney also recommended further molecular [facility]. It showed the presence of an EGFR L747P mutation. On 12/03/2019 she began treatment with her week 1 carboplatin/paclitaxel concurrently with radiation. Her treatment had to be stopped due to an almost immediate hypersensitivity reaction to the paclitaxel. The reaction was adequately managed with IV Solu-Medrol, subcutaneous epinephrine, and other supportive measures which included IV fluids, oxygen, and albuterol/Atrovent by pulmonary nebulizer. She then returned on 12/05/2019 to restart treatment with carboplatin/Abraxane, which she tolerated without acute toxicity. She continued treatment weekly through week 5 on 01/02/2020. Her week 6 treatment was held due to declining blood counts and performance status. She completed radiation on 01/16/2020 to a total dose of 6600 cGy. Her restaging chest CT on 02/06/2020 showed a slight decrease in the left upper lobe neoplasm measuring 4.6 x 3.4 x 2.8 cm and a slight decrease in the size of the left suprahilar lymph node measuring 1.4 cm. There was no change in the left adrenal gland mass. As there was evidence of some response, she was recommended to begin maintenance immunotherapy with durvalumab. She began cycle 1 of maintenance durvalumab on 02/18/2020. The initial phase of her maintenance therapy was complicated by hyperthyroidism, requiring a temporary treatment delay, and subsequently by hypothyroidism which required steroid therapy. Her treatment was put on hold after the 3rd cycle. Restaging CT of the chest on 04/17/2020 showed decrease in the size of the left upper lobe neoplasm measuring 2.6 x 2.1 x 2.6 cm. There was new patchy airspace infiltrates in the left lower lobe, likely infectious or inflammatory. A previously described left AP window was noted to have resolved. There was no mediastinal or hilar lymphadenopathy noted. There was a small pericardial effusion. A left adrenal mass measuring 2.0 x 1.5 cm appeared stable. At that point her treatment remained on hold, but as of 05/21/2020 she was able to continue with cycle 4 of durvalumab at the full dosage. She tolerated it well and she then continued treatment at 2-week intervals. Repeat chest CT on 07/28/2020 showed slight increase in the left upper lobe pulmonary mass along with increased pleural thickening. Patchy infiltrates in the left upper and lower lobes were felt to possibly be due to obstructive pneumonia. The left adrenal mass had increased slightly, to 2.3 x 3.1 cm compared to 1.8 x 2.3 cm. She continued with cycle 9 of durvalumab on 07/30/2020, and thereafter she continued treatment at 2-week intervals. In August she required an increase in her steroid dosage for suspected radiation pneumonitis. She was then maintained on low-dose steroid therapy with prednisone 10 mg daily. As of 10/22/2020 she completed cycle 15 of durvalumab. Her only other medical illnesses is GERD. She is a non-smoker. INTERIM HISTORY: Her repeat chest CT on 10/22/2020 reported left upper lobe neoplasm with associated pleural thickening measuring approximately 2.6 x 1.7 cm, not significantly changed from the previous study. There appeared to be progression of the left pleural thickening with multinodular thickening and with a small amount of pleural fluid in the left hemithorax. There was similar-appearing postobstructive pneumonia in the left lower lobe with air bronchograms. Left upper lobe postobstructive pneumonia. Slightly progressed and there was slightly increased volume loss in the left lung. There was significant progression of the left adrenal mass measuring 4.6 x 3.6 cm. With those findings, treatment was put on hold. She was seen by Dr. Mahoney for follow-up on November 14, 2020. He had reviewed the restaging chest CT from October 22, 2020 as well as the atypical EGFR mutation. He did recommend that she be evaluated by lung cancer specialist and she was referred to [facility] in [place] to Dr. Raines. She saw Dr. Raines on November 25, 2020. His assessment/recommendation was reviewed. He reported despite the EGFR L747P mutation location exon 19 of tyrosine kinase domain, response rates to this rare alterations have been uncommon, with poor efficiency of the first generation EGFR tyrosine kinase inhibitors. Nevertheless, there have been response to afatinib in both L747P and 747S (Abdullahi S???K, Lung Cancer 2019) and there is report of one response to osimertinib for L747S ([facility] Journal Clinical Oncology 2019). 1 side effect concern particularly with osimertinib is worsening of pneumonitis in a patient that was recently treated with thoracic radiation and durvalumab, on daily prednisone for presumed pneumonitis, which appears to be related to radiation rather than durvalumab due to the location restricted to the previously irradiated area. It was felt that she may benefit from repeat [employer] 360 to confirm the uncommon EGFR mutation and a PET scan. In the case of a negative PET scan she may be considered for biopsy although would be unlikely for necrotizing lesion in the general gland not be a metastatic lesion. In the case of isolated adrenal metastasis, she may benefit from local therapy including radiation or surgical resection, possibly after maximum benefit from an EGFR TKI. Although there is limited information on both afatinib and osimertinib, the latter appears to be a better option due to the better safety profile . The EGFR L747P was confirmed with [employer] 360 report date 12/13/2020. The tumor mutational burden was reported at 9.57 mut/MB; MSI was not detected. Repeat PET CT from 12/13/2020 reported extensive FDG positive inflammatory consolidation in the left lung, consistent with radiation therapy sequela. A discrete lung lesion was not identified. A left adrenal mass measuring 4.1 x 6.3 cm with central necrosis has an SUV of 28.4 representing malignancy, likely metastatic disease. Ms. Alvarez is here today for follow-up. She did start Tagrisso (osimertinib) 80 mg daily on January 07, 2021. She has tolerated it well thus far. Her baseline labs from January 07, 2021 were unremarkable. Her white count was 15.9. Her TSH was found to be 8.99. She is currently on 112 mcg daily of levothyroxine. She denies any excessive fatigue. She has had no hair loss or brittle nails or excessive constipation. She states her appetite is fair. She denies any fever or chills. She states she has short of breath but that is not new. She does have persistent cough and is currently taking 25 mg of prednisone daily. She states the cough is better overall. She denies any hemoptysis. She denies any diarrhea or constipation. She denies any bladder concerns. She has no new concerns today. Her ECOG is 1. Past Medical History: Gastroesophageal reflux disease Past Surgical History: Tubal ligation Flu vaccine in 2019 - 2019 Left video-assisted thorascopic surgical biopsy of AP window lymph node in 2019 Bronchoscopy in 2020 Allergies: paclitaxel Medications: Citalopram Hydrobromide 1 Tablet (of 20 mg) Tablet Oral daily Ferrous Sulfate 1 Tablet (of 325 (65 fe) mg) Tablet Oral daily Levothyroxine Sodium 1 Tablet (of 112 mcg) Oral daily Omeprazole 1 Tablet (of 20 mg) Capsule Delayed Release Oral daily Osimertinib Mesylate 1 Tablet (of 80 mg) Oral daily predniSONE 1 Tablet (of 10 mg) Oral daily Family History: Ms. Alvarez's mother is alive. Ms. Alvarez's father is alive. Ms. Alvarez has 1 sister who is alive. Both parents are still living, father at age 70 and mother at age 68. She has one sister, age 39, who also is in good health. Social History: Ms. Alvarez is and she is an unknown. Ms. Alvarez has never smoked. She has no history of drinking. Review Of Symptoms: <See Above> Vital Signs: Performed on January 12, 2021 10:34 Height - 68.00 in Weight - 257.6 lbs (HIGH) BSA - 2.28 sq.m BMI - 39.17 (HIGH) Temperature - 96.9 F (LOW) Pulse - 84 /min Respiration - 19 /min BP - 119/76 mm(hg) O2 Sat - 96 % Pain - 0,1 - No physically strenuous activity, but ambulatory and able to carry out light or sedentary work (e.g. office work, light house work). (ECOG) Physical Examination: Constitutional Alert, oriented, no acute distress. Skin pink, warm and dry. Head Normocephalic; atraumatic. Eyes Conjunctivae and sclerae are clear and without icterus. Pupils are reactive and equal. Neck Supple without masses or thyromegaly. No jugular venous distension. Hematologic/Lymphatic No petechiae or purpura. No tender or palpable lymph nodes in the cervical or supraclavicular areas. Respiratory Lungs are clear to auscultation without rhonchi or wheezing. Cardiovascular Regular rate and rhythm of heart without murmurs,clicks, gallops or rubs. Chest Left chest wall port a cath unremarkable. Abdomen Non-tender, non-distended, no masses or ascites. Back/Spine Non-tender to palpation. Extremities No visible deformities, no cyanosis, clubbing or edema. Musculoskeletal No tenderness or swelling, normal range of motion without obvious weakness. Integumentary No rashes or lesions. Neurologic No sensory or motor deficits, normal cerebellar function, normal gait. Psychiatric Alert and oriented times three. Coherent speech. Verbalizes understanding of our discussions today. Laboratory:see flow sheet or below Impression: 1. Non-small cell carcinoma involving the upper lobe of the left lung, stage IIIB (T3, N2, M0) at initial diagnosis in September 2019. A [employer] next generation sequencing study showed no actionable mutations. The PD-L1 was positive at 25%. A [employer] 360 study showed the presence of an exon 19 EGFR mutation ( L747P mutation). 2. She underwent video-assisted thoracotomy with biopsy of station 5 AP window lymph nodes on 11/09/2019. Her tumor was found to be invading the chest wall. 3. She has pre-existing GERD, adequately managed with medication. 4. She had moderately severe anemia with serum iron studies consistent with iron deficiency. Plan/Problems Addressed at this Visit: 1. Non-small cell carcinoma involving the upper lobe of the left lung, stage IIIB (T3, N2, M0) at initial diagnosis in September 2019. She underwent video-assisted thoracotomy with biopsy of station 5 AP window lymph nodes on 11/09/2019. Her tumor was found to be invading the chest wall. PD-L1 expression was positive at 25%. A [employer] 360 study showed the presence of an exon 19 EGFR mutation ( L747P mutation). She had CT evidence of response to initial chemoradiation, completed on 01/16/2020 to a total dose of 6600 cGy. She began cycle 1 of maintenance immunotherapy with durvalumab on 02/18/2020. It was complicated by acute thyroiditis, requiring treatment interruption and steroid therapy. Her restaging chest CT on 04/17/2020 showed significant decrease in the left upper lobe mass compared to the pretreatment study. She continued maintenance durvalumab along with low-dose prednisone. In August she required an increase in steroid dosage for suspected radiation pneumonitis. She had symptomatic improvement, and she then continued low-dose steroid therapy with prednisone 10 mg daily. Her restaging chest CT on 10/22/2020 showed no obvious increase in the primary lung tumor in the left upper lobe. There was increased pleural thickening and postobstructive pneumonia involving both the upper lobe and lower lobe. The was significant increase in the left adrenal mass measuring 4.6 x 3.6 cm, now presumed to be metastatic. With those findings, her maintenance durvalumab was put on hold. She has had worsening cough/chest congestion during the past month. It has not improved with antibiotic therapy. Dr Mahoney reviewed the CT images with the patient and her . There has been progressive worsening of the opacities in the left lung, though the nodule associated with the primary tumor does not appear to have increased. It is uncertain to what extent the CT findings may be due to pneumonitis and/or fibrosis or to progression of the lung cancer. Based on the initial PET/CT findings, the left adrenal mass was presumed to have been an adenoma, but with the recent increase in size, it is presumed to be metastatic. Dr Mahoney discussed options for further treatment. She has an atypical EGFR mutation. Dr Mahoney was able to find the least one report in the literature were another patient with that mutation did show response to a tyrosine kinase inhibitor, and I think that may be the best choice for her next line of therapy. However, under the circumstances, it was felt that would be preferable to first have her evaluated by a lung cancer specialist. She was referred to [facility] in [place] to Dr. Raines. She saw Dr. Raines on November 25, 2020. His assessment/recommendation was reviewed. He reported despite the EGFR L747P mutation location exon 19 of tyrosine kinase domain, response rates to this rare alterations have been uncommon, with poor efficiency of the first generation EGFR tyrosine kinase inhibitors. Nevertheless, there have been response to afatinib in both L747P and 747S (Abdullahi S???K, Lung Cancer 2019) and there is report of one response to osimertinib for L747S ([facility] Journal Clinical Oncology 2019). 1 side effect concern particularly with osimertinib is worsening of pneumonitis in a patient that was recently treated with thoracic radiation and durvalumab, on daily prednisone for presumed pneumonitis, which appears to be related to radiation rather than durvalumab due to the location restricted to the previously irradiated area. It was felt that she may benefit from repeat [employer] 360 to confirm the uncommon EGFR mutation and a PET scan. In the case of a negative PET scan she may be considered for biopsy although would be unlikely for necrotizing lesion in the general gland not be a metastatic lesion. In the case of isolated adrenal metastasis, she may benefit from local therapy including radiation or surgical resection, possibly after maximum benefit from an EGFR TKI. Although there is limited information on both afatinib and osimertinib, the latter appears to be a better option due to the better safety profile . The EGFR L747P was confirmed with [employer] 360 report date 12/13/2020. The tumor mutational burden was reported at 9.57 mut/MB; MSI was not detected. Repeat PET CT from 12/13/2020 reported extensive FDG positive inflammatory consolidation in the left lung, consistent with radiation therapy sequela. A discrete lung lesion was not identified. A left adrenal mass measuring 4.1 x 6.3 cm with central necrosis has an SUV of 28.4 representing malignancy, likely metastatic disease. She did start Tagrisso (osimertinib) 80 mg daily on January 07, 2021. A. Continue with Tagrisso 80 mg daily. B. She may utilize Compazine, Zofran and Ativan as needed for antiemetics???thus far she has not needed them. C. AVOID GRAPEFRUIT PRODUCTS WITH TAGRISSO. D. Labs from January 07, 2021 were reviewed in detail discussed with Mrs. Alvarez and her and a copy was given to them. WBC 15.9, hemoglobin 12.5, platelets 185,000 ANC is 14,840. Potassium 4.8 random glucose 121 creatinine 0.9 LFTs are normal TSH is 8.99. E. We will plan to repeat her TSH in 1 week as it is elevated 8.9 on today however she is asymptomatic. She is currently on levothyroxine 112 mcg daily. F. We will plan to see her back for follow-up in 1 month with CBC CMP and thyroid profile. G. The patient and family were informed of chemotherapy plan and specific drugs were discussed. We also discussed how the [employer] works and identified common side effects including acneform rash, nail changes, skin dryness including fissures, fever, chills, urticaria, flushing, fatigue, nausea, diarrhea, constipation, headache, cough, dyspnea, hypomagnesium, angioedema, hypotension, skin changes-pustular acneform (maculopapular) rash, drug hypersensitivity, allergic reactions or anaphylaxis and extravasation. They have also been informed how to contact the clinic with side effects or symptoms, including but not limited to rash, fever greater than 100.4???, chills, sore throat or mouth sores, cough, nasal discharge, diarrhea, constipation, nausea and/or vomiting not relieved with medications on hand at home, as well as any other concern or question they may have. Our hours are 8:00 a.m. to 4:30 p.m. on Tuesday through and 8-12:00 on Tuesday. However, someone is disease education specialist 24 hours per day and they have been advised to contact the [facility] at if it is after hours. We have also discussed additional potential side effects of the treatment plan including severe allergic/hypersensitivity reaction requiring hospital admission, pulmonary toxicities, nail and hair changes, including abnormal eye lash growth. We have discussed that they certainly need to let us know before taking any antioxidants or herbal or further dietary supplements, as we are unsure of how these agents react with chemotherapy and we request that they avoid these products for now. They are informed that it is okay to take the multivitamins. They verbally state that they understand to take all medications as directed by the provider unless otherwise indicated. They also verbalized understanding to leave the pressure dressing on the intravenous administration site for at least two hours after treatment. Instructions for oral care with baking soda and salt water rinses as well as a guide for use of [id number] medication were provided with the treatment plan. They have been given a written patient treatment plan, of which a copy is in the chart, as well as specific drug information, and a copy of that is also in the chart. Copies are in the chart for further written information provided to the patient. They have no questions and verbalized understanding and are willing to proceed with treatment at this time. Total time spent on Mrs Alvarez's visit today included review of records prior to visit; face to face communication with this patient and/or her family in regards to plan of care, side effect identification and management; Review of PET CT from 12/13/2020 and review of [employer] 360 results from 12/13/2020 as well as post visit documentation was 65 minutes. Signed By: Glen Madrid-, [facility] Beni Mahoney MD <<Signature on File>>
== END 2021-01-12 05:40 | disposition home or self-care (01) ==
LOC: ONCMED 05:40
PROVIDERS: PCP Family Medicine; Visit Provider Nurse Practitioner
DX: C34.12 Malignant neoplasm of upper lobe, left bronchus or lung (principal); K21.9 Gastro-esophageal reflux disease without esophagitis; D50.9 Iron deficiency anemia, unspecified; Z79.899 Other long term (current) drug therapy
CPT/HCPCS: 99215

== ENCOUNTER 2021-01-19 06:05 | Outpatient (CLI) | payer BC, SELFPAY ==
[2021-01-19 10:57] LABS: Thyroid Stimulating Hormone 26.24 uIU/mL (0.27-4.20)
== END 2021-01-19 06:06 | disposition home or self-care (01) ==
LOC: ONCMED 06:09
PROVIDERS: PCP Family Medicine; Visit Provider Nurse Practitioner
DX: C34.12 Malignant neoplasm of upper lobe, left bronchus or lung (principal); E03.9 Hypothyroidism, unspecified; Z79.899 Other long term (current) drug therapy
CPT/HCPCS: 36415; 36591; 84443

== ENCOUNTER 2021-01-26 06:17 | Outpatient (CLI) | payer BC, SELFPAY ==
[2021-01-26 11:23] LABS: Follicle Stimulating Hormone 51.9 mIU/mL
[2021-01-26 11:28] LABS: Estradiol. 31.7 pg/mL
== END 2021-01-26 06:18 | disposition home or self-care (01) ==
LOC: ONCMED 06:18
PROVIDERS: PCP Family Medicine; Visit Provider Internal Medicine Medical Oncology
DX: C34.12 Malignant neoplasm of upper lobe, left bronchus or lung (principal); E06.4 Drug-induced thyroiditis; Z79.899 Other long term (current) drug therapy
CPT/HCPCS: 36591; 82670; 83001

== ENCOUNTER 2021-02-10 14:01 | Outpatient (CLI) | payer BC, SELFPAY ==
--- NOTE | 2021-02-10 14:05 | MR_ITS ---
WS: [id number] MRI HEAD WITH CONTRAST TECHNIQUE: Sagittal T1, T2 axial, T2 axial FLAIR, axial susceptibility weighted imaging, axial diffus ion weighted images, and coronal T2 images were obtained. Pre and post-T1 axial and post T1 coronal i mages. ADC and FSPGR images. CLINICAL INFORMATION: PERSISTENT HEADACHE;DIZZINESS;NON-SMALL CELL CANCER COMPARISON: None. FINDINGS: No evidence of restricted diffusion to suggest acute ischemia. Ventricular system and basal cisterns are patent. No suspicious intracranial signal abnormalities. Normal barlow-white differentiation. No si gnificant parenchymal volume loss. Normal posterior fossa. Normal vascular flow voids at the skull base. No extra-axial fluid collection s. No evidence of mass or mass effect. Paranasal sinuses and mastoid air cells are well aerated. No h emosiderin on systole weighted images. Normal optic chiasm and pituitary infundibulum. Temporal lobes and hippocampal formations are normal in appearance. No evidence of enhancing intracranial metastatic disease. No suspicious enhancing intracranial lesion s. Normal dural venous sinuses. MR/MR head wo/w con [id number] IMPRESSION: 1. No evidence of restricted diffusion to suggest acute ischemia. 2. No evidence of enhancing intracranial metastatic disease. 3. No suspicious intracranial signal abnormalities. 4. Paranasal sinuses and mastoid air cells are well aerated. 5. No hemosiderin on the susceptibly weighted images. 6. No other significant findings.
[2021-02-10] MEDS: gadobenate dimeglumine 20 mL vial IV (15:16)
== END 2021-02-10 14:02 | disposition home or self-care (01) ==
LOC: RADSHAW 14:03
PROVIDERS: PCP Family Medicine; Visit Provider Internal Medicine Medical Oncology
DX: E06.4 Drug-induced thyroiditis (principal); C34.12 Malignant neoplasm of upper lobe, left bronchus or lung
CPT/HCPCS: 70553; A9577

== ENCOUNTER 2021-02-13 08:58 | Outpatient (CLI) | payer BC, SELFPAY ==
[2021-02-13] MEDS: famotidine 20 mg/2 mL INJ IVP (09:42)
[2021-02-13] MEDS: sodium chloride 0.9% 1,000 ML 999 ML IV (10:00)
== END 2021-02-13 08:59 | disposition home or self-care (01) ==
LOC: ONCMED 09:00
PROVIDERS: PCP Family Medicine; Visit Provider Internal Medicine Medical Oncology
DX: C34.12 Malignant neoplasm of upper lobe, left bronchus or lung (principal); K21.9 Gastro-esophageal reflux disease without esophagitis; D64.9 Anemia, unspecified; C77.8 Secondary and unspecified malignant neoplasm of lymph nodes of multiple regions; Z79.52 Long term (current) use of systemic steroids; Z92.3 Personal history of irradiation
CPT/HCPCS: 96361; 96365; 96375; J1100; J3490; J7030

== ENCOUNTER 2021-02-16 15:39 | Emergency (ER) | payer BC, SELFPAY ==
[2021-02-16 16:16] VITALS: PULSE 102; RESP 18; TEMP 36.6; O2SAT 96; BMI 38.0
--- NOTE | 2021-02-16 16:44 | W.ED.HA ---
HPI - Headache General: Chief Complaint: Headache Stated Complaint: SEVERE H/A DIZZINESS Time Seen by Provider: 02/16/21 16:22 History of Present Illness: HPI Narrative: This patient presents to the emergency department complaining of migraine type headaches this began for the past couple weeks after starting the new medication for lung cancer. Patient recently had an MRI of the brain is followed. IMPRESSION: 1. No evidence of restricted diffusion to suggest acute ischemia. 2. No evidence of enhancing intracranial metastatic disease. 3. No suspicious intracranial signal abnormalities. 4. Paranasal sinuses and mastoid air cells are well aerated. 5. No hemosiderin on the susceptibly weighted images. 6. No other significant findings. Date of that study was 02/10/2021. Patient states that headache is coming start this frontal and involves her upper teeth. Experiences pressure and then spreads throughout her head. Is been almost a daily occurrence for the past 1 to 2 weeks. Patient had no history of migraines in the past. The medical evaluation treat as MD elicited complaint: migraine Location: frontal Severity: moderate Quality & Timing: aching, dull, steady and constant Exacerbating factors: none Relieving factors: nothing Associated symptoms: Deny chest pain, fever(s), lightheadedness, nausea, rash or vomiting Review of Systems General: Reports: 10 or more systems reviewed and unremarkable except in HPI and below Const: Denies: fever(s), chills, body aches or fatigue Eyes: Denies: change in vision or blurry vision ENMT: Denies: throat pain, hoarseness or mouth pain Card: Denies: chest pain, palpitations, irregular heart rhythm, edema, swelling of feet/ankles or lightheadedness Resp: Denies: dyspnea, productive cough, non-productive cough, wheezing or pain on inspiration GI: Denies: abdominal pain, nausea or vomiting : Denies: flank pain, difficulty voiding, dysuria, urinary frequency, urinary urgency or urinary hesitancy Musc: Denies: neck pain, back pain, extremity pain, extremity swelling, joint pain, joint swelling, joint redness, joint warmth or limited range of motion Skin/Breast: Denies: rash, pruritus, erythema or skin tenderness Neuro: Denies: headache(s), numbness in extremities or weakness in extremities Psych: Denies: anxiety or depression Physical Exam Const: COMMON NORMALS: no acute distress, average body habitus, patient oriented x3, no limitations, healthy appearing, alert and well nourished HENMT: COMMON NORMALS: normocephalic, atraumatic, hearing grossly normal bilaterally, external ears normal, EAC's normal, TM's normal bilaterally, Normal external nose present, Normal nasal mucous membranes and turbinates present, moist oral mucous membranes, oropharynx normal, dentition normal and gingiva normal HEAD & SCALP: normocephalic and atraumatic NOSE: Normal external nose present and Normal nasal mucous membranes and turbinates present EXTERNAL EAR: Yes external ears normal EXTERNAL AUDITORY CANAL: EAC's normal TYMPANIC MEMBRANE: TM's normal bilaterally Neck/C-Spine: COMMON NORMALS: full ROM, no lymphadenopathy, supple, no meningeal signs, no JVD, Thyroid normal and No carotid bruits THYROID: Thyroid normal Chest: COMMONS NORMALS: normal inspection of the chest, normal palpation of entire chest wall, normal inspection of the breasts and normal palpation of the breasts Breast/axilla inspection: Yes normal inspection of the breasts BREAST/AXILLA PALPATION: Yes normal palpation of the breasts Resp: COMMON NORMALS: normal respiratory effort, No retractions, No use of accessory muscles, clear to auscultation bilaterally and percussion normal AUSCULTATION: clear to auscultation bilaterally PERCUSSION: percussion normal Cardio: COMMON NORMALS: no JVD, regular rate, regular rhythm, S1 normal heart sound present, S2 normal heart sound present, No gallops present (Cardio), No clicks present (Cardio), No murmurs present (Cardio), No rub (Cardio) and Peripheral pulses 2+ throughout RATE: regular rate RHYTHM: regular rhythm HEART SOUNDS: S1 normal heart sound present and S2 normal heart sound present PERIPHERAL PULSES: Peripheral pulses 2+ throughout GI: COMMON NORMALS: Normal to inspection, nondistended, normoactive bowel sounds present, Soft to palpation, non-tender, No hepatosplenomegaly present, no masses and no bruits PALPATION: Yes Soft to palpation and Yes No hepatosplenomegaly present : COMMON NORMALS: Yes no CVA tenderness BLADDER/KIDNEY EXAM: Yes no CVA tenderness Back/Pelvis: COMMON NORMALS: no CVA tenderness, thoracic and lumbar spine normal to inspection, no thoracic nor lumbar tenderness, thoraco-lumbar ROM normal and straight leg raise negative bilaterally Extremity: COMMON NORMALS: normal to inspection, full ROM, capillary refill normal, no joint enlargement, no clubbing, cyanosis or edema, no calf tenderness and no pedal edema Neuro: COMMON NORMALS: patient oriented x3 SENSORIUM/ORIENTATION: Yes alert MENINGEAL SIGNS: Yes no meningeal signs Course Reevaluation(s): Reevaluation #1: I have reviewed the patient's chart with the patient including all her medications and recent addition of a medication called Tagrisso for her cancer. Patient's common side effects of this medication is musculoskeletal pain but also dizziness and severe headaches. Patient believes that the medication. Patient will did receive Toradol and Benadryl in the emergency department. Patient does not appear to be in acute distress. I did discuss at length with patient about options patient wishes to be discharged home for medication to take effect for headache. In addition I did discuss options for migraine headache treatment and we will start the patient on Maxalt patient should use as instructed. Patient may need referral to neurology and must follow-up with primary care physician and oncology for continued issues and side effects of medications with headaches. Patient will be discharged with family per her request Time: 17:01 Vital Signs: Vital signs: Vital Signs Temperature 97.9 F 02/16/21 16:16 Pulse Rate 102 H 02/16/21 16:16 Respiratory Rate 18 02/16/21 16:16 Pulse Oximetry 96 02/16/21 16:16 MDM - Headache MDM Narrative: Medical decision making narrative: This patient presents to the emergency department complaining of migraine type headaches this began for the past couple weeks after starting the new medication for lung cancer. Patient recently had an MRI of the brain is followed. IMPRESSION: 1. No evidence of restricted diffusion to suggest acute ischemia. 2. No evidence of enhancing intracranial metastatic disease. 3. No suspicious intracranial signal abnormalities. 4. Paranasal sinuses and mastoid air cells are well aerated. 5. No hemosiderin on the susceptibly weighted images. 6. No other significant findings. Date of that study was 02/10/2021. Patient states that headache is coming start this frontal and involves her upper teeth. Experiences pressure and then spreads throughout her head. Is been almost a daily occurrence for the past 1 to 2 weeks. Patient had no history of migraines in the past. The medical evaluation treat as I have reviewed the patient's chart with the patient including all her medications and recent addition of a medication called Tagrisso for her cancer. Patient's common side effects of this medication is musculoskeletal pain but also dizziness and severe headaches. Patient believes that the medication. Patient will did receive Toradol and Benadryl in the emergency department. Patient does not appear to be in acute distress. I did discuss at length with patient about options patient wishes to be discharged home for medication to take effect for headache. In addition I did discuss options for migraine headache treatment and we will start the patient on Maxalt patient should use as instructed. Patient may need referral to neurology and must follow-up with primary care physician and oncology for continued issues and side effects of medications with headaches. Patient will be discharged with family per her request Discharge Plan Discharge Patient Disposition: Home Clinical Impression: Migraine Condition: Stable Prescriptions: New Maxalt 10 mg tablet 10 mg PO Q2H PRN (Reason: migraine headache) Qty: 10 RF: 1 Discharge Orders: Discharge ED (Routine); Ordered 02/16/21 Ordered By: Baljit Oliveira Referrals: Vinh Barry MD [Primary Care Provider] - Discharge Diet: Advance as tolerated Discharge Activity: Resume usual activity Patient Instructions: Opioid Safety Activity Restrictions/Additional Instructions: Continue all home medications. Please get him to a cool dark place and get some rest so medications will take effect. You have been prescribed Maxalt. Understand without proper insurance coverage this medication can be expensive. But it is a very good medication that I recommend. Follow-up with your primary care physician and your oncologist as instructed. You may need referral to neurology for continued migraine headaches. Coding Level of Care Code ED Grinder Outside Diameter for Chg Fwd Exam Comprehensive
[2021-02-16] MEDS: ketorolac 30 mg/mL INJ IM (16:51)
[2021-02-16] MEDS: diphenhydrAMINE 50 mg/mL SDV 1mL IM (16:52)
[2021-02-16 17:09] VITALS: BP 121/72; PULSE 92; RESP 18; O2SAT 97
== END 2021-02-16 17:10 | disposition home or self-care (01) ==
PROVIDERS: Emergency Provider Emergency Medicine; PCP Family Medicine
DX: G43.909 Migraine, unspecified, not intractable, without status migrainosus (principal)
CPT/HCPCS: 96372; 99283; J1200; J1885

== ENCOUNTER 2021-02-23 06:03 | Outpatient (CLI) | payer BC, SELFPAY ==
[2021-02-23 13:43] LABS: Basophils % 0.4 %; Hematocrit 32.6 % (37.0-47.0); Hemoglobin 10.6 g/dL (11.5-15.3); Lymphocytes # 0.4 10^3/uL (0.8-4.8); Lymphocytes % 3.9 %; Mean Corpuscular HGB Conc 32.5 g/dL (30.0-36.0); Mean Corpuscular Hemoglobin 29.9 pg (28.0-34.0); Mean Corpuscular Volume 91.8 fL (81-99); Mean Platelet Volume 9.6 fL (7.4-10.4); Monocytes # 0.6 10^3/uL (0.2-0.9); Monocytes % 6.1 %; Neutrophils # 9.27 10^3/uL (1.8-7.7); Neutrophils % 88.6 %; Nucleated Red Blood Cells % 0 %; Platelet Count 186 10^3/cmm (130-400); Red Blood Count 3.55 10^6/uL (4.1-5.3); Red Cell Distribution Width 14.4 % (12.1-15.1); White Blood Count 10.5 10^3/uL (4.0-10.0)
[2021-02-23 14:31] LABS: Alanine Aminotransferase 12 U/L (0-33); Albumin Level 3.8 g/dL (3.5-5.2); Alkaline Phosphatase 61 IU/L (35-105); Aspartate Amino Transferase 10 U/L (0-32); Blood Urea Nitrogen 11 mg/dL (6-20); Calcium 8.9 mg/dL (8.5-10.5); Carbon Dioxide 26 mmol/L (22-29); Chloride 97 mmol/L (98-107); Free T4 Free Thyroxine 1.19 ng/dL (0.82-1.77); Globulin 2.5 g/dL (1.3-4.6); Glomerular Filtration Rate 59.4 mL/min (90-130); Glucose 115 mg/dL (65-115); Osmolality Calculated 278 mOsm/kg (285-295); Sodium 134 mmol/L (136-145); T3 Free 1.6 PG/ML (2.0-4.4); Thyroid Stimulating Hormone 11.81 uIU/mL (0.27-4.20); Total Bilirubin 0.4 mg/dL (0.15-1.2); Total Protein 6.3 g/dL (6.6-8.7)
[2021-02-23] MEDS: famotidine 20 mg/2 mL INJ IVP (15:28)
[2021-02-23] MEDS: sodium chloride 0.9% 1,000 ML 999 ML IV (15:30)
[2021-02-23 16:24] LABS: Ferritin 297 ng/mL (15-150); Iron 35 ug/dL (37-145); Magnesium 2.1 mg/dL (1.7-2.3); Percent Saturation 18.6 % (20-50); Total Iron Binding Capacity 188 mcg/dl; Unsaturated Iron Binding 153 ug/dL (112-347)
[2021-02-24 11:58] LABS: Quest SARS-CoV-2 RNA NOT DETECTED (NOT DETECTED)
--- NOTE | 2021-03-03 00:35 | ONC FU_ITS ---
[facility] Patient Note Patient: Luz Elena Alvarez Unit #: [id number]: 1975 Dictated By: Glen MadridDate of Visit: Feb 23, 2021 Onc MED Follow-Up/Prog Note Chief Complaint: Lung cancer. 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 Her tumor was determined to be PD-L1 positive at 25%. 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 She is a non-smoker and she has been in good general health. In August 2019 she had seen her primary care physician with fever and cough, initially suspected to be pneumonia. Repeat chest x-ray after antibiotic therapy showed persistent mass in the left lung. Chest CT showed a large left upper lobe lung mass with associated mediastinal adenopathy, highly suspicious for malignancy. She underwent bronchoscopy on 09/17/2019 with brushings from the left upper lobe bronchus showing atypical cells, suspicious for malignancy. A repeat PET/CT on 10/10/2019 showed a 5.7 x 5.2 cm mass with SUV 22.7. A left hilar lymph node measuring 14 mm had elevated SUV of 5.0, and a small node in the aortopulmonary window had increased SUV at 4.4. There were no other areas of abnormal uptake. A left adrenal gland nodule measuring up to 2.5 cm appeared consistent with benign adenoma. On 11/12/2019 she underwent left video-assisted thorascopic surgical biopsy of station 5 AP window lymph nodes. At surgery it was noted that her tumor was invading the left chest wall. The AP window lymph nodes were found to be positive for metastatic carcinoma, and with those findings resection was not attempted. Pathology report indicated just scant malignant cells which were consistent with non-small cell carcinoma. A [employer] next generation sequencing study showed no actionable mutations. The PD-L1 was positive at 25%. Dr Mahoney had seen her initially on 11/15/2019. In the setting of stage IIIb disease, she was recommended to undergo chemoradiation utilizing weekly carboplatin/paclitaxel. At the time Dr Mahoney also recommended further molecular analysis with a [facility] study. It showed the presence of an EGFR L747P mutation. On 12/03/2019 she began treatment with her week 1 carboplatin/paclitaxel concurrently with radiation. Her treatment had to be stopped due to an almost immediate hypersensitivity reaction to the paclitaxel. The reaction was adequately managed with IV Solu-Medrol, subcutaneous epinephrine, and other supportive measures which included IV fluids, oxygen, and albuterol/Atrovent by pulmonary nebulizer. She then returned on 12/05/2019 to restart treatment with carboplatin/Abraxane, which she tolerated without acute toxicity. She continued treatment weekly through week 5 on 01/02/2020. Her week 6 treatment was held due to declining blood counts and performance status. She completed radiation on 01/16/2020 to a total dose of 6600 cGy. Her restaging chest CT on 02/06/2020 showed a slight decrease in the left upper lobe neoplasm measuring 4.6 x 3.4 x 2.8 cm and a slight decrease in the size of the left suprahilar lymph node measuring 1.4 cm. There was no change in the left adrenal gland mass. As there was evidence of some response, she was recommended to begin maintenance immunotherapy with durvalumab. She began cycle 1 of maintenance durvalumab on 02/18/2020. The initial phase of her maintenance therapy was complicated by hyperthyroidism, requiring a temporary treatment delay, and subsequently by hypothyroidism which required steroid therapy. Her treatment was put on hold after the 3rd cycle. Restaging CT of the chest on 04/17/2020 showed decrease in the size of the left upper lobe neoplasm measuring 2.6 x 2.1 x 2.6 cm. There was new patchy airspace infiltrates in the left lower lobe, likely infectious or inflammatory. A previously described left AP window was noted to have resolved. There was no mediastinal or hilar lymphadenopathy noted. There was a small pericardial effusion. A left adrenal mass measuring 2.0 x 1.5 cm appeared stable. At that point her treatment remained on hold, but as of 05/21/2020 she was able to continue with cycle 4 of durvalumab at the full dosage. She tolerated it well and she then continued treatment at 2-week intervals. Repeat chest CT on 07/28/2020 showed slight increase in the left upper lobe pulmonary mass along with increased pleural thickening. Patchy infiltrates in the left upper and lower lobes were felt to possibly be due to obstructive pneumonia. The left adrenal mass had increased slightly, to 2.3 x 3.1 cm compared to 1.8 x 2.3 cm. She continued with cycle 9 of durvalumab on 07/30/2020, and thereafter she continued treatment at 2-week intervals. In August she required an increase in her steroid dosage for suspected radiation pneumonitis. She was then maintained on low-dose steroid therapy with prednisone 10 mg daily. As of 10/22/2020 she completed cycle 15 of durvalumab. Her only other medical illnesses is GERD. She is a non-smoker. INTERIM HISTORY: Her repeat chest CT on 10/22/2020 reported left upper lobe neoplasm with associated pleural thickening measuring approximately 2.6 x 1.7 cm, not significantly changed from the previous study. There appeared to be progression of the left pleural thickening with multinodular thickening and with a small amount of pleural fluid in the left hemithorax. There was similar-appearing postobstructive pneumonia in the left lower lobe with air bronchograms. Left upper lobe postobstructive pneumonia. Slightly progressed and there was slightly increased volume loss in the left lung. There was significant progression of the left adrenal mass measuring 4.6 x 3.6 cm. With those findings, treatment was put on hold. She was seen by Dr. Mahoney for follow-up on November 14, 2020. He had reviewed the restaging chest CT from October 22, 2020 as well as the atypical EGFR mutation. He did recommend that she be evaluated by lung cancer specialist and she was referred to [facility] in [place] to Dr. Raines. She saw Dr. Raines on November 25, 2020. His assessment/recommendation was reviewed. He reported despite the EGFR L747P mutation location exon 19 of tyrosine kinase domain, response rates to this rare alterations have been uncommon, with poor efficiency of the first generation EGFR tyrosine kinase inhibitors. Nevertheless, there have been response to afatinib in both L747P and 747S (Abdullahi S???K, Lung Cancer 2019) and there is report of one response to osimertinib for L747S ([facility] Journal Clinical Oncology 2019). 1 side effect concern particularly with osimertinib is worsening of pneumonitis in a patient that was recently treated with thoracic radiation and durvalumab, on daily prednisone for presumed pneumonitis, which appears to be related to radiation rather than durvalumab due to the location restricted to the previously irradiated area. It was felt that she may benefit from repeat [facility] to confirm the uncommon EGFR mutation and a PET scan. In the case of a negative PET scan she may be considered for biopsy although would be unlikely for necrotizing lesion in the general gland not be a metastatic lesion. In the case of isolated adrenal metastasis, she may benefit from local therapy including radiation or surgical resection, possibly after maximum benefit from an EGFR TKI. Although there is limited information on both afatinib and osimertinib, the latter appears to be a better option due to the better safety profile . The EGFR L747P was confirmed with [facility] 360 report date 12/13/2020. The tumor mutational burden was reported at 9.57 mut/MB; MSI was not detected. Repeat PET CT from 12/13/2020 reported extensive FDG positive inflammatory consolidation in the left lung, consistent with radiation therapy sequela. A discrete lung lesion was not identified. A left adrenal mass measuring 4.1 x 6.3 cm with central necrosis has an SUV of 28.4 representing malignancy, likely metastatic disease. Ms. Alvarez is here today for follow-up. She did start Tagrisso (osimertinib) 80 mg daily on January 07, 2021.Her baseline labs from January 07, 2021 were unremarkable. Her white count was 15.9. Her TSH was found to be 8.99. She was on 112 mcg daily of levothyroxine. She did have a persistent cough and was taking 25 mg of prednisone daily. Her follow-up TSH on January 19, 2021 was reported at 26.24. Her Synthroid was increased and 25 mcg daily. She was advised to recheck her thyroid labs in 1 month. On 02/10/2021, Mrs. Alvarez called and spoke with Elen Smiley RN stated that she had a headache for about 4 days and had started having severe dizziness along with a headache. Mrs. Alvarez felt that it was her Tagrisso and Dr. Mahoney advised Mrs. Alvarez to stop the Tagrisso and have an MRI of the brain. There MRI of the brain was obtained on 02/10/2021 with and without contrast. There was no evidence of restricted diffusion to suggest acute ischemia. There is no evidence of enhancing intracranial metastatic disease. No suspicious intracranial signal abnormalities. She remains off the Tagrisso. She is here today for follow-up. She states overall she her cough is better. She has persistent headache but states ibuprofen 3 times a day is working well for the headache. She states she is only taking 1 migraine pill since stopping the Tagrisso around 02/10/2021 . She states that headaches are tolerable third is persistent. She has had no nausea or vomiting. She denies any fever or chills. She has had no vision changes. She denies any one-sided weakness or TIA type symptoms. She states her appetite is fair. Her blood pressure has been well within normal range. Is 112/77 today. She has no other concerns today. She denies any other pain. She denies any mouth sores, sore throat or difficulty swallowing. She has had no seizure-like activity. She denies any vision or hearing changes. Her ECOG is 1. She has had no known Covid exposure or recent testing. Past Medical History: Gastroesophageal reflux disease Past Surgical History: Tubal ligation Flu vaccine in 2019 - 2019 Left video-assisted thorascopic surgical biopsy of AP window lymph node in 2019 Bronchoscopy in 2019 Allergies: paclitaxel Medications: Citalopram Hydrobromide 1 Tablet (of 20 mg) Tablet Oral daily Ferrous Sulfate 1 Tablet (of 325 (65 fe) mg) Tablet Oral daily Levothyroxine Sodium 1 Tablet (of 112 mcg) Oral daily Omeprazole 1 Tablet (of 20 mg) Capsule Delayed Release Oral daily Osimertinib Mesylate 1 Tablet (of 80 mg) Oral daily predniSONE 1 Tablet (of 10 mg) Oral daily Family History: Ms. Alvarez's mother is alive. Ms. Alvarez's father is alive. Ms. Alvarez has 1 sister who is alive. Both parents are still living, father at age 70 and mother at age 68. She has one sister, age 39, who also is in good health. Social History: Ms. Alvarez is and she is an unknown. Ms. Alvarez has never smoked. She has no history of drinking. Review Of Symptoms: <See Above> Vital Signs: Performed on Feb 23, 2021 14:39 Height - 68.00 in Weight - 255.6 lbs (LOW) BSA - 2.27 sq.m BMI - 38.86 (HIGH) Temperature - 97.7 F (LOW) Pulse - 98 /min Respiration - 18 /min BP - 112/77 mm(hg) O2 Sat - 96 % Pain - 0,1 - No physically strenuous activity, but ambulatory and able to carry out light or sedentary work (e.g. office work, light house work). (ECOG) Physical Examination: Constitutional Alert, oriented, no acute distress. Skin pink, warm and dry. Head Normocephalic; atraumatic. Eyes Conjunctivae and sclerae are clear and without icterus. Pupils are reactive and equal. Neck Supple without masses or thyromegaly. No jugular venous distension. Hematologic/Lymphatic No petechiae or purpura. No tender or palpable lymph nodes in the cervical or supraclavicular areas. Respiratory Lungs are clear to auscultation without rhonchi or wheezing. Cardiovascular Regular rate and rhythm of heart without murmurs,clicks, gallops or rubs. Chest Left chest wall port a cath unremarkable. Abdomen Non-tender, non-distended, no masses or ascites. Back/Spine Non-tender to palpation. Extremities No visible deformities, no cyanosis, clubbing or edema. Musculoskeletal No tenderness or swelling, normal range of motion without obvious weakness. Integumentary No rashes or lesions. Neurologic No sensory or motor deficits, normal cerebellar function, normal gait. Psychiatric Alert and oriented times three. Coherent speech. Verbalizes understanding of our discussions today. Laboratory:Test performed on Feb 23, 2021 15:40 SARS-CoV-2 RNA (COVID-19) NOT DETECTED A Not Detected (negative) test result for this test means that SARS-CoV-2 RNA was not present in the specimen above the limit of detection. A negative result does not rule out the possibility of COVID-19 and should not be used as the sole basis for treatment or patient management decisions. If COVID-19 is still suspected, based on exposure history together with other clinical findings, re-testing should be considered in consultation with public health authorities. Laboratory test results should always be considered in the context of clinical observations and epidemiological data in making a final diagnosis and patient management decisions. This patient specimen was tested using an FDA EUA pooling method. Patient specimens with low viral loads may not be detected in sample pools due to the decreased sensitivity of pooled testing. Please review the Fact Sheets and FDA authorized labeling available for health care providers and patients using the following websites: https://www.[employer]ologyOnline/home/Covid-19/HCP/NAAT/fact-sheet2 https://www.[employer]/home/Covid-19/Patients/NAAT/ fact-sheet2 This test has been authorized by the FDA under an Emergency Use Authorization (EUA) for use by authorized laboratories. Due to the current public health emergency, [facility] is receiving a high volume of samples from a wide variety of swabs and media for COVID-19 testing. In order to serve patients during this public health crisis, samples from appropriate clinical sources are being tested. Negative test results derived from specimens received in non-commercially manufactured viral collection and transport media, or in media and sample collection kits not yet authorized by FDA for COVID-19 testing should be cautiously evaluated and the patient potentially subjected to extra precautions such as additional clinical monitoring, including collection of an additional specimen. Methodology: Nucleic Acid Amplification Test (NAAT) includes RT-PCR or TMA Additional information about COVID-19 can be found at the [facility] website: www.[email or web address].PsychologyOnline/Covid19. THIS TEST WAS PERFORMED AT: [facility] [id number] [place] [id number] NASH MOHAN DO,MPH Test performed on Feb 23, 2021 13:25 Ferritin 297 ng/mL Iron 35 mcg/dL Magnesium 2.1 mg/dL Sodium 134 mmol/L T3, Free 1.6 PG/ML T4, Free 1.19 ng/dL TSH 11.81 uIU/mL Iron Binding Capacity (TIBC) 188 mcg/dl Potassium 4.0 mmol/L % Iron Saturation 18.6 % Chloride 97 mmol/L CO2 26 mmol/L UIBC 153 mcg/dL Anion Gap 15.0 BUN 11 mg/dL Creatinine 1.0 mg/dL Cr Clearance (Est) 127.29 mL/min eGFR 59.4 mL/min Glucose 115 mg/dL Osmolality - Calculated 278 mOsm/kg Calcium 8.9 mg/dL Protein, Total 6.3 g/dL Albumin 3.8 g/dL Globulin 2.5 g/dL Bilirubin, Total 0.4 mg/dL ALT (SGPT) 12 U/L AST (SGOT) 10 U/L Alkaline Phosphatase 61 IU/L WBC 10.5 10 3/uL RBC 3.55 10 6/uL HGB 10.6 g/dL HCT 32.6 % MCV 91.8 fL MCH 29.9 pg MCHC 32.5 g/dL RDW 14.4 % Platelet Count 186 10 3/cmm MPV 9.6 fL Neutrophils 9.27 10 3/uL Lymphocytes 0.4 10 3/uL Monocytes 0.6 10 3/uL Eosinophils 0.0 10 3/uL Basophils 0.0 10 3/uL Neutrophil % 88.6 % Lymphocyte % 3.9 % Monocyte % 6.1 % Eosinophil % 0.0 % Basophils % 0.4 % NRBC % 0 % Test performed on January 26, 2021 10:43 Estradiol 31.7 pg/mL FSH 51.9 mIU/mL Impression: 1. Non-small cell carcinoma involving the upper lobe of the left lung, stage IIIB (T3, N2, M0) at initial diagnosis in September 2019. A [employer] next generation sequencing study showed no actionable mutations. The PD-L1 was positive at 25%. A [facility] 360 study showed the presence of an exon 19 EGFR mutation ( L747P mutation). 2. She underwent video-assisted thoracotomy with biopsy of station 5 AP window lymph nodes on 11/09/2019. Her tumor was found to be invading the chest wall. 3. She has pre-existing GERD, adequately managed with medication. 4. She had moderately severe anemia with serum iron studies consistent with iron deficiency. Plan/Problems Addressed at this Visit: 1. Non-small cell carcinoma involving the upper lobe of the left lung, stage IIIB (T3, N2, M0) at initial diagnosis in September 2019. She underwent video-assisted thoracotomy with biopsy of station 5 AP window lymph nodes on 11/09/2019. Her tumor was found to be invading the chest wall. PD-L1 expression was positive at 25%. A [facility] 360 study showed the presence of an exon 19 EGFR mutation ( L747P mutation). She had CT evidence of response to initial chemoradiation, completed on 01/16/2020 to a total dose of 6600 cGy. She began cycle 1 of maintenance immunotherapy with durvalumab on 02/18/2020. It was complicated by acute thyroiditis, requiring treatment interruption and steroid therapy. Her restaging chest CT on 04/17/2020 showed significant decrease in the left upper lobe mass compared to the pretreatment study. She continued maintenance durvalumab along with low-dose prednisone. In August she required an increase in steroid dosage for suspected radiation pneumonitis. She had symptomatic improvement, and she then continued low-dose steroid therapy with prednisone 10 mg daily. Her restaging chest CT on 10/22/2020 showed no obvious increase in the primary lung tumor in the left upper lobe. There was increased pleural thickening and postobstructive pneumonia involving both the upper lobe and lower lobe. The was significant increase in the left adrenal mass measuring 4.6 x 3.6 cm, now presumed to be metastatic. With those findings, her maintenance durvalumab was put on hold. She has had worsening cough/chest congestion during the past month. It has not improved with antibiotic therapy. Dr Mahoney reviewed the CT images with the patient and her . There has been progressive worsening of the opacities in the left lung, though the nodule associated with the primary tumor does not appear to have increased. It is uncertain to what extent the CT findings may be due to pneumonitis and/or fibrosis or to progression of the lung cancer. Based on the initial PET/CT findings, the left adrenal mass was presumed to have been an adenoma, but with the recent increase in size, it is presumed to be metastatic. Dr Mahoney discussed options for further treatment. She has an atypical EGFR mutation. Dr Mahoney was able to find the least one report in the literature were another patient with that mutation did show response to a tyrosine kinase inhibitor, and I think that may be the best choice for her next line of therapy. However, under the circumstances, it was felt that would be preferable to first have her evaluated by a lung cancer specialist. She was referred to [facility] in [place] to Dr. Raines. She saw Dr. Raines on November 25, 2020. His assessment/recommendation was reviewed. He reported despite the EGFR L747P mutation location exon 19 of tyrosine kinase domain, response rates to this rare alterations have been uncommon, with poor efficiency of the first generation EGFR tyrosine kinase inhibitors. Nevertheless, there have been response to afatinib in both L747P and 747S (Abdullahi Tamez???K, Lung Cancer 2019) and there is report of one response to osimertinib for L747S ([facility] Journal Clinical Oncology 2019). 1 side effect concern particularly with osimertinib is worsening of pneumonitis in a patient that was recently treated with thoracic radiation and durvalumab, on daily prednisone for presumed pneumonitis, which appears to be related to radiation rather than durvalumab due to the location restricted to the previously irradiated area. It was felt that she may benefit from repeat [facility] 360 to confirm the uncommon EGFR mutation and a PET scan. In the case of a negative PET scan she may be considered for biopsy although would be unlikely for necrotizing lesion in the general gland not be a metastatic lesion. In the case of isolated adrenal metastasis, she may benefit from local therapy including radiation or surgical resection, possibly after maximum benefit from an EGFR TKI. Although there is limited information on both afatinib and osimertinib, the latter appears to be a better option due to the better safety profile . The EGFR L747P was confirmed with [facility] 360 report date 12/13/2020. The tumor mutational burden was reported at 9.57 mut/MB; MSI was not detected. Repeat PET CT from 12/13/2020 reported extensive FDG positive inflammatory consolidation in the left lung, consistent with radiation therapy sequela. A discrete lung lesion was not identified. A left adrenal mass measuring 4.1 x 6.3 cm with central necrosis has an SUV of 28.4 representing malignancy, likely metastatic disease. She did start Tagrisso (osimertinib) 80 mg daily on January 07, 2021. It was stopped on 02/10/2021 for complaints of severe headache and dizziness. A. Continue TO HOLD Tagrisso 80 mg daily. We will do hydration as well as dexamethasone 6 mg and Pepcid 20 mg IV today to see if this will help with her headache. B. She may utilize Compazine, Zofran and Ativan as needed for antiemetics???thus far she has not needed them. C. I have requested Covid 19 tested today due to her complaints of headache and fatigue. She has had unremarkable MRI of the brain with and without on 02/10/2021. She has been utilizing ibuprofen 3 times daily and this seems to be working well at controlling the headache but it is not resolving it completely. D. Labs from February 23 2021 were reviewed in detail discussed with Mrs. Alvarez and her and a copy was given to them. WBC 10.5, hemoglobin 10.6, platelets 1 86,000, ANC is 9270. Sodium 134, random glucose 115 potassium 4.0 creatinine 1.0 LFTs are normal. TSH is 11.8 which is improved from 26.24 on 01/19/2021. She is currently on levothyroxine 125 mcg daily. E. We will plan to see her back for follow-up in 1 week With repeat CBC and TSH. I do want a make sure that her TSH is continuing to drop. Her free T4 today was 1.19 and free T3 was 1.6 which is slightly low with a normal being 2-4.4. Her hemoglobin also dropped to 10.6 from her last visit on January 07, 2021 at which time the hemoglobin was 12.5. Her iron studies from today were normal. F. Mrs. Alvarez will be called with her COVID-19 testing anticipate that will be negative however she was having persistent headache with an unknown etiology. G. She does remain on prednisone 10 mg daily. H. Mrs. Alvarez was instructed to call us prior to her 1 week follow-up if questions or problems arise. I. Total time spent on Mrs. Alvarez's care today including record review prior to visit, discussion of current concerns and formulation of plan and review of post visit testing as well as post visit documentation was 55 minutes. Signed By: Glen Madrid-, AOCNP Beni Mahoney MD <<Signature on File>>
== END 2021-02-23 06:04 | disposition home or self-care (01) ==
LOC: ONCMED 06:07
PROVIDERS: PCP Family Medicine; Visit Provider Nurse Practitioner
DX: C34.12 Malignant neoplasm of upper lobe, left bronchus or lung (principal); K21.9 Gastro-esophageal reflux disease without esophagitis; D64.9 Anemia, unspecified; Z92.3 Personal history of irradiation; Z92.21 Personal history of antineoplastic chemotherapy; Z79.899 Other long term (current) drug therapy; Z79.52 Long term (current) use of systemic steroids
CPT/HCPCS: 80053; 82728; 83540; 83550; 83735; 84439; 84443; 84481; 85025; 87635; 96361; 96365; 96375; 99215; J1100; J3490; J7030

== ENCOUNTER 2021-03-02 15:55 | Outpatient (CLI) | payer BC, SELFPAY ==
[2021-03-02 17:48] LABS: Basophils # 0.1 10^3/uL (0.0-0.1); Basophils % 0.4 %; Hematocrit 34.4 % (37.0-47.0); Hemoglobin 11.1 g/dL (11.5-15.3); Lymphocytes # 0.5 10^3/uL (0.8-4.8); Lymphocytes % 3.8 %; Mean Corpuscular HGB Conc 32.3 g/dL (30.0-36.0); Mean Corpuscular Hemoglobin 30.1 pg (28.0-34.0); Mean Corpuscular Volume 93.2 fL (81-99); Mean Platelet Volume 10.3 fL (7.4-10.4); Monocytes % 7.6 %; Neutrophils % 87.3 %; Nucleated Red Blood Cells % 0 %; Platelet Count 218 10^3/cmm (130-400); Red Blood Count 3.69 10^6/uL (4.1-5.3); Red Cell Distribution Width 14.2 % (12.1-15.1); White Blood Count 12.5 10^3/uL (4.0-10.0)
[2021-03-02 18:25] LABS: Alanine Aminotransferase 9 U/L (0-33); Albumin Level 3.4 g/dL (3.5-5.2); Alkaline Phosphatase 70 IU/L (35-105); Anion Gap 14.9 (5-19); Aspartate Amino Transferase 7 U/L (0-32); Blood Urea Nitrogen 12 mg/dL (6-20); Calcium 8.3 mg/dL (8.5-10.5); Carbon Dioxide 26 mmol/L (22-29); Chloride 101 mmol/L (98-107); Globulin 2.8 g/dL (1.3-4.6); Glomerular Filtration Rate 67.1 mL/min (90-130); Glucose 108 mg/dL (65-115); Osmolality Calculated 286 mOsm/kg (285-295); Potassium 3.9 mmol/L (3.5-5.1); Sodium 138 mmol/L (136-145); Thyroid Stimulating Hormone 3.74 uIU/mL (0.27-4.20); Total Bilirubin 0.3 mg/dL (0.15-1.2); Total Protein 6.2 g/dL (6.6-8.7)
== END 2021-03-02 15:56 | disposition home or self-care (01) ==
LOC: ONCMED 15:56
PROVIDERS: PCP Family Medicine; Visit Provider Internal Medicine Medical Oncology
DX: C34.12 Malignant neoplasm of upper lobe, left bronchus or lung (principal); K21.9 Gastro-esophageal reflux disease without esophagitis; D64.9 Anemia, unspecified; Z79.52 Long term (current) use of systemic steroids
CPT/HCPCS: 36591; 80053; 84443; 85025

== ENCOUNTER 2021-03-03 06:01 | Outpatient (CLI) | payer BC, SELFPAY ==
--- NOTE | 2021-03-03 19:34 | ONC FU_ITS ---
Dr. Mahoney Patient Follow-Up Note Patient: Luz Elena Alvarez Unit #: [id number]: 1975 Dicatated By: Beni Mahoney M.D.Date of Visit:Mar 03, 2021 Onc Med Follow-up/Prog Note Chief Complaint: Lung cancer. 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 Her tumor was determined to be PD-L1 positive at 25%. 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 She is a non-smoker and she has been in good general health. In August 2019 she had seen her primary care physician with fever and cough, initially suspected to be pneumonia. Repeat chest x-ray after antibiotic therapy showed persistent mass in the left lung. Chest CT showed a large left upper lobe lung mass with associated mediastinal adenopathy, highly suspicious for malignancy. She underwent bronchoscopy on 09/17/2019 with brushings from the left upper lobe bronchus showing atypical cells, suspicious for malignancy. A repeat PET/CT on 10/10/2019 showed a 5.7 x 5.2 cm mass with SUV 22.7. A left hilar lymph node measuring 14 mm had elevated SUV of 5.0, and a small node in the aortopulmonary window had increased SUV at 4.4. There were no other areas of abnormal uptake. A left adrenal gland nodule measuring up to 2.5 cm appeared consistent with benign adenoma. On 11/12/2019 she underwent left video-assisted thorascopic surgical biopsy of station 5 AP window lymph nodes. At surgery it was noted that her tumor was invading the left chest wall. The AP window lymph nodes were found to be positive for metastatic carcinoma, and with those findings resection was not attempted. Pathology report indicated just scant malignant cells which were consistent with non-small cell carcinoma. A [employer] next generation sequencing study showed no actionable mutations. The PD-L1 was positive at 25%. I had seen her initially on 11/15/2019. In the setting of stage IIIb disease, she was recommended to undergo chemoradiation utilizing weekly carboplatin/paclitaxel. At the time I also recommended further molecular analysis with a [facility] 360 study. It showed the presence of an EGFR L747P mutation. On 12/03/2019 she began treatment with her week 1 carboplatin/paclitaxel concurrently with radiation. Her treatment had to be stopped due to an almost immediate hypersensitivity reaction to the paclitaxel. The reaction was adequately managed with IV Solu-Medrol, subcutaneous epinephrine, and other supportive measures which included IV fluids, oxygen, and albuterol/Atrovent by pulmonary nebulizer. She then returned on 12/05/2019 to restart treatment with carboplatin/Abraxane, which she tolerated without acute toxicity. She continued treatment weekly through week 5 on 01/02/2020. Her week 6 treatment was held due to declining blood counts and performance status. She completed radiation on 01/16/2020 to a total dose of 6600 cGy. Her restaging chest CT on 02/06/2020 showed a slight decrease in the left upper lobe neoplasm measuring 4.6 x 3.4 x 2.8 cm and a slight decrease in the size of the left suprahilar lymph node measuring 1.4 cm. There was no change in the left adrenal gland mass. As there was evidence of some response, she was recommended to begin maintenance immunotherapy with durvalumab. She began cycle 1 of maintenance durvalumab on 02/18/2020. The initial phase of her maintenance therapy was complicated by hyperthyroidism, requiring a temporary treatment delay, and subsequently by hypothyroidism which required steroid therapy. Her treatment was put on hold after the 3rd cycle. Restaging CT of the chest on 04/17/2020 showed decrease in the size of the left upper lobe neoplasm measuring 2.6 x 2.1 x 2.6 cm. There was new patchy airspace infiltrates in the left lower lobe, likely infectious or inflammatory. A previously described left AP window was noted to have resolved. There was no mediastinal or hilar lymphadenopathy noted. There was a small pericardial effusion. A left adrenal mass measuring 2.0 x 1.5 cm appeared stable. At that point her treatment remained on hold, but as of 05/21/2020 she was able to continue with cycle 4 of durvalumab at the full dosage. She tolerated it well and she then continued treatment at 2-week intervals. Repeat chest CT on 07/28/2020 showed slight increase in the left upper lobe pulmonary mass along with increased pleural thickening. Patchy infiltrates in the left upper and lower lobes were felt to possibly be due to obstructive pneumonia. The left adrenal mass had increased slightly, to 2.3 x 3.1 cm compared to 1.8 x 2.3 cm. She continued with cycle 9 of durvalumab on 07/30/2020, and thereafter she continued treatment at 2-week intervals. In August she required an increase in her steroid dosage for suspected radiation pneumonitis. She was then maintained on low-dose steroid therapy with prednisone 10 mg daily. As of 10/22/2020 she completed cycle 15 of durvalumab. Her repeat chest CT on 10/22/2020 reported left upper lobe neoplasm with associated pleural thickening measuring approximately 2.6 x 1.7 cm, not significantly changed from the previous study. There appeared to be progression of the left pleural thickening with multinodular thickening and with a small amount of pleural fluid in the left hemithorax. There was similar-appearing postobstructive pneumonia in the left lower lobe with air bronchograms. Left upper lobe postobstructive pneumonia. Slightly progressed and there was slightly increased volume loss in the left lung. There was significant progression of the left adrenal mass measuring 4.6 x 3.6 cm. With those findings, treatment was put on hold. Her only other medical illnesses is GERD. She is a non-smoker. INTERIM HISTORY: On 11/25/2020 she was seen at [facility] by Dr. Nick Raines for second opinion evaluation. Her subsequent PET/CT on 12/13/2020 showed further increase in left adrenal mass to 4.1 x 6.3 cm with SUV 28.4, consistent with metastatic disease. Extensive FDG positive inflammatory consolidation in the left lung was felt to be most consistent with radiation therapy sequelae. Ultimately she was recommended to proceed with a trial of therapy with osimertinib. Treatment began on 01/07/2021 at a standard dosage of 80 mg daily. She had initially tolerated the treatment very well. However, as of 02/10/2021 her treatment was put on hold due to multiple side effects, the most significant being severe headache and dizziness. Her head MRI at that time showed no evidence of restricted diffusion to suggest acute ischemia and no evidence of enhancing intracranial metastatic disease. There were no other acute findings noted. The headaches persisted, and she ultimately was seen in the ER on 02/16/2021. She was treated there with Toradol and Benadryl and discharged home with a prescription for Maxalt. She is seen now for a follow-up visit. She says her headaches and dizziness have pretty well resolved now. She still does not feel good generally, she is extremely fatigued and she also has no ambition to do anything. Her activity is very limited, but she is up and around. ECOG score is 2. Her appetite is down just a little. Beginning last she felt really bad with chills, sweating, and nausea. She did not have fever. She did get tested for Covid and that was negative. She has had a little bit of sinus drainage. She had sore mouth a week ago, that got better. She has a little bit of cough in the mornings and she sometimes has shortness of breath, though not severe. She has occasional pleuritic pain in the left chest. Her bowels are intermittently loose. She has no complaints with bladder function. She has no other joint or bone pain, though recently the bottom of her left foot swelled up. She has not had numbness/paresthesia or other focal neurologic symptoms. Medications: Citalopram Hydrobromide 1 Tablet (of 20 mg) Tablet Oral daily, Ferrous Sulfate 1 Tablet (of 325 (65 fe) mg) Tablet Oral daily, Levothyroxine Sodium 1 Tablet (of 112 mcg) Oral daily, Omeprazole 1 Tablet (of 20 mg) Capsule Delayed Release Oral daily, predniSONE 1 Tablet (of 10 mg) Oral daily Allergies: paclitaxel Vital Signs: Performed on Mar 03, 2021 08:45 Height - 68.00 in Weight - 254.6 lbs (LOW) BSA - 2.26 sq.m BMI - 38.71 (HIGH) Temperature - 98.4 F Pulse - 99 /min Respiration - 18 /min BP - 105/74 mm(hg) O2 Sat - 95 % (LOW) Pain - 3 Physical Examination: Constitutional - She appears somewhat weak generally. She is mildly cushinoid, Eyes - Sclerae nonicteric. Conjunctivae clear, ENMT - No lesions noted in the oral cavity, Neck - There is mild soft tissue swelling in the neck area. There is no mass or thyromegaly noted, Hematologic/Lymphatic - No cervical, clavicular, or axillary adenopathy, Respiratory - Lungs sound clear with some decrease in air movement bilaterally, Cardiovascular - Heart rhythm is regular. There is no murmur, gallop, or rub noted, Abdomen - Soft. Liver and spleen are not enlarged. There is no abdominal mass or ascites noted and there is no inguinal adenopathy, Extremities - No edema, Neurologic - No focal neurologic deficits noted. Lab/Imaging: CBC shows hemoglobin 11.1 g, white blood cell count 12,500, and platelet count 218,000. Comprehensive metabolic profile is unremarkable except for slightly low albumin at 3.4 g/dL. TSH is normal at 3.74 ???IU/mL. Problem List: 1. Non-small cell carcinoma involving the upper lobe of the left lung, stage IIIB (T3, N2, M0) at initial diagnosis in September 2019. A [employer] next generation sequencing study showed no actionable mutations. The PD-L1 was positive at 25%. A [employer] study showed the presence of an exon 19 EGFR mutation ( L747P mutation). 2. She underwent video-assisted thoracotomy with biopsy of station 5 AP window lymph nodes on 11/09/2019. Her tumor was found to be invading the chest wall. 3. She has pre-existing GERD, adequately managed with medication. 4. She had moderately severe anemia with serum iron studies consistent with iron deficiency. 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 She underwent video-assisted thoracotomy with biopsy of station 5 AP window lymph nodes on 11/09/2019. Her tumor was found to be invading the chest wall. PD-L1 expression was positive at 25%. A [employer] study showed the presence of an exon 19 EGFR mutation ( L747P mutation). She had CT evidence of response to intial chemoradiation, completed on 01/16/2020 to a total dose of 6600 cGy. She began cycle 1 of maintenance immunotherapy with durvalumab on 02/18/2020. It was complicated by acute thyroiditis, requiring treatment interruption and steroid therapy. Her restaging chest CT on 04/17/2020 showed significant decrease in the left upper lobe mass compared to the pretreatment study. She continued maintenance durvalumab along with low-dose prednisone. In August she required an increase in steroid dosage for suspected radiation pneumonitis. She had symptomatic improvement, and she then continued low-dose steroid therapy with prednisone 10 mg daily. Her restaging chest CT on 10/22/2020 showed no obvious increase in the primary lung tumor in the left upper lobe. There was increased pleural thickening and postobstructive pneumonia involving both the upper lobe and lower lobe. There was significant increase in the left adrenal mass measuring 4.6 x 3.6 cm, which at that point was presumed to be metastatic. With those findings, her maintenance durvalumab was put on hold. Her restaging PET/CT on 12/13/2020 showed further increase in left adrenal mass to 4.1 x 6.3 cm with SUV 28.4, clearly consistent with metastatic disease. Extensive FDG positive inflammatory consolidation in the left lung was felt to be most consistent with radiation therapy sequelae. She was then recommended to proceed with a trial of targeted therapy with osimertinib. Treatment began on 01/07/2021 at a standard dosage of 80 mg daily. She had initially tolerated the osimertinib well, but as of 02/10/2021 she had presented with severe headaches and dizziness. This was presumed to be treatment related, as her brain MRI showed no evidence of metastatic disease or other acute pathology, and the osimertinib was put on hold. Since then the headaches and dizziness have improved, but she continues to have significant fatigue along with other nonspecific type symptoms. In view of her ongoing symptoms, her treatment will remain on hold. She will be scheduled for restaging chest CT. She will have further evaluation as indicated. Depending on the findings, I may consider restarting the osimertinib at a reduced dosage. Signed By: Beni Mahoney M.D. <<Signature on File>>
== END 2021-03-03 06:02 | disposition home or self-care (01) ==
LOC: ONCMED 06:03
PROVIDERS: PCP Family Medicine; Visit Provider Internal Medicine Medical Oncology
DX: C34.12 Malignant neoplasm of upper lobe, left bronchus or lung (principal); K21.9 Gastro-esophageal reflux disease without esophagitis; D64.9 Anemia, unspecified; Z92.3 Personal history of irradiation; Z92.21 Personal history of antineoplastic chemotherapy; Z79.899 Other long term (current) drug therapy; Z79.52 Long term (current) use of systemic steroids
CPT/HCPCS: 99214

== ENCOUNTER 2021-03-19 10:15 | Outpatient (CLI) | payer BC, SELFPAY ==
--- NOTE | 2021-03-19 10:31 | CT_ITS ---
WS: [id number] CT CHEST TECHNIQUE: Contrast enhanced CT of the chest with coronal and sagittal reformatted images. CLINICAL INFORMATION: LUNG CANCER COMPARISON: CT October 22, 2020, PET CT December 13, 2020, CT July 2020, April 2020, and January 2020 DLP: 996.[address] scans at [facility] use at least one of these dose optimization techniques: automat ed exposure control; mA and/or kV adjustment per patient size (includes targeted exams where dose is matched to clinical indication); or iterative reconstruction. FINDINGS: Left hilar and left upper lobe consolidation consistent with pneumonia with air bronchograms is not s ignificantly changed compared to October 22, 2020. Some of this is likely due to radiation therapy. Left mainstem bronchus appears patent proximally. Associated small amount of pleural fluid and pleura l thickening left lung is unchanged.Stable pericardial thickening and pericardial effusion about the left ventricle Right lung is well aerated. No suspicious pulmonary opacities in the right lung. Normal caliber thora cic aorta. No mediastinal or hilar lymphadenopathy. No axillary lymphadenopathy. Cholelithiasis. Small esophageal hiatal hernia. Large heterogeneous left adrenal mass measuring 8.6 x 5.1 x 6.5 cm AP by transverse by craniocaudal. This is progressed in size compared to October 22 and also progressed compared to the more recent PET CT of December 13, 2020. Small splenule. CT/CT chest w con* [id number] IMPRESSION: 1. Stable left hilar and left upper lobe airspace consolidation consistent wit h pneumonia similar in appearance to the prior examinations October 22, 2020 a nd December 13, 2020 PET/CT. Some of this is likely due to radiation therapy. Stab le pleural thickening. 2. No evidence of progressed disease in the chest. 3. Stable pericardial thickening and pericardial effusion about the left ventr icle. 4. Significantly progressed left adrenal metastasis described above progressed since October 22, 2020 and December 13, 2020 5. Cholelithiasis
[2021-03-19] MEDS: iohexol 300 mg/mL 100 mL Btl IV (10:42)
== END 2021-03-19 10:16 | disposition home or self-care (01) ==
PROVIDERS: PCP Family Medicine; Visit Provider Internal Medicine Medical Oncology
DX: C34.12 Malignant neoplasm of upper lobe, left bronchus or lung (principal); K80.20 Calculus of gallbladder without cholecystitis without obstruction
CPT/HCPCS: 71260; Q9967

== ENCOUNTER 2021-05-06 12:54 | Outpatient (CLI) | payer BC, SELFPAY ==
[2021-05-06 13:40] VITALS: BP 100/80; PULSE 94; RESP 20; TEMP 36.8; O2SAT 98; BMI 37.5
[2021-05-06 14:17] VITALS: BP 117/71; PULSE 84; RESP 20; O2SAT 98
[2021-05-06 15:06] VITALS: BP 110/69; PULSE 80; RESP 20; TEMP 36.6; O2SAT 97
== END 2021-05-06 12:55 | disposition home or self-care (01) ==
LOC: OPS 12:58
PROVIDERS: PCP Family Medicine; Visit Provider Internal Medicine Medical Oncology
DX: U07.1 COVID-19 (principal)
CPT/HCPCS: 96365

== ENCOUNTER 2021-06-05 17:04 | Inpatient (IN) | payer BC, SELFPAY ==
[2021-06-05 17:14] VITALS: BP 112/63; PULSE 80; RESP 17; TEMP 36; O2SAT 98; BMI 37.2
--- NOTE | 2021-06-05 17:38 | XRR_ITS ---
PROCEDURE INFORMATION: Exam: XR Chest Exam date and time: 06/05/2021 5:38 PM Age: 45 years old Clinical indication: Abnormal findings; Abnormal diagnostic tests; Abnormal ekg; Additional info: Rule out pna TECHNIQUE: Imaging protocol: XR of the chest. Views: 1 view. COMPARISON: CT chest w con* [id number] 03/19/2021 10:40 AM FINDINGS: Tubes, catheters and devices: Left subclavian Port-A-Cath is stable in position with the tip at the cavoatrial junction. Lungs: No focal consolidation. No pulmonary edema. Stable mild elevation of the left hemidiaphragm. Pleural spaces: Stable linear area of pleural-parenchymal scarring in the left mid lung, likely due to postsurgical and/or post radiation change. Heart/Mediastinum: Stable mild enlargement of the cardiac silhouette. Bones/joints: Unremarkable for age. XR/XR chest 1V portable [id number] IMPRESSION: 1. No acute cardiopulmonary process. 2. Stable linear area of pleural-parenchymal scarring in the left mid lung, likely due to postsurgical and/or post radiation change. 3. Incidental/nonacute findings are listed in the report.
--- NOTE | 2021-06-05 18:07 | ED_ITS ---
HPI - General Adult General: Chief complaint: Recheck/Abnormal Lab/Rx Stated complaint: Recent Blood work revealed WBC count off Time Seen by Provider: 06/05/21 17:21 History of Present Illness: HPI narrative: Patient is a 45-year-old female with history of metastatic lung cancer with left adrenal involvement who is followed by Dr. Mahoney presenting to the emergency room for concerns of leukocytosis on routine blood work from earlier today. Patient says that her baseline white count is 10,000-12,000. However, today, [place] was [place] [address] and was told to go to the emergency room. Patient says that she had one episode of fever 4 days ago, has been reporting chills ever since. Denies any cough, runny nose, sore throat, chest pain, shortness breath, neck pain, headache, focal weakness, abdominal complaints or compla ints. Patient has a outpatient elective surgery scheduled for Tuesday in [place] for removal of the adrenal mass. Patient is currently not on chemotherapy or radiation treatment. Onset: unknown Duration:ongoing Location:home Severity:severe Review of Systems Narrative: Constitutional: No fever, no chills. HEENT: No vision changes CV: No chest pain, no palpitations PULM: no cough, no dyspnea. GI: No abdominal pain, no N/V/D. : No dysuria MSKEL: No muscle pain SKIN: No new rashes, no lesions. NEURO: No headache, no focal weakness. HEME: No visible bruises PSYCH: Normal mood [facility] Female Reproductive History: Date of last menstrual period: 12/04/20 Physical Exam Narrative: EXAM NARRATIVE: Head: Atraumatic Eyes: PERRL, conjunctiva without injection ENT: Mucous membrane moist NECK: Supple, ROM intact LUNGS: LCTAB, no crackles/rhonchi CV: RRR ABDOMEN: Soft, nontender in all quadrants EXTREMITY: Normal ROM SKIN: No rash or erythema NEURO: Awake and alert, no focal motor deficits PSYCH: Normal mood and affect Course Vital Signs: Vital signs: Vital Signs Temperature 96.8 F L 06/05/21 17:14 Pulse Rate 78 06/05/21 18:48 Respiratory Rate 17 06/05/21 17:14 Blood Pressure 115/59 06/05/21 18:48 Pulse Oximetry 96 06/05/21 18:48 MDM - General Adult MDM Narrative: Medical decision making narrative: 45-year-old female presenting to the emergency room for evaluation of leukocytosis of 35,000 from outpatient blood work earlier today. On exam, patient is afebrile hemodynamically stable without any focal complaints. Blood work confirmed similar leukocytosis. At this point time, given eminent surgery on Tuesday, patient will be admitted to hospital for serial observation to ensure that she is not septic. Chest x-ray, urine, blood work within normal today. Patient is s/p vancomycin and cefepime in the emergency room. PRINCESS on CKD of 1.3 (baseline of 1.1). Will replete with IVF. Disposition: Admission Lab Data: Labs: Lab Results 06/05/21 06/05/21 06/05/21 17:44 17:44 17:44 WBC 34.5 10^3/uL H* 1 0^3/uL (4.0-10.0) RBC 4.28 10^6/uL 10^6 /uL (4.1-5.3) Hgb 12.0 g/dL g/dL (11.5-15.3) Hct 39.3 % % (37.0-47.0) MCV 91.8 fl fl (81-99) MCH 28.0 pg pg (28.0-34.0) MCHC 30.5 g/dL g/dL (30.0-36.0) RDW 17.2 % H % (12.1-15.1) Plt Count 262 10^3/cmm 10^3 /cmm (130-400) MPV 11.1 fL H fL (7.4-10.4) Neut % (Auto) 90.8 % % Lymph % (Auto) 3.3 % % Trinity % (Auto) 4.5 % % Eos % (Auto) 0.0 % % Baso % (Auto) 0.4 % % Neut # (Auto) 31.36 10^3/uL H 1 0^3/uL (1.8-7.7) Lymph # (Auto) 1.1 10^3/uL 10^3/ uL (0.8-4.8) Trinity # (Auto) 1.6 10^3/uL H 10^ 3/uL (0.2-0.9) Eos # (Auto) 0.0 10^3/uL 10^3/ uL (0.0-0.8) Baso # (Auto) 0.1 10^3/uL 10^3/ uL (0.0-0.1) Nucleated RBC % (a uto) 0 % % Nucleated RBCs # 0.0 /100WBC /100W BC PT 14.10 SECONDS SEC ONDS (12.1-14.9) INR 1.06 (0.8-1.2) APTT 25.7 SECONDS SECO NDS (23.9-36.7) Sodium 136 mmol/L mmol/L (136-145) Potassium 4.2 mmol/L mmol/L (3.5-5.1) Chloride 98 mmol/L mmol/L (98-107) Carbon Dioxide 27 mmol/L mmol/L (22-29) Anion Gap 15.2 (5-19) BUN 17 mg/dL mg/dL (6-20) Creatinine 1.3 mg/dL H mg/dL (0.5-0.9) GFR Calculation 43.9 mL/min L mL/ min (90-130) Glucose 128 mg/dL H mg/dL (65-115) Calculated Osmolal ity 285 mOsm/kg mOsm/ kg (285-295) Lactate Calcium 9.1 mg/dL mg/dL (8.5-10.5) Total Bilirubin 1.0 mg/dL mg/dL (0.15-1.2) AST 6 U/L U/L (0-32) ALT 14 U/L U/L (0-33) Alkaline Phosphata se 89 IU/L IU/L (35-105) Total Protein 6.2 g/dL L g/dL (6.6-8.7) Albumin 3.5 g/dL g/dL (3.5-5.2) Globulin 2.7 g/dL g/dL (1.3-4.6) Lipase 22 U/L U/L (13-60) 06/05/21 17:44 WBC RBC Hgb Hct MCV MCH MCHC RDW Plt Count MPV Neut % (Auto) Lymph % (Auto) Trinity % (Auto) Eos % (Auto) Baso % (Auto) Neut # (Auto) Lymph # (Auto) Trinity # (Auto) Eos # (Auto) Baso # (Auto) Nucleated RBC % (a uto) Nucleated RBCs # PT INR APTT Sodium Potassium Chloride Carbon Dioxide Anion Gap BUN Creatinine GFR Calculation Glucose Calculated Osmolal ity Lactate 1.2 mmol/L mmol/L (0.5-2.2) Calcium Total Bilirubin AST ALT Alkaline Phosphata se Total Protein Albumin Globulin Lipase Imaging Data^: Other Imaging: Radiologist's impression: [id number] Shyann Littlejohn MD Find Patient RAD - Luz Elena Alvarez 45 F 1975 ACTIVITY DATE EXAM STATUS AUTHOR 06/05/21 17:38 Signed [employer] Scheduling Employee Scheduling SoftwareHans P. Peterson Memorial [id number] [place] [id number] ReportSigned Patient: Naomi Alvarez #: [id number]: 1975Acct#:[id number]/Sex: 45 / FADM Date: 06/05/21Loc: ERRoom/B ed:Attending Dr: Ordering Provider/Ordering MD: Shyann Littlejohn MD Date of Service: 06/05/21 Procedure(s): XR chest 1V portable [id number] Accession Number(s): [id number] Report Number: [id number] PROCEDURE INFORMATION: Exam: XR Chest Exam date and time: 06/05/2021 5:38 PM Age: 45 years old Clinical indication: Abnormal findings; Abnormal diagnostic tests; Abnormal ekg; Additional info: Rule out pna TECHNIQUE: Imaging protocol: XR of the chest. Views: 1 view. COMPARISON: CT chest w con* [id number] 03/19/2021 10:40 AM FINDINGS: Tubes, catheters and devices: Left subclavian Port-A-Cath is stable in position with the tip at the cavoatrial junction. Lungs: No focal consolidation. No pulmonary edema. Stable mild elevation of the left hemidiaphragm. Pleural spaces: Stable linear area of pleural-parenchymal scarring in the left mid lung, likely due to postsurgical and/or post radiation change. Heart/Mediastinum: Stable mild enlargement of the cardiac silhouette. Bones/joints: Unremarkable for age. XR/XR chest 1V portable [id number] IMPRESSION: 1. No acute cardiopulmonary process. 2. Stable linear area of pleural-parenchymal scarring in the left mid lung, likely due to postsurgical and/or post radiation change. 3. Incidental/nonacute findings are listed in the report. Dictated By:Ilene Dorman MDSigned By:Ilene Dorman MDSigned Date/Time:06/05/212DD/ 19 Discharge Plan Discharge Patient Disposition: Admitted As Inpatient Clinical Impression: Leukocytosis, Cancer, Acute kidney injury Condition: Stable Coding Level of Care Code ED Genetics Physician for Armando Antunez
[2021-06-05] MEDS: sodium chloride 0.9% 1,000 ML 999 ML IV ×2 (18:36→19:46)
[2021-06-05] MEDS: cefepime 1,000 MG in sodium chloride 0.9% (plus) 50 ML 100 MG IV (18:41)
[2021-06-05 18:46] LABS: Basophils # 0.1 10^3/uL (0.0-0.1); Basophils % 0.4 %; Hematocrit 39.3 % (37.0-47.0); Lymphocytes # 1.1 10^3/uL (0.8-4.8); Lymphocytes % 3.3 %; Mean Corpuscular HGB Conc 30.5 g/dL (30.0-36.0); Mean Corpuscular Volume 91.8 fl (81-99); Mean Platelet Volume 11.1 fL (7.4-10.4); Monocytes # 1.6 10^3/uL (0.2-0.9); Monocytes % 4.5 %; Neutrophils # 31.36 10^3/uL (1.8-7.7); Neutrophils % 90.8 %; Nucleated Red Blood Cells % 0 %; Platelet Count 262 10^3/cmm (130-400); Red Blood Count 4.28 10^6/uL (4.1-5.3); Red Cell Distribution Width 17.2 % (12.1-15.1)
[2021-06-05 18:48] VITALS: BP 115/59; PULSE 78; O2SAT 96
[2021-06-05 18:57] LABS: White Blood Count 34.5 10^3/uL (4.0-10.0)
[2021-06-05 19:10] LABS: INR 1.06 (0.8-1.2); Partial Thromboplastin Time 25.7 SECONDS (23.9-36.7)
[2021-06-05 19:19] LABS: Alanine Aminotransferase 14 U/L (0-33); Albumin Level 3.5 g/dL (3.5-5.2); Alkaline Phosphatase 89 IU/L (35-105); Anion Gap 15.2 (5-19); Aspartate Amino Transferase 6 U/L (0-32); Blood Urea Nitrogen 17 mg/dL (6-20); Calcium 9.1 mg/dL (8.5-10.5); Carbon Dioxide 27 mmol/L (22-29); Chloride 98 mmol/L (98-107); Globulin 2.7 g/dL (1.3-4.6); Glomerular Filtration Rate 43.9 mL/min (90-130); Glucose 128 mg/dL (65-115); Lipase 22 U/L (13-60); Osmolality Calculated 285 mOsm/kg (285-295); Potassium 4.2 mmol/L (3.5-5.1); Sodium 136 mmol/L (136-145); Total Protein 6.2 g/dL (6.6-8.7)
[2021-06-05 19:20] LABS: Lactate (Lactic Acid level) 1.2 mmol/L (0.5-2.2)
[2021-06-05] MEDS: vancomycin 1,000 MG in sodium chloride 0.9% 250 ML 250 MG IV (19:42)
[2021-06-05 19:52] LABS: Charge for UA Resulting for Rev
--- NOTE | 2021-06-05 20:12 | PC.NURSE ---
pt refusing COVID swab due to being tx for COVID 30 days prior.
[2021-06-05 20:17] VITALS: BP 136/65; PULSE 103; RESP 24; O2SAT 96
[2021-06-05 20:41] VITALS: BP 136/65; PULSE 106; RESP 26; O2SAT 97
[2021-06-05 20:41] LABS: Glucose Urine UA Norm (Normal); Ketones Urine Negative (Negative); Protein Urine Trace (Negative); Specific Gravity, Urine 1.025 (1.005-1.030); Urine Appearance Cloudy (CLEAR); Urine Color Red (Yellow); pH Urine 5 (5-7)
[2021-06-05 20:42] LABS: Add Urine Microscopic? YES; Bilirubin Urine 1+ (Negative); Blood Urine Neg (Negative); Leukocyte Esterase Urine Negative (Negative); Nitrate Urine Negative (Negative); Urobilinogen Urine 1 mg/dL (Negative); WBC Urine 0-4 /hpf (0-5)
[2021-06-05 20:43] LABS: Add Urine Culture? No; Bacteria Urine 2+ /hpf; Coarse Granular Casts Urine 0-4 /lpf; Fine Granular Casts Urine 0-4 /lpf; Mucus Urine 2+ /hpf; Squamous Epithelial Cell Urine 25-40 /hpf (0-5)
[2021-06-05 21:05] VITALS: BMI 35.6
[2021-06-05 21:30] VITALS: BP 118/62; PULSE 87; RESP 22; TEMP 37; O2SAT 97
--- NOTE | 2021-06-05 23:46 | CTR_ITS ---
PROCEDURE INFORMATION: Exam: CTA Chest With Contrast Exam date and time: 06/05/2021 11:46 PM Age: 45 years old Clinical indication: Nausea; Cough and shortness of breath; Prior surgery; Surgery type: Port, ; additional info: Evaluate for pe, postobstructive pneumonia and cholecytsitis, lung CA with mets to adrenal, p/w sepsis, wbc 34k, ^intractable vomiting TECHNIQUE: Imaging protocol: Computed tomographic angiography of the chest with contrast. 3D rendering (Not supervised by radiologist): MIP and/or 3D reconstructed images were created by the technologist. Radiation optimization: All CT scans at this facility use at least one of these dose optimization techniques: automated exposure control; mA and/or kV adjustment per patient size (includes targeted exams where dose is matched to clinical indication); or iterative reconstruction. Contrast material: VISI 320; Contrast volume: 165 ml; Contrast route: INTRAVENOUS (IV); COMPARISON: CT chest w con* [id number] 03/19/2021 10:40 AM RADIATION DOSE METRICS: Total DLP (mGy-cm): 2838.06 FINDINGS: Pulmonary arteries: Normal. No pulmonary emboli. Aorta: Unremarkable. No aortic aneurysm. No aortic dissection. Lungs: Patchy left lung airspace opacities similar to prior exam may reflect patient's known malignancy and/or pneumonic infiltrate. Pleural spaces: Small left pleural effusion. Heart: Cardiomegaly. Lymph nodes: Unremarkable. No enlarged lymph nodes. Bones/joints: Unremarkable. No acute fracture. Soft tissues: Unremarkable. IMPRESSION: 1. Negative for pulmonary embolus. 2. Patchy left lung airspace opacities similar to prior exam may reflect patient's known malignancy and/or pneumonic infiltrate. 3. Small left pleural effusion. 4. Cardiomegaly. PROCEDURE INFORMATION: Exam: CT Abdomen And Pelvis With Contrast Exam date and time: 06/05/2021 11:46 PM Age: 45 years old Clinical indication: Nausea; Cough and shortness of breath; Prior surgery; Surgery type: Port, ; additional info: Evaluate for pe, postobstructive pneumonia and cholecytsitis, lung CA with mets to adrenal, p/w sepsis, wbc 34k, ^intractable vomiting TECHNIQUE: Imaging protocol: Computed tomography of the abdomen and pelvis with contrast. Radiation optimization: All CT scans at this facility use at least one of these dose optimization techniques: automated exposure control; mA and/or kV adjustment per patient size (includes targeted exams where dose is matched to clinical indication); or iterative reconstruction. Contrast material: VISI 320; Contrast volume: 165 ml; Contrast route: INTRAVENOUS (IV); COMPARISON: CT chest w con* [id number] 03/19/2021 10:40 AM RADIATION DOSE METRICS: Total DLP (mGy-cm): 2838.06 FINDINGS: Liver: Normal. No mass. Gallbladder and bile ducts: Cholelithiasis. Pancreas: Normal. No ductal dilation. Spleen: Normal. No splenomegaly. Adrenal glands: Complex left adrenal 11 cm solid and cystic mass increased compared to prior exam at which time it measured up to approximately 8.7 cm, likely reflecting metastatic disease, a may cause some mass effect on the stomach. Kidneys and ureters: Normal. No hydronephrosis. Stomach and bowel: Unremarkable. No obstruction. No mucosal thickening. Appendix: No evidence of appendicitis. Intraperitoneal space: Unremarkable. No free air. No significant fluid collection. Vasculature: Unremarkable. No abdominal aortic aneurysm. Lymph nodes: Unremarkable. No enlarged lymph nodes. Urinary bladder: Unremarkable as visualized. Reproductive: Unremarkable as visualized. Bones/joints: Unremarkable. No acute fracture. Soft tissues: Unremarkable. CT/CT angio chest w abd pel w con IMPRESSION: 1. Complex left adrenal 11 cm solid and cystic mass increased compared to prior exam at which time it measured up to approximately 8.7 cm, likely reflecting metastatic disease, a may cause some mass effect on the stomach. 2. Cholelithiasis. Radiation Dose CTDIVOL = (mGy): DLP = 2838.06~2838.06 (mGy-cm)
[2021-06-05] MEDS: famotidine 20 mg/2 mL INJ IVP (23:57)
[2021-06-05] MEDS: sodium chloride 0.9% 1,000 ML 75 ML IV (23:58)
[2021-06-05] MEDS: ondansetron 2 mg/ML SDV 2 mL 4 MG IVP (23:58)
[2021-06-05] MEDS: enoxaparin 40 mg/0.4 mL Syringe SUBCUT (23:58)
[2021-06-06] VITALS (10 sets, daily range): BP systolic 98–130; BP diastolic 58–83; PULSE 78–133; RESP 16–22; TEMP 36.5–39.3; O2SAT 93–98
[2021-06-06] MEDS: morphine 4 mg/mL SDV 1 mL 2 MG IVP ×2 (00:09→04:17)
--- NOTE | 2021-06-06 00:13 | P.HP_ITS ---
Providers/Chief Complaint Admitting Physician: Ritu Newell MD Primary Care Provider: Vinh Barry MD Chief Complaint: Recent Blood work revealed WBC count off History of Present Illness Luz Elena Alvarez is a 45 year old female with metastatic lung cancer, most recently with metastasis to left adrenal gland, plan for surgical resection on Tuesday at [facility] in [facility]. 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 She presented as outpatient today for routine labs prior to her planned surgery where white blood cell count was noted to be 34,000, higher than her known baseline of 15-20 and therefore she was sent over to the hospital for evaluation for sepsis. Patient reports she has had on and off fever, noted 104 ?F last week, takes [id number] Tylenol therefore says it is hard to estimate if she has been febrile at other times as well. Feels hot and cold with chills and sweats often, however states this is not new. She has a chronic cough since diagnosis of her radiation and immune pneumonitis, states this is not much changed over her baseline does report some increased dyspnea over the past week however no new oxygen requirement on assessment today. Review of systems positive for multiple episodes of vomiting, no abdominal pain, no recent change in bowel or bladder habits. States she has a history of gallbladder problems and attributes her nausea to this. Recent history of COVID-19 1 month ago which was incidentally noted on presurgical screening, reports being asymptomatic with the infection. Review of Systems General: Reports: 10 or more systems reviewed and unremarkable except in HPI and below Const: Reports: fever(s), chills and body aches Eyes: Denies: change in vision, blurry vision or photophobia ENMT: Reports: hoarseness; Denies: throat pain, enlarged tonsils, odynophagia or nasal congestion Card: Denies: chest pain, palpitations, irregular heart rhythm, edema, swelling of feet/ankles, lightheadedness, pre-syncope, dyspnea on exertion or orthopnea Resp: Reports: dyspnea and non-productive cough; Denies: productive cough, wheezing, stridor, pain on inspiration, change in phlegm color, hemoptysis or chest congestion GI: Reports: nausea and vomiting; Denies: abdominal pain, hematemesis, coffee ground emesis, dysphagia, heartburn, diarrhea, constipation, GI cramping, change in stool character, hematochezia or melena : Denies: flank pain, difficulty voiding, dysuria, urinary frequency, urinary urgency, urinary hesitancy or hematuria Musc: Denies: neck pain, back pain, extremity pain, joint swelling, joint w armth or deformity Neuro: Denies: headache(s), numbness in extremities, weakness in extremities, sensory changes, difficulty walking, frequent falls, dizziness, vertigo, behavioral changes, Slurred speech present or seizure-like activity Psych: Denies: anxiety, depression, suicidal ideation or homicidal ideation Endo: Denies: polyuria, polydipsia, tired all the time, cold intolerance or hot flashes Barak/Lymph: Denies: easy bruising or easy bleeding Medications/Allergies Home Medications Medication Instructions Recorded Confirmed Last Taken Type benzonatate 200 mg PO Q8H PRN 02/16/21 06/06/21 06/04/21 21:00 History citalopram 20 mg PO BEDTIME 02/16/21 06/06/21 06/04/21 22:00 History ferrous sulfate 325 mg PO DAILY@13 02/16/21 06/06/21 06/05/21 08:00 History ibuprofen 600 mg PO PRN 02/16/21 06/06/21 02/16/21 11:00 History levothyroxine 125 mcg PO QAM 02/16/21 06/06/21 06/05/21 08:00 History omeprazole [Prilosec] 20 mg PO DAILY@16 02/16/21 06/06/21 06/04/21 17:00 History osimertinib [Tagrisso] 80 mg PO DAILY 02/16/21 06/06/21 05/29/21 09:00 History rizatriptan [Maxalt] 10 mg PO Q2H PRN #10 tab 02/16/21 06/06/21 Unknown Rx Allergies Allergy/AdvReac Type Severity Reaction Status Date / Time levofloxacin [From Levaquin] Allergy Unknown Verified 06/05/21 17:22 pain pills Allergy ADR-Nausea Uncoded 06/05/21 17:22 PFSH Acute PFSH: Medical History (Updated 06/06/21 @ 06:00 by Ritu Newell MD) Metastatic lung cancer (metastasis from lung to other site) Female Reproductive History: Date of last menstrual period: 12/12/19 Vitals/I&O/Wt Last Vital Signs Temp 98.9 F 06/06/21 00:00 Pulse 133 H 06/06/21 00:00 Resp 22 H 06/06/21 00:09 BP 102/58 06/06/21 00:00 Pulse Ox 96 06/06/21 00:09 06/05/21 06/05/21 06/06/21 14:59 22:59 06:59 Intake Total 1948.35 / 1948.35 Balance 1948.35 / 1948.35 Weight last 48 hrs Weight 106.396 kg Weight 111.13 kg Physical Exam Narrative: EXAM NARRATIVE: General: No acute distress, AO x3, coughing several times during the course of interview, becomes dyspneic with extended conversation HEENT: PERRLA, pupils bilaterally equal and reactive, pallors not present Chest: Fine crackles bilaterally CVS: S1-S2 regular, no murmurs, no tachycardia, no gallops, no rubs Abdomen: Soft, nontender, no organomegaly, bowel sounds present Neuro: No focal deficits, no facial deformity, AO x3, power 5/5 in all limbs Extremities: No clubbing edema cyanosis or lymphedema Data : 06/06/21 04:34 06/05/21 17:44 Micro: Microbiology 06/05/21 18:48 Blood Culture - Preliminary Blood SPECIMEN COLLECTED 06/05/21 18:48 Blood Culture - Preliminary Blood SPECIMEN COLLECTED A&P Assessment and plan (1) Sepsis: This is a suspected diagnosis currently. Patient is immunocompromised, presenting currently with leukocytosis of 34, high er than known baseline, tachycardic with heart rate up to 133, fever not a reliable indicator as patient is on long-term steroids. We will perform sepsis work-up including blood culture, UA, urine culture. Elevated D-dimer noted. CTA chest to evaluate for possible PE. Additionally will evaluate for any postobstructive pneumonia on the study. We will additionally check CT of the abdomen and pelvis given intractable nausea and vomiting to evaluate for possibility of cholecystitis. LFTs today within normal range. Empiric antibiotic treatment with Zosyn and vancomycin while undergoing sepsis evaluation Clinically appearing to be dehydrated, likely secondary to volume losses from nausea vomiting and poor p.o. intake reported by patient. Received 1 L of fluids in the ER, continue normal saline at 75 cc an hour. Encourage p.o. intake. Status: Acute Qualifiers: Sepsis type: sepsis due to unspecified organism Sepsis acute organ dysfunction status: without acute organ dysfunction Qualified Code(s): A41.9 - Sepsis, unspecified organism (2) Acute kidney injury: Likely secondary to volume loss, poor p.o. intake. IV hydration as above. Status: Acute (3) Metastatic lung cancer (metastasis from lung to other site): Status: Acute Qualifiers: Laterality: unspecified laterality Qualified Code(s): C34.90 - Malignant neoplasm of unspecified part of unspecified bronchus or lung Additional A&P Information Dvt ppx: lovenox Full code Attestations Medical Necessity Statement*: antcipate >2midnight admission for evaluation and management of possible sepsis in an immunocompromised patient, need for iv hydration, monitoring of renal function Coding Level of Care Code Acute Digital Content Marketing Manager for [facility] Fwd Diagnoses Sepsis A41.9 Sepsis type: sepsis due to unspecified organism Sepsis acute organ dysfunction status: without acute organ dysfunction Acute kidney injury N17.9 Metastatic lung cancer (metastasis from lung to other site) C34.90 Laterality: unspecified laterality
[2021-06-06 00:21] LABS: Procalcitonin 1.16 ng/mL (0-0.5)
[2021-06-06] MEDS: iodixanol 320 mg/mL 100mL Btl IV ×2 (00:27→00:41)
[2021-06-06] MEDS: benzonatate 100 mg Capsule 200 MG PO (00:53)
[2021-06-06] MEDS: piperacillin-tazobactam 3.375 GM in sodium chloride 0.9% (plus) 50 ML IV ×3 (00:53→20:24)
[2021-06-06] MEDS: acetaminophen 325 mg Tablet 650 MG PO (03:41)
[2021-06-06 05:19] LABS: Basophils # 0.1 10^3/uL (0.0-0.1); Basophils % 0.3 %; Hematocrit 29.9 % (37.0-47.0); Hemoglobin 9.2 g/dL (11.5-15.3); Lymphocytes % 3.1 %; Mean Corpuscular HGB Conc 30.8 g/dL (30.0-36.0); Mean Corpuscular Volume 91.2 fl (81-99); Mean Platelet Volume 9.9 fL (7.4-10.4); Monocytes # 1.2 10^3/uL (0.2-0.9); Monocytes % 3.9 %; Neutrophils # 28.15 10^3/uL (1.8-7.7); Neutrophils % 91.8 %; Nucleated Red Blood Cells % 0 %; Platelet Count 262 10^3/cmm (130-400); Red Blood Count 3.28 10^6/uL (4.1-5.3); Red Cell Distribution Width 16.6 % (12.1-15.1)
[2021-06-06] MEDS: levothyroxine 125 mcg Tablet PO (05:37)
[2021-06-06 05:44] LABS: White Blood Count 30.7 10^3/uL (4.0-10.0)
--- NOTE | 2021-06-06 05:48 | PC.NURSE ---
CRITICAL HIGH WBC 30.[address] FISHMAN NOTIFIED, NO NEW ORDERS AT THIS TIME.
[2021-06-06 05:57] LABS: Alanine Aminotransferase 11 U/L (0-33); Albumin Level 2.7 g/dL (3.5-5.2); Alkaline Phosphatase 79 IU/L (35-105); Aspartate Amino Transferase 6 U/L (0-32); Blood Urea Nitrogen 20 mg/dL (6-20); Calcium 8.3 mg/dL (8.5-10.5); Carbon Dioxide 22 mmol/L (22-29); Chloride 100 mmol/L (98-107); Globulin 2.7 g/dL (1.3-4.6); Glomerular Filtration Rate 43.9 mL/min (90-130); Glucose 88 mg/dL (65-115); Osmolality Calculated 278 mOsm/kg (285-295); Sodium 133 mmol/L (136-145); Total Bilirubin 1.5 mg/dL (0.15-1.2); Total Protein 5.4 g/dL (6.6-8.7)
[2021-06-06] MEDS: predniSONE 20 mg Tablet PO (09:23)
[2021-06-06] MEDS: TRAMadol 50 mg Tablet PO (11:49)
--- NOTE | 2021-06-06 13:11 | PM.PN ---
Subjective Subjective: Interval history: Patient was seen this morning, she is complaining of significant chills, she does complain of intermittent diarrhea, recent antibiotic use, she has a chronic cough, no lightheadedness, dizziness, does have a headache, no blurry vision, no neck pain, no neck stiffness, no back pain, no new rashes, no dysuria, no hematuria Vitals/I&O/Wt Last Vital Signs Temp 101.0 F H 06/06/21 11:25 Pulse 96 06/06/21 11:25 Resp 16 06/06/21 11:25 BP 125/83 06/06/21 11:25 Pulse Ox 95 06/06/21 11:25 06/05/21 06/06/21 06/06/21 22:59 06:59 14:59 Intake Total 1949.35 / 1949.35 650 / 2599.35 120 / 120 Balance 1948.35 / 1949.35 650 / 2599.35 120 / 120 Weight last 48 hrs Weight 106.396 kg Weight 111.13 kg Physical Exam Const: COMMON NORMALS: no acute distress and patient oriented x3 Resp: COMMON NORMALS: normal respiratory effort, No retractions, No use of accessory muscles and clear to auscultation bilaterally AUSCULTATION: clear to auscultation bilaterally Cardio: COMMON NORMALS: regular rate, regular rhythm, S1 normal heart sound present and S2 normal heart sound present RATE: regular rate RHYTHM: regular rhythm HEART SOUNDS: S1 normal heart sound present and S2 normal heart sound present GI: COMMON NORMALS: Normal to inspection, nondistended, normoactive bowel sounds present, Soft to palpation and non-tender PALPATION: Yes Soft to palpation Extremity: COMMON NORMALS: no pedal edema Neuro: COMMON NORMALS: patient oriented x3 Psych: COMMON NORMALS: mental status grossly normal Data : 06/06/21 04:34 06/06/21 04:34 Micro: Microbiology 06/05/21 18:48 Blood Culture - Preliminary Blood SPECIMEN COLLECTED 06/05/21 18:48 Blood Culture - Preliminary Blood SPECIMEN COLLECTED A&P Assessment and plan (1) Sepsis: This is a suspected diagnosis currently. Patient is immunocompromised, presenting currently with leukocytosis of 34, higher than known baseline, tachycardic with heart rate up to 133, fever not a reliable indicator as patient is on long-term steroids. We will perform sepsis work-up including blood culture, UA, urine culture. Elevated D-dimer noted. CTA chest negative for PE. Does show patchy left lung airspace opacity similar to prior exam may reflect patient's known malignancy and/or pneumonic infiltration, patient has received radiation therapy to the left lung for her lung cancer history. CT scan of abdomen pelvis no acute findings, did shows cholelithiasis, patient does complain of right upper quadrant pain, no significant LFT elevation, no alk phos elevations, will do a right upper quadrant ultrasound. Given persistent fevers we'll do a rapid Covid, Covid PCR Empiric antibiotic treatment with Zosyn and vancomycin while undergoing sepsis evaluation Follow blood cultures, urine cultures, sputum cultures, urine bacterial antigen,stool studies, Covid antigen, Covid PCR, influenza Continue IV hydration Status: Acute Qualifiers: Sepsis type: sepsis due to unspecified organism Sepsis acute organ dysfunction status: without acute organ dysfunction Qualified Code(s): A41.9 - Sepsis, unspecified organism (2) Acute kidney injury: Likely secondary to volume loss, poor p.o. intake. IV hydration as above. Status: Acute (3) Metastatic lung cancer (metastasis from lung to other site): Status: Acute Qualifiers: Laterality: unspecified laterality Qualified Code(s): C34.90 - Malignant neoplasm of unspecified part of unspecified bronchus or lung Additional A&P Information Dvt ppx: lovenox Full code Attestations Medical Necessity Statement*: Patient requires hospitalization for sepsis, recurrent fevers, with a history of lung cancer, metastatic lesion to adrenal Coding Level of Care Code Acute Upper Inspector for [facility] Fwd Diagnoses Sepsis A41.9 Sepsis type: sepsis due to unspecified organism Sepsis acute organ dysfunction status: without acute organ dysfunction Acute kidney injury N17.9 Metastatic lung cancer (metastasis from lung to other site) C34.90 Laterality: unspecified laterality
[2021-06-06] MEDS: metoclopramide 5 mg/mL SDV 2 mL IVP (13:29)
[2021-06-06] MEDS: famotidine 20 mg/2 mL INJ IVP ×2 (13:29→23:26)
--- NOTE | 2021-06-06 15:12 | PC.NURSE ---
PT REFUSED COVID PCR TEST. EDUC. PT AND SPOUSE ON RISKS AND BENEFITS OF PROCEEDING WITH COVID TESTING VS. DECLINING TEST. PT STILL REFUSED COVID TEST.
[2021-06-06 16:03] LABS: Influenza A by IFA Negative (Negative); Influenza B by IFA Negative (Negative)
[2021-06-06] MEDS: vancomycin 1,500 MG/300 ML PIGGYBACK 200 MG IV (16:17)
[2021-06-06] MEDS: citalopram 20 mg Tablet PO (20:24)
[2021-06-06] MEDS: sodium chloride 0.9% 1,000 ML 75 ML IV (20:25)
[2021-06-06] MEDS: enoxaparin 40 mg/0.4 mL Syringe SUBCUT (23:14)
[2021-06-07] MEDS: piperacillin-tazobactam 3.375 GM in sodium chloride 0.9% (plus) 50 ML IV ×3 (03:57→20:57)
[2021-06-07 04:04] VITALS: BP 118/72; PULSE 91; RESP 16; TEMP 37.3; O2SAT 95
[2021-06-07] MEDS: levothyroxine 125 mcg Tablet PO (05:32)
[2021-06-07 06:04] LABS: Basophils # 0.1 10^3/uL (0.0-0.1); Basophils % 0.2 %; Hematocrit 27.6 % (37.0-47.0); Hemoglobin 8.3 g/dL (11.5-15.3); Lymphocytes # 0.5 10^3/uL (0.8-4.8); Lymphocytes % 1.8 %; Mean Corpuscular HGB Conc 30.1 g/dL (30.0-36.0); Mean Corpuscular Hemoglobin 27.5 pg (28.0-34.0); Mean Corpuscular Volume 91.4 fl (81-99); Mean Platelet Volume 10.1 fL (7.4-10.4); Monocytes # 0.8 10^3/uL (0.2-0.9); Monocytes % 3.1 %; Neutrophils # 23.21 10^3/uL (1.8-7.7); Neutrophils % 94.3 %; Nucleated Red Blood Cells % 0 %; Platelet Count 210 10^3/cmm (130-400); Red Blood Count 3.02 10^6/uL (4.1-5.3); Red Cell Distribution Width 16.3 % (12.1-15.1); White Blood Count 24.6 10^3/uL (4.0-10.0)
[2021-06-07 06:35] LABS: Alanine Aminotransferase 8 U/L (0-33); Albumin Level 2.6 g/dL (3.5-5.2); Alkaline Phosphatase 87 IU/L (35-105); Anion Gap 13.6 (5-19); Aspartate Amino Transferase 5 U/L (0-32); Blood Urea Nitrogen 13 mg/dL (6-20); Calcium 8.9 mg/dL (8.5-10.5); Carbon Dioxide 24 mmol/L (22-29); Chloride 103 mmol/L (98-107); Globulin 2.8 g/dL (1.3-4.6); Glomerular Filtration Rate 59.4 mL/min (90-130); Glucose 91 mg/dL (65-115); Magnesium 1.8 mg/dL (1.7-2.3); Osmolality Calculated 284 mOsm/kg (285-295); Potassium 3.6 mmol/L (3.5-5.1); Sodium 137 mmol/L (136-145); Total Bilirubin 0.7 mg/dL (0.15-1.2); Total Protein 5.4 g/dL (6.6-8.7)
[2021-06-07 06:48] LABS: C Reactive Protein 488.2 mg/L (0.0-4.9)
[2021-06-07 07:31] VITALS: BP 113/71; PULSE 104; RESP 15; TEMP 36.9; O2SAT 95
[2021-06-07] MEDS: predniSONE 20 mg Tablet PO (07:51)
[2021-06-07] MEDS: vancomycin 1,500 MG/300 ML PIGGYBACK 200 MG IV (09:43)
[2021-06-07] MEDS: sodium chloride 0.9% 1,000 ML 75 ML IV (09:44)
[2021-06-07 11:26] VITALS: BP 110/68; PULSE 88; RESP 15; TEMP 36.8; O2SAT 94
--- NOTE | 2021-06-07 13:02 | P.PN_ITS ---
Subjective Subjective: Interval history: Patient was seen this morning, she is telling me that she is feeling a lot better, no chills, no fevers, no nausea, no vomiting, no diarrhea, no shortness of breath, having a mild cough, Vitals/I&O/Wt Last Vital Signs Temp 98.2 F 06/07/21 11:26 Pulse 88 06/07/21 11:26 Resp 15 06/07/21 11:26 BP 110/68 06/07/21 11:26 Pulse Ox 94 06/07/21 11:26 06/06/21 06/07/21 06/07/21 22:59 06:59 14:59 Intake Total 470 / 1830 290 / 2120 1668.75 / 1668.75 Output Total 1000 / 1000 750 / 1750 Balance -530 / 830 -460 / 370 1668.75 / 1668.75 Weight last 48 hrs Weight 106.396 kg Weight 111.13 kg Physical Exam Const: COMMON NORMALS: no acute distress and patient oriented x3 Resp: COMMON NORMALS: normal respiratory effort, No retractions, No use of accessory muscles and clear to auscultation bilaterally AUSCULTATION: clear t o auscultation bilaterally Cardio: COMMON NORMALS: regular rate, regular rhythm, S1 normal heart sound present and S2 normal heart sound present RATE: regular rate RHYTHM: regular rhythm HEART SOUNDS: S1 normal heart sound present and S2 normal heart sound present GI: COMMON NORMALS: Normal to inspection, nondistended, normoactive bowel sounds present, Soft to palpation and non-tender PALPATION: Yes Soft to palpation Extremity: COMMON NORMALS: no pedal edema Neuro: COMMON NORMALS: patient oriented x3 Psych: COMMON NORMALS: mental status grossly normal Data : 06/07/21 05:12 06/07/21 05:12 Micro: Microbiology 06/06/21 11:45 Urine Culture - Preliminary Urine,Clean Catch 06/05/21 18:48 Blood Culture - Preliminary Blood NEGATIVE TO DATE 06/05/21 18:48 Blood Culture - Preliminary Blood NEGATIVE TO DATE 06/06/21 11:45 Bacterial Antigens - Final Urine,Clean Catch A&P Assessment and plan (1) Sepsis: Sepsis possibly secondary to GI source given her complaints of diarrhea, possible pneumonia given her cough and CT scan findings Patient is immunocompromised, presenting currently with leukocytosis of 24.6, CRP 488, pro-Gopi 5.2 CTA chest negative for PE. Does show patchy left lung airspace opacity similar to prior exam may reflect patient's known malignancy and/or pneumonic infiltration, patient has received radiation therapy to the left lung for her lung cancer history CT scan of abdomen pelvis no acute findings, did shows cholelithiasis, patient does complain of right upper quadrant pain, no significant LFT elevation, no alk phos elevations, will do a right upper quadrant ultrasound. Vaccinated for Covid, received both Covid vaccines, declines Covid testing Rapid flu negative Afebrile for the last 24 hours Empiric antibiotic treatment with Zosyn and vancomycin Follow blood cultures, urine cultures, sputum cultures, urine bacterial antigen,stool studies Status: Acute Qualifiers: Sepsis type: sepsis due to unspecified organism Sepsis acute organ dysfunction status: without acute organ dysfunction Qualified Code(s): A41.9 - Sepsis, unspecified organism (2) Acute kidney injury: Stop IV hydration, encourage p.o. intake Status: Acute (3) Metastatic lung cancer (metastasis from lung to other site): -Has a history of non-small cell carcinoma involving the low upper lobe of the left lung, status post radiation therapy -Now has left adrenal mass consistent with metastatic disease, on prednisone therapy, plan on surgical resection on Tuesday at [facility] in [place] -CT scan of the abdomen pelvis complex left adrenal 11 cm solid and cystic mass increased compared to prior exam at which time it measured up to approximately 8.7 cm, likely reflecting metastatic disease, a may cause some mass effect on the stomach. Status: Acute Qualifiers: Laterality: unspecified laterality Qualified Code(s): C34.90 - Malig nant neoplasm of unspecified part of unspecified bronchus or lung (4) Acute on chronic anemia: -Hemoglobin down to 8.2 -Possibly multifactorial from sepsis, malignancy, possible slow GI bleed as she is on prednisone therapy -For now hold Lovenox -SCDs for DVT prophylaxis -Monitor hemoglobin -Monitor hemoglobin, if less than 7 will transfuse -Protonix 40 twice daily, Carafate Status: Acute Additional A&P Information Dvt ppx: lovenox Full code Attestations Medical Necessity Statement*: Patient requires hospitalization for sepsis possible secondary GI source for pneumonia, history of metastatic disease to left adrenal gland, acute on chronic anemia Coding Level of Care Code Acute Breaker Oiler for [facility] Fwd Diagnoses Sepsis A41.9 Sepsis type: sepsis due to unspecified organism Sepsis acute organ dysfunction status: without acute organ dysfunction Acute kidney injury N17.9 Metastatic lung cancer (metastasis from lung to other site) C34.90 Laterality: unspecified laterality Acute on chronic anemia D64.9
[2021-06-07] MEDS: sucralfate 1 gm Tablet PO ×2 (13:40→17:48)
[2021-06-07] MEDS: pantoprazole 40 mg SDV IVP (13:40)
--- NOTE | 2021-06-07 13:48 | PC.CHAP ---
Pastoral Care Encounter/Spiritual Assessment Type of Contact [] Declined carboy filler visit [] Patient/Family/Request visit [] Outpatient visit [] Follow-up visit [] Physician referral [] Code/Alert [XX] Routine visit [] Staff referral [] Actively dying [] Patient sleeping [] Family support [] [] Out of room [] Palliative care [] [] Receiving care in room [] Pre-surgical visit [] Trauma [] Long length of stay [] ICU visit [] Other: Relational/Emotional Strength [XX] Patient feels connected with others/family/visitors/staff [] Distress [] Loneliness/isolation [] Abandonment Spirituality of Patient [XX] Person of Sary [] Attends Orthodox of their Sary [XX] Believes in Prayer [] Reads Bible or Orthodoxy materials [] There are Spiritual issues to be addressed Dinkey Operator Interventions [XX] Prayer [XX] Active listening [XX] Non-anxious presence [] Spiritual/emotional support [] Crisis/trauma care [] Spiritual counseling [] Bereavement support [] Provided bereavement packet [XX] Provided Bible/devotional materials [] Provided toy/stuffed animal, coloring book to patient or family member [] Provided Communion [] Anointing/[place] [] Salvation [XX] Completed spiritual assessment [] Other: Impact on Illness or Injury [] Angry [] Fearful [] Anxious [] Often cries [] Exhaustion [] Unable to work [] Unable to attend yazidi [] Unable to walk/stand [] Unable to read [] Unable to drive [] Unable to eat/drink [] Unable to sleep [] Unable to be with family [] Patient intubated [] Other: Summary: Pt has h/o lung cancer that was treated but now has adrenal cancer. Pt going to [place] on Tuesday for surgery to remove the adrenal glands. It is unknown if the adrenal cancer is metastatic or a new tumor. Pt has good support from family and friends. Spouse was at bedside. Pt in good spirits. Pt declined prayer but accepted a Daily Bread. Time spent with patient: 20 mins
[2021-06-07 14:03] LABS: Basophils % 0.1 %; Hematocrit 27.4 % (37.0-47.0); Hemoglobin 8.5 g/dL (11.5-15.3); Lymphocytes # 0.3 10^3/uL (0.8-4.8); Lymphocytes % 1.1 %; Mean Corpuscular Hemoglobin 27.8 pg (28.0-34.0); Mean Corpuscular Volume 89.5 fl (81-99); Mean Platelet Volume 9.7 fL (7.4-10.4); Monocytes # 0.5 10^3/uL (0.2-0.9); Monocytes % 1.8 %; Neutrophils # 25.79 10^3/uL (1.8-7.7); Neutrophils % 95.9 %; Nucleated Red Blood Cells % 0 %; Platelet Count 214 10^3/cmm (130-400); Red Blood Count 3.06 10^6/uL (4.1-5.3); Red Cell Distribution Width 16.2 % (12.1-15.1); White Blood Count 26.9 10^3/uL (4.0-10.0)
[2021-06-07 14:04] LABS: Reticulocyte % 0.8 % (0.5-2.0)
[2021-06-07 14:32] LABS: Ferritin 888 ng/mL (15-150); Iron 12 ug/dL (37-145); Percent Saturation 9.6 % (20-50); Total Iron Binding Capacity 124 mcg/dl; Unsaturated Iron Binding 112 ug/dL (112-347)
[2021-06-07 16:00] VITALS: BP 103/63; PULSE 76; RESP 16; TEMP 36.9; O2SAT 95
[2021-06-07 19:36] VITALS: BP 123/75; PULSE 78; RESP 18; TEMP 36.8; O2SAT 97
[2021-06-07] MEDS: citalopram 20 mg Tablet PO (20:57)
[2021-06-08] VITALS (7 sets, daily range): BP systolic 97–124; BP diastolic 60–81; PULSE 68–97; RESP 16–18; TEMP 36.4–37.6; O2SAT 94–97
[2021-06-08 02:34] LABS: Basophils % 0.2 %; Hematocrit 27.6 % (37.0-47.0); Hemoglobin 8.5 g/dL (11.5-15.3); Lymphocytes # 0.6 10^3/uL (0.8-4.8); Lymphocytes % 3.5 %; Mean Corpuscular HGB Conc 30.8 g/dL (30.0-36.0); Mean Corpuscular Hemoglobin 27.9 pg (28.0-34.0); Mean Corpuscular Volume 90.5 fl (81-99); Mean Platelet Volume 9.9 fL (7.4-10.4); Monocytes # 0.6 10^3/uL (0.2-0.9); Monocytes % 3.2 %; Neutrophils # 16.75 10^3/uL (1.8-7.7); Neutrophils % 92.4 %; Nucleated Red Blood Cells % 0 %; Platelet Count 214 10^3/cmm (130-400); Red Blood Count 3.05 10^6/uL (4.1-5.3); Red Cell Distribution Width 16.3 % (12.1-15.1); White Blood Count 18.1 10^3/uL (4.0-10.0)
[2021-06-08 02:57] LABS: Alanine Aminotransferase 8 U/L (0-33); Albumin Level 2.4 g/dL (3.5-5.2); Alkaline Phosphatase 78 IU/L (35-105); Anion Gap 13.4 (5-19); Aspartate Amino Transferase 6 U/L (0-32); Blood Urea Nitrogen 10 mg/dL (6-20); Calcium 8.6 mg/dL (8.5-10.5); Carbon Dioxide 23 mmol/L (22-29); Chloride 105 mmol/L (98-107); Creatinine Clr Calc Pharmacy 98.6886; Globulin 2.8 g/dL (1.3-4.6); Glomerular Filtration Rate 67.1 mL/min (90-130); Glucose 94 mg/dL (65-115); Magnesium 1.6 mg/dL (1.7-2.3); Osmolality Calculated 285 mOsm/kg (285-295); Phosphorus 2.8 mg/dL (2.5-4.5); Potassium 3.4 mmol/L (3.5-5.1); Sodium 138 mmol/L (136-145); Total Bilirubin 0.4 mg/dL (0.15-1.2); Total Protein 5.2 g/dL (6.6-8.7)
[2021-06-08] MEDS: pantoprazole 40 mg SDV IVP ×2 (02:59→14:42)
[2021-06-08 03:03] LABS: Procalcitonin 3.16 ng/mL (0-0.5)
[2021-06-08] MEDS: vancomycin 1,500 MG/300 ML PIGGYBACK 200 MG IV (03:06)
[2021-06-08] MEDS: piperacillin-tazobactam 3.375 GM in sodium chloride 0.9% (plus) 50 ML IV ×3 (04:36→19:53)
--- NOTE | 2021-06-08 06:00 | US_ITS ---
WS: [id number] RIGHT UPPER QUADRANT ULTRASOUND HISTORY: us gallbladder and liver COMPARISON: CT 06/06/2021 Liver: 13.9 cm in length. Normal size liver. No bile duct dilatation or mass. Gallbladder: Normally distended gallbladder with numerous stones filling the lumen. No wall thickenin g. No pericholecystic fluid. CBD: 0.6 cm Pancreas: Normal size and echogenicity. Right kidney: 11.0 cm in length. Normal size and echogenicity. No hydronephrosis or mass. Aorta and IVC: Unremarkable abdominal aorta and IVC. No ascites. US/US abdomen limited [id number] IMPRESSION: 1. Cholelithiasis, numerous stones in the gallbladder lumen. No evidence for a cute cholecystitis. 2. No bile duct dilatation.
[2021-06-08] MEDS: levothyroxine 125 mcg Tablet PO (06:16)
[2021-06-08] MEDS: sucralfate 1 gm Tablet PO ×2 (06:59→18:14)
[2021-06-08] MEDS: predniSONE 20 mg Tablet PO (09:27)
--- NOTE | 2021-06-08 10:40 | PM.PN ---
Subjective Subjective: Interval history: Patient was seen this morning, deny any active complain, she says that she is felling good, want to go home, has remained afebrile,her vitals and labs have been reviewed. Medications: Reviewed: Yes Vitals/I&O/Wt Last Vital Signs Temp 98.2 F 06/08/21 07:43 Pulse 85 06/08/21 07:43 Resp 16 06/08/21 07:43 BP 120/73 06/08/21 07:43 Pulse Ox 95 06/08/21 07:43 06/07/21 06/08/21 06/08/21 22:59 06:59 14:59 Intake Total 50 / 2231.25 350 / 2581.25 168 / 168 Output Total 600 / 600 Balance -550 / 1631.25 350 / 1981.25 168 / 168 Physical Exam Const: COMMON NORMALS: patient oriented x3 HENMT: COMMON NORMALS: normocephalic and atraumatic HEAD & SCALP: normocephalic and atraumatic Resp: COMMON NORMALS: clear to auscultation bilaterally AUSCULTATION: clear to auscultation bilaterally Cardio: COMMON NORMALS: regular rate, regular rhythm, S1 normal heart sound present, S2 normal heart sound present, No gallops present (Cardio), No murmurs present (Cardio), No rub (Cardio) and Peripheral pulses 2+ throughout RATE: regular rate RHYTHM: regular rhythm HEART SOUNDS: S1 normal heart sound present and S2 normal heart sound present PERIPHERAL PULSES: Peripheral pulses 2+ throughout GI: COMMON NORMALS: Normal to inspection, nondistended, normoactive bowel sounds present, Soft to palpation, non-tender, No hepatosplenomegaly present and no masses AUSCULTATION: Yes normoactive bowel sounds PALPATION: Yes Soft to palpation and Yes No hepatosplenomegaly present RECTAL EXAM: deferred Extremity: COMMON NORMALS: no clubbing, cyanosis or edema and no pedal edema Neuro: COMMON NORMALS: patient oriented x3 Data : 06/08/21 02:15 06/08/21 02:15 Micro: Microbiology 06/06/21 11:45 Urine Culture - Final Urine,Clean Catch A&P Assessment and plan (1) Sepsis: Sepsis possibly secondary to GI source given her complaints of diarrhea, possible pneumonia given her cough and CT scan findings Patient is immunocompromised, presenting currently with leukocytosis of 24.6, CRP 488, pro-Gopi 5.2 CTA chest negative for PE. Does show patchy left lung airspace opacity similar to prior exam may reflect patient's known malignancy and/or pneumonic infiltration, patient has received radiation therapy to the left lung for her lung cancer history CT scan of abdomen pelvis no acute findings, did shows cholelithiasis, patient does complain of right upper quadrant pain, no significant LFT elevation, no alk phos elevations, will right upper quadrant ultrasound.: Cholelithiasis, numerous stones in the gallbladder lumen. No evidence for acute cholecystitis. No bile duct dilatation. Vaccinated for Covid, received both Covid vaccines, declines Covid testing Rapid flu negative Afebrile for the last 24 hours Empiric antibiotic treatment with Zosyn and vancomycin Follow blood cultures, urine cultures, sputum cultures, urine bacterial antigen,stool studies Status: Acute Qualifiers: Sepsis type: sepsis due to unspecified organism Sepsis acute organ dysfunction status: without acute organ dysfunction Qualified Code(s): A41.9 - Sepsis, unspecified organism (2) Acute kidney injury: Stop IV hydration, encourage p.o. intake Status: Acute (3) Metastatic lung cancer (metastasis from lung to other site): -Has a history of non-small cell carcinoma involving the low upper lobe of the left lung, status post radiation therapy -Now has left adrenal mass consistent with metastatic disease, on prednisone therapy, plan on surgical resection on Tuesday at [facility] -CT scan of the abdomen pelvis complex left adrenal 11 cm solid and cystic mass increased compared to prior exam at which time it measured up to approximately 8.7 cm, likely reflecting metastatic disease, a may cause some mass effect on the stomach. Status: Acute Qualifiers: Laterality: unspecified laterality Qualified Code(s): C34.90 - Malignant neoplasm of unspecified part of unspecified bronchus or lung (4) Acute on chronic anemia: -Hemoglobin down to 8.2 -Possibly multifactorial from sepsis, malignancy, possible slow GI bleed as she is on prednisone therapy -For now hold Lovenox -SCDs for DVT prophylaxis -Monitor hemoglobin -Monitor hemoglobin, if less than 7 will transfuse -Protonix 40 twice daily, Carafate Status: Acute Additional A&P Information Dvt ppx: lovenox Full code Attestations Medical Necessity Statement*: Patient needs to be in hospital for the management of sepsis Coding Level of Care Code Acute Sprinkler Helper for g Fwd Diagnoses Sepsis A41.9 Sepsis type: sepsis due to unspecified organism Sepsis acute organ dysfunction status: without acute organ dysfunction Acute kidney injury N17.9 Metastatic lung cancer (metastasis from lung to other site) C34.90 Laterality: unspecified laterality Acute on chronic anemia D64.9
--- NOTE | 2021-06-08 14:04 | PC.RESP ---
PULMONARY REHAB INFORMATION SENT TO PATIENT.
[2021-06-08] MEDS: citalopram 20 mg Tablet PO (21:12)
[2021-06-09] MEDS: pantoprazole 40 mg SDV IVP (02:26)
[2021-06-09] MEDS: piperacillin-tazobactam 3.375 GM in sodium chloride 0.9% (plus) 50 ML IV (03:54)
[2021-06-09 04:22] VITALS: BP 114/78; PULSE 67; RESP 16; TEMP 36.7; O2SAT 96
[2021-06-09] MEDS: levothyroxine 125 mcg Tablet PO (05:12)
[2021-06-09 05:51] LABS: Basophils % 0.2 %; Hematocrit 27.9 % (37.0-47.0); Hemoglobin 8.4 g/dL (11.5-15.3); Lymphocytes # 0.7 10^3/uL (0.8-4.8); Lymphocytes % 5.6 %; Mean Corpuscular HGB Conc 30.1 g/dL (30.0-36.0); Mean Corpuscular Hemoglobin 27.5 pg (28.0-34.0); Mean Corpuscular Volume 91.2 fl (81-99); Mean Platelet Volume 10.1 fL (7.4-10.4); Monocytes # 0.7 10^3/uL (0.2-0.9); Neutrophils # 10.76 10^3/uL (1.8-7.7); Neutrophils % 87.4 %; Nucleated Red Blood Cells % 0 %; Platelet Count 234 10^3/cmm (130-400); Red Blood Count 3.06 10^6/uL (4.1-5.3); Red Cell Distribution Width 16.4 % (12.1-15.1); White Blood Count 12.3 10^3/uL (4.0-10.0)
[2021-06-09] MEDS: sucralfate 1 gm Tablet PO (06:03)
[2021-06-09 06:11] LABS: Alanine Aminotransferase 7 U/L (0-33); Albumin Level 2.7 g/dL (3.5-5.2); Alkaline Phosphatase 80 IU/L (35-105); Anion Gap 12.3 (5-19); Aspartate Amino Transferase 6 U/L (0-32); Blood Urea Nitrogen 11 mg/dL (6-20); C Reactive Protein 97.7 mg/L (0.0-4.9); Calcium 8.7 mg/dL (8.5-10.5); Carbon Dioxide 26 mmol/L (22-29); Chloride 107 mmol/L (98-107); Creatinine Clr Calc Pharmacy 98.6886; Globulin 2.5 g/dL (1.3-4.6); Glomerular Filtration Rate 67.1 mL/min (90-130); Glucose 99 mg/dL (65-115); Magnesium 1.8 mg/dL (1.7-2.3); Osmolality Calculated 291 mOsm/kg (285-295); Phosphorus 3.4 mg/dL (2.5-4.5); Potassium 4.3 mmol/L (3.5-5.1); Sodium 141 mmol/L (136-145); Total Bilirubin 0.3 mg/dL (0.15-1.2); Total Protein 5.2 g/dL (6.6-8.7)
[2021-06-09 06:15] LABS: Procalcitonin 1.87 ng/mL (0-0.5)
[2021-06-09 07:49] VITALS: BP 120/80; PULSE 73; RESP 16; TEMP 36.7; O2SAT 96
[2021-06-09] MEDS: predniSONE 20 mg Tablet PO (09:20)
--- NOTE | 2021-06-09 09:47 | PM.DCS ---
Discharge Providers Date of Admission: 06/05/21 23:38 Date of Discharge: June 09, 2021 Attending Provider at Admission: Ritu Newell MD Attending Provider at Discharge: Navin Isaac MD Primary Care Provider: Vinh Barry MD Diagnoses at Discharge Discharge Diagnosis (1) Sepsis: Status: Resolved Qualifiers: Sepsis acute organ dysfunction status: without acute organ dysfunction Sepsis type: sepsis due to unspecified organism Qualified Code(s): A41.9 - Sepsis, unspecified organism (2) Acute kidney injury: Status: Resolved (3) Metastatic lung cancer (metastasis from lung to other site): Status: Acute Qualifiers: Laterality: unspecified laterality Qualified Code(s): C34.90 - Malignant neoplasm of unspecified part of unspecified bronchus or lung (4) Acute on chronic anemia: Status: Acute Reason for Visit Reason for Visit: Recent Blood work revealed WBC count off Hospital Course Hospital Course HPI done by 45 year old female with metastatic lung cancer, most recently with metastasis to left adrenal gland, plan for surgical resection on Tuesday at [facility] in [facility]. 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 She presented as outpatient today for routine labs prior to her planned surgery where white blood cell count was noted to be 34,000, higher than her known baseline of 15-20 and therefore she was sent over to the hospital for evaluation for sepsis. Patient reports she has had on and off fever, noted 104 ?F last week, takes [id number] Tylenol therefore says it is hard to estimate if she has been febrile at other times as well. Feels hot and cold with chills and sweats often, however states this is not new. She has a chronic cough since diagnosis of her radiation and immune pneumonitis, states this is not much changed over her baseline does report some increased dyspnea over the past week however no new oxygen requirement on assessment today. Review of systems positive for multiple episodes of vomiting, no abdominal pain, no recent change in bowel or bladder habits. States she has a history of gallbladder problems and attributes her nausea to this. Recent history of COVID-19 1 month ago which was incidentally noted on presurgical screening, reports being asymptomatic with the infection. She was admitted for the management of sepsis possibly secondary to pneumonia. During the hospital stay she was kept on broad-spectrum antibiotics, cultures were negative, bacterial antigen panel was negative. imaging studies: CT angio chest w abd pel w con:Negative for pulmonary embolus. Patchy left lung airspace opacities.Complex left adrenal 11 cm solid and cystic mass increased compared to prior exam at which time it measured up to approximately 8.7 cm, likely reflecting metastatic disease, a may cause some mass effect on the stomach. Cholelithiasis.US abdomen: Cholelithiasis, numerous stones in the gallbladder lumen. No evidence for acute cholecystitis. No bile duct dilatation. She responded well to the antibiotic management, she continued to remain afebrile during the hospital stay, she was hemodynamically stable at the time of discharge. She was discharged on p.o. Augmentin for 7 days. She will continue to follow-up with her primary care physician as an outpatient Physical Exam Const: COMMON NORMALS: patient oriented x3 HENMT: COMMON NORMALS: normocephalic and atraumatic HEAD & SCALP: normocephalic and atraumatic Resp: COMMON NORMALS: clear to auscultation bilaterally AUSCULTATION: clear to auscultation bilaterally Cardio: COMMON NORMALS: regular rate, regular rhythm, S1 normal heart sound present, S2 normal heart sound present, No gallops present (Cardio), No murmurs present (Cardio), No rub (Cardio) and Peripheral pulses 2+ throughout RATE: regular rate RHYTHM: regular rhythm HEART SOUNDS: S1 normal heart sound present and S2 normal heart sound present PERIPHERAL PULSES: Peripheral pulses 2+ throughout GI: COMMON NORMALS: Normal to inspection, nondistended, normoactive bowel sounds present, Soft to palpation, non-tender, No hepatosplenomegaly present and no masses AUSCULTATION: Yes normoactive bowel sounds PALPATION: Yes Soft to palpation and Yes No hepatosplenomegaly present RECTAL EXAM: deferred Extremity: COMMON NORMALS: no clubbing, cyanosis or edema and no pedal edema Neuro: COMMON NORMALS: patient oriented x3 Discharge Data Data Completed and Pending: Completed Studies During Hospitalization Category Date Time Status CT angio chest w abd pel w con Rout ine Cat Scan 06/05/21 23:46 Completed XR chest 1V jeremias ble [id number] Urgent Exams 06/05/21 17:38 Completed US abdomen limite d [id number] Routine Ultrasound 06/08/21 06:00 Completed Pending at discharge Category Date Time Status Blood Culture Sta t Lab 06/05/21 18:48 Results C Reactive Protei n AM LABS Lab 06/10/21 04:00 Ordered Clostridioides Di fficile PCR Routin e Lab 06/06/21 09:50 Ordered Complete Blood Co unt w/Auto AM LABS Lab 06/10/21 04:00 Ordered Comprehensive Met abolic Panel AM LA BS Lab 06/10/21 04:00 Ordered Enteric Bacterial Panel by PCR Rout ine Lab 06/06/21 09:50 Ordered Enteric Parasite Panel by PCR Routi ne Lab 06/06/21 09:50 Ordered Immunochemical Fe ramsey OCB Routine Lab 06/06/21 09:50 Ordered Immunochemical Fe ramsey OCB Routine Lab 06/07/21 13:03 Uncollected Lactoferrin Routi ne Lab 06/06/21 09:50 Ordered Magnesium AM LABS Lab 06/10/21 04:00 Ordered Phosphorus AM LAB S Lab 06/10/21 04:00 Ordered Procalcitonin AM LABS Lab 06/10/21 04:00 Ordered SARS Covid-2 Anti gen Routine Lab 06/06/21 13:18 Uncollected Sputum Culture an d Gram Stain Stat Lab 06/06/21 09:49 Uncollected Labs from last 24 hours 06/09/21 06/09/21 06/09/21 04:42 04:42 04:42 WBC 12.3 H RBC 3.06 L Hgb 8.4 L Hct 27.9 L MCV 91.2 MCH 27.5 L MCHC 30.1 RDW 16.4 H Plt Count 234 MPV 10.1 Neut % (Auto) 87.4 Lymph % (Auto) 5.6 [facility] % (Auto) 6.0 Eos % (Auto) 0.0 Baso % (Auto) 0.2 Neut # (Auto) 10.76 H Lymph # (Auto) 0.7 L [facility] # (Auto) 0.7 Eos # (Auto) 0.0 Baso # (Auto) 0.0 Nucleated RBC % (a uto) 0 Nucleated RBCs # 0.0 Sodium 141 Potassium 4.3 Chloride 107 Carbon Dioxide 26 Anion Gap 12.3 BUN 11 Creatinine 0.9 GFR Calculation 67.1 L Glucose 99 Calculated Osmolal ity 291 Calcium 8.7 Phosphorus 3.4 Magnesium 1.8 Total Bilirubin 0.3 AST 6 ALT 7 Alkaline Phosphata se 80 C-Reactive Protein 97.7 H Total Protein 5.2 L Albumin 2.7 L Globulin 2.5 Procalcitonin 1.87 H Vitals: Last Vital Signs Temp 98.0 F 06/09/21 07:49 Pulse 73 06/09/21 07:49 Resp 16 06/09/21 07:49 BP 120/80 06/09/21 07:49 Pulse Ox 96 06/09/21 07:49 Discharge Plan Discharge Patient Disposition: Home Condition: Stable Prescriptions: New Augmentin 500-125 mg tablet 1 tab PO BID Qty: 14 RF: 0 Continued benzonatate 200 mg capsule 200 mg PO Q8H PRN (Reason: Cough) RF: 0 citalopram 20 mg tablet 20 mg PO BEDTIME RF: 0 ferrous sulfate 325 mg (65 mg iron) tablet 325 mg PO DAILY@13 RF: 0 levothyroxine 125 mcg tablet 125 mcg PO QAM RF: 0 ibuprofen 200 mg Tablet 600 mg PO PRN RF: 0 omeprazole 20 mg Capsule,Delayed Release(Dr/Ec) 20 mg PO DAILY@16 RF: 0 Tagrisso 80 mg tablet 80 mg PO DAILY RF: 0 rizatriptan [Maxalt] 10 mg tablet 10 mg PO Q2H PRN (Reason: migraine headache) Qty: 10 RF: 1 Discharge Orders: Discharge Order (Routine); Ordered 06/09/21 Ordered By: Navin Isaac Referrals: Vinh Barry MD [Primary Care Provider] - 06/23/21 10:00 am Discharge Diet: Regular Discharge Activity: Resume usual activity Patient Instructions: Amoxicillin/Clavulanate Potassium (By mouth), Anemia (GEN), Opioid Safety Discharge Attestations Time Spent in Discharge Care*: less than 30 min Specific Discharge Activities: educating patient, educating and/or supporting family/caregiver, discussing with pcp/other providers, discussing with home health care case manager/social workers/dc planners, documenting/other paperwork and evaluating patient/reviewing data Status at Discharge: Cognitive status at discharge: cognitively intact, Behavioral status at discharge: cooperative, Functional status at discharge: independent ambulation Overall status at discharge: patient is back to baseline Quality Metrics Clinical Quality Measures During this hospital stay, did patient experience: None Coding Level of Care Code Acute Chg FW DC note Diagnoses Sepsis A41.9 Sepsis acute organ dysfunction status: without acute organ dysfunction Sepsis type: sepsis due to unspecified organism Acute kidney injury N17.9 Metastatic lung cancer (metastasis from lung to other site) C34.90 Laterality: unspecified laterality Acute on chronic anemia D64.9
[2021-06-09 11:43] VITALS: BP 109/73; PULSE 94; RESP 18; TEMP 36.8; O2SAT 97
[2021-06-09 12:06] VITALS: BP 109/73; PULSE 94; RESP 18; TEMP 36.8; O2SAT 97
--- NOTE | 2021-06-10 13:00 | PC.SOCIAL ---
discharge follow up call made. patient reports she is tired but recovering well. patient request nurse to cancel follow up with pcp, she hasn't seen that in quiet some time. patient reports she will schedule a follow up with dr. cruz after she has surgery this coming week. patient picked up augmentin from the pharmacy and she is taking bid. patient denies questions or concerns.
== END 2021-06-09 12:07 | disposition home or self-care (01) | DRG 871 ==
LOC: ER 19:53 → MEDSURG 19:55
PROVIDERS: Family Medicine; Admitting Provider Student in an Organized Health Care Education/Training Program; Emergency Provider Emergency Medicine; PCP Family Medicine; Visit Provider Internal Medicine
DX: A41.9 Sepsis, unspecified organism (principal); J18.9 Pneumonia, unspecified organism; N17.9 Acute kidney failure, unspecified; C79.72 Secondary malignant neoplasm of left adrenal gland; C34.90 Malignant neoplasm of unspecified part of unspecified bronchus or lung; D84.9 Immunodeficiency, unspecified; D63.0 Anemia in neoplastic disease; K80.20 Calculus of gallbladder without cholecystitis without obstruction; Z92.3 Personal history of irradiation; Z79.52 Long term (current) use of systemic steroids
CPT/HCPCS: 36415; 71045; 71275; 74177; 76705; 80053; 80202; 81001; 81003; 82728; 83540; 83550; 83605; 83690; 83735; 84100; 84145; 85025; 85045; 85378; 85610; 85730; 86140; 86403; 87040; 87086; 87804; 96365; 96367; 96372; 99285; C9113; G0378; J0692; J1650; J2270; J2405; J2543; J2765; J3370; J3490; J7030; J7050; J7512; Q9967

== ENCOUNTER 2021-09-14 14:04 | Outpatient (CLI) | payer BC, SELFPAY ==
[2021-09-14 14:46] LABS: Anion Gap 19.1 (5-19); Blood Urea Nitrogen 26 mg/dL (6-20); Calcium 8.3 mg/dL (8.5-10.5); Carbon Dioxide 21 mmol/L (22-29); Chloride 98 mmol/L (98-107); Glucose 142 mg/dL (65-115); Magnesium 2.3 mg/dL (1.7-2.3); Osmolality Calculated 283 mOsm/kg (285-295); Phosphorus 2.7 mg/dL (2.5-4.5); Potassium 5.1 mmol/L (3.5-5.1); Sodium 133 mmol/L (136-145)
[2021-09-14 17:47] LABS: Alanine Aminotransferase 52 U/L (0-33); Albumin Level 3.1 g/dL (3.5-5.2); Alkaline Phosphatase 183 IU/L (35-105); Aspartate Amino Transferase 48 U/L (0-32); Total Bilirubin 0.2 mg/dL (0.15-1.2); Total Protein 6.1 g/dL (6.6-8.7)
== END 2021-09-14 14:05 | disposition home or self-care (01) ==
PROVIDERS: PCP Family Medicine; Visit Provider Surgery
DX: K29.70 Gastritis, unspecified, without bleeding (principal)
CPT/HCPCS: 80053; 83735; 84100

== ENCOUNTER 2021-09-21 14:01 | Outpatient (CLI) | payer BC, SELFPAY ==
[2021-09-21 14:25] LABS: Basophils # 0.1 10^3/uL (0.0-0.1); Basophils % 0.5 %; Hematocrit 28.8 % (37.0-47.0); Lymphocytes # 0.6 10^3/uL (0.8-4.8); Lymphocytes % 2.6 %; Mean Corpuscular HGB Conc 31.3 g/dL (30.0-36.0); Mean Corpuscular Hemoglobin 30.4 pg (28.0-34.0); Mean Corpuscular Volume 97.3 fl (81-99); Mean Platelet Volume 10.7 fL (7.4-10.4); Monocytes # 1.5 10^3/uL (0.2-0.9); Monocytes % 6.9 %; Neutrophils # 19.18 10^3/uL (1.8-7.7); Neutrophils % 87.6 %; Nucleated Red Blood Cells % 0.1 %; Platelet Count 737 10^3/cmm (130-400); Red Blood Count 2.96 10^6/uL (4.1-5.3); Red Cell Distribution Width 18.8 % (12.1-15.1); White Blood Count 21.9 10^3/uL (4.0-10.0)
[2021-09-21 14:42] LABS: Alanine Aminotransferase 86 U/L (0-33); Albumin Level 2.7 g/dL (3.5-5.2); Alkaline Phosphatase 299 IU/L (35-105); Anion Gap 19.3 (5-19); Aspartate Amino Transferase 40 U/L (0-32); Blood Urea Nitrogen 29 mg/dL (6-20); Calcium 8.3 mg/dL (8.5-10.5); Carbon Dioxide 24 mmol/L (22-29); Chloride 94 mmol/L (98-107); Glomerular Filtration Rate 66.8 mL/min (90-130); Glucose 145 mg/dL (65-115); Magnesium 2.2 mg/dL (1.7-2.3); Osmolality Calculated 284 mOsm/kg (285-295); Phosphorus 3.2 mg/dL (2.5-4.5); Potassium 4.3 mmol/L (3.5-5.1); Sodium 133 mmol/L (136-145); Total Bilirubin 0.2 mg/dL (0.15-1.2); Total Protein 5.7 g/dL (6.6-8.7); Triglycerides 161 mg/dL (0-150)
== END 2021-09-21 14:02 | disposition home or self-care (01) ==
LOC: LAB 14:06
PROVIDERS: PCP Family Medicine; Visit Provider Surgery
DX: N39.0 Urinary tract infection, site not specified (principal); C34.10 Malignant neoplasm of upper lobe, unspecified bronchus or lung; Z79.899 Other long term (current) drug therapy
CPT/HCPCS: 80053; 83735; 84100; 84478; 85025

== ENCOUNTER 2021-09-24 06:00 | Outpatient (CLI) | payer BC, SELFPAY ==
[2021-09-24 16:26] LABS: Anion Gap 16.5 (5-19); Blood Urea Nitrogen 23 mg/dL (6-20); Calcium 8.7 mg/dL (8.5-10.5); Carbon Dioxide 26 mmol/L (22-29); Chloride 98 mmol/L (98-107); Glomerular Filtration Rate 66.8 mL/min (90-130); Glucose 183 mg/dL (65-115); Osmolality Calculated 290 mOsm/kg (285-295); Phosphorus 3.6 mg/dL (2.5-4.5); Potassium 4.5 mmol/L (3.5-5.1); Sodium 136 mmol/L (136-145)
== END 2021-09-24 06:01 | disposition home or self-care (01) ==
PROVIDERS: PCP Family Medicine; Visit Provider Surgery
DX: K29.70 Gastritis, unspecified, without bleeding (principal)
CPT/HCPCS: 80048; 83735; 84100

== ENCOUNTER 2021-09-28 15:18 | Outpatient (CLI) | payer BC, SELFPAY ==
[2021-09-28 15:49] LABS: Anion Gap 18.5 (5-19); Blood Urea Nitrogen 22 mg/dL (6-20); Calcium 8.1 mg/dL (8.5-10.5); Carbon Dioxide 24 mmol/L (22-29); Chloride 93 mmol/L (98-107); Glomerular Filtration Rate 40.1 mL/min (90-130); Glucose 158 mg/dL (65-115); Magnesium 2.1 mg/dL (1.7-2.3); Osmolality Calculated 279 mOsm/kg (285-295); Phosphorus 3.2 mg/dL (2.5-4.5); Potassium 4.5 mmol/L (3.5-5.1); Sodium 131 mmol/L (136-145)
== END 2021-09-28 15:19 | disposition home or self-care (01) ==
PROVIDERS: PCP Family Medicine; Visit Provider Surgery
DX: Z01.89 Encounter for other specified special examinations (principal)
CPT/HCPCS: 80048; 83735; 84100

== ENCOUNTER 2021-10-01 15:26 | Outpatient (CLI) | payer BC, SELFPAY ==
[2021-10-01 16:03] LABS: Hematocrit 28.2 % (37.0-47.0); Hemoglobin 8.7 g/dL (11.5-15.3); Mean Corpuscular HGB Conc 30.9 g/dL (30.0-36.0); Mean Corpuscular Hemoglobin 29.6 pg (28.0-34.0); Mean Corpuscular Volume 95.9 fl (81-99); Mean Platelet Volume 10.4 fL (7.4-10.4); Platelet Count 906 10^3/cmm (130-400); Red Blood Count 2.94 10^6/uL (4.1-5.3)
[2021-10-01 16:37] LABS: Alanine Aminotransferase 28 U/L (0-33); Albumin Level 2.9 g/dL (3.5-5.2); Alkaline Phosphatase 193 IU/L (35-105); Anion Gap 17.3 (5-19); Aspartate Amino Transferase 24 U/L (0-32); Blood Urea Nitrogen 21 mg/dL (6-20); Calcium 8.3 mg/dL (8.5-10.5); Carbon Dioxide 24 mmol/L (22-29); Chloride 93 mmol/L (98-107); Globulin 2.7 g/dL (1.3-4.6); Glomerular Filtration Rate 37.1 mL/min (90-130); Glucose 170 mg/dL (65-115); Magnesium 2.1 mg/dL (1.7-2.3); Osmolality Calculated 275 mOsm/kg (285-295); Phosphorus 3.4 mg/dL (2.5-4.5); Potassium 5.3 mmol/L (3.5-5.1); Sodium 129 mmol/L (136-145); Total Bilirubin 0.2 mg/dL (0.15-1.2); Total Protein 5.6 g/dL (6.6-8.7)
[2021-10-01 16:49] LABS: White Blood Count 30.9 10^3/uL (4.0-10.0)
[2021-10-01 18:23] LABS: Absolute Neutrophil 27.5 10^3/cmm (1.4-6.5); Absolute Segmented Neutrophil 26.3 10/cmm (1.6-7.1); Band Neutrophils Absolute 1.2 10^3/cmm (0.0-1.2); Eosinophils 0 %; Lymphocytes 2 %; Lymphocytes Absolute 0.6 10^3/cmm (1.2-3.4); Monocytes Absolute 2.8 10^3/cmm (0.1-0.6); Platelet Estimate Increased (Normal); Segmented Neutrophils 85 %; Total Cells Counted 100 (0-100)
== END 2021-10-01 15:27 | disposition home or self-care (01) ==
LOC: LAB 15:30
PROVIDERS: PCP Family Medicine; Visit Provider Surgery
DX: K29.70 Gastritis, unspecified, without bleeding (principal)
CPT/HCPCS: 80053; 83735; 84100; 85007; 85027

== ENCOUNTER 2021-10-05 14:36 | Outpatient (CLI) | payer BC, SELFPAY ==
[2021-10-05 14:58] LABS: Basophils # 0.2 10^3/uL (0.0-0.1); Basophils % 0.5 %; Hematocrit 32.6 % (37.0-47.0); Hemoglobin 10.3 g/dL (11.5-15.3); Lymphocytes # 0.7 10^3/uL (0.8-4.8); Lymphocytes % 2.3 %; Mean Corpuscular HGB Conc 31.6 g/dL (30.0-36.0); Mean Corpuscular Hemoglobin 29.9 pg (28.0-34.0); Mean Corpuscular Volume 94.8 fl (81-99); Mean Platelet Volume 9.8 fL (7.4-10.4); Monocytes # 1.6 10^3/uL (0.2-0.9); Monocytes % 5.4 %; Neutrophils # 27.44 10^3/uL (1.8-7.7); Neutrophils % 89.8 %; Nucleated Red Blood Cells % 0 %; Platelet Count 1089 10^3/cmm (130-400); Red Blood Count 3.44 10^6/uL (4.1-5.3); Red Cell Distribution Width 17.3 % (12.1-15.1)
[2021-10-05 15:07] LABS: White Blood Count 30.5 10^3/uL (4.0-10.0)
[2021-10-05 15:20] LABS: Alanine Aminotransferase 29 U/L (0-33); Albumin Level 3.6 g/dL (3.5-5.2); Alkaline Phosphatase 163 IU/L (35-105); Anion Gap 20.9 (5-19); Aspartate Amino Transferase 20 U/L (0-32); Blood Urea Nitrogen 15 mg/dL (6-20); Calcium 10.1 mg/dL (8.5-10.5); Carbon Dioxide 21 mmol/L (22-29); Chloride 94 mmol/L (98-107); Globulin 3.4 g/dL (1.3-4.6); Glomerular Filtration Rate 37.1 mL/min (90-130); Glucose 133 mg/dL (65-115); Magnesium 1.9 mg/dL (1.7-2.3); Osmolality Calculated 275 mOsm/kg (285-295); Phosphorus 3.7 mg/dL (2.5-4.5); Potassium 4.9 mmol/L (3.5-5.1); Sodium 131 mmol/L (136-145); Total Bilirubin 0.2 mg/dL (0.15-1.2)
== END 2021-10-05 14:37 | disposition home or self-care (01) ==
LOC: LAB 14:41
PROVIDERS: PCP Family Medicine; Visit Provider Surgery
DX: K29.70 Gastritis, unspecified, without bleeding (principal)
CPT/HCPCS: 80053; 83735; 84100; 85025

== ENCOUNTER 2021-10-07 14:28 | Outpatient (CLI) | payer BC, SELFPAY ==
[2021-10-07] MEDS: sodium chloride 0.9% 1,000 ML 999 ML IV (14:58)
== END 2021-10-07 14:29 | disposition home or self-care (01) ==
LOC: ONCMED 14:30
PROVIDERS: PCP Family Medicine; Visit Provider Internal Medicine Medical Oncology
DX: C34.12 Malignant neoplasm of upper lobe, left bronchus or lung (principal); C77.8 Secondary and unspecified malignant neoplasm of lymph nodes of multiple regions; K21.9 Gastro-esophageal reflux disease without esophagitis; D50.9 Iron deficiency anemia, unspecified; Z79.899 Other long term (current) drug therapy
CPT/HCPCS: 96360; J7030

== ENCOUNTER 2021-11-23 17:22 | Inpatient (IN) | payer BC, SELFPAY ==
[2021-11-23] VITALS (7 sets, daily range): BP systolic 113–142; BP diastolic 83–99; PULSE 71–88; RESP 16–18; TEMP 36.4–36.5; O2SAT 94–98; BMI 36.0; BMI 36.8
--- NOTE | 2021-11-23 19:13 | ED_ITS ---
HPI - General Adult General: Chief complaint: General Medical Stated complaint: Tired\Fatigue\Lung Cancer Time Seen by Provider: 11/23/21 18:48 History of Present Illness: She is a 46-year-old female with a history of metastatic lung cancer, adrenal lesion, hypothyroidism recurrently anemia who presents the emergency room for fatigue. Patient recently under went surgery at [facility] for removal of metastatic lesions to the abdomen. Patient is currently on p.o. chemotherapy daily. Last week, patient received 2 units of blood. Patient feels tired and thinks that she may require blood. Patient reports denies shortness breath, palpitation, lightheadedness, chest pain, nausea/vomiting, dental complaints, fever/chills. It is unknown what the cause of patient's anemia is in the past. Patient denies any melena/hematochezia or any recent anticoagulation use. She was discharged from [facility] on Monday 11/20 and was doing well up until Tuesday and b elizabeth having symptoms of fatigue and generalized weakness. Onset: 2 day ago Duration:2 day Location:home Severity:moderate Associated symptoms: Deny chest pain, dyspnea, nausea, rash, palpitations or vomiting Review of Systems Const: Reports: fatigue; Denies: fever(s) or chills Eyes: Denies: change in vision ENMT: Denies: mouth pain Card: Denies: chest pain or palpitations Resp: Denies: dyspnea or non-productive cough GI: Denies: abdominal pain, nausea, vomiting or diarrhea : Denies: dysuria Musc: Denies: extremity pain Skin/Breast: Denies: rash or new lesions Neuro: Denies: weakness in extremities Psych: Reports: other (Normal mood) Barak/Lymph: Denies: easy bruising PFS ED PFSH: Medical History Acute kidney injury Acute on chronic anemia Cancer Leukocytosis Metastatic lung cancer (metastasis from lung to other site) Sepsis Female Reproductive History: Date of last menstrual period: 12/12/19 Physical Exam Const: COMMON NORMALS: alert HENMT: COMMON NORMALS: atraumatic HEAD & SCALP: atraumatic MOUTH: moist mucous membranes not abnormal Eye: COMMON NORMALS: EOMs intact bilaterally OTHER: pale conjunctiva Neck/C-Spine: COMMON NORMALS: full ROM and supple Resp: COMMON NORMALS: normal respiratory effort and clear to auscultation bilaterally AUSCULTATION: clear to auscultation bilaterally Cardio: COMMON NORMALS: regular rate RATE: regular rate GI: COMMON NORMALS: Soft to palpation and non-tender PALPATION: Yes Soft to palpation Extremity: COMMON NORMALS: full ROM Neuro: SENSORIUM/ORIENTATION: Yes alert MOTOR EXAM: No Abnormal motor strength present and Other motor observations present (no focal motor deficits) Psych: COMMON NORMALS: speech normal SPEECH: Yes normal speech MOOD & AFFECT: Yes euthymic mood Course Vital Signs: Vital signs: Vital Signs Temperature 97.7 F 11/23/21 17:42 Pulse Rate 86 11/23/21 21:10 Respiratory Rate 18 11/23/21 21:10 Blood Pressure 142/99 11/23/21 21:10 Pulse Oximetry 94 11/23/21 21:10 MDM - General Adult Medical Decision Making 38-year-old female with history of metastatic lung cancer into the p.o. chemotherapy, recurrent anemia, recent abdominal surgery for metastatic lesions presenting to the emergency room with complaints of fatigue x2 days. On exam, patient is afebrile, has pale conjunctive a. Rest of exam within normal limit. Patient is not anemic today. Hemoglobin 9.6. She has baseline white count of 28.6. X-ray chest is negative for any acute findings. Patient is noted to have a troponin 133. Creatinine within normal limit. Unclear what is the source of the elevated troponin. EKG is nonischemic and patient does not have any chest pain currently. Given the fact the patient had recent surgery, no longer on Lovenox, and has leg swelling, decision was made to order CTA for evaluation for PE. Given patient's history of prior GI bleeding, I have performed a shared decision with Dr. Clinton who recommended trending the troponin the present time. S/p ASA for elevated troponin. Patient has pulmonary embolism on the right side. At the present time, it is unclear with the patient having troponin elevation secondary to the PE or the patient has both phenomena occurring concurrently. No signs of right heart strain on CTA. Patient was previously on Lovenox. Per family, there is concern the patient may have had prior GI bleeding and that was the reason why Lovenox was discontinued. I have discussed this concern extensively with Dr. Bernabe who tells me that he will assess the patient and discussed with family and patient's other providers before making the decision to anticoagulate. Patient received vancomycin, ceftriaxone and azithromycin for empiric coverage in consultation with Dr. Bernabe Disposition: admission Lab Data : 11/23/21 19:20 11/23/21 19:20 Radiology Impressions Chest X-Ray 11/23/21 19:31 IMPRESSION: Tumor versus pneumonia consolidation. Correlate clinically since no useful clinical history was given at the time of this dictation. Chest CTA 11/23/21 20:24 IMPRESSION: Pulmonary emboli throughout the right lung without evidence of right heart strain. Mass in the left mid lung with probable postobstructive pneumonia or atelectasis in the lower lung. Surgical changes in the left upper abdomen. Correlate clinically. ADDENDUM: 11/23/21 2238 THIS REPORT CONTAINS FINDINGS THAT MAY BE CRITICAL TO PATIENT CARE. The findings were verbally communicated via telephone conference at 10:32 PM CDT on 11/23/[address] Mayes. The findings were acknowledged and understood. Laboratory Results WBC 28.6 10^3/uL (4.0-10.0) H 11/23/21 19:20 RBC 3.22 10^6/uL (4.1-5.3) L 11/23/21 19:20 Hgb 9.6 g/dL (11.5-15.3) L 11/23/21 19:20 Hct 30.9 % (37.0-47.0) L 11/23/21 19:20 MCV 96.0 fl (81-99) 11/23/21 19:20 MCH 29.8 pg (28.0-34.0) 11/23/21 19:20 MCHC 31.1 g/dL (30.0-36.0) 11/23/21 19:20 RDW 20.9 % (12.1-15.1) H 11/23/21 19:20 Plt Count 317 10^3/cmm (130-400) 11/23/21 19:20 MPV 11.8 fL (7.4-10.4) H 11/23/21 19:20 Neut % (Auto) 92.1 % 11/23/21 19:20 Lymph % (Auto) 1.3 % 11/23/21 19:20 [facility] % (Auto) 3.6 % 11/23/21 19:20 Eos % (Auto) 0.0 % 11/23/21 19:20 Baso % (Auto) 0.2 % 11/23/21 19:20 Neut # (Auto) 26.28 10^3/uL (1.8-7.7) H 11/23/21 19:20 Lymph # (Auto) 0.4 10^3/uL (0.8-4.8) L 11/23/21 19:20 [place] # (Auto) 1.0 10^3/uL (0.2-0.9) H 11/23/21 19:20 Eos # (Auto) 0.0 10^3/uL (0.0-0.8) 11/23/21 19:20 Baso # (Auto) 0.1 10^3/uL (0.0-0.1) 11/23/21 19:20 Nucleated RBC % (auto) 0 % 11/23/21 19: Nucleated RBCs # 0.0 /100WBC 11/23/21 19:20 Sodium 132 mmol/L (136-145) L 11/23/21 19:20 Potassium 4.3 mmol/L (3.5-5.1) 11/23/21 19:20 Chloride 92 mmol/L (98-107) L 11/23/21 19:20 Carbon Dioxide 31 mmol/L (22-29) H 11/23/21 19:20 Anion Gap 13.3 (5-19) 11/23/21 19:20 BUN 24 mg/dL (6-20) H 11/23/21 19:20 Creatinine 0.9 mg/dL (0.5-0.9) 11/23/21 19:20 GFR Calculation 66.8 mL/min (90-130) L 11/23/21 19:20 Glucose 143 mg/dL (65-115) H 11/23/21 19:20 Calculated Osmolality 281 mOsm/kg (285-295) L 11/23/21 19:20 Calcium 8.9 mg/dL (8.5-10.5) 11/23/21 19:20 Troponin T Baseline 133 ng/L (0-10) H* 11/23/21 19:20 TSH 30.46 uIU/mL (0.27-4.20) H 11/23/21 19:20 Free T4 0.61 ng/dL (0.82-1.77) L 11/23/21 19:20 Nasal Influ A H1 2009 PCR Not detected (NOT DETECT) 11/23/21 19:45 Coronavirus 229E (PCR) Not detected (NOT DETECT) 11/23/21 19:45 Influenza A (H1) PCR Not detected (NOT DETECT) 11/23/21 19:45 Influenza A (H3) PCR Not detected (NOT DETECT) 11/23/21 19:45 Influenza Type A (PCR) Not detected (NOT DETECT) 11/23/21 19:45 Influenza Type B (PCR) Not detected (NOT DETECT) 11/23/21 19:45 SARS-CoV-2 (PCR) Not detected (NOT DETECT) 11/23/21 19:45 Discharge Plan Discharge Patient Disposition: Admitted As Inpatient Admit Provider: Fly Clinton Clinical Impression: Elevated troponin, Hypothyroidism, Fatigue, Pulmonary embolism Condition: Stable Coding Level of Care Code ED Machine Captain for Chg Fwd Exam Comprehensive
[2021-11-23 19:27] LABS: Basophils # 0.1 10^3/uL (0.0-0.1); Basophils % 0.2 %; Hematocrit 30.9 % (37.0-47.0); Hemoglobin 9.6 g/dL (11.5-15.3); Lymphocytes # 0.4 10^3/uL (0.8-4.8); Lymphocytes % 1.3 %; Mean Corpuscular HGB Conc 31.1 g/dL (30.0-36.0); Mean Corpuscular Hemoglobin 29.8 pg (28.0-34.0); Mean Platelet Volume 11.8 fL (7.4-10.4); Monocytes % 3.6 %; Neutrophils # 26.28 10^3/uL (1.8-7.7); Neutrophils % 92.1 %; Nucleated Red Blood Cells % 0 %; Platelet Count 317 10^3/cmm (130-400); Red Blood Count 3.22 10^6/uL (4.1-5.3); Red Cell Distribution Width 20.9 % (12.1-15.1); White Blood Count 28.6 10^3/uL (4.0-10.0)
--- NOTE | 2021-11-23 19:31 | ECG_ITS ---
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 Measurements Intervals [place] Rate: 83 P: 7 CA: 122 QRS: 14 QRSD: 87 T: 64 QT: 362 QTc: 427 Interpretive Statements SINUS RHYTHM No previous ECG available for comparison Electronically Signed On 11-23-2021 20:58:25 CDT by Lorne Lay M.D. [id number]
--- NOTE | 2021-11-23 19:31 | XRR_ITS ---
PROCEDURE INFORMATION: Exam: XR Chest Exam date and time: 11/23/2021 7:31 PM Age: 46 years old Clinical indication: Other: Fatigue TECHNIQUE: Imaging protocol: XR of the chest. Views: 1 view. COMPARISON: CR XR chest 1V portable [id number] 06/05/2021 5:41 PM FINDINGS: Tubes, catheters and devices: There is a MediPort in place with its tip in the SVC/right atrial junction. Lungs: There is consolidation throughout the left lower lung consistent with pneumonia or tumor. The right lung is clear. Pleural spaces: There is a probable moderate left pleural effusion. Heart/Mediastinum: Unremarkable. No cardiomegaly. Bones/joints: Unremarkable. XR/XR chest 1V portable [id number] IMPRESSION: Tumor versus pneumonia consolidation. Correlate clinically since no useful clinical history was given at the time of this dictation.
[2021-11-23 19:59] LABS: Anion Gap 13.3 (5-19); Blood Urea Nitrogen 24 mg/dL (6-20); Calcium 8.9 mg/dL (8.5-10.5); Carbon Dioxide 31 mmol/L (22-29); Chloride 92 mmol/L (98-107); Glomerular Filtration Rate 66.8 mL/min (90-130); Glucose 143 mg/dL (65-115); Osmolality Calculated 281 mOsm/kg (285-295); Potassium 4.3 mmol/L (3.5-5.1); Sodium 132 mmol/L (136-145); Thyroid Stimulating Hormone 30.46 uIU/mL (0.27-4.20)
[2021-11-23 20:16] LABS: Troponin(5th) Baseline 133 ng/L (0-10)
--- NOTE | 2021-11-23 20:24 | CTR_ITS ---
PROCEDURE INFORMATION: Exam: CTA Chest With Contrast Exam date and time: 11/23/2021 8:24 PM Age: 46 years old Clinical indication: Shortness of breath; Additional info: Eval for pe TECHNIQUE: Imaging protocol: Computed tomographic angiography of the chest with contrast. 3D rendering (Not supervised by radiologist): MIP and/or 3D reconstructed images were created by the technologist. Radiation optimization: All CT scans at this facility use at least one of these dose optimization techniques: automated exposure control; mA and/or kV adjustment per patient size (includes targeted exams where dose is matched to clinical indication); or iterative reconstruction. Contrast material: OMNIPAQUE 350; Contrast volume: 75 ml; Contrast route: INTRAVENOUS (IV); COMPARISON: CT angio chest w abd pel w con 06/06/2021 12:23 AM RADIATION DOSE METRICS: Total DLP (mGy-cm): 497.02 FINDINGS: Tubes, catheters and devices: There is surgical mesh in the upper abdomen air and fluid in the left upper quadrant. Pulmonary arteries: There are filling defects in the pulmonary arteries throughout the right lung consistent with pulmonary emboli. Aorta: Unremarkable. No aortic aneurysm. No aortic dissection. Lungs: There is consolidation in the left mid lung and hilar region consistent with tumor seen on the previous exam. There is also confluent consolidation throughout the lung base. Pleural spaces: Unremarkable. No pneumothorax. No pleural effusion. Heart: The heart is at the upper limit of normal. The RV/LV ratio is 0.7. Lymph nodes: Unremarkable. No enlarged lymph nodes. Liver: There is a low-attenuation mass in the dome of the liver which measures 5.2 cm consistent with a probable metastasis. Bones/joints: Unremarkable. No acute fracture. Soft tissues: Unremarkable. CT/CT angio chest PE protcl [id number] IMPRESSION: Pulmonary emboli throughout the right lung without evidence of right heart strain. Mass in the left mid lung with probable postobstructive pneumonia or atelectasis in the lower lung. Surgical changes in the left upper abdomen. Correlate clinically.
[2021-11-23 20:40] LABS: Free T4 Free Thyroxine 0.61 ng/dL (0.82-1.77)
[2021-11-23] MEDS: cefTRIAXone 1,000 MG in sodium chloride 0.9% (plus) 50 ML 100 MG IV (20:40)
[2021-11-23 20:44] LABS: Add Urine Microscopic? NO; Charge for UA Resulting for Rev
[2021-11-23 20:47] LABS: Bilirubin Urine Neg (Negative); Blood Urine Neg (Negative); Glucose Urine UA Norm (Normal); Ketones Urine Negative (Negative); Leukocyte Esterase Urine Negative (Negative); Nitrate Urine Negative (Negative); Protein Urine Neg (Negative); Specific Gravity, Urine 1.015 (1.005-1.030); Sulfosalicylic Acid Urine Negative (Negative); Urine Appearance Clear (CLEAR); Urine Color Yellow (Yellow); Urobilinogen Urine Norm (Negative); pH Urine 9 (5-7)
[2021-11-23] MEDS: azithromycin 500 MG in sodium chloride 0.9% 250 ML 250 MG IV (20:53)
[2021-11-23] MEDS: aspirin 325 mg Tablet PO (21:23)
--- NOTE | 2021-11-23 21:31 | ECG_ITS ---
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 Measurements Intervals [place] Rate: 72 P: -5 MO: 126 QRS: 9 QRSD: 85 T: 57 QT: 386 QTc: 422 Interpretive Statements SINUS RHYTHM Compared to ECG 11/23/2021 20:05:43 No significant changes Electronically Signed On 11-25-2021 20:29:24 CDT by Lorne Lay M.D. [email or web address]
[2021-11-23 21:43] LABS: Adenovirus Not Detected (NOT DETECT); Chlamydia Pneumoniae Not Detected (NOT DETECT); Coronavirus 229E,HKU1,NL63,OC4 Not Detected (NOT DETECT); Human Metapneumovirus Not Detected (NOT DETECT); Human Rhinovirus/Enterovirus Not Detected (NOT DETECT); Influenza A Not Detected (NOT DETECT); Influenza A H1 Not Detected (NOT DETECT); Influenza A H1-2009 Not Detected (NOT DETECT); Influenza A H3 Not Detected (NOT DETECT); Influenza B Not Detected (NOT DETECT); Mycoplasma Pneumoniae Not Detected (NOT DETECT); Parainfluenza Virus Type 1 Not Detected (NOT DETECT); Parainfluenza Virus Type 2 Not Detected (NOT DETECT); Parainfluenza Virus Type 3 Not Detected (NOT DETECT); Parainfluenza Virus Type 4 Not Detected (NOT DETECT); Respiratory Syncytial Virus A Not Detected (NOT DETECT); Respiratory Syncytial Virus B Not Detected (NOT DETECT); SARS-COV-2 Not Detected (NOT DETECT)
[2021-11-23] MEDS: iohexol 350 mg/mL 100 mL Btl IV (22:02)
[2021-11-23 22:08] LABS: Influenza A Not Detected (NOT DETECT); Influenza A H1 Not Detected (NOT DETECT); Influenza A H1-2009 Not Detected (NOT DETECT); Influenza A H3 Not Detected (NOT DETECT); Influenza B Not Detected (NOT DETECT); Results from Genmark
[2021-11-23] MEDS: vancomycin 1,000 MG in sodium chloride 0.9% 250 ML 250 MG IV (22:22)
--- NOTE | 2021-11-23 23:12 | P.HP_ITS ---
Providers/Chief Complaint Admitting Physician: Fly Clinton Primary Care Provider: Vinh Barry MD Chief Complaint: Tired\Fatigue\Lung Cancer History of Present Illness Very pleasant 46-year-old lady is accompanied by her in ER for assessment of fatigue, mildly productive cough. She has history of metastatic lung cancer, in August underwent palliative debulking surgery with removal of intra-abdominal metastatic disease and adhesions including also adrenalectomy and nephrectomy, splenectomy and partial pancreatectomy, with prior history of DVT, and is not sure about PE, previously anticoagulation, but after hospitalization a week ago and [facility] anticoagulation was stopped due to at the time acute on chronic anemia requiring 2 units PRBC transfusion. The source of anemia was not exactly identified as per her and family, although her anticoagulation was stopped due to concerns of high risk of bleeding due to they think gastric tumor invasion. She reports that she has had a contrast CT scan during that admission. Here she is on 2 L nasal cannula oxygen, which she notes started recently, noted to have leukocytosis, which is chronic, but currently possibly higher than usual, 28.6. She is afebrile. Hemoglobin is 9.6. Platelets 317. Baseline troponin is noted elevated at 133. Other chemistry labs include sodium 132, chloride 92, CO2 31, BUN 24, creatinine 0.9. Also noted TSH 30.46, free T4 0.61. UA unremarkable. COVID-19 and influenza PCR both negative. Chest x-ray was performed in ER, this was followed subsequently by CT angiogram of the chest as well with noted pulmonary emboli throughout the right lung wi thout evidence of right heart strain on static imaging. Noted mass in the left lung with probable postobstructive pneumonia or atelectasis in the lower lung. Surgical changes in the left upper abdomen. In terms of CODE STATUS, her and her have not discussed this in detail. She would not want chest compressions or intubation or mechanical ventilation in case of cardiopulmonary arrest. If rhythm was shockable she would be okay receiving shock, or if needing a pacemaker she would be okay with that as well. Review of Systems Const: Reports: fatigue; Denies: fever(s), chills or body aches Eyes: Denies: change in vision or eye redness ENMT: Denies: throat pain, oral sores or ear or mastoid pain Card: Reports: edema (BL LE); Denies: chest pain, pre-syncope or dyspnea on exertion Resp: Reports: productive cough; Denies: dyspnea, change in phlegm color or hemoptysis GI: Denies: abdominal pain, nausea, vomiting, diarrhea, constipation, hematochezia or melena : Denies: flank pain, urinary frequency or hematuria Musc: Denies: back pain, joint swelling or joint redness Skin/Breast: Denies: rash, sores or new lesions Neuro: Denies: headache(s), numbness in extremities, weakness in extremities, dizziness, confusion or seizure-like activity Endo: Denies: polyuria or polydipsia Barak/Lymph: Denies: easy bleeding or purpura All/Imm: Denies: urticaria, throat swelling or tongue swelling Medications/Allergies Home Medications Medication Instructions Recorded Confirmed Last Taken Type benzonatate 200 mg capsule 200 mg PO Q8H PRN 02/16/21 11/23/21 11/23/21 History citalopram 20 mg tablet 20 mg PO BEDTIME 02/16/21 11/23/21 06/04/21 22:00 History levothyroxine 125 mcg tablet 125 mcg PO QAM 02/16/21 11/23/21 11/23/21 History omeprazole 20 mg capsule,delayed 20 mg PO DAILY@16 02/16/21 11/23/21 11/23/21 History release acetaminophen 500 mg tablet 500 mg PO TID PRN 11/23/21 11/23/21 11/23/21 History afatinib 20 mg tablet 20 mg PO DAILY 11/23/21 11/23/21 11/22/21 History calcium carbonate 500 mg calcium 1,000 mg PO BID 11/23/21 11/23/21 11/23/21 His tory (1,250 mg) chewable tablet cyclobenzaprine 5 mg tablet 5 mg PO TID PRN 11/23/21 11/23/21 Unknown History furosemide 40 mg tablet 40 mg PO DAILY 11/23/21 11/23/21 11/23/21 History gabapentin 300 mg capsule 300 mg PO BID 11/23/21 11/23/21 11/23/21 History multivitamin 1 tab PO DAILY 11/23/21 11/23/21 11/23/21 History oxycodone 5 mg tablet 5 mg PO BID PRN 11/23/21 11/23/21 Unknown History prednisone 5 mg tablet 5 mg PO TID 11/23/21 11/23/21 11/23/21 History Allergies Allergy/AdvReac Type Severity Reaction Status Date / Time levofloxacin [From Levaquin] Allergy Unknown Verified 11/23/21 21:35 pain pills Allergy ADR-Nausea Uncoded 06/05/21 17:22 PFSH Acute PFSH: Medical History (Updated 11/23/21 @ 23:24 by Fly Clinton MD) Acute kidney injury Acute on chronic anemia Cancer GERD (gastroesophageal reflux disease) Leukocytosis Metastatic lung cancer (metastasis from lung to other site) Sepsis Surgical History (Updated 11/23/21 @ 23:22 by Fly Clinton MD) H/O partial adrenalectomy H/O splenectomy History of nephrectomy History of partial pancreatectomy Port-A-Cath in place Social History (Updated 11/23/21 @ 23:23 by Fly Clinton MD) Smoking and tobacco status: never smoked Lives independently: Yes Household members: spouse Marital status: Female Reproductive History: Date of last menstrual period: 12/12/19 Vitals/I&O/Wt Last Vital Signs Temp 97.7 F 11/23/21 17:42 Pulse 86 11/23/21 21:10 Resp 18 11/23/21 21:10 BP 142/99 11/23/21 21:10 Pulse Ox 94 11/23/21 21:10 11/23/21 11/23/21 11/24/21 14:59 22:59 06:59 Intake Total 0 / 0 Balance 0 / 0 Weight last 48 hrs Weight 106.594 kg Weight 104.326 kg Physical Exam Narrative: at bedside Const: COMMON NORMALS: no acute distress and patient oriented x3 OTHER: Generally weak HENMT: COMMON NORMALS: oropharynx normal Neck/C-Spine: COMMON NORMALS: no JVD Chest: OTHER: Left chest port Resp: COMMON NORMALS: normal respiratory effort and clear to auscultation bilaterally AUSCULTATION: diminished lung sounds on the left Cardio: COMMON NORMALS: no JVD, regular rhythm, S1 normal heart sound present, S2 normal heart sound present and No murmurs present (Cardio) RHYTHM: regular rhythm HEART SOUNDS: S1 normal heart sound present and S2 normal heart sound present GI: COMMON NORMALS: Normal to inspection, nondistended, normoactive bowel sounds present, Soft to palpation and non-tender PALPATION: Yes Soft to palpation Extremity: COMMON NORMALS: no joint enlargement GENERAL: Yes edema (1+ pitting BL LE) Neuro: COMMON NORMALS: patient oriented x3 and moves all extremities Skin: COMMON NORMALS: no rashes or lesions noted GENERAL SKIN EXAM: no rashes or lesions noted Data : 11/23/21 19:20 11/23/21 19:20 A&P Assessment and plan (1) Pulmonary embolism: Right lung multiple PE. Discussed with her and her . They tell me she has had history of venous thrombotic disease before, and she had been on therapeutic dose Lovenox up until admission at [facility] last week when this was discontinued due to at that time having acute on chronic anemia requiring 2 units. BC transfusion and high concern for bleeding from metastatic invasion intra-abdominally, the seem to remember possibly invading through the stomach wall, but are not sure. At that time Lovenox was stopped. Discussed with him considerations including additional DVT and PE. We will assess by TTE and lower extremity duplex. We discussed potential options going forward with not starting anticoagulation, consideration of tomorrow obtaining consultation with cardiology for additional discussion of IVC filter to prevent further PE. They would like to proceed this route. Will also request records from [facility] to compare prior imaging to see if these same PEs were the ones under consideration by the [facility] team, although she and her states she had a CT scan and no PEs were discussed during this recent admission a week ago. They also seem to remember more DVT rather than PE in the past. Alternatively we discussed consideration of trial of heparin drip with monitoring of hemoglobin, however, given very recent need for 2 units of transfusion, and high concern of bleeding by [place] team enough to stop anticoagulation, they are at the moment deferring on this option. They certainly realized that she has quite advanced disease which recently has been progressive as well. Hospice care has not been discussed so far and she continues on palliative chemotherapy at this time. They understand that her prognosis overall is not good and she is at high risk of additional complications. They have not given significant consideration yet to her CODE STATUS, but on this discussion she would not want chest compressions, intubation or mechanical ventilation, she would be okay with receiving shock for shockable rhythm or pacing if needed. They will be discussing her CODE STATUS further, please revisit. Please reach out to her oncologist tomorrow for their opinion as well regarding PE in the setting of her metastatic cancer, risk of bleeding. Telemetry Hold Lasix for now. Monitor BP. After venous duplex obtained consider SCDs prophylaxis. Status: Acute (2) Postobstructive pneumonia: Discussed postobstructive pneumonia with them as well. She has previously had radiation therapy done. Certainly this would be consideration in postobstructive pneumonia but discussed with them it is unclear whether she would be candidate for additional radiation therapy given her prior radiation, as well as history of radiation pneumonitis. At this time continue to biotic coverage with cefepime, azithromycin, v ancomycin. Collect sputum cultures. MRSA PCR Please discuss with radiation oncology with radiation therapy would be an option and whether it would be an option here. They understand that in case of postobstructive pneumonia without radiation or if radiation is not an option it would be difficult to treat with antibiotics alone. COVID-19 and flu PCR negative. Oxygen support. Tessalon pearls, other supportive care. Status: Acute (3) Elevated troponin: Discussed with them troponin elevation, will follow up troponin series. She has no chest pain. Additionally assessed by TTE. Less likely type I LA, consideration more so to demand ischemia with PE, pneumonia. Lung cancer. Nonemergent stress testing may be something to discuss, although again in perspective of her overall condition. Status: Acute (4) Hypothyroidism: Hypothyroidism, increase levothyroxine dose to 137. Follow-up thyroid studies outpatient. Status: Acute (5) Fatigue: As under underlying conditions as above. Status: Acute Plan Reported past history of DVT Chronic leukocytosis: Currently appears higher than usual around 15-22. Suspect postobstructive pneumonia as above. GERD Metastatic lung cancer Attestations Medical Necessity Statement*: Admission of over 2 midnights is anticipated for assessment of management of PE, postobstructive pneumonia lady with metastatic lung cancer, elevated risk of bleeding. 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
--- NOTE | 2021-11-23 23:43 | P.DES_ITS ---
Discharge Providers DDS Date of Admission: 11/23/21 20:28 Date Summary Completed: 11/23/21 Attending Provider at Admission: Fly Clinton Attending Provider at Discharge: Fly Clinton Primary Care Provider: Vinh Barry MD DS Diagnoses Hospital Diagnoses (1) Pulmonary embolism: (2) Postobstructive pneumonia: (3) Elevated troponin: (4) Hypothyroidism: (5) Fatigue: Reason for Visit Reason for Visit Tired\Fatigue\Lung Cancer Summary Additional Data Advance directives?: No Discharge Plan Discharge Patient Disposition: Home Condition: Stable Prescriptions: No Action benzonatate 200 mg capsule 200 mg PO Q8H PRN (Reason: Cough) 0RF citalopram 20 mg tablet 20 mg PO BEDTIME 0RF levothyroxine 125 mcg tablet 125 mcg PO QAM 0RF omeprazole 20 mg Capsule,Delayed Release(Dr/Ec) 20 mg PO DAILY@16 0RF oxycodone 5 mg tablet 5 mg PO BID PRN (Reason: Pain) 0RF Multi-Daily Tablet 1 tab PO DAILY 0RF furosemide 40 mg Tablet 40 mg PO DAILY 0RF prednisone 5 mg Tablet 5 mg PO TID 0RF acetaminophen 500 mg Tablet 500 mg PO TID PRN (Reason: Pain) 0RF gabapentin 300 mg Capsule 300 mg PO BID 0RF Tums 500 500 mg calcium (1,250 mg) Tablet,Chewable 1,000 mg PO BID 0RF cyclobenzaprine 5 mg Tablet 5 mg PO TID PRN (Reason: Pain) 0RF afatinib 20 mg Tablet 20 mg PO DAILY 0RF Rx Instructions: must be taken on empty stomach; no food 1 hr after or 2-3 hrs before dose Referrals: Vinh Barry MD [Primary Care Provider] - Patient Instructions: Opioid Safety DS Attestations Quality - VTE: Deep Vein Thrombosis/Pulmonary Embolism Present on Admission: No Coding Level of Care Code 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
[2021-11-23] MEDS: oxyCODONE 5 mg IR Tab/Cap PO (23:47)
[2021-11-23] MEDS: citalopram 20 mg Tablet PO (23:47)
[2021-11-24] VITALS (15 sets, daily range): BP systolic 100–138; BP diastolic 63–85; PULSE 68–96; RESP 14–18; TEMP 36.3–36.8; O2SAT 94–98
[2021-11-24] MEDS: cefepime 1,000 MG in sodium chloride 0.9% (plus) 50 ML 100 MG IV ×2 (00:48→11:57)
[2021-11-24 01:23] LABS: Basophils # 0.1 10^3/uL (0.0-0.1); Basophils % 0.2 %; Hematocrit 28.8 % (37.0-47.0); Hemoglobin 8.9 g/dL (11.5-15.3); Lymphocytes # 0.4 10^3/uL (0.8-4.8); Lymphocytes % 1.7 %; Mean Corpuscular HGB Conc 30.9 g/dL (30.0-36.0); Mean Corpuscular Hemoglobin 29.9 pg (28.0-34.0); Mean Corpuscular Volume 96.6 fl (81-99); Mean Platelet Volume 11.9 fL (7.4-10.4); Monocytes # 0.7 10^3/uL (0.2-0.9); Monocytes % 2.8 %; Neutrophils # 23.36 10^3/uL (1.8-7.7); Neutrophils % 92.8 %; Nucleated Red Blood Cells % 0 %; Platelet Count 319 10^3/cmm (130-400); Red Blood Count 2.98 10^6/uL (4.1-5.3); White Blood Count 25.2 10^3/uL (4.0-10.0)
[2021-11-24 01:47] LABS: Alanine Aminotransferase 152 U/L (0-33); Albumin Level 2.6 g/dL (3.5-5.2); Alkaline Phosphatase 318 IU/L (35-105); Anion Gap 11.5 (5-19); Aspartate Amino Transferase 34 U/L (0-32); Blood Urea Nitrogen 23 mg/dL (6-20); Calcium 8.1 mg/dL (8.5-10.5); Carbon Dioxide 31 mmol/L (22-29); Chloride 94 mmol/L (98-107); Globulin 2.4 g/dL (1.3-4.6); Glomerular Filtration Rate 59.2 mL/min (90-130); Glucose 135 mg/dL (65-115); Osmolality Calculated 280 mOsm/kg (285-295); Potassium 4.5 mmol/L (3.5-5.1); Sodium 132 mmol/L (136-145); Total Bilirubin 0.3 mg/dL (0.15-1.2)
[2021-11-24 02:05] LABS: Troponin T (5th) Once 117 ng/L (0-10)
--- NOTE | 2021-11-24 02:28 | USCV_ITS ---
LE Venous Duplex BILATERAL Luz Elena Alvarez Age: 46 Gender: F : 1975 Exam Date: 11/24/2021 02:33 Ordering Phys: Fly Clinton MD Technologist: Dejon Thompson [place] [facility] [place]: PE HISTORY: Patient has history of. Pulmonary embolism. PROCEDURES: Venous duplex imaging was performed in bilateral lower extremities. The following venous structures were evaluated: common femoral vein, profunda vein, proximal portion of the greater saphenous vein, superficial femoral vein, and the popliteal vein. In addition, the posterior tibial and peroneal trunk were evaluated. Serial compression, augmentation maneuvers, and spectral Doppler flow evaluation were performed. CONCLUSIONS No evidence of right lower extremity DVT. No evidence of left lower extremity DVT. GSV bilaterally not well visualized due to edema Tyler Ceron MD (Electronically Signed) Final Date: 24 November 2021 09:42 S
--- NOTE | 2021-11-24 02:29 | USCV_ITS ---
AntonioLuz Elena Age: 46 Gender: F : 1975 Exam Date: 11/24/2021 03:32 Ordering Phys: Fly Clinton MD Technologist: Dejon Thompson [place]am [place] [facility] [place] [facility] [place] Indication: PE BP: / HR: 68 Rhythm: Sinus Technical Quality: Adequate MEASUREMENTS (Male / Female) Normal Values 2D ECHO LV Diastolic Diameter PLAX 4.3 cm 4.2 - 5.9 / 3.9 - 5.3 cm LV Systolic Diameter PLAX 2.7 cm IVS Diastolic Thickness 1.7 cm 0.6 - 1.0 / 0.6 - 0.9 cm IVS Systolic Thickness 2.3 cm LVPW Diastolic Thickness 1.7 cm 0.6 - 1.0 / 0.6 - 0.9 cm LVPW Systolic Thickness 1.5 cm LVOT Diameter 1.7 cm LV Ejection Fraction 2D Teich 66.5 % LV Ejection Fraction MOD 2C 36.0 % LV Ejection Fraction 2C AL 35.3 % LA Diameter 2.4 cm LA Width 2.7 cm LA Height 4.9 cm RA Width 3.1 cm RA Height 3.8 cm Aorta at Sinotubular Diameter 2.2 cm M-MODE Aortic Annulus Diameter 2.3 cm LA Ao Ratio MM 1.3 MV E Point Septal Separation 0.4 cm DOPPLER AV Peak Velocity 96.3 cm/s LVOT Peak Velocity 79.0 cm/s AV Area Cont Eq vti 1.7 cm squared AV Area Cont Eq pk 2.0 cm squared MV Peak Velocity 58.0 cm/s MV Area PHT 3.1 cm squared Mitral E to A Ratio 1.1 MV E' Velocity 33.0 cm/s Mitral E to MV E' Ratio 8.2 Mitral E to LV E' Lateral Ratio 6.4 Mitral E to LV E' Septal Ratio 11.2 TR Peak Velocity 72.7 cm/s TR Peak Gradient 2.1 mmHg TR Mean Velocity 44.9 cm/s TR Mean Gradient 0.9 mmHg TR Velocity Time Integral 13.8 cm Right Atrial Pressure 8.0 mmHg Pulmonary Artery Systolic Pressu 10.1 mmHg PV Peak Velocity 109.0 cm/s RV Acceleration Time 0.1 s RV Ejection Time 0.3 s RV AcT/ET 0.3 FINDINGS Left Ventricle Normal left ventricular size. LV systolic function is borderline normal with EF of 50-55%. No regional wall motion abnormalities. Right Ventricle The right ventricle is normal in size and function. Right Atrium The right atrium is normal in size. Left Atrium The left atrium is normal in size. Mitral Valve Structurally normal mitral valve without significant stenosis or prolapse. There is trace mitral regurgitation. Aortic Valve Structurally normal aortic valve without significant sclerosis or stenosis. There is no aortic regurgitation. Tricuspid Valve Structurally normal tricuspid valve without significant stenosis. Trace tricuspid regurgitation. Pulmonary artery systolic pressure is normal. Pulmonic Valve Grossly normal Pericardium Normal pericardium without effusion. Aorta Normal ascending aorta dimension. CONCLUSIONS LV systolic function is borderline normal with EF 50 to 55%. No regional wall motion abnormality seen. Right ventricle is normal in size and function. Trace mitral regurgitation. Trace tricuspid regurgitation. Pulmonary artery systolic pressure is normal. No comparison studies are available Lorne Lay MD (Electronically Signed) Final Date: 25 November 2021 07:51 S
[2021-11-24] MEDS: gabapentin 300 mg Capsule PO ×2 (08:28→16:58)
[2021-11-24] MEDS: oxyCODONE 5 mg IR Tab/Cap PO ×3 (08:28→20:45)
[2021-11-24] MEDS: predniSONE 5 mg Tablet PO (08:28)
[2021-11-24] MEDS: calcium carbonate 500 mg Chew Tablet 1000 MG PO ×2 (08:28→16:57)
--- NOTE | 2021-11-24 09:27 | PM.PN ---
Subjective Subjective: Patient examined, at bedside, had detailed discussion regarding current diagnosis,rx plan, goals of care, This Morning I spoke with Drs. Mahoney and Stu, there is a plan to do IVC filter Family wants to talk with Dr. Mahoney first and have his opinion on this case, Dr. Mahoney completely agrees with the indication for IVC filter We will review CT scan with radiologist, likely will need bronchoscopy for postobstructive pneumonia, no role of radiation at this point For bronchoscopy bronchoalveolar lavage for postobstructive pneumonia with Dr. Durbin on Vitals/I&O/Wt Last Vital Signs Temp 97.5 F L 11/24/21 07:32 Pulse 96 11/24/21 08:44 Resp 16 11/24/21 08:44 BP 117/80 11/24/21 07:32 Pulse Ox 96 11/24/21 08:44 11/23/21 11/24/21 11/24/21 22:59 06:59 14:59 Intake Total 300 / 300 300 / 600 Output Total 450 / 450 Balance 300 / 300 -150 / 150 Weight last 48 hrs Weight 106.594 kg Weight 104.326 kg Physical Exam Narrative: Patient sitting in a chair Saturating well on 2 L nasal cannula Pedal edema, leg edema 3+ This is pitting edema She is awake and alert Does not look cachectic or malnourished at the bedside No labored breathing Diminished breath sounds bilaterally left greater than right Bloated abdomen, nontender Nonfocal neuro exam Data : 11/24/21 01:07 11/24/21 01:07 A&P Assessment and plan (1) Postobstructive pneumonia: Status: Acute (2) Elevated troponin: Status: Acute (3) Hypothyroidism: Status: Acute (4) Fatigue: Status: Acute (5) Pulmonary embolism: Status: Acute Plan Postobstructive pneumonia Severe leukocytosis Evident air bronchograms with vascularization on chest imaging Currently on cefepime, azithromycin and vancomycin Check MRSA PCR Plan for bronchoscopy on by CTA report reviewed No indication for external beam radiotherapy for now Patient is not septic We will coordinate with cardiology if they want to do IVC filter placement on with bronchoscopy to avoid multiple visits to the OR Right lung multiple PE: Evidence of right heart strain on CTA IVC filter placement as she is not a good candidate to be on anticoagulating agent anymore because of recent bleed and PRBC transfusion she received 2 units at punctuation There was concern for bleeding from metastatic invasive intra-abdominal lesion through the stomach wall Old records requested Adrenal insufficiency: No acute crisis, I will escalate her prednisone to 10 mg 3 times daily instead of 5 mg 3 times daily regimen Hypothyroidism: Continue levothyroxine Limited resuscitation, patient does not want intubation chest compressions, okay with defibrillation We discussed goals of care Metastatic lung cancer Attestations Medical Necessity Statement*: Continue medical management Time Spent in Patient Care: 35mins Coding Level of Care Code Acute Rn Progressive Care for Chg Fwd Diagnoses Postobstructive pneumonia J18.9 Elevated troponin R77.8 Hypothyroidism E03.9 Fatigue R53.83 Pulmonary embolism I26.99
[2021-11-24] MEDS: acetaminophen 500 mg Tablet PO (11:36)
[2021-11-24] MEDS: guaiFENesin 600 mg Tablet PO ×2 (13:44→16:58)
[2021-11-24] MEDS: benzonatate 100 mg Capsule 200 MG PO (13:44)
[2021-11-24] MEDS: predniSONE 5 mg Tablet 10 MG PO ×2 (15:54→20:32)
[2021-11-24] MEDS: pantoprazole DR 40 mg Tablet PO (15:55)
[2021-11-24] MEDS: acetylcysteine 200 mg/mL SDV 4 mL 100 MG INHALATION ×2 (15:58→20:36)
--- NOTE | 2021-11-24 17:54 | P.CONIM_ITS ---
Providers/Reason For Consult Consulting Physician/Specialty*: Lorne Lay MD/Interventional Cardiology Reason for Consult*: Pulmonary emboli Requesting Physician: Dr Clinton Attending Physician: Mario Alberto Christian MD Primary Care Provider: Vinh Barry MD History of Present Illness History of Present Illness Luz Elena Alvarez is a 46 year old female with past medical history of recently diagnosed lung cancer that is metastatic underwent palliative debulking surgery with removal of intra-abdominal metastatic disease and adhesions, history of DVT who was found to have pulmonary emboli in the right lung during current hospita lization. She was recently taken off of anticoagulation at [facility] secondary to low blood counts and need for receiving blood transfusions. Interventional cardiology was consulted to give opinion about IVC filter placement. Patient is feeling fatigued and low energy. She has shortness of breath as well. Unable to lay down flat at this time. Review of Systems Const: Reports: fatigue; Denies: fever(s), chills or body aches Eyes: Denies: change in vision or eye redness ENMT: Denies: throat pain, oral sores or ear or mastoid pain Card: Reports: edema (BL LE); Denies: chest pain, pre-syncope or dyspnea on exertion Resp: Reports: productive cough; Denies: dyspnea, change in phlegm color or hemoptysis GI: Denies: abdominal pain, nausea, vomiting, diarrhea, constipation, hematochezia or melena : Denies: flank pain, urinary frequency or hematuria Musc: Denies: back pain, joint swelling or joint redness Skin/Breast: Denies: rash, sores or new lesions Neuro: Denies: headache(s), numbness in extremities, weakness in extremities, dizziness, confusion or seizure-like activity Endo: Denies: polyuria or polydipsia Barak/Lymph: Denies: easy bleeding or purpura All/Imm: Denies: urticaria, throat swelling or tongue swelling Medications/Allergies Home Medications Medication Instructions Recorded Confirmed Last Taken Type benzonatate 200 mg capsule 200 mg PO Q8H PRN 02/16/21 11/23/21 11/23/21 History citalopram 20 mg tablet 20 mg PO BEDTIME 02/16/21 11/23/21 06/04/21 22:00 History omeprazole 20 mg capsule,delayed 20 mg PO DAILY@16 02/16/21 11/23/21 11/23/21 H istory release afatinib 20 mg tablet 40 mg PO DAILY 11/23/21 11/24/21 11/23/21 21:00 History calcium carbonate 500 mg calcium 1,000 mg PO BID 11/23/21 11/23/21 11/23/21 History (1,250 mg) chewable tablet cyclobenzaprine 5 mg tablet 5 mg PO TID PRN 11/23/21 11/23/21 Unknown History furosemide 40 mg tablet 40 mg PO DAILY 11/23/21 11/24/21 11/23/21 History multivitamin 1 tab PO DAILY 11/23/21 11/24/21 11/23/21 History oxycodone 5 mg tablet 5 mg PO Q4H PRN 11/23/21 11/24/21 Unknown History prednisone 5 mg tablet 5 mg PO TID 11/23/21 11/24/21 11/23/21 History acetaminophen 500 mg tablet 1,000 mg PO TID PRN 11/24/21 11/24/21 Unknown History gabapentin 100 mg capsule 100 mg PO BID 11/24/21 11/24/21 Unknown History levothyroxine 125 mcg tablet 125 mcg PO DAILY 11/24/21 11/24/21 Unknown History potassium chloride 20 mEq 20 meq PO DAILY 11/24/21 11/24/21 Unknown History tablet,extended release Allergies Allergy/AdvReac Type Severity Reaction Status Date / Time levofloxacin [From Levaquin] Allergy Unknown Verified 11/23/21 21:35 paclitaxel Allergy Unknown Verified 11/24/21 02:36 Current Medications Generic Name Dose Route Start Last Admin Trade Name Rolandoq PRN Reason Stop Dose Admin Acetaminophen 500 mg 11/23/21 23:19 11/24/21 11:36 Acetaminophen 500 Mg Tablet PO 500 mg TID PRN Administration Pain Acetylcysteine 100 mg 11/24/21 16:00 11/24/21 15:58 Acetylcysteine 200 Mg/Ml Sdv 4 Ml INHALATION 100 mg Q4H.RESPIRATORY JULITA Administration Albuterol Sulfate 2.5 mg 11/24/21 08:43 11/24/21 15:58 Albuterol 2.5 Mg/0.5 Ml Neb INHALATION 2.5 mg Q4H.RESPIRATORY PRN Administration SHORTNESS OF BREATH Benzonatate 200 mg 11/23/21 23:25 11/24/21 13:44 Benzonatate 100 Mg Capsule PO 200 mg Q8H PRN Administration Cough Calcium Carbonate 1,000 mg 11/24/21 09:00 11/24/21 16:57 Calcium Carbonate 500 Mg Chew Tablet PO 1,000 mg BID JULITA Administration Citalopram Hydrobromide 20 mg 11/23/21 23:30 11/23/21 23:47 Citalopram 20 Mg Tablet PO 20 mg BEDTIME JULITA Administration Gabapentin 300 mg 11/24/21 09:00 11/24/21 16:58 Gabapentin 300 Mg Capsule PO 300 mg BID JULITA Administration Guaifenesin 600 mg 11/24/21 13:20 11/24/21 16:58 Guaifenesin 600 Mg Tablet PO 600 mg BID JULITA Administration Cefepime HCl 1,000 mg/ Sodium 50 mls @ 100 mls/hr 11/24/21 01:00 11/24/21 12:27 Chloride IV Infused Q12H JULITA Infusion Protocol Levothyroxine Sodium 112 mcg/ 137 mcg 11/24/21 06:00 11/24/21 06:42 Levothyroxine Sodium 25 mcg PO 137 mcg QAM JULITA Administration Oxycodone HCl 5 mg 11/24/21 03:48 11/24/21 11:57 Oxycodone 5 Mg Ir Tab/Cap PO 5 mg Q4H PRN Administration MODERATE PAIN Pantoprazole Sodium 40 mg 11/24/21 16:00 11/24/21 15:[address] 40 Mg Tablet PO 40 mg DAILY@16 JULITA Administration Prednisone 10 mg 11/24/21 15:00 11/24/21 15:54 Prednisone 5 Mg Tablet PO 10 mg TID JULITA Administration PFSH Acute PFSH: Medical History (Updated 11/25/21 @ 12:23 by Lorne Lay M.D) Acute kidney injury Acute on chronic anemia Cancer GERD (gastroesophageal reflux disease) Leukocytosis Metastatic lung cancer (metastasis from lung to other site) Sepsis Surgical History H/O partial adrenalectomy H/O splenectomy History of nephrectomy History of partial pancreatectomy Port-A-Cath in place Social History Smoking and tobacco status: never smoked Lives independently: Yes Household members: spouse Marital status: Female Reproductive History: Date of last menstrual period: 12/12/19 Vitals/I&O/Wt Last Vital Signs Temp 97.4 F L 11/24/21 15:38 Pulse 88 11/24/21 16:06 Resp 16 11/24/21 15:58 BP 106/66 11/24/21 15:38 Pulse Ox 94 11/24/21 15:58 11/24/21 11/24/21 11/24/21 06:59 14:59 22:59 Intake Total 300 / 600 410 / 410 Output Total 450 / 450 600 / 600 1 / 601 Balance -150 / 150 -190 / -190 -1 / -191 Weight last 48 hrs Weight 235 lb Weight 230 lb Physical Exam Narrative: GENERAL: Patient is alert, awake and oriented x3. [] NECK: No jugular vein distension. [] HEENT: No cyanosis. No icterus. No pallor. [] HEART: Regular S1 and S2. No murmur, rub or gallop. [] LUNGS: Clear to auscultate bilaterally. [] ABDOMEN: Soft, nontender and nondistended. Positive bowel sounds. No guarding, rebound or tenderness. [] CENTRAL NERVOUS SYSTEM: Grossly nonfocal. [] EXTREMITIES: Lower extremities with 1+ edema bilaterally. Pulses palpable in the lower extremities, both dorsalis pedis and posterior tibial. [] Data : 11/25/21 01:01 11/25/21 01:01 Micro: Microbiology 11/24/21 00:30 MRSA Culture - Final Nose A&P Assessment and plan (1) Postobstructive pneumonia: Status: Acute (2) Pulmonary embolism: Status: Acute (3) Metastatic lung cancer (metastasis from lung to other site): Status: Acute Qualifiers: Laterality: unspecified laterality Qualified Code(s): C34.90 - Malign ant neoplasm of unspecified part of unspecified bronchus or lung Plan Patient has metastatic lung cancer and possible pneumonia currently. She has been found to have pulmonary emboli on the right side. She was recently taken off of anticoagulation secondary to low hemoglobin and need for transfusions. No DVT seen on venous duplex this time. Interventional cardiology consulted for possible IVC filter placement. I had a discussion with the patient's family and her. We decided to involve her oncologist. If she is a candidate for anticoagulation we will hold off on IVC filter placement. However if there is definite contraindication to anticoagulation or it is too high risk to continue, we will recommend placement of IVC filter. Her oncologist, Dr. Mahoney is going to see patient today and will decide on IVC filter placement with team discussion. Procedure details and risks and benefits have been discussed with the patient and family. Order echocardiogram. Thank you for involving us with care of this patient. Please call with questions Coding Level of Care Code Acute Cardiology Technologist for [employer] Fwd Diagnoses Postobstructive pneumonia J18.9 Pulmonary embolism I26.99 Metastatic lung cancer (metastasis from lung to other site) C34.90 Laterality: unspecified laterality
[2021-11-24] MEDS: heparin 5,000 unit/mL INJ 1 mL IV (19:07)
[2021-11-24] MEDS: heparin drip 25,000 UNIT/500 ML PREMIX 30 UNIT IV (19:12)
[2021-11-24] MEDS: azithromycin 500 MG in sodium chloride 0.9% 250 ML 250 MG IV (20:32)
[2021-11-24] MEDS: citalopram 20 mg Tablet PO (20:32)
[2021-11-25] VITALS (15 sets, daily range): BP systolic 109–122; BP diastolic 69–84; PULSE 69–96; RESP 14–20; TEMP 36.4–37; O2SAT 97–99
[2021-11-25 01:13] LABS: Basophils % 0.2 %; Hematocrit 28.1 % (37.0-47.0); Hemoglobin 8.7 g/dL (11.5-15.3); Lymphocytes # 0.4 10^3/uL (0.8-4.8); Lymphocytes % 1.5 %; Mean Corpuscular Volume 96.9 fl (81-99); Mean Platelet Volume 11.4 fL (7.4-10.4); Monocytes # 0.3 10^3/uL (0.2-0.9); Monocytes % 1.1 %; Neutrophils # 23.78 10^3/uL (1.8-7.7); Neutrophils % 93.8 %; Nucleated Red Blood Cells % 0 %; Platelet Count 370 10^3/cmm (130-400); Red Cell Distribution Width 21.2 % (12.1-15.1); White Blood Count 25.4 10^3/uL (4.0-10.0)
[2021-11-25 01:28] LABS: Alanine Aminotransferase 104 U/L (0-33); Albumin Level 2.8 g/dL (3.5-5.2); Alkaline Phosphatase 296 IU/L (35-105); Anion Gap 12.3 (5-19); Aspartate Amino Transferase 22 U/L (0-32); Blood Urea Nitrogen 23 mg/dL (6-20); Calcium 8.6 mg/dL (8.5-10.5); Carbon Dioxide 30 mmol/L (22-29); Chloride 97 mmol/L (98-107); Globulin 2.3 g/dL (1.3-4.6); Glucose 187 mg/dL (65-115); Osmolality Calculated 287 mOsm/kg (285-295); Potassium 5.3 mmol/L (3.5-5.1); Sodium 134 mmol/L (136-145); Total Bilirubin 0.3 mg/dL (0.15-1.2); Total Protein 5.1 g/dL (6.6-8.7)
[2021-11-25] MEDS: cefepime 1,000 MG in sodium chloride 0.9% (plus) 50 ML 100 MG IV ×2 (01:35→14:19)
[2021-11-25 02:01] LABS: Partial Thromboplastin Time 175.7 SECONDS (23.9-36.7)
[2021-11-25 04:41] LABS: Partial Thromboplastin Time 39.8 SECONDS (23.9-36.7)
[2021-11-25] MEDS: vancomycin 1,500 MG/300 ML PIGGYBACK 200 MG IV ×2 (05:44→21:47)
[2021-11-25] MEDS: FUROsemide 10 mg/mL SDV 2mL 20 MG IVP (08:21)
[2021-11-25] MEDS: oxyCODONE 5 mg IR Tab/Cap PO ×3 (09:33→20:23)
[2021-11-25] MEDS: predniSONE 5 mg Tablet 10 MG PO ×3 (09:34→20:22)
[2021-11-25] MEDS: calcium carbonate 500 mg Chew Tablet 1000 MG PO ×2 (09:34→17:52)
[2021-11-25] MEDS: gabapentin 300 mg Capsule PO ×2 (09:34→17:53)
[2021-11-25] MEDS: guaiFENesin 600 mg Tablet PO ×2 (09:34→17:53)
[2021-11-25] MEDS: sodium polystyrene sulfonate 15 gm/60 mL Btl PO (09:34)
[2021-11-25 11:29] LABS: Partial Thromboplastin Time 69.8 SECONDS (23.9-36.7)
--- NOTE | 2021-11-25 11:32 | PM.PN ---
Subjective Subjective: APTT 175 and then 39, heparin drip started yesterday Hemoglobin stable Hemodynamically stable Low albumin In case of low blood pressure would recommend albumin, this was conveyed to the patient No plan for IVC filter Plan was discussed with the patient, will touch base with Dr. Mahoney, there is plan to do bronchoscopy tomorrow which might change depending on comparison from previous CT scan that has been requested from outside hospital by Dr. Mahoney Patient is endorsing feeling better, currently on 2 L nasal cannula which she has started using for about 2 weeks Afebrile Blood pressure 121/80 For hyperkalemia I have given her 1 dose of Kayexalate I have updated nurse to obtain FOBT Requested C. difficile panel for 3 episode of loose stool yesterday Potassium 5.3 Creatinine 1.1 Albumin 2.8 Vitals/I&O/Wt Last Vital Signs Temp 97.8 F 11/25/21 07:06 Pulse 74 11/25/21 08:07 Resp 14 11/25/21 09:33 BP 121/80 11/25/21 07:06 Pulse Ox 98 11/25/21 08:00 11/24/21 11/25/21 11/25/21 22:59 06:59 14:59 Intake Total 708 / 1118 300 / 300 Output Total 1 / 601 300 / 300 Balance -1 / -191 708 / 517 0 / 0 Weight last 48 hrs Weight 106.594 kg Weight 104.326 kg Physical Exam Narrative: Patient is resting comfortably in she is awake and alert I do not appreciate any wheezing or crackles mild rhonchi at the bases Diminished breath sounds at the base of the lungs bilaterally Resting comfortably in her chair On 2 L nasal cannula Blood pressure stable Edema of legs bilaterally, pitting edema Abdomen is soft Left-sided Mediport in place S1, S2 Patient looks volume overloaded at the bedside Data : 11/25/21 01:01 11/25/21 01:01 Micro: Microbiology 11/24/21 00:30 MRSA Culture - Final Nose A&P Assessment and plan (1) Postobstructive pneumonia: Status: Acute (2) Elevated troponin: Status: Acute (3) Hypothyroidism: Status: Acute (4) Fatigue: Status: Acute (5) Pulmonary embolism: Status: Acute Plan Right lung PE Previous APTT subtherapeutic Currently on heparin Patient might go for bronchoscopy tomorrow, will touch with Dr. Mahoney and Dr. Durbin Currently on 2 L nasal cannula IVC filter has been deferred Chronic anemia: Hemoglobin stable no acute exacerbation, will check FOBT Volume overloaded with low albumin: Blood pressure is stable, if needed she can be given albumin Postobstructive pneumonia: Afebrile 2 L nasal cannula Patient is comfortable Previous CT scan did show left-sided postobstructive changes as well Bronchioloalveolar lavage bronchoscopy? Hypothyroidism: Levothyroxine dose has been increased, low T4 and high TSH noted Adrenal insufficiency without acute crisis, continue increased dose of steroids Metastatic lung cancer Limited resuscitation No need of bronchoscopy tomorrow Plan to discharge her on Lovenox and antibiotics tomorrow PT evaluation Attestations Medical Necessity Statement*: Continue hospitalization We might be able to discharge her in next 24 to 30 hours if stays clinically stable Time Spent in Patient Care: 25min Coding Level of Care Code Acute Hotel Services Supervisor for Chg Fwd Diagnoses Postobstructive pneumonia J18.9 Elevated troponin R77.8 Hypothyroidism E03.9 Fatigue R53.83 Pulmonary embolism I26.99
--- NOTE | 2021-11-25 12:26 | PC.CHAP ---
Pastoral Care Encounter/Spiritual Assessment Type of Contact [] Declined pharmacovigilance scientist visit [] Patient/Family/Request visit [] Outpatient visit [] Follow-up visit [] Physician referral [] Code/Alert [x] Routine visit [] Staff referral [] Actively dying [] Patient sleeping [] Family support [] [] Out of room [] Palliative care [] [] Receiving care in room [] Pre-surgical visit [] Trauma [] Long length of stay [] ICU visit [] Other: Relational/Emotional Strength [x] Patient feels connected with others/family/visitors/staff [] Distress [] Loneliness/isolation [] Abandonment Spirituality of Patient [x] Person of Sary [x] Attends Christianity of their Sary [x] Believes in Prayer [] Reads Bible or Bahai materials [] There are Spiritual issues to be addressed Fruit Trimmer Interventions [x] Prayer [x] Active listening x[] Non-anxious presence [x] Spiritual/emotional support [] Crisis/trauma care [] Spiritual counseling [] Bereavement support [] Provided bereavement packet [] Provided Bible/devotional materials [] Provided toy/stuffed animal, coloring book to patient or family member [] Provided Communion [] Anointing/[place] [] Salvation [x] Completed spiritual assessment [] Other: Impact on Illness or Injury [] Angry [] Fearful [] Anxious [] Often cries [] Exhaustion [] Unable to work [] Unable to attend roman catholic [] Unable to walk/stand [] Unable to read [] Unable to drive [] Unable to eat/drink [] Unable to sleep [] Unable to be with family [] Patient intubated [] Other: Summary Time spent with patient 10 min
[2021-11-25] MEDS: pantoprazole DR 40 mg Tablet PO (15:53)
[2021-11-25 17:25] LABS: Partial Thromboplastin Time 57.9 SECONDS (23.9-36.7)
[2021-11-25 17:37] LABS: Vancomycin Trough 22.9 ug/mL (10-15)
[2021-11-25] MEDS: heparin drip 25,000 UNIT/500 ML PREMIX 24 UNIT IV (17:52)
[2021-11-25] MEDS: citalopram 20 mg Tablet PO (20:22)
[2021-11-25] MEDS: azithromycin 500 MG in sodium chloride 0.9% 250 ML 250 MG IV (20:22)
[2021-11-25 22:13] LABS: Partial Thromboplastin Time 74.4 SECONDS (23.9-36.7)
[2021-11-26] VITALS (16 sets, daily range): BP systolic 110–133; BP diastolic 69–85; PULSE 60–88; RESP 16–20; TEMP 36.3–36.8; O2SAT 97–100
[2021-11-26] MEDS: cefepime 1,000 MG in sodium chloride 0.9% (plus) 50 ML 100 MG IV (01:02)
[2021-11-26 04:31] LABS: Basophils % 0.1 %; Hematocrit 27.1 % (37.0-47.0); Hemoglobin 8.2 g/dL (11.5-15.3); Lymphocytes # 0.4 10^3/uL (0.8-4.8); Lymphocytes % 1.7 %; Mean Corpuscular HGB Conc 30.3 g/dL (30.0-36.0); Mean Corpuscular Hemoglobin 30.4 pg (28.0-34.0); Mean Corpuscular Volume 100.4 fl (81-99); Mean Platelet Volume 11.6 fL (7.4-10.4); Monocytes # 0.4 10^3/uL (0.2-0.9); Monocytes % 1.5 %; Neutrophils % 93.8 %; Nucleated Red Blood Cells % 0.2 %; Platelet Count 434 10^3/cmm (130-400); White Blood Count 24.1 10^3/uL (4.0-10.0)
[2021-11-26 05:01] LABS: Alanine Aminotransferase 67 U/L (0-33); Albumin Level 2.6 g/dL (3.5-5.2); Alkaline Phosphatase 248 IU/L (35-105); Aspartate Amino Transferase 19 U/L (0-32); Blood Urea Nitrogen 22 mg/dL (6-20); Calcium 8.9 mg/dL (8.5-10.5); Carbon Dioxide 24 mmol/L (22-29); Chloride 101 mmol/L (98-107); Globulin 2.8 g/dL (1.3-4.6); Glomerular Filtration Rate 66.8 mL/min (90-130); Glucose 170 mg/dL (65-115); Osmolality Calculated 285 mOsm/kg (285-295); Partial Thromboplastin Time 81.1 SECONDS (23.9-36.7); Sodium 134 mmol/L (136-145); Total Bilirubin 0.2 mg/dL (0.15-1.2); Total Protein 5.4 g/dL (6.6-8.7)
[2021-11-26 05:05] LABS: Anion Gap 13.6 (5-19); Potassium 4.6 mmol/L (3.5-5.1)
[2021-11-26 10:35] LABS: Iron 73 ug/dL (37-145); Percent Saturation 43.7 % (20-50); Total Iron Binding Capacity 167 mcg/dl; Unsaturated Iron Binding 94 ug/dL (112-347)
[2021-11-26] MEDS: predniSONE 5 mg Tablet 10 MG PO ×3 (10:36→20:34)
[2021-11-26] MEDS: gabapentin 300 mg Capsule PO ×2 (10:36→17:59)
[2021-11-26] MEDS: calcium carbonate 500 mg Chew Tablet 1000 MG PO ×2 (10:37→18:00)
[2021-11-26] MEDS: guaiFENesin 600 mg Tablet PO ×2 (10:37→17:59)
[2021-11-26 10:47] LABS: Ferritin 1024 ng/mL (15-150)
[2021-11-26 10:53] LABS: Vitamin B12 619 pg/mL (232-1245)
[2021-11-26 11:06] LABS: Partial Thromboplastin Time 82.3 SECONDS (23.9-36.7)
[2021-11-26] MEDS: oxyCODONE 5 mg IR Tab/Cap PO ×3 (11:21→20:40)
--- NOTE | 2021-11-26 11:28 | PM.DCS ---
Discharge Providers Date of Admission: 11/23/21 20:28 Date of Discharge: November 26, 2021 Attending Provider at Admission: Fly Clinton Attending Provider at Discharge: Mario Alberto Christian MD Primary Care Provider: Vinh Barry MD Diagnoses at Discharge Discharge Diagnosis (1) Postobstructive pneumonia: Status: Acute (2) Elevated troponin: Status: Acute (3) Hypothyroidism: Status: Acute (4) Fatigue: Status: Acute (5) Pulmonary embolism: Status: Acute Reason for Visit Reason for Visit: Tired\Fatigue\Lung Cancer Discharge Data Studies Completed and Pending Completed Studies During Hospitalization Category Date Time Status CTA chest [CT angio chest PE protcl [id number]] Urgent Cat Scan 11/23/21 20:24 Completed XR chest 1V portable [id number] Urgent Exams 11/23/21 19:31 [place] [id number] Routine Ultrasound 11/24/21 02:28 Completed CV. echo complete* [id number] Routine Ultrasound 11/24/21 02:29 Completed Pending at discharge Category Date Time Status Folate Level Routine Lab 11/26/21 10:35 Received Platelet Count Q2D Lab 11/28/21 04:00 Ordered Sputum Culture and Gram Stain Routine Lab 11/23/21 23:34 Uncollected Radiology Impressions Chest X-Ray 11/23/21 19:31 IMPRESSION: Tumor versus pneumonia consolidation. Correlate clinically since no useful clinical history was given at the time of this dictation. Chest CTA 11/23/21 20:24 IMPRESSION: Pulmonary emboli throughout the right lung without evidence of right heart strain. Mass in the left mid lung with probable postobstructive pneumonia or atelectasis in the lower lung. Surgical changes in the left upper abdomen. Correlate clinically. ADDENDUM: 11/23/21 2235 THIS REPORT CONTAINS FINDINGS THAT MAY BE CRITICAL TO PATIENT CARE. The findings were verbally communicated via telephone conference at 10:32 PM CDT on 11/23/[address] Mayes. The findings were acknowledged and understood. Laboratory Results WBC 24.1 10^3/uL (4.0-10.0) H 11/26/21 04:03 RBC 2.70 10^6/uL (4.1-5.3) L 11/26/21 04:03 Hgb 8.2 g/dL (11.5-15.3) L 11/26/21 04:03 Hct 27.1 % (37.0-47.0) L 11/26/21 04:03 MCV 100.4 fl (81-99) H 11/26/21 04:03 MCH 30.4 pg (28.0-34.0) 11/26/21 04:03 MCHC 30.3 g/dL (30.0-36.0) 11/26/21 04:03 RDW 21.0 % (12.1-15.1) H 11/26/21 04:03 Plt Count 434 10^3/cmm (130-400) H 11/26/21 04:03 MPV 11.6 fL (7.4-10.4) H 11/26/21 04:03 Neut % (Auto) 93.8 % 11/26/21 04:03 Lymph % (Auto) 1.7 % 11/26/21 04:03 [place] % (Auto) 1.5 % 11/26/21 04:03 Eos % (Auto) 0.0 % 11/26/21 04:03 Baso % (Auto) 0.1 % 11/26/21 04:03 Neut # (Auto) 22.60 10^3/uL (1.8-7.7) H 11/26/21 04:03 Lymph # (Auto) 0.4 10^3/uL (0.8-4.8) L 11/26/21 04:03 [place] # (Auto) 0.4 10^3/uL (0.2-0.9) 11/26/21 04:03 Eos # (Auto) 0.0 10^3/uL (0.0-0.8) 11/26/21 04:03 Baso # (Auto) 0.0 10^3/uL (0.0-0.1) 11/26/21 04:03 Nucleated RBC % (auto) 0.2 % 11/26/21 04:03 Nucleated RBCs # 0.0 /100WBC 11/26/21 04:03 APTT 82.3 SECONDS (23.9-36.7) H 11/26/21 10:35 Sodium 134 mmol/L (136-145) L 11/26/21 04:03 Potassium 4.6 mmol/L (3.5-5.1) 11/26/21 04:03 Chloride 101 mmol/L (98-107) 11/26/21 04:03 Carbon Dioxide 24 mmol/L (22-29) 11/26/21 04:03 Anion Gap 13.6 (5-19) 11/26/21 04:03 BUN 22 mg/dL (6-20) H 11/26/21 04:03 Creatinine 0.9 mg/dL (0.5-0.9) 11/26/21 04:03 GFR Calculation 66.8 mL/min (90-130) L 11/26/21 04:03 Glucose 170 mg/dL (65-115) H 11/26/21 04:03 Calculated Osmolality 285 mOsm/kg (285-295) 11/26/21 04:03 Calcium 8.9 mg/dL (8.5-10.5) 11/26/21 04:03 Iron 73 ug/dL (37-145) 11/26/21 04:03 TIBC 167 mcg/dl 11/26/21 04:03 % Saturation 43.7 % (20-50) 11/26/21 04:03 Unsat Iron Binding 94 ug/dL (112-347) L 11/26/21 04:03 Ferritin 1024 ng/mL (15-150) H 11/26/21 04:03 Total Bilirubin 0.2 mg/dL (0.15-1.2) 11/26/21 04:03 AST 19 U/L (0-32) 11/26/21 04:03 ALT 67 U/L (0-33) H 11/26/21 04:03 Alkaline Phosphatase 248 IU/L (35-105) H 11/26/21 04:03 Troponin T Gen 5 ng/L 117 ng/L (0-10) H* 11/24/21 01:07 Troponin T Baseline 133 ng/L (0-10) H* 11/23/21 19:20 Total Protein 5.4 g/dL (6.6-8.7) L 11/26/21 04:03 Albumin 2.6 g/dL (3.5-5.2) L 11/26/21 04:03 Globulin 2.8 g/dL (1.3-4.6) 11/26/21 04:03 Vitamin B12 619 pg/mL (232-1245) 11/26/21 04:03 TSH 30.46 uIU/mL (0.27-4.20) H 11/23/21 19:20 Free T4 0.61 ng/dL (0.82-1.77) L 11/23/21 19:20 Urine Color Yellow (Yellow) 11/23/21 20:40 Urine Appearance Clear (CLEAR) 11/23/21 20:40 Urine pH 9 (5-7) H 11/23/21 20:40 Ur Specific [place] 1.015 (1.005-1.030) 11/23/21 20:40 Urine Protein Neg (Negative) 11/23/21 20:40 Urine Glucose (UA) Norm (Normal) 11/23/21 20:40 Urine Ketones Negative (Negative) 11/23/21 20:40 Urine Blood Neg (Negative) 11/23/21 20:40 Urine Nitrate Negative (Negative) 11/23/21 20:40 Urine Bilirubin Neg (Negative) 11/23/21 20:40 Prot Sulfosalicylic Acd Negative (Negative) 11/23/21 20:40 Urine Urobilinogen Norm mg/dL (Negative) 11/23/21 20:40 Ur Leukocyte Esterase Negative (Negative) 11/23/21 20:40 Nasal Influ A H1 2008 PCR Not detected (NOT DETECT) 11/23/21 19:45 Vancomycin Trough 22.9 ug/mL (10-15) H 11/25/21 16:50 Coronavirus 229E (PCR) Not detected (NOT DETECT) 11/23/21 19:45 Influenza A (H1) PCR Not detected (NOT DETECT) 11/23/21 19:45 Influenza A (H3) PCR Not detected (NOT DETECT) 11/23/21 19:45 Influenza Type A (PCR) Not detected (NOT DETECT) 11/23/21 19:45 Influenza Type B (PCR) Not detected (NOT DETECT) 11/23/21 19:45 SARS-CoV-2 (PCR) Not detected (NOT DETECT) 11/23/21 19:45 Blood Type A Positive 11/23/21 20:36 Rho(D) Type Positive 11/23/21 20:36 Antibody Screen Negative 11/23/21 20:36 Vitals Last Vital Signs Temp 97.6 F 11/26/21 07:57 Pulse 74 11/26/21 07:58 Resp 18 11/26/21 11:21 BP 120/79 11/26/21 07:57 Pulse Ox 99 11/26/21 07:58 Discharge Plan Discharge Patient Disposition: Home Condition: Stable Prescriptions: New levothyroxine 137 mcg Tablet 137 mcg PO QAM 60 Days Qty: 60 3RF Lovenox 100 mg/mL syringe 110 mg SUBCUT Q12H Qty: 10 4RF Feosol 325 mg (65 mg iron) tablet 325 mg PO DAILY Qty: 30 0RF Continued benzonatate 200 mg capsule 200 mg PO Q8H PRN (Reason: Cough) 0RF citalopram 20 mg tablet 20 mg PO BEDTIME 0RF omeprazole 20 mg Capsule,Delayed Release(Dr/Ec) 20 mg PO DAILY@16 0RF oxycodone 5 mg tablet 5 mg PO Q4H PRN (Reason: Pain) 0RF multivitamin Tablet 1 tab PO DAILY 0RF furosemide 40 mg Tablet 40 mg PO DAILY 0RF prednisone 5 mg Tablet 5 mg PO TID 0RF calcium carbonate 500 mg calcium (1,250 mg) Tablet,Chewable 1,000 mg PO BID 0RF cyclobenzaprine 5 mg Tablet 5 mg PO TID PRN (Reason: Pain) 0RF afatinib 20 mg Tablet 40 mg PO DAILY 0RF Rx Instructions: must be taken on empty stomach; no food 1 hr after or 2-3 hrs before dose potassium chloride 20 mEq Tablet Extended Release 20 meq PO DAILY 0RF gabapentin 100 mg Capsule 100 mg PO BID 0RF acetaminophen 500 mg Tablet 1,000 mg PO TID PRN (Reason: Pain) 0RF Discontinued levothyroxine 125 mcg Tablet 125 mcg PO DAILY 0RF Discharge Orders: Discharge Order (Routine); Ordered 11/26/21 Ordered By: Mario Alberto Christian Other Ambulatory Orders: Complete Blood Count w/Auto (Routine) Timeframe: 3 Days Location: Determined by Patient Ordered By: Mario Alberto Christian Complete Blood Count w/Auto (Routine) Timeframe: 10 Day Location: Determined by Patient Ordered By: Mario Alberto Christian Referrals: Vinh Barry MD [Primary Care Provider] - 12/03/21 9:50 am Beni Mahoney MD [Hospitalist] - 11/30/21 8:00 am Discharge Diet: Cardiac Discharge Activity: Increase activity as tolerated Patient Instructions: Opioid Safety Discharge Attestations Status at Discharge: Cognitive status at discharge: cognitively intact, Behavioral status at discharge: cooperative, Coding Level of Care Code Acute Chg [facility] note Diagnoses Postobstructive pneumonia J18.9 Elevated troponin R77.8 Hypothyroidism E03.9 Fatigue R53.83 Pulmonary embolism I26.99
[2021-11-26 12:04] LABS: Folate Level 7.6 ng/mL (4.8-37.3)
--- NOTE | 2021-11-26 13:25 | P.PN_ITS ---
Subjective Subjective: Hemodynamically stable De-escalate antibiotics to p.o. Augmentin Patient has enough supply of Lovenox and Augmentin at home She is FOBT positive, heparin stopped this morning To be on the safe side I requested patient to stay here 1 more day, monitor H&H to see if there is a big drop in her hemoglobin She will require EGD Vitals/I&O/Wt Last Vital Signs Temp 98.2 F 11/26/21 11:28 Pulse 81 11/26/21 11:28 Resp 18 11/26/21 11:28 BP 112/73 11/26/21 11:28 Pulse Ox 99 11/26/21 11:28 11/25/21 11/26/21 11/26/21 22:59 06:59 14:59 Intake Total 792 / 1092 450 / 1542 417.6 / 417.6 Balance 792 / 792 450 / 1242 417.6 / 417.6 Physical Exam Narrative: Patient is resting comfortably in her bed Currently in room air Signs of third spacing 3+ pitting edema of legs No active audible stridor or wheezing S1, S2 Abdomen is soft Patient is awake and alert Fatigue lethargic Data : 11/26/21 04:03 11/26/21 04:03 Micro: Microbiology 11/25/21 14:48 C.difficile Toxin B Gene (PCR) - Final Stool - Stool Aspirate Occult Blood (FIT) - Final A&P Assessment and plan (1) Anemia: Status: Acute (2) Metastatic lung cancer (metastasis from lung to other site): Status: Acute Qualifiers: Laterality: unspecified laterality Qualified Code(s): C34.90 - Malignant neoplasm of unspecified part of unspecified bronchus or lung (3) Postobstructive pneumonia: Status: Acute (4) Elevated troponin: Status: Acute (5) Hypothyroidism: Status: Acute (6) Fatigue: Status: Acute (7) Pulmonary embolism: Status: Acute Plan Multiple visits were done today Right-sided pulmonary embolism FOBT positive She was on heparin drip until today I have held her heparin drip because of drop in hemoglobin and positive FOBT We will touch base with Dr. Ron for EGD Patient is okay staying here 1 more day Chronic postobstructive pneumonia Dr. Mahoney recommended not pursuing coloscopy as on comparison to previous CAT scan pulse ox of pneumonia is chronic She was prescribed antifungal and Augmentin for about next 2 to 3 weeks and she has enough supply at home She has remained afebrile No severe leukocytosis Chronic hypoxia without acute exacerbation, she has been using 2 L of oxygen for last 2 to 3 weeks, No acute worsening FOBT positive GI blood loss anemia Stop heparin, N.p.o. after midnight We will touch base with Dr. Asaf Lopez resuscitation patient only wants defibrillation no chest compressions, intubation N.p.o. after midnight Appointment has been made with Dr. Mahoney on Tuesday We will touch base with Dr. Mahoney to update him Dr. Mahoney is on vacation he will be back in his office on Tuesday Plan discussed with the patient that tomorrow we will plan for EGD we will keep her n.p.o. after midnight In case we do not find any active bleeding ulcer or any concerning vascularization with bleeding she can go home same day and start her Lovenox If there are any active bleeding ulcers then we might have to keep her here in the hospital and pursue IVC filter placement and then discharge her over the weekend Attestations Medical Necessity Statement*: Continue hospitalization Time Spent in Patient Care: 40mins Coding Level of Care Code Acute Chief Strategy Officer for Chg Fwd Diagnoses Anemia D64.9 Metastatic lung cancer (metastasis from lung to other site) C34.90 Laterality: unspecified laterality Postobstructive pneumonia J18.9 Elevated troponin R77.8 Hypothyroidism E03.9 Fatigue R53.83 Pulmonary embolism I26.99
--- NOTE | 2021-11-26 13:42 | PM.CONSULT ---
Providers/Reason For Consult Consulting Physician/Specialty*: Farzad Ron MD Reason for Consult*: Anemia associated with occult blood positive in stool Requesting Physician: Dr. Christian Attending Physician: Mario Alberto Christian MD Primary Care Provider: Vinh Barry MD History of Present Illness History of Present Illness Chief Complaint: Blood in stool History of present illness: Ms.Sandra Alvarez is a 46 year old female With history of lung cancer with metastatic disease. Patient undergone debulking abdominal surgery and she also has history of PE and was placed on heparin drip and was found to have occult blood positive in stool. Patient was also found to have anemia and requiring blood transfusion. A conversation took place to have an IVC filter placed and apparently that got postponed and in the interim bilateral venous duplex was done of the lower extremity that showed Venous duplex imaging was performed in bilateral lower ?extremities. ?The following venous structures were evaluated: common femoral ?vein, profunda vein, proximal portion of the greater saphenous ?vein, superficial femoral vein, and the popliteal vein. ?In addition, the posterior tibial and peroneal trunk were ?evaluated. ?Serial compression, augmentation maneuvers, and spectral Doppler ?flow evaluation were performed. ?CONCLUSIONS ?No evidence of right lower extremity DVT. ?No evidence of left lower extremity DVT. ?GSV bilaterally not well visualized due to edema General surgery was consulted for potential diagnostic EGD to rule out bleeding ulcer. She reports that she does not have any history of hematemesis or hematochezia and never had a colonoscopy before Review of Systems General: Reports: 10 or more systems reviewed and unremarkable except in HPI and below Medications/Allergies Home Medications Medication Instructions Recorded Confirmed Last Taken Type benzonatate 200 mg capsule 200 mg PO Q8H PRN 02/16/21 11/23/21 11/23/21 History citalopram 20 mg tablet 20 mg PO BEDTIME 02/16/21 11/23/21 06/04/21 22:00 History omeprazole 20 mg capsule,delayed 20 mg PO DAILY@16 02/16/21 11/23/21 11/23/21 History release afatinib 20 mg tablet 40 mg PO DAILY 11/23/21 11/24/21 11/23/21 21:00 History calcium carbonate 500 mg calcium 1,000 mg PO BID 11/23/21 11/23/21 11/23/21 History (1,250 mg) chewable tablet cyclobenzaprine 5 mg tablet 5 mg PO TID PRN 11/23/21 11/23/21 Unknown History furosemide 40 mg tablet 40 mg PO DAILY 11/23/21 11/24/21 11/23/21 History multivitamin 1 tab PO DAILY 11/23/21 11/24/21 11/23/21 History oxycodone 5 mg tablet 5 mg PO Q4H PRN 11/23/21 11/24/21 Unknown History prednisone 5 mg tablet 5 mg PO TID 11/23/21 11/24/21 11/23/21 History acetaminophen 500 mg tablet 1,000 mg PO TID PRN 11/24/21 11/24/21 Unknown History gabapentin 100 mg capsule 100 mg PO BID 11/24/21 11/24/21 Unknown History potassium chloride 20 mEq 20 meq PO DAILY 11/24/21 11/24/21 Unknown History tablet,extended release enoxaparin 100 mg/mL subcutaneous 110 mg (1.1 mL) SUBCUT Q12H #10 ml 11/26/21 Unknown Rx syringe (Lovenox) ferrous sulfate 325 mg (65 mg 325 mg PO DAILY #30 tab 11/26/21 Unknown Rx iron) tablet (Feosol) levothyroxine 137 mcg tablet 137 mcg PO QAM 60 Days #60 tab 11/26/21 Unknown Rx Allergies Allergy/AdvReac Type Severity Reaction Status Date / Time levofloxacin [From Levaquin] Allergy Unknown Verified 11/26/21 18:30 paclitaxel Allergy Unknown Verified 11/26/21 18:30 Current Medications Generic Name Dose Route Start Last Admin Trade Name Rolandoq PRN Reason Stop Dose Admin Acetaminophen 500 mg 11/23/21 23:19 11/24/21 11:36 Acetaminophen 500 Mg Tablet PO 500 mg TID PRN Administration Pain Acetylcysteine 100 mg 11/24/21 21:00 11/26/21 07:59 Acetylcysteine 200 Mg/Ml Sdv 4 Ml INHALATION Not Given TID.RESPIRATORY JULITA Albuterol Sulfate 2.5 mg 11/24/21 08:43 11/26/21 13:38 Albuterol 2.5 Mg/0.5 Ml Neb INHALATION 2.5 mg Q4H.RESPIRATORY PRN Administration SHORTNESS OF BREATH Benzonatate 200 mg 11/23/21 23:25 11/24/21 13:44 Benzonatate 100 Mg Capsule PO 200 mg Q8H PRN Administration Cough Calcium Carbonate 1,000 mg 11/24/21 09:00 11/26/21 10:37 Calcium Carbonate 500 Mg Chew Tablet PO 1,000 mg BID JULITA Administration Citalopram Hydrobromide 20 mg 11/23/21 23:30 11/25/21 20:22 Citalopram 20 Mg Tablet PO 20 mg BEDTIME JULITA Administration Gabapentin 300 mg 11/24/21 09:00 11/26/21 10:36 Gabapentin 300 Mg Capsule PO 300 mg BID JULITA Administration Guaifenesin 600 mg 11/24/21 13:20 11/26/21 10:37 Guaifenesin 600 Mg Tablet PO 600 mg BID JULITA Administration Heparin Sodium (Porcine) 0 unit 11/24/21 18:06 11/24/21 19:07 Heparin 5,000 Unit/Ml Inj 1 Ml IV 5,350 unit PRN PRN Administration Heparin weight-base protocol Protocol Heparin Sodium/Sodium Chloride 25,000 unit in 500 mls @ 0 mls/hr 11/24/21 18:15 11/26/21 11:19 Heparin Drip IV Infused .Q0M JULITA Titration Protocol Per Protocol Levothyroxine Sodium 112 mcg/ 137 mcg 11/24/21 06:00 11/26/21 05:43 Levothyroxine Sodium 25 mcg PO 137 mcg QAM JULITA Administration Non-Formulary Medication 40 mg 11/24/21 20:00 11/25/21 20:21 Afatinib PO 40 mg 2000 JULITA Administration Oxycodone HCl 5 mg 11/24/21 03:48 11/26/21 11:21 Oxycodone 5 Mg Ir Tab/Cap PO 5 mg Q4H PRN Administration MODERATE PAIN Pantoprazole Sodium 40 mg 11/24/21 16:00 11/25/21 15:[address] 40 Mg Tablet PO 40 mg DAILY@16 JULITA Administration Prednisone 10 mg 11/24/21 15:00 11/26/21 10:36 Prednisone 5 Mg Tablet PO 10 mg TID JULITA Administration PFSH Acute PFSH: Medical History Acute kidney injury Acute on chronic anemia Cancer GERD (gastroesophageal reflux disease) Leukocytosis Metastatic lung cancer (metastasis from lung to other site) Sepsis Surgical History H/O partial adrenalectomy H/O splenectomy History of nephrectomy History of partial pancreatectomy Port-A-Cath in place Social History Smoking and tobacco status: never smoked Lives independently: Yes Household members: spouse Marital status: Female Reproductive History: Date of last menstrual period: 12/12/19 Vitals/I&O/Wt Last Vital Signs Temp 98.2 F 11/26/21 11:28 Pulse 86 11/26/21 13:39 Resp 20 H 11/26/21 13:39 BP 112/73 11/26/21 11:28 Pulse Ox 98 11/26/21 13:39 11/25/21 11/26/21 11/26/21 22:59 06:59 14:59 Intake Total 792 / 1092 450 / 1542 417.6 / 417.6 Balance 792 / 792 450 / 1242 417.6 / 417.6 Physical Exam Narrative: Patient is conscious alert oriented X3 No apparent distress BMI 37 Head and neck examination PERRLA no masses no cervical lymphadenopathy no jaundice Cardiac examination audible S1-S2 no murmurs no gallops no arrhythmias Chest is clear bilateral,abscence of Rhonchi or wheezes,no surgical emphysema Abdomen nontender nondistended soft no organomegaly guarding or rigidity/no signs of peritonitis, multiple abdominal wall scaring Data : 11/26/21 04:03 11/26/21 04:03 Micro: Microbiology 11/25/21 14:48 C.difficile Toxin B Gene (PCR) - Final Stool - Stool Aspirate Occult Blood (FIT) - Final A&P Assessment and plan (1) Fecal occult blood test positive: After further history taking physical examination and reviewing the chart and images with my personal interpretation and further discussing the case with Dr. Mahoney over the phone, will hold off on potential diagnostic EGD at this point and perhaps a colonoscopy as well. As the patient would not necessarily get much benefit of those invasive procedures. Giving the extensive metastatic disease that she is having. And per Dr. Mahoney he would like to start her a lower dose of therapeutic Lovenox to be started and he will follow up on her in the office this coming Tuesday. I did discuss in length and in depth with the patient and her family the risks benefits and she agreed on the plan of care to hold off any invasive procedures at the moment and I also closed-the loop by talking with Dr. Arreola the medical hospitalist admitting the patient about the plan of care and he agreed on that as well. I am happy to see the patient as an outpatient follow-up if the decision was to go for diagnostic EGD and colonoscopy. Assurance and education All questions have been answered and all concerns have been addressed to patient's satisfaction. Status: Acute Consult Attestations Medical Necessity Statement: Per admitting service Coding Level of Care Code Acute Fast Food Services Manager for Chg Fwd Diagnoses Fecal occult blood test positive R19.5
[2021-11-26] MEDS: pantoprazole DR 40 mg Tablet PO (16:22)
[2021-11-26] MEDS: amoxicillin-clav 875-125 mg Tablet 1 TAB PO (17:59)
--- NOTE | 2021-11-26 18:29 | P.DS_ITS ---
Discharge Providers Date of Admission: 11/23/21 20:28 Date of Discharge: November 26, 2021 Attending Provider at Admission: Fly Clinton Attending Provider at Discharge: Mario Alberto Christian MD Primary Care Provider: Vinh Barry MD Diagnoses at Discharge Discharge Diagnosis (1) Fecal occult blood test positive: Status: Acute Reason for Visit Reason for Visit: Tired\Fatigue\Lung Cancer Hospital Course Hospital Course This note was done by Dr. Clinton Very pleasant 46-year-old lady is accompanied by her in ER for assessment of fatigue, mildly productive cough.? She has history of metastatic lung cancer, in August underwent palliative debulking surgery with removal of intra-abdominal metastatic disease and adhesions including also adrenalectomy and nephrectomy, splenectomy and partial pancreatectomy, with prior history of DVT, and is not sure about PE, previously anticoagulation, but after hospitalization a week ago and [facility] anticoagulation was stopped due to at the time acute on chronic anemia requiring 2 units PRBC transfusion.? The source of anemia was not exactly identified as per her and family, although her anticoagulation was stopped due to concerns of high risk of bleeding due to they think gastric tumor invasion.? She reports that she has had a contrast CT scan during that admission. Here she is on 2 L nasal cannula oxygen, which she notes started recently, noted to have leukocytosis, which is chronic, but currently possibly higher than usual, 28.6.? She is afebrile.? Hemoglobin is 9.6.? Platelets 317.? Baseline troponin is noted elevated at 133.? Other chemistry labs include sodium 132, chloride 92, CO2 31, BUN 24, creatinine 0.9.? Also noted TSH 30.46, free T4 0.61.? UA unremarkable.? COVID-19 and influenza PCR both negative. Chest x-ray was performed in ER, this was followed subsequently by CT angiogram of the chest as well with noted pulmonary emboli throughout the right lung without evidence of right heart strain on static imaging.? Noted mass in the left lung with probable postobstructive pneumonia or atelectasis in the lower lung.? Surgical changes in the left upper abdomen. In terms of CODE STATUS, her and her have not discussed this in detail.? She would not want chest compressions or intubation or mechanical ventilation in case of cardiopulmonary arrest.? If rhythm was shockable she would be okay receiving shock, or if needing a pacemaker she would be okay with that as well. Hospital course Patient was admitted for management and evaluation of new right-sided pulmonary embolism and left-sided postobstructive pneumonia. There was initial plan to do bronchoscopy however after discussing with Dr. Mahoney and reviewing her previous CT scan decision was made to treat her with Augmentin and antifungal fluconazole which were prescribed by [facility] infectious disease. Patient remained afebrile, leukocytosis did not worsen, she was kept on broad-spectrum antibiotics. Cultures remain negative. Covid negative. She remains on 2 L anthony al cannula. Dr. Mahoney recommended initiating heparin drip. Her hemoglobin trickled down from 8.9----8.2. She is FOBT positive. I consulted Dr. Ron on 11/26 who discussed case with Dr. Mahoney again. Dr. Mahoney recommended against EGD. Patient will be observed overnight and on 11/27 she will be discharged home however as per Dr. Mahoney which should reduce the dose by 50% of her Lovenox. She has enough supply of Lovenox, fluconazole and Augmentin at home. Oxycodone is prescribed by her PCP. She has an appointment with Dr. Mahoney on Tuesday. Physical Exam Narrative: Patient is resting comfortably in her bed Currently in room air Signs of third spacing 3+ pitting edema of legs No active audible stridor or wheezing S1, S2 Abdomen is soft Patient is awake and alert Fatigue lethargic Discharge Data Studies Completed and Pending Completed Studies During Hospitalization Category Date Time Status CTA chest [CT angio chest PE protcl [id number]] Urgent Cat Scan 11/23/21 20:24 Completed XR chest 1V portable [id number] Urgent Exams 11/23/21 19:31 [place] [id number] Routine Ultrasound 11/24/21 02:28 Completed CV. echo complete* [id number] Routine Ultrasound 11/24/21 02:29 Completed Pending at discharge Category Date Time Status Basic Metabolic Panel AM LABS Lab 11/27/21 04:00 Ordered Complete Blood Count w/Auto AM LABS Lab 11/27/21 04:00 Ordered Platelet Count Q2D Lab 11/28/21 04:00 Ordered Sputum Culture and Gram Stain Routine Lab 11/23/21 23:34 Uncollected Radiology Impressions Chest X-Ray 11/23/21 19:31 IMPRESSION: Tumor versus pneumonia consolidation. Correlate clinically since no useful clinical history was given at the time of this dictation. Chest CTA 11/23/21 20:24 IMPRESSION: Pulmonary emboli throughout the right lung without evidence of right heart strain. Mass in the left mid lung with probable postobstructive pneumonia or atelectasis in the lower lung. Surgical changes in the left upper abdomen. Correlate clinically. ADDENDUM: 11/23/21 1209 THIS REPORT CONTAINS FINDINGS THAT MAY BE CRITICAL TO PATIENT CARE. The findings were verbally communicated via telephone conference at 10:32 PM CDT on 11/23/[address] Mayes. The findings were acknowledged and understood. Laboratory Results WBC 24.1 10^3/uL (4.0-10.0) H 11/26/21 04:03 RBC 2.70 10^6/uL (4.1-5.3) L 11/26/21 04:03 Hgb 8.2 g/dL (11.5-15.3) L 11/26/21 04:03 Hct 27.1 % (37.0-47.0) L 11/26/21 04:03 MCV 100.4 fl (81-99) H 11/26/21 04:03 MCH 30.4 pg (28.0-34.0) 11/26/21 04:03 MCHC 30.3 g/dL (30.0-36.0) 11/26/21 04:03 RDW 21.0 % (12.1-15.1) H 11/26/21 04:03 Plt Count 434 10^3/cmm (130-400) H 11/26/21 04:03 MPV 11.6 fL (7.4-10.4) H 11/26/21 04:03 Neut % (Auto) 93.8 % 11/26/21 04:03 Lymph % (Auto) 1.7 % 11/26/21 04:03 [place] % (Auto) 1.5 % 11/26/21 04:03 Eos % (Auto) 0.0 % 11/26/21 04:03 Baso % (Auto) 0.1 % 11/26/21 04:03 Neut # (Auto) 22.60 10^3/uL (1.8-7.7) H 11/26/21 04:03 Lymph # (Auto) 0.4 10^3/uL (0.8-4.8) L 11/26/21 04:03 [place] # (Auto) 0.4 10^3/uL (0.2-0.9) 11/26/21 04:03 Eos # (Auto) 0.0 10^3/uL (0.0-0.8) 11/26/21 04:03 Baso # (Auto) 0.0 10^3/uL (0.0-0.1) 11/26/21 04:03 Nucleated RBC % (auto) 0.2 % 11/26/21 04:03 Nucleated RBCs # 0.0 /100WBC 11/26/21 04:03 APTT 82.3 SECONDS (23.9-36.7) H 11/26/21 10:35 Sodium 134 mmol/L (136-145) L 11/26/21 04:03 Potassium 4.6 mmol/L (3.5-5.1) 11/26/21 04:03 Chloride 101 mmol/L (98-107) 11/26/21 04:03 Carbon Dioxide 24 mmol/L (22-29) 11/26/21 04:03 Anion Gap 13.6 (5-19) 11/26/21 04:03 BUN 22 mg/dL (6-20) H 11/26/21 04:03 Creatinine 0.9 mg/dL (0.5-0.9) 11/26/21 04:03 GFR Calculation 66.8 mL/min (90-130) L 11/26/21 04:03 Glucose 170 mg/dL (65-115) H 11/26/21 04:03 Calculated Osmolality 285 mOsm/kg (285-295) 11/26/21 04:03 Calcium 8.9 mg/dL (8.5-10.5) 11/26/21 04:03 Iron 73 ug/dL (37-145) 11/26/21 04:03 TIBC 167 mcg/dl 11/26/21 04:03 % Saturation 43.7 % (20-50) 11/26/21 04:03 Unsat Iron Binding 94 ug/dL (112-347) L 11/26/21 04:03 Ferritin 1024 ng/mL (15-150) H 11/26/21 04:03 Total Bilirubin 0.2 mg/dL (0.15-1.2) 11/26/21 04:03 AST 19 U/L (0-32) 11/26/21 04:03 ALT 67 U/L (0-33) H 11/26/21 04:03 Alkaline Phosphatase 248 IU/L (35-105) H 11/26/21 04:03 Troponin T Gen 5 ng/L 117 ng/L (0-10) H* 11/24/21 01:07 Troponin T Baseline 133 ng/L (0-10) H* 11/23/21 19:20 Total Protein 5.4 g/dL (6.6-8.7) L 11/26/21 04:03 Albumin 2.6 g/dL (3.5-5.2) L 11/26/21 04:03 Globulin 2.8 g/dL (1.3-4.6) 11/26/21 04:03 Vitamin B12 619 pg/mL (232-1245) 11/26/21 04:03 Folate 7.6 ng/mL (4.8-37.3) 11/26/21 10:35 TSH 30.46 uIU/mL (0.27-4.20) H 11/23/21 19:20 Free T4 0.61 ng/dL (0.82-1.77) L 11/23/21 19:20 Urine Color Yellow (Yellow) 11/23/21 20:40 Urine Appearance Clear (CLEAR) 11/23/21 20:40 Urine pH 9 (5-7) H 11/23/21 20:40 Ur Specific [place] 1.015 (1.005-1.030) 11/23/21 20:40 Urine Protein Neg (Negative) 11/23/21 20:40 Urine Glucose (UA) Norm (Normal) 11/23/21 20:40 Urine Ketones Negative (Negative) 11/23/21 20:40 Urine Blood Neg (Negative) 11/23/21 20:40 Urine Nitrate Negative (Negative) 11/23/21 20:40 Urine Bilirubin Neg (Negative) 11/23/21 20:40 Prot Sulfosalicylic Acd Negative (Negative) 11/23/21 20:40 Urine Urobilinogen Norm mg/dL (Negative) 11/23/21 20:40 Ur Leukocyte Esterase Negative (Negative) 11/23/21 20:40 Nasal Influ A H1 2009 PCR Not detected (NOT DETECT) 11/23/21 19:45 Vancomycin Trough 22.9 ug/mL (10-15) H 11/25/21 16:50 Coronavirus 229E (PCR) Not detected (NOT DETECT) 11/23/21 19:45 Influenza A (H1) PCR Not detected (NOT DETECT) 11/23/21 19:45 Influenza A (H3) PCR Not detected (NOT DETECT) 11/23/21 19:45 Influenza Type A (PCR) Not detected (NOT DETECT) 11/23/21 19:45 Influenza Type B (PCR) Not detected (NOT DETECT) 11/23/21 19:45 SARS-CoV-2 (PCR) Not detected (NOT DETECT) 11/23/21 19:45 Blood Type A Positive 11/23/21 20:36 Rho(D) Type Positive 11/23/21 20:36 Antibody Screen Negative 11/23/21 20:36 Vitals Last Vital Signs Temp 97.8 F 11/26/21 15:28 Pulse 77 11/26/21 15:28 Resp 18 11/26/21 16:21 BP 110/69 11/26/21 15:28 Pulse Ox 97 11/26/21 15:28 Discharge Plan Discharge Patient Disposition: Home Condition: Stable Prescriptions: New levothyroxine 137 mcg Tablet 137 mcg PO QAM 60 Days Qty: 60 3RF Lovenox 100 mg/mL syringe 110 mg SUBCUT Q12H Qty: 10 4RF Feosol 325 mg (65 mg iron) tablet 325 mg PO DAILY Qty: 30 0RF Continued benzonatate 200 mg capsule 200 mg PO Q8H PRN (Reason: Cough) 0RF citalopram 20 mg tablet 20 mg PO BEDTIME 0RF omeprazole 20 mg Capsule,Delayed Release(Dr/Ec) 20 mg PO DAILY@16 0RF oxycodone 5 mg tablet 5 mg PO Q4H PRN (Reason: Pain) 0RF multivitamin Tablet 1 tab PO DAILY 0RF furosemide 40 mg Tablet 40 mg PO DAILY 0RF prednisone 5 mg Tablet 5 mg PO TID 0RF calcium carbonate 500 mg calcium (1,250 mg) Tablet,Chewable 1,000 mg PO BID 0RF cyclobenzaprine 5 mg Tablet 5 mg PO TID PRN (Reason: Pain) 0RF afatinib 20 mg Tablet 40 mg PO DAILY 0RF Rx Instructions: must be taken on empty stomach; no food 1 hr after or 2-3 hrs before dose potassium chloride 20 mEq Tablet Extended Release 20 meq PO DAILY 0RF gabapentin 100 mg Capsule 100 mg PO BID 0RF acetaminophen 500 mg Tablet 1,000 mg PO TID PRN (Reason: Pain) 0RF Discontinued levothyroxine 125 mcg Tablet 125 mcg PO DAILY 0RF Other Ambulatory Orders: Complete Blood Count w/Auto (Routine) Timeframe: 3 Days Location: Determined by Patient Ordered By: Mario Alberto Christian Complete Blood Count w/Auto (Routine) Timeframe: 10 Day Location: Determined by Patient Ordered By: Mario Alberto Christian Referrals: Vinh Barry MD [Primary Care Provider] - 12/03/21 9:50 am Beni Mahoney MD [Hospitalist] - 11/30/21 8:00 am Discharge Diet: Cardiac Discharge Activity: Increase activity as tolerated Patient Instructions: Iron Supplements (By mouth) (Duofer, Fe-20, Bifera, Igor- Iron), Levothyroxine (By mouth) (Levothroid, Levoxyl, Synthroid, Tirosint), Enoxaparin (By injection), Opioid Safety Discharge Attestations Time Spent in Discharge Care*: less than 30 min Status at Discharge: Cognitive status at discharge: cognitively intact , Behavioral status at discharge: cooperative , Quality Metrics Clinical Quality Measures [ No reported AMI, CVA or VTE this stay] Coding Level of Care Code Acute Chg FW DC note Diagnoses Fecal occult blood test positive R19.5
[2021-11-26] MEDS: citalopram 20 mg Tablet PO (20:34)
[2021-11-27] VITALS (7 sets, daily range): BP systolic 120–129; BP diastolic 74–85; PULSE 67–78; RESP 16–18; TEMP 36.4–36.8; O2SAT 88–99
[2021-11-27] MEDS: oxyCODONE 5 mg IR Tab/Cap PO (04:12)
[2021-11-27 06:11] LABS: Basophils % 0.1 %; Hematocrit 26.5 % (37.0-47.0); Hemoglobin 8.2 g/dL (11.5-15.3); Lymphocytes # 0.4 10^3/uL (0.8-4.8); Lymphocytes % 2.4 %; Mean Corpuscular HGB Conc 30.9 g/dL (30.0-36.0); Mean Corpuscular Hemoglobin 30.4 pg (28.0-34.0); Mean Corpuscular Volume 98.1 fl (81-99); Mean Platelet Volume 10.8 fL (7.4-10.4); Monocytes # 0.5 10^3/uL (0.2-0.9); Monocytes % 2.7 %; Neutrophils # 17.25 10^3/uL (1.8-7.7); Neutrophils % 92.2 %; Nucleated Red Blood Cells # 0.1 /100WBC; Nucleated Red Blood Cells % 0.3 %; Platelet Count 520 10^3/cmm (130-400); Red Cell Distribution Width 20.5 % (12.1-15.1); White Blood Count 18.7 10^3/uL (4.0-10.0)
[2021-11-27 06:28] LABS: Anion Gap 13.8 (5-19); Blood Urea Nitrogen 21 mg/dL (6-20); Calcium 9.1 mg/dL (8.5-10.5); Carbon Dioxide 26 mmol/L (22-29); Chloride 100 mmol/L (98-107); Glucose 147 mg/dL (65-115); Osmolality Calculated 286 mOsm/kg (285-295); Potassium 4.8 mmol/L (3.5-5.1); Sodium 135 mmol/L (136-145)
[2021-11-27] MEDS: gabapentin 300 mg Capsule PO (08:03)
[2021-11-27] MEDS: amoxicillin-clav 875-125 mg Tablet 1 TAB PO (08:03)
[2021-11-27] MEDS: predniSONE 5 mg Tablet 10 MG PO (08:03)
[2021-11-27] MEDS: guaiFENesin 600 mg Tablet PO (08:04)
[2021-11-27] MEDS: calcium carbonate 500 mg Chew Tablet 1000 MG PO (08:04)
== END 2021-11-27 13:20 | disposition home health service (06) | DRG 175 ==
LOC: ER 20:43 → MEDSURG 21:03
PROVIDERS: Internal Medicine; Admitting Provider Internal Medicine; Emergency Provider Emergency Medicine; PCP Family Medicine; Visit Provider Family Medicine
DX: I26.99 Other pulmonary embolism without acute cor pulmonale (principal); J18.9 Pneumonia, unspecified organism; C79.89 Secondary malignant neoplasm of other specified sites; E27.40 Unspecified adrenocortical insufficiency; R19.5 Other fecal abnormalities; E03.9 Hypothyroidism, unspecified; Z79.899 Other long term (current) drug therapy; Z92.21 Personal history of antineoplastic chemotherapy; Z86.718 Personal history of other venous thrombosis and embolism; K21.9 Gastro-esophageal reflux disease without esophagitis; R77.8 Other specified abnormalities of plasma proteins; E87.5 Hyperkalemia; D64.9 Anemia, unspecified; E87.70 Fluid overload, unspecified
CPT/HCPCS: 36415; 36591; 71045; 71275; 80048; 80053; 80202; 81003; 82274; 82607; 82728; 82746; 83540; 83550; 84439; 84443; 84484; 85025; 85730; 86850; 86900; 87493; 87631; 87635; 87641; 93005; 93306; 93970; 94640; 94664; 94669; 96365; 96367; 99285; J0456; J0692; J0696; J1642; J1644; J1940; J3370; J7050; J7512; J7608; J7611; Q9967

== ENCOUNTER 2021-11-29 13:54 | Emergency (ER) | payer BC, SELFPAY ==
[2021-11-29 14:06] VITALS: BP 158/94; PULSE 74; RESP 16; TEMP 36.3; O2SAT 85; BMI 36.0
--- NOTE | 2021-11-29 14:14 | XRR_ITS ---
PROCEDURE INFORMATION: Exam: XR Chest Exam date and time: 11/29/2021 2:04 PM Age: 46 years old Clinical indication: Other: Hypoxia TECHNIQUE: Imaging protocol: XR of the chest. Views: 1 view. COMPARISON: CR (CHEST, ) 11/23/2021 6:41 PM FINDINGS: Tubes, catheters and devices: Central venous catheter tip projects over the cavoatrial junction. Lungs: There is consolidation of the mid to lower left lung field, similar to the prior study. Superimposed pleural effusion cannot be excluded. Pleural spaces: See Lungs finding. Heart/Mediastinum: Unremarkable. No cardiomegaly. Bones/joints: Unremarkable. XR/XR chest 1V portable [id number] IMPRESSION: Consolidation of the mid to lower left lung field is similar to the prior study.
[2021-11-29 14:46] LABS: Basophils # 0.1 10^3/uL (0.0-0.1); Basophils % 0.2 %; Hemoglobin 9.4 g/dL (11.5-15.3); Lymphocytes # 0.5 10^3/uL (0.8-4.8); Lymphocytes % 1.2 %; Mean Corpuscular HGB Conc 31.3 g/dL (30.0-36.0); Mean Corpuscular Hemoglobin 30.2 pg (28.0-34.0); Mean Corpuscular Volume 96.5 fl (81-99); Mean Platelet Volume 10.2 fL (7.4-10.4); Monocytes # 1.1 10^3/uL (0.2-0.9); Monocytes % 2.9 %; Neutrophils # 35.87 10^3/uL (1.8-7.7); Neutrophils % 93.6 %; Nucleated Red Blood Cells % 0 %; Platelet Count 815 10^3/cmm (130-400); Red Blood Count 3.11 10^6/uL (4.1-5.3); Red Cell Distribution Width 19.9 % (12.1-15.1)
[2021-11-29 14:56] LABS: ABG PH Result 7.44 (7.35-7.45); Arterial Blood Gas Hematocrit 29.6 % (37-47); Base Excess ABG 0.7 mmol/L (-2.0-2.0); Blood Gas Allen Test Pos; Blood Gas Operator Identificat MONRO; Blood Gas Sample Site Brachial, right; Blood Gas Sample Type Arterial; HCO3 ABG 24.9 mmol/L (22-26); Oxygen Device NC; PO2 ABG 85.4 mmHg (80.0-100.0)
--- NOTE | 2021-11-29 15:02 | PC.NURSE ---
Accessed port central line drsg kit
[2021-11-29 15:03] LABS: White Blood Count 38.3 10^3/uL (4.0-10.0)
[2021-11-29 15:09] LABS: Alanine Aminotransferase 84 U/L (0-33); Albumin Level 3.6 g/dL (3.5-5.2); Alkaline Phosphatase 229 IU/L (35-105); Anion Gap 16.4 (5-19); Aspartate Amino Transferase 22 U/L (0-32); Blood Urea Nitrogen 18 mg/dL (6-20); Calcium 9.7 mg/dL (8.5-10.5); Carbon Dioxide 24 mmol/L (22-29); Chloride 96 mmol/L (98-107); Globulin 2.5 g/dL (1.3-4.6); Glomerular Filtration Rate 66.8 mL/min (90-130); Glucose 183 mg/dL (65-115); Magnesium 1.7 mg/dL (1.7-2.3); Osmolality Calculated 281 mOsm/kg (285-295); Potassium 4.4 mmol/L (3.5-5.1); Sodium 132 mmol/L (136-145); Total Bilirubin 0.5 mg/dL (0.15-1.2); Total Protein 6.1 g/dL (6.6-8.7)
[2021-11-29 15:23] VITALS: BP 123/87; PULSE 88; RESP 20; TEMP 36.6; O2SAT 94
[2021-11-29 15:35] LABS: NT Pro B Type Natriuretic Pept 1080 pg/mL (0-125)
[2021-11-29 16:00] VITALS: BP 125/88; PULSE 88; RESP 18; O2SAT 96
[2021-11-29 16:00] LABS: Influenza A by IFA Negative (Negative); Influenza B by IFA Negative (Negative); SARS Covid-2 Antigen Negative (Negative)
[2021-11-29] MEDS: sodium chloride 0.9% 500 ML IV (16:00)
[2021-11-29] MEDS: cefepime 2,000 MG in sodium chloride 0.9% (plus) 50 ML 100 MG IV (16:00)
[2021-11-29 16:15] VITALS: BP 143/99; PULSE 84; RESP 20; TEMP 36.6; O2SAT 91
--- NOTE | 2021-11-29 16:15 | ED_ITS ---
HPI - SOB/Dyspnea General: Chief Complaint: Shortness of Breath/Dyspnea Stated Complaint: Low oxygen level, cough Time Seen by Provider: 11/29/21 13:55 History of Present Illness: HPI Narrative: 46-year-old female with history of metastatic lung cancer has had worsening shortness of breath, cough, congestion, and increased oxygen requirement for the last few days. No fever. She develops coughing paroxysms during which her 02 sats go down to the 80s. She has been able to bring up some sputum, but has very little respiratory strength. Currently on Augmentin,Fluconazole. She has a hx of DVT and PE, but is on lower dose anticogulation because of GI bleeds. Hx of chronic leukocytosis, up to 40k; thought to be secondary to the malignancy and not necessarily infectious. PFSH ED PFSH: Medical History Acute kidney injury Acute on chronic anemia Cancer Elevated troponin Fatigue GERD (gastroesophageal reflux disease) Hypothyroidism Leukocytosis Metastatic lung cancer (metastasis from lung to other site) Postobstructive pneumonia Pulmonary embolism Sepsis Surgical History H/O partial adrenalectomy H/O splenectomy History of nephrectomy History of partial pancreatectomy Port-A-Cath in place Social History Smoking and tobacco status: never smoked Lives independently: Yes Household members: spouse Marital status: Female Reproductive History: Date of last menstrual period: 12/12/19 Physical Exam Const: GENERAL APPEARANCE: cooperative, ill appearing and frail appearing ORIENTATION/CONSCIOUSNESS: Yes awake, Yes oriented to person, Yes oriented to place and Yes oriented to time HENMT: COMMON NORMALS: normocephalic and atraumatic HEAD & SCALP: normocephalic and atraumatic FACE & SINUS: edema bilaterally Chest: CHEST: Yes Vascular access present Resp: EFFORT & INSPECTION: Yes decreased respiratory effort, No labored, No grunting and Yes Actively coughing productive, weak, loose and rattling Cardio: COMMON NORMALS: regular rate and regular rhythm RATE: regular rate RHYTHM: regular rhythm GI: COMMON NORMALS: Soft to palpation PALPATION: Yes Soft to palpation and No Tenderness to palpation present (GI) Extremity: GENERAL: Yes edema Neuro: SENSORIUM/ORIENTATION: Yes oriented to person, Yes oriented to place and Yes oriented to time SPEECH: speech normal Course Vital Signs: Vital signs: Vital Signs Temperature 97.9 F 11/29/21 16:15 Pulse Rate 84 11/29/21 16:15 Respiratory Rate 18 11/29/21 16:26 Blood Pressure 143/99 11/29/21 16:15 Pulse Oximetry 99 11/29/21 16:26 MDM - SOB/Dyspnea Medical Decision Making 46-year-old female with widely metastatic lung cancer, persistent left lobe consolidation and effusion. Presented today with an episode of desaturation during a coughing spell. Normally requires 2 to 3 L by nasal cannula, was needing up to 6 L today to maintain O2 sats above 90. Shortly after arriving here, she was able to clear her airway, O2 sats went back up and she is back to her baseline O2 requirement. Chest x-ray does not show any acute change. Her white blood cell count is elevated up to 38K, which is apparently not unusual for her; she is currently on antibiotics and antifungals. She has a follow-up appointment with PCP tomorrow morning. I think she is stable for discharge home, discussed ways to help facilitate airway clearing. On anticoagulation for pre-existing PE. Differential Diagnosis Likely congestive heart failure, community acquired pneumonia and pulmonary embolism Medical Records I reviewed the patient's medical records. Lab Data I reviewed the patient's lab results. : 11/29/21 14:40 11/29/21 14:40 Labs/Radiology: Radiology Impressions Chest X-Ray 11/29/21 14:14 IMPRESSION: Consolidation of the mid to lower left lung field is similar to the prior study. Laboratory Results WBC 38.3 10^3/uL (4.0-10.0) H* 11/29/21 14:40 RBC 3.11 10^6/uL (4.1-5.3) L 11/29/21 14:40 Hgb 9.4 g/dL (11.5-15.3) L 11/29/21 14:40 Hct 30.0 % (37.0-47.0) L 11/29/21 14:40 MCV 96.5 fl (81-99) 11/29/21 14:40 MCH 30.2 pg (28.0-34.0) 11/29/21 14:40 MCHC 31.3 g/dL (30.0-36.0) 11/29/21 14:40 RDW 19.9 % (12.1-15.1) H 11/29/21 14:40 Plt Count 815 10^3/cmm (130-400) H 11/29/21 14:40 MPV 10.2 fL (7.4-10.4) 11/29/21 14:40 Neut % (Auto) 93.6 % 11/29/21 14:40 Lymph % (Auto) 1.2 % 11/29/21 14:40 Bennett % (Auto) 2.9 % 11/29/21 14:40 Eos % (Auto) 0.0 % 11/29/21 14:40 Baso % (Auto) 0.2 % 11/29/21 14:40 Neut # (Auto) 35.87 10^3/uL (1.8-7.7) H 11/29/21 14:40 Lymph # (Auto) 0.5 10^3/uL (0.8-4.8) L 11/29/21 14:40 Bennett # (Auto) 1.1 10^3/uL (0.2-0.9) H 11/29/21 14:40 Eos # (Auto) 0.0 10^3/uL (0.0-0.8) 11/29/21 14:40 Baso # (Auto) 0.1 10^3/uL (0.0-0.1) 11/29/21 14:40 Nucleated RBC % (auto) 0 % 11/29/21 14:40 Nucleated RBCs # 0.0 /100WBC 11/29/21 14:40 Specimen Type Arterial 11/29/21 14:43 Sample Site Brachial, right 11/29/21 14:43 ABG pH 7.44 (7.35-7.45) 11/29/21 14:43 ABG pCO2 37.0 mmHg (35-45) 11/29/21 14:43 ABG pO2 85.4 mmHg (80.0-100.0) 11/29/21 14:43 ABG HCO3 24.9 mmol/L (22-26) 11/29/21 14:43 ABG Base Excess 0.7 mmol/L (-2.0-2.0) 11/29/21 14:43 Stanton Test Pos 11/29/21 14:43 Hematocrit 29.6 % (37-47) L 11/29/21 14:43 O2 Delivery Device Nc 11/29/21 14:43 O2 Liters/Min 5.0 % 11/29/21 14:43 FiO2 40.0 % 11/29/21 14:43 Plan Coordinator ID Monro 11/29/21 14:43 Sodium 132 mmol/L (136-145) L 11/29/21 14:40 Potassium 4.4 mmol/L (3.5-5.1) 11/29/21 14:40 Chloride 96 mmol/L (98-107) L 11/29/21 14:40 Carbon Dioxide 24 mmol/L (22-29) 11/29/21 14:40 Anion Gap 16.4 (5-19) 11/29/21 14:40 BUN 18 mg/dL (6-20) 11/29/21 14:40 Creatinine 0.9 mg/dL (0.5-0.9) 11/29/21 14:40 GFR Calculation 66.8 mL/min (90-130) L 11/29/21 14:40 Glucose 183 mg/dL (65-115) H 11/29/21 14:40 Calculated Osmolality 281 mOsm/kg (285-295) L 11/29/21 14:40 Calcium 9.7 mg/dL (8.5-10.5) 11/29/21 14:40 Magnesium 1.7 mg/dL (1.7-2.3) 11/29/21 14:40 Total Bilirubin 0.5 mg/dL (0.15-1.2) 11/29/21 14:40 AST 22 U/L (0-32) 11/29/21 14:40 ALT 84 U/L (0-33) H 11/29/21 14:40 Alkaline Phosphatase 229 IU/L (35-105) H 11/29/21 14:40 NT-Pro-B Natriuret Pep 1080 pg/mL (0-125) H 11/29/21 14:40 Total Protein 6.1 g/dL (6.6-8.7) L 11/29/21 14:40 Albumin 3.6 g/dL (3.5-5.2) 11/29/21 14:40 Globulin 2.5 g/dL (1.3-4.6) 11/29/21 14:40 Influenza Type A Ag Negative (Negative) 11/29/21 Unknown Influenza Type B Ag Negative (Negative) 11/29/21 Unknown SARS-CoV-2 Ag (Rapid) Negative (Negative) 11/29/21 Unknown Discharge Plan Discharge Patient Disposition: Home Clinical Impression: Metastatic lung cancer (metastasis from lung to other site), Increased sputum production, Paroxysmal cough Condition: Stable Prescriptions: New guaifenesin 1,200 mg tablet extended release 12hr 1,200 mg PO BID Qty: 20 0RF Xopenex HFA 45 mcg/actuation HFA aerosol inhaler 2 inh inhalation Q6H PRN (Reason: shortness of breath or wheezing) Qty: 15 0RF No Action benzonatate 200 mg capsule 200 mg PO Q8H PRN (Reason: Cough) 0RF citalopram 20 mg tablet 20 mg PO BEDTIME 0RF omeprazole 20 mg Capsule,Delayed Release(Dr/Ec) 20 mg PO DAILY@16 0RF oxycodone 5 mg tablet 5 - 10 mg PO Q4H PRN (Reason: Pain) 0RF multivitamin Tablet 1 tab PO DAILY 0RF furosemide 40 mg Tablet 40 mg PO DAILY 0RF prednisone 5 mg Tablet 5 mg PO TID 0RF calcium carbonate 500 mg calcium (1,250 mg) Tablet,Chewable 1,000 mg PO BID 0RF cyclobenzaprine 5 mg Tablet 5 mg PO TID PRN (Reason: Pain) 0RF afatinib 20 mg Tablet 40 mg PO BEDTIME 0RF Rx Instructions: must be taken on empty stomach; no food 1 hr after or 2-3 hrs before dose potassium chloride 20 mEq Tablet Extended Release 20 meq PO DAILY 0RF gabapentin 100 mg Capsule 100 mg PO BID 0RF acetaminophen 500 mg Tablet 1,000 mg PO TID PRN (Reason: Pain) 0RF levothyroxine 137 mcg Tablet 137 mcg PO QAM 60 Days Qty: 60 3RF ferrous sulfate [Feosol] 325 mg (65 mg iron) tablet 325 mg PO DAILY Qty: 30 0RF enoxaparin [Lovenox] 60 mg/0.6 mL syringe 60 mg SUBCUT Q12H 30 Days Qty: 36 0RF Discharge Orders: Discharge ED (Routine); Ordered 11/29/21 Ordered By: Soumya Llamas Referrals: Vinh Barry MD [Primary Care Provider] - Discharge Diet: Advance as tolerated Discharge Activity: Increase activity as tolerated and Oxygen as instructed Activity Restrictions/Additional Instructions: Follow-up as scheduled with your PCP tomorrow. Continue oxygen as needed to keep O2 sats above 92%. Make sure to sit in an upright position while coughing to help clear secretions. Coding Level of Care Code ED [employer] for [employer]
[2021-11-29 16:26] VITALS: RESP 18; O2SAT 99
[2021-11-29] MEDS: oxyCODONE 5 mg IR Tab/Cap PO (16:26)
== END 2021-11-29 18:02 | disposition home or self-care (01) ==
PROVIDERS: Emergency Provider Family Medicine; PCP Family Medicine
DX: R05.8 Other specified cough (principal); C34.90 Malignant neoplasm of unspecified part of unspecified bronchus or lung; C79.9 Secondary malignant neoplasm of unspecified site; Z86.711 Personal history of pulmonary embolism; Z90.5 Acquired absence of kidney; Z20.822 Contact with and (suspected) exposure to COVID-19
CPT/HCPCS: 36600; 71045; 80053; 82803; 83735; 83880; 85025; 87426; 87804; 96365; 96375; 99284; J0692; J1642; J7040

== ENCOUNTER 2021-11-30 08:06 | Outpatient (CLI) | payer BC, SELFPAY ==
--- NOTE | 2021-12-04 14:24 | ONC FU_ITS ---
Dr. Mahoney Patient Follow-Up Note Patient: Luz Elena Alvarez Unit #: [id number]: 1975 Dicatated By: Beni Mahoney M.D.Date of Visit:Nov 30, 2021 Onc Med Follow-up/Prog Note Chief Complaint: Lung cancer. 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 Her tumor was determined to be PD-L1 positive at 25%. 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 She had subsequent progression to stage OLIVA with evidence of left adrenal metastasis. She is a non-smoker and she has been in good general health. In August 2019 she had seen her primary care physician with fever and cough, initially suspected to be pneumonia. Repeat chest x-ray after antibiotic therapy showed persistent mass in the left lung. Chest CT showed a large left upper lobe lung mass with associated mediastinal adenopathy, highly suspicious for malignancy. She underwent bronchoscopy on 09/17/2019 with brushings from the left upper lobe bronchus showing atypical cells, suspicious for malignancy. A repeat PET/CT on 10/10/2019 showed a 5.7 x 5.2 cm mass with SUV 22.7. A left hilar lymph node measuring 14 mm had elevated SUV of 5.0, and a small node in the aortopulmonary window had increased SUV at 4.4. There were no other areas of abnormal uptake. A left adrenal gland nodule measuring up to 2.5 cm appeared consistent with benign adenoma. On 11/12/2019 she underwent left video-assisted thorascopic surgical biopsy of station 5 AP window lymph nodes. At surgery it was noted that her tumor was invading the left chest wall. The AP window lymph nodes were found to be positive for metastatic carcinoma, and with those findings resection was not attempted. Pathology report indicated just scant malignant cells which were consistent with non-small cell carcinoma. A myLINGOis next generation sequencing study showed no actionable mutations. The PD-L1 was positive at 25%. I had seen her initially on 11/15/2019. In the setting of stage IIIB disease, she was recommended to undergo chemoradiation utilizing weekly carboplatin/paclitaxel. At the time I also recommended further molecular analysis with a GuardYandex 360 study. It showed the presence of an EGFR L747P mutation. On 12/03/2019 she began treatment with her week 1 carboplatin/paclitaxel concurrently with radiation. Her treatment had to be stopped due to an almost immediate hypersensitivity reaction to the paclitaxel. The reaction was adequately managed with IV Solu-Medrol, subcutaneous epinephrine, and other supportive measures which included IV fluids, oxygen, and albuterol/Atrovent by pulmonary nebulizer. She then returned on 12/05/2019 to restart treatment with carboplatin/Abraxane, which she tolerated without acute toxicity. She continued treatment weekly through week 5 on 01/02/2020. Her week 6 treatment was held due to declining blood counts and performance status. She completed radiation on 01/16/2020 to a total dose of 6600 cGy[address] Her restaging chest CT on 02/06/2020 showed a slight decrease in the left upper lobe neoplasm measuring 4.6 x 3.4 x 2.8 cm and a slight decrease in the size of the left suprahilar lymph node measuring 1.4 cm. There was no change in the left adrenal gland mass. As there was evidence of some response, she was recommended to begin maintenance immunotherapy with durvalumab. She began cycle 1 of maintenance durvalumab on 02/18/2020. The initial phase of her maintenance therapy was complicated by hyperthyroidism, requiring a temporary treatment delay, and subsequently by hypothyroidism which required steroid therapy. Her treatment was put on hold after the 3rd cycle. Restaging CT of the chest on 04/17/2020 showed decrease in the size of the left upper lobe neoplasm measuring 2.6 x 2.1 x 2.6 cm. There was new patchy airspace infiltrates in the left lower lobe, likely infectious or inflammatory. A previously described left AP window was noted to have resolved. There was no mediastinal or hilar lymphadenopathy noted. There was a small pericardial effusion. A left adrenal mass measuring 2.0 x 1.5 cm appeared stable. At that point her treatment remained on hold, but as of 05/21/2020 she was able to continue with cycle 4 of durvalumab at the full dosage. She tolerated it well and she then continued treatment at 2-week intervals. Repeat chest CT on 07/28/2020 showed slight increase in the left upper lobe pulmonary mass along with increased pleural thickening. Patchy infiltrates in the left upper and lower lobes were felt to possibly be due to obstructive pneumonia. The left adrenal mass had increased slightly, to 2.3 x 3.1 cm compared to 1.8 x 2.3 cm. She continued with cycle 9 of durvalumab on 07/30/2020, and thereafter she continued treatment at 2-week intervals. In August she required an increase in her steroid dosage for suspected radiation pneumonitis. She was then maintained on low-dose steroid therapy with prednisone 10 mg daily. As of 10/22/2020 she completed cycle 15 of durvalumab. Her repeat chest CT on 10/22/2020 reported left upper lobe neoplasm with associated pleural thickening measuring approximately 2.6 x 1.7 cm, not significantly changed from the previous study. There appeared to be progression of the left pleural thickening with multinodular thickening and with a small amount of pleural fluid in the left hemithorax. There was similar-appearing postobstructive pneumonia in the left lower lobe with air bronchograms. Left upper lobe postobstructive pneumonia. Slightly progressed and there was slightly increased volume loss in the left lung. There was significant progression of the left adrenal mass measuring 4.6 x 3.6 cm. With those findings, treatment was put on hold. On 11/25/2020 she was seen at [facility] by Dr. Nick Raines for second opinion evaluation. Her subsequent PET/CT on 12/13/2020 showed further increase in left adrenal mass to 4.1 x 6.3 cm with SUV 28.4, consistent with metastatic disease. Extensive FDG positive inflammatory consolidation in the left lung was felt to be most consistent with radiation therapy sequelae. Ultimately she was recommended to proceed with a trial of therapy with osimertinib. Treatment began on 01/07/2021 at a standard dosage of 80 mg daily. She had initially tolerated the treatment very well. However, as of 02/10/2021 her treatment was put on hold due to multiple side effects, the most significant being severe headache and dizziness. Her head MRI at that time showed no evidence of restricted diffusion to suggest acute ischemia and no evidence of enhancing intracranial metastatic disease. Her restaging chest CT on 03/19/2021 showed stable left hilar and left upper lobe airspace consolidation with no evidence of progressive disease in the chest. However, there was significant progression of the left adrenal mass, at that point measuring 8.6 x 5.1 x 6.5 cm. In the absence of any evidence of other disease progression, she was referred for consideration of adrenalectomy. Her further clinical course was complicated by COVID-19 virus infection in April 2021 and by C. difficile colitis in June 2021. She ultimatelyunderwent resection of left retroperitoneal mass, spleen, distal pancreas, and left kidney on 09/09/[address] Cristina Kothari at [facility]. She had a complicated postoperative course requiring readmission to the hospital on 10/08/2021 with an increased size of left upper quadrant fluid collection and suspected mesh infection. She began on broad-spectrum antibiotic therapy and she required placement of 2 drains. The hospitalization was complicated by new pulmonary emboli in the right lower lobe. Biopsy of a left supraclavicular lymph node on 10/28/2021 showed poorly differentiated non-small cell carcinoma. She showed rapidly progressing left pleural masses and a 2.7 cm liver lesion by MRI and PET/CT showed hypermetabolic masses in the left posterior sulcus, retroperitoneum, left lower lobe, left posterior pleura, and the left supraclavicular lymph node. Left lung biopsy on 11/02/2021 also showed poorly differentiated carcinoma. She had outpatient follow-up with Dr. Raines on 11/16/2021. She was recommended to have a trial of further targeted therapy with afatinib. However, at that point she required admission to the hospital again with hypoxic respiratory failure and hypotension. She was treated on broad-spectrum antibiotics. She also was anemic, and at discharge on 11/20/2021 it was opted to withhold anticoagulation. Her only other medical illnesses is GERD. She is a non-smoker. INTERIM HISTORY: She returned home from [facility] on 11/20/2021. On 11/23/2021 she presented to the emergency room with increased fatigue and shortness of breath. Her hemoglobin was adequate at 9.6 g, but she was found on CT pulmonary angiogram to have multiple emboli throughout the right lung. There was mass with probable postobstructive pneumonia in the left lung. Following admission to the hospital she was restarted on antibiotic therapy. Following discussion with the hospitalist, she was started on an IV heparin drip, but that had to be discontinued when she was confirmed to have a heme positive stool. She was discharged home on 11/26/2021 on low-dose enoxaparin. She is seen for a follow-up visit. She has been feeling really tired and she has very limited activity. ECOG score is 3. Her appetite is decent. She has not had fever or night sweats. She does complain of sore throat. She has had some cough and she has noted a little bit of blood in her sputum. She is on continuous oxygen, and she is short of breath with activity. She does not complain of chest pain. She has not been having nausea. Her acid reflux is adequately managed with medication. She still has some tightness and soreness in the area of her surgery. Her bowels have been loose. She has no complaints with bladder function. She does complain of back pain. She has not been having headache or dizziness, and she has no focal neurologic symptoms. Medications: Citalopram Hydrobromide 1 Tablet (of 20 mg) Tablet Oral daily, Ferrous Sulfate 1 Tablet (of 325 (65 fe) mg) Tablet Oral daily, guaiFENesin 3 Tablet (of 400 mg) Oral b.i.d., Levothyroxine Sodium 1 Tablet (of 112 mcg) Oral daily, Omeprazole 1 Tablet (of 20 mg) Capsule Delayed Release Oral daily, predniSONE 1 Tablet (of 10 mg) Oral daily, Xopenex HFA (45 mcg/act) Aerosol Inhalation Take as Directed Allergies: paclitaxel Vital Signs: Performed on Nov 30, 2021 08:21 Height - 68.00 in Temperature - 97.2 F (LOW) Pulse - 77 /min Respiration - 16 /min BP - 124/86 mm(hg) O2 Sat - 92 % (LOW) Pain - 4 Fatigue - 9 Physical Examination: Constitutional - She appears generally weak, Eyes - Sclerae nonicteric. Conjunctivae clear, ENMT - No lesions noted in the oral cavity, Hematologic/Lymphatic - No cervical, clavicular, or axillary adenopathy, Respiratory - Lungs show diminished air movement bilaterally, worse on the left, Cardiovascular - Heart rhythm is regular. There is no murmur, gallop, or rub noted, Abdomen - Soft. Liver and spleen are not enlarged. There is no abdominal mass or ascites noted and there is no inguinal adenopathy, Extremities - There is 1 to 2+ lower extremity edema, Neurologic - No focal neurologic deficits noted. Problem List: 1. Non-small cell carcinoma involving the upper lobe of the left lung, stage IIIB (T3, N2, M0) at initial diagnosis in September 2019. A C[employer]ient next generation sequencing study showed no actionable mutations. The PD-L1 was positive at 25%. A Guardant 360 study showed the presence of an exon 19 EGFR mutation ( L747P mutation). She has had subsequent progression to stage IVB. 2. She has pre-existing GERD, adequately managed with medication. 3. She had moderately severe anemia with serum iron studies consistent with iron deficiency. 4. Her clinical course has been complicated by deep vein thrombosis and pulmonary emboli. 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 She underwent video-assisted thoracotomy with biopsy of station 5 AP window lymph nodes on 11/09/2019. Her tumor was found to be invading the chest wall. PD-L1 expression was positive at 25%. A Guardant 360 study showed the presence of an exon 19 EGFR mutation ( L747P mutation). She had CT evidence of response to intial chemoradiation, completed on 01/16/2020 to a total dose of 6600 cGy. She began cycle 1 of maintenance immunotherapy with durvalumab on 02/18/2020. It was complicated by acute thyroiditis, requiring treatment interruption and steroid therapy. Her restaging chest CT on 04/17/2020 showed significant decrease in the left upper lobe mass compared to the pretreatment study. She continued maintenance durvalumab along with low-dose prednisone. In August she required an increase in steroid dosage for suspected radiation pneumonitis. She had symptomatic improvement, and she then continued low-dose steroid therapy with prednisone 10 mg daily. Her restaging chest CT on 10/22/2020 showed no obvious increase in the primary lung tumor in the left upper lobe. There was increased pleural thickening and postobstructive pneumonia involving both the upper lobe and lower lobe. There was significant increase in the left adrenal mass measuring 4.6 x 3.6 cm, which at that point was presumed to be metastatic. With those findings, her maintenance durvalumab was put on hold. Her restaging PET/CT on 12/13/2020 showed further increase in left adrenal mass to 4.1 x 6.3 cm with SUV 28.4, clearly consistent with metastatic disease. Extensive FDG positive inflammatory consolidation in the left lung was felt to be most consistent with radiation therapy sequelae. She was then recommended to proceed with a trial of targeted therapy with osimertinib. Treatment began on 01/07/2021 at a standard dosage of 80 mg daily. She had initially tolerated the osimertinib well, but as of 02/10/2021 she had presented with severe headaches and dizziness. This was presumed to be treatment related, as her brain MRI showed no evidence of metastatic disease or other acute pathology, and the osimertinib was put on hold. Her restaging CT scans showed progression of the left adrenal metastasis, and as it appeared to be the only site of metastatic involvement, she was then referred for consideration of surgical resection. Her further clinical course was complicated by COVID-19 virus infection in April 2021 and by C. difficile colitis in June 2021. She ultimatelyunderwent resection of left retroperitoneal mass, spleen, distal pancreas, and left kidney on 09/09/[address] Cristina Kothari at [facility]. She had a complicated postoperative course requiring readmission to the hospital on 10/08/2021 with an increased size of left upper quadrant fluid collection and suspected mesh infection. She began on broad-spectrum antibiotic therapy and she required placement of 2 drains. Her evaluation during the hospitalization confirmed progression of the lung cancer at multiple sites. She had outpatient follow-up with Dr. Raines on 11/16/2021. She was recommended to have a trial of further targeted therapy with afatinib. However, at that point she required admission to the hospital again with hypoxic respiratory failure and hypotension. She was treated on broad-spectrum antibiotics. She also was anemic, and at discharge on 11/20/2021 it was opted to withhold anticoagulation. On 11/23/2021 she was admitted to the hospital with CT evidence of multiple pulmonary emboli throughout the right lung. She began on IV heparin, that had to be discontinued when she was found to have heme positive stool. She was discharged home on low-dose enoxaparin. She currently is on second line targeted therapy with afatinib 40 mg daily. She is continuing anticoagulation on low-dose enoxaparin. She continues to have very marginal performance status, but her hemoglobin has remained adequate and stable at 9.4 g. Her overall prognosis unfortunately is poor. Her recent CT scan did show reaccumulation of fluid in the left upper quadrant area, but that will be managed conservatively until and unless it becomes overtly symptomatic. Signed By: Beni Mahoney M.D. <<Signature on File>>
== END 2021-11-30 08:07 | disposition home or self-care (01) ==
PROVIDERS: PCP Family Medicine; Visit Provider Internal Medicine Medical Oncology
DX: C34.12 Malignant neoplasm of upper lobe, left bronchus or lung (principal); K21.9 Gastro-esophageal reflux disease without esophagitis; D50.9 Iron deficiency anemia, unspecified; Z86.718 Personal history of other venous thrombosis and embolism; Z86.711 Personal history of pulmonary embolism; Z79.899 Other long term (current) drug therapy
CPT/HCPCS: 99215

== ENCOUNTER 2021-12-08 09:00 | Outpatient (CLI) | payer BC, SELFPAY ==
[2021-12-08 09:54] LABS: Basophils # 0.1 10^3/uL (0.0-0.1); Basophils % 0.3 %; Eosinophils # 0.1 10^3/uL (0.0-0.8); Eosinophils % 0.3 %; Hematocrit 30.3 % (37.0-47.0); Hemoglobin 9.3 g/dL (11.5-15.3); Lymphocytes # 0.5 10^3/uL (0.8-4.8); Lymphocytes % 2.4 %; Mean Corpuscular HGB Conc 30.7 g/dL (30.0-36.0); Mean Corpuscular Hemoglobin 30.1 pg (28.0-34.0); Mean Corpuscular Volume 98.1 fl (81-99); Mean Platelet Volume 9.7 fL (7.4-10.4); Monocytes # 1.1 10^3/uL (0.2-0.9); Neutrophils # 19.16 10^3/uL (1.8-7.7); Neutrophils % 88.1 %; Nucleated Red Blood Cells % 0 %; Platelet Count 772 10^3/cmm (130-400); Red Blood Count 3.09 10^6/uL (4.1-5.3); Red Cell Distribution Width 20.7 % (12.1-15.1); White Blood Count 21.8 10^3/uL (4.0-10.0)
[2021-12-08 10:10] LABS: Alanine Aminotransferase 12 U/L (0-33); Albumin Level 3.6 g/dL (3.5-5.2); Alkaline Phosphatase 166 IU/L (35-105); Anion Gap 18.2 (5-19); Aspartate Amino Transferase 9 U/L (0-32); Blood Urea Nitrogen 12 mg/dL (6-20); Calcium 9.8 mg/dL (8.5-10.5); Carbon Dioxide 20 mmol/L (22-29); Chloride 95 mmol/L (98-107); Globulin 3.1 g/dL (1.3-4.6); Glomerular Filtration Rate 59.2 mL/min (90-130); Glucose 109 mg/dL (65-115); Osmolality Calculated 268 mOsm/kg (285-295); Potassium 4.2 mmol/L (3.5-5.1); Sodium 129 mmol/L (136-145); Total Bilirubin 0.3 mg/dL (0.15-1.2); Total Protein 6.7 g/dL (6.6-8.7)
--- NOTE | 2021-12-08 17:30 | ONC FU_ITS ---
Dr. Mahoney Patient Follow-Up Note Patient: Luz Elena Alvarez Unit #: [id number]: 1975 Dicatated By: Beni Mahoney M.D.Date of Visit:Dec 08, 2021 Onc Med Follow-up/Prog Note Chief Complaint: Lung cancer. 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 Her tumor was determined to be PD-L1 positive at 25%. 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 She had subsequent progression to stage OLIVA with evidence of left adrenal metastasis. She is a non-smoker and she has been in good general health. In August 2019 she had seen her primary care physician with fever and cough, initially suspected to be pneumonia. Repeat chest x-ray after antibiotic therapy showed persistent mass in the left lung. Chest CT showed a large left upper lobe lung mass with associated mediastinal adenopathy, highly suspicious for malignancy. She underwent bronchoscopy on 09/17/2019 with brushings from the left upper lobe bronchus showing atypical cells, suspicious for malignancy. A repeat PET/CT on 10/10/2019 showed a 5.7 x 5.2 cm mass with SUV 22.7. A left hilar lymph node measuring 14 mm had elevated SUV of 5.0, and a small node in the aortopulmonary window had increased SUV at 4.4. There were no other areas of abnormal uptake. A left adrenal gland nodule measuring up to 2.5 cm appeared consistent with benign adenoma. On 11/12/2019 she underwent left video-assisted thorascopic surgical biopsy of station 5 AP window lymph nodes. At surgery it was noted that her tumor was invading the left chest wall. The AP window lymph nodes were found to be positive for metastatic carcinoma, and with those findings resection was not attempted. Pathology report indicated just scant malignant cells which were consistent with non-small cell carcinoma. A [employer] next generation sequencing study showed no actionable mutations. The PD-L1 was positive at 25%. I had seen her initially on 11/15/2019. In the setting of stage IIIB disease, she was recommended to undergo chemoradiation utilizing weekly carboplatin/paclitaxel. At the time I also recommended further molecular analysis with a [employer] [facility] study. It showed the presence of an EGFR L747P mutation. On 12/03/2019 she began treatment with her week 1 carboplatin/paclitaxel concurrently with radiation. Her treatment had to be stopped due to an almost immediate hypersensitivity reaction to the paclitaxel. The reaction was adequately managed with IV Solu-Medrol, subcutaneous epinephrine, and other supportive measures which included IV fluids, oxygen, and albuterol/Atrovent by pulmonary nebulizer. She then returned on 12/05/2019 to restart treatment with carboplatin/Abraxane, which she tolerated without acute toxicity. She continued treatment weekly through week 5 on 01/02/2020. Her week 6 treatment was held due to declining blood counts and performance status. She completed radiation on 01/16/2020 to a total dose of 6600 cGy. Her restaging chest CT on 02/06/2020 showed a slight decrease in the left upper lobe neoplasm measuring 4.6 x 3.4 x 2.8 cm and a slight decrease in the size of the left suprahilar lymph node measuring 1.4 cm. There was no change in the left adrenal gland mass. As there was evidence of some response, she was recommended to begin maintenance immunotherapy with durvalumab. She began cycle 1 of maintenance durvalumab on 02/18/2020. The initial phase of her maintenance therapy was complicated by hyperthyroidism, requiring a temporary treatment delay, and subsequently by hypothyroidism which required steroid therapy. Her treatment was put on hold after the 3rd cycle. Restaging CT of the chest on 04/17/2020 showed decrease in the size of the left upper lobe neoplasm measuring 2.6 x 2.1 x 2.6 cm. There was new patchy airspace infiltrates in the left lower lobe, likely infectious or inflammatory. A previously described left AP window was noted to have resolved. There was no mediastinal or hilar lymphadenopathy noted. There was a small pericardial effusion. A left adrenal mass measuring 2.0 x 1.5 cm appeared stable. At that point her treatment remained on hold, but as of 05/21/2020 she was able to continue with cycle 4 of durvalumab at the full dosage. She tolerated it well and she then continued treatment at 2-week intervals. Repeat chest CT on 07/28/2020 showed slight increase in the left upper lobe pulmonary mass along with increased pleural thickening. Patchy infiltrates in the left upper and lower lobes were felt to possibly be due to obstructive pneumonia. The left adrenal mass had increased slightly, to 2.3 x 3.1 cm compared to 1.8 x 2.3 cm. She continued with cycle 9 of durvalumab on 07/30/2020, and thereafter she continued treatment at 2-week intervals. In August she required an increase in her steroid dosage for suspected radiation pneumonitis. She was then maintained on low-dose steroid therapy with prednisone 10 mg daily. As of 10/22/2020 she completed cycle 15 of durvalumab. Her repeat chest CT on 10/22/2020 reported left upper lobe neoplasm with associated pleural thickening measuring approximately 2.6 x 1.7 cm, not significantly changed from the previous study. There appeared to be progression of the left pleural thickening with multinodular thickening and with a small amount of pleural fluid in the left hemithorax. There was similar-appearing postobstructive pneumonia in the left lower lobe with air bronchograms. Left upper lobe postobstructive pneumonia. Slightly progressed and there was slightly increased volume loss in the left lung. There was significant progression of the left adrenal mass measuring 4.6 x 3.6 cm. With those findings, treatment was put on hold. On 11/25/2020 she was seen at [facility] by Dr. Nick Raines for second opinion evaluation. Her subsequent PET/CT on 12/13/2020 showed further increase in left adrenal mass to 4.1 x 6.3 cm with SUV 28.4, consistent with metastatic disease. Extensive FDG positive inflammatory consolidation in the left lung was felt to be most consistent with radiation therapy sequelae. Ultimately she was recommended to proceed with a trial of therapy with osimertinib. Treatment began on 01/07/2021 at a standard dosage of 80 mg daily. She had initially tolerated the treatment very well. However, as of 02/10/2021 her treatment was put on hold due to multiple side effects, the most significant being severe headache and dizziness. Her head MRI at that time showed no evidence of restricted diffusion to suggest acute ischemia and no evidence of enhancing intracranial metastatic disease. Her restaging chest CT on 03/19/2021 showed stable left hilar and left upper lobe airspace consolidation with no evidence of progressive disease in the chest. However, there was significant progression of the left adrenal mass, at that point measuring 8.6 x 5.1 x 6.5 cm. In the absence of any evidence of other disease progression, she was referred for consideration of adrenalectomy. Her further clinical course was complicated by COVID-19 virus infection in April 2021 and by C. difficile colitis in June 2021. She ultimatelyunderwent resection of left retroperitoneal mass, spleen, distal pancreas, and left kidney on 09/09/[address] Cristina Kothari at [facility]. She had a complicated postoperative course requiring readmission to the hospital on 10/08/2021 with an increased size of left upper quadrant fluid collection and suspected mesh infection. She began on broad-spectrum antibiotic therapy and she required placement of 2 drains. The hospitalization was complicated by new pulmonary emboli in the right lower lobe. Biopsy of a left supraclavicular lymph node on 10/28/2021 showed poorly differentiated non-small cell carcinoma. She showed rapidly progressing left pleural masses and a 2.7 cm liver lesion by MRI and PET/CT showed hypermetabolic masses in the left posterior sulcus, retroperitoneum, left lower lobe, left posterior pleura, and the left supraclavicular lymph node. Left lung biopsy on 11/02/2021 also showed poorly differentiated carcinoma. She had outpatient follow-up with Dr. Raines on 11/16/2021. She subsequently began a trial of further targeted therapy with afatinib. However, at that point she had required admission to the hospital again with hypoxic respiratory failure and hypotension. She was treated on broad-spectrum antibiotics. She also was anemic, and at discharge on 11/20/2021 it was opted to withhold anticoagulation. She returned home from [facility] on 11/20/2021. On 11/23/2021 she presented to the emergency room with increased fatigue and shortness of breath. Her hemoglobin was adequate at 9.6 g, but she was found on CT pulmonary angiogram to have multiple emboli throughout the right lung. There was mass with probable postobstructive pneumonia in the left lung. Following admission to the hospital she was restarted on antibiotic therapy. Following discussion with the hospitalist, she was started on an IV heparin drip, but that had to be discontinued when she was confirmed to have a heme positive stool. She was discharged home on 11/26/2021 on low-dose enoxaparin. Her only other medical illnesses is GERD. She is a non-smoker. INTERIM HISTORY: She is seen for an unplanned visit. She has remained very weak and she continues to have very limited activity. ECOG score is 3. Her main complaint is that she continues to have shortness of breath and over the past several days her cough has continued to worsen. She has been coughing up dark blood at least several times each day. She is not having chest pain, and she has not had fever. Medications: Citalopram Hydrobromide 1 Tablet (of 20 mg) Tablet Oral daily, Ferrous Sulfate 1 Tablet (of 325 (65 fe) mg) Tablet Oral daily, guaiFENesin 3 Tablet (of 400 mg) Oral b.i.d., Levothyroxine Sodium 1 Tablet (of 112 mcg) Oral daily, Omeprazole 1 Tablet (of 20 mg) Capsule Delayed Release Oral daily, predniSONE 1 Tablet (of 10 mg) Oral daily, Xopenex HFA (45 mcg/act) Aerosol Inhalation Take as Directed Allergies: levoFLOXacin and paclitaxel. Physical Examination: Constitutional - She appears generally weak, Eyes - Sclerae nonicteric. Conjunctivae clear, ENMT - No lesions noted in the oral cavity, Hematologic/Lymphatic - No adenopathy in the neck or axilla, Respiratory - Lungs show virtually absent air movement on the left, Cardiovascular - Heart rhythm is regular. There is no murmur, gallop, or rub noted, Abdomen - Soft with no abdominal mass or hepatosplenomegaly noted, Extremities - Mild lower extremity edema, Neurologic - No focal neurologic deficits noted. Lab/Imaging: CBC shows hemoglobin 9.3 g, white blood cell count 21,800, and platelet count 772,000. Problem List: 1. Non-small cell carcinoma involving the upper lobe of the left lung, stage IIIB (T3, N2, M0) at initial diagnosis in September 2019. A [employer] next generation sequencing study showed no actionable mutations. The PD-L1 was positive at 25%. A [employer] 360 study showed the presence of an exon 19 EGFR mutation ( L747P mutation). She has had subsequent progression to stage IVB. 2. She has pre-existing GERD, adequately managed with medication. 3. She had moderately severe anemia with serum iron studies consistent with iron deficiency. 4. Her clinical course has been complicated by deep vein thrombosis and pulmonary emboli. 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 She underwent video-assisted thoracotomy with biopsy of station 5 AP window lymph nodes on 11/09/2019. Her tumor was found to be invading the chest wall. PD-L1 expression was positive at 25%. A [employer] 360 study showed the presence of an exon 19 EGFR mutation ( L747P mutation). She had CT evidence of response to intial chemoradiation, completed on 01/16/2020 to a total dose of 6600 cGy. She began cycle 1 of maintenance immunotherapy with durvalumab on 02/18/2020. It was complicated by acute thyroiditis, requiring treatment interruption and steroid therapy. Her restaging chest CT on 04/17/2020 showed significant decrease in the left upper lobe mass compared to the pretreatment study. She continued maintenance durvalumab along with low-dose prednisone. In August she required an increase in steroid dosage for suspected radiation pneumonitis. She had symptomatic improvement, and she then continued low-dose steroid therapy with prednisone 10 mg daily. Her restaging chest CT on 10/22/2020 showed no obvious increase in the primary lung tumor in the left upper lobe. There was increased pleural thickening and postobstructive pneumonia involving both the upper lobe and lower lobe. There was significant increase in the left adrenal mass measuring 4.6 x 3.6 cm, which at that point was presumed to be metastatic. With those findings, her maintenance durvalumab was put on hold. Her restaging PET/CT on 12/13/2020 showed further increase in left adrenal mass to 4.1 x 6.3 cm with SUV 28.4, clearly consistent with metastatic disease. Extensive FDG positive inflammatory consolidation in the left lung was felt to be most consistent with radiation therapy sequelae. She was then recommended to proceed with a trial of targeted therapy with osimertinib. Treatment began on 01/07/2021 at a standard dosage of 80 mg daily. She had initially tolerated the osimertinib well, but as of 02/10/2021 she had presented with severe headaches and dizziness. This was presumed to be treatment related, as her brain MRI showed no evidence of metastatic disease or other acute pathology, and the osimertinib was put on hold. Her restaging CT scans showed progression of the left adrenal metastasis, and as it appeared to be the only site of metastatic involvement, she was then referred for consideration of surgical resection. Her further clinical course was complicated by COVID-19 virus infection in April 2021 and by C. difficile colitis in June 2021. She ultimatelyunderwent resection of left retroperitoneal mass, spleen, distal pancreas, and left kidney on 09/09/[address] Cristina Kothari at [facility]. She had a complicated postoperative course requiring readmission to the hospital on 10/08/2021 with an increased size of left upper quadrant fluid collection and suspected mesh infection. She began on broad-spectrum antibiotic therapy and she required placement of 2 drains. Her evaluation during the hospitalization confirmed progression of the lung cancer at multiple sites. She had outpatient follow-up with Dr. Raines on 11/16/2021. She began a trial of further targeted therapy with afatinib. However, at that point she had required admission to the hospital again with hypoxic respiratory failure and hypotension. She was treated on broad-spectrum antibiotics. She also was anemic, and at discharge on 11/20/2021 it was opted to withhold anticoagulation. On 11/23/2021 she was admitted to the hospital with CT evidence of multiple pulmonary emboli throughout the right lung. She began on IV heparin, that had to be discontinued when she was found to have heme positive stool. She was discharged home on low-dose enoxaparin. She has continued 2nd line targeted therapy with afatinib 40 mg daily. She also has continued anticoagulation on low-dose enoxaparin. Thus far her hemoglobin has remained adequate, currently at 9.3 g. However, she continues to have very marginal performance status. She comes in today with increased shortness of breath and cough, and she has associated hemoptysis. As such, I will have her begin additional antibiotic coverage empirically with ertapenem 1 g IV daily. She will be scheduled for repeat chest CT, I will plan review those images with the multi mission helicopter aircrewman for further treatment planning. Signed By: Beni Mahoney M.D. <<Signature on File>>
== END 2021-12-08 09:01 | disposition home or self-care (01) ==
PROVIDERS: PCP Family Medicine; Visit Provider Internal Medicine Medical Oncology
DX: C34.12 Malignant neoplasm of upper lobe, left bronchus or lung (principal); K21.9 Gastro-esophageal reflux disease without esophagitis; D50.9 Iron deficiency anemia, unspecified; I26.99 Other pulmonary embolism without acute cor pulmonale; R04.2 Hemoptysis; R06.02 Shortness of breath; R05.9 Cough, unspecified; Z79.899 Other long term (current) drug therapy; Z86.718 Personal history of other venous thrombosis and embolism
CPT/HCPCS: 80053; 85025; 87070; 87205; 96365; 99215; J1335

== ENCOUNTER 2021-12-09 08:04 | Outpatient (CLI) | payer BC, SELFPAY ==
[2021-12-09] MEDS: iohexol 300 mg/mL 100 mL Btl IV (10:37)
== END 2021-12-09 08:05 | disposition home or self-care (01) ==
PROVIDERS: PCP Family Medicine; Visit Provider Internal Medicine Medical Oncology
DX: C34.12 Malignant neoplasm of upper lobe, left bronchus or lung (principal); R04.2 Hemoptysis; R06.02 Shortness of breath; R05.9 Cough, unspecified; Z79.2 Long term (current) use of antibiotics
CPT/HCPCS: 96365; J1335; Q9967

== ENCOUNTER 2021-12-10 07:54 | Outpatient (CLI) | payer BC, SELFPAY ==
[2021-12-10] MEDS: sodium chloride 0.9% (100 ml) 100 ML 75 ML (11:51)
== END 2021-12-10 07:55 | disposition home or self-care (01) ==
PROVIDERS: PCP Family Medicine; Visit Provider Internal Medicine Medical Oncology
DX: R04.2 Hemoptysis (principal); R06.02 Shortness of breath; R05.9 Cough, unspecified; C34.12 Malignant neoplasm of upper lobe, left bronchus or lung; Z79.2 Long term (current) use of antibiotics
CPT/HCPCS: 96365; J1335

== ENCOUNTER 2021-12-11 07:53 | Outpatient (CLI) | payer BC, SELFPAY ==
--- NOTE | 2021-12-11 09:11 | CT_ITS ---
WS: [id number] CT CHEST WITH INTRAVENOUS CONTRAST HISTORY: LUNG CANCER/PULMONARY EMBOLI TECHNIQUE: Contiguous 5 mm axial imaging performed on the thorax. Coronal and sagittal reformats are submitted. All CT scans at [facility] use at least one of these dose optimization techniques: automated exposure control; mA and/or kV adjustment per patient size (includes targeted exams where dose is matched to clinical indication); or iterative reconstruction. CONTRAST: Visipaque 320; 55 mL IV. DLP: 690.92 mGy.cm COMPARISON: 11/23/2021 and 10/27/2021 Lungs and central airway: Volume loss LEFT lung with shift of the mediastinal structures to the LEFT. There is a large mixed consolidation necrotic appearing mass with air bronchograms centered in the c entral LEFT lung with extension into the upper lobe and lower lobe. There is a focal area of decrease d attenuation measuring 2.4 x 3.0 cm. There is fluid like extension and mild soft tissue nodularity e xtending into the lower lung field. There is continuity between the thorax in the upper abdomen. Ther e is a serpiginous area of increased density at the LEFT upper abdomen extending into the lower thora x. This was new on the study from 10/08/2019. Not significantly changed in position. There is a small amount of air again noted adjacent to this mesh. Progression of consolidation and/or tumor extending into the LEFT upper lobe as compared to the prior study. Small amount pleural thickening. There is mi ld millimeters nodule at the RIGHT lung base along the diaphragmatic surface which is stable. This wa s present on the prior CT also. Pleura: Complex very small LEFT pleural effusion Heart and pericardium: No significant enlargement of the heart. Mediastinum and sobia: No central lymphadenopathy. Vessels: Normal size aorta. Normal size pulmonary artery. This study was not ordered to exclude pulmo nary emboli. No large central emboli identified. Chest wall and lower neck: Abnormal lymph node LEFT supraclavicular with a transverse diameter 16 mm compared to 2.1 cm on the prior study of 11/23/2021. Upper abdomen: Slightly lobulated low-attenuation mass in the superior liver measures 2.7 x 2.5 cm. S uspicious for metastatic disease. Prior cholecystectomy. Normal RIGHT adrenal gland. LEFT adrenal gla nd is not definitely visualized. Osseous structures: No destructive process. CT/CT chest w con* [id number] IMPRESSION: 1. Large area of consolidation with air bronchograms LEFT lung. Patient has a known lung cancer with partial cavitation and mild progression into the LEFT up per lobe since the prior study. The progression may be atelectasis. 2. There is a mesh graft noted in the LEFT upper abdomen extending into the LE FT lower thorax with adjacent air pockets. Similar to the prior study. 3. Significant decrease in size of the LEFT supraclavicular lymph nodes since 11/23/2021. 4. Decrease in size of the metastatic lesion in the superior liver. 5. No central pulmonary emboli. This study was not ordered as a CT angiogram t herefore evaluation of the recently described distal emboli is limited.
== END 2021-12-11 07:54 | disposition home or self-care (01) ==
PROVIDERS: PCP Family Medicine; Visit Provider Internal Medicine Medical Oncology
DX: C34.12 Malignant neoplasm of upper lobe, left bronchus or lung (principal); R04.2 Hemoptysis; R06.02 Shortness of breath; R05.9 Cough, unspecified; I26.99 Other pulmonary embolism without acute cor pulmonale; Z79.2 Long term (current) use of antibiotics
CPT/HCPCS: 71260; 96365; J1335; Q9967

== ENCOUNTER → 2021-12-12 09:47 | Day surgery (SDC) | payer BC, SELFPAY ==
[2021-12-12 10:25] VITALS: BP 137/85; PULSE 80; RESP 18; TEMP 36.7; O2SAT 96
[2021-12-12] MEDS: ertapenem 1,000 MG in sodium chloride 0.9% (plus) 100 ML 200 MG IV (10:33)
[2021-12-12 10:56] VITALS: BMI 34.4
== END ==
PROVIDERS: PCP Family Medicine; Visit Provider Internal Medicine Medical Oncology
DX: I26.99 Other pulmonary embolism without acute cor pulmonale (principal); E06.4 Drug-induced thyroiditis; C34.12 Malignant neoplasm of upper lobe, left bronchus or lung
CPT/HCPCS: 96365; J1335; J2250; J2704

== ENCOUNTER → 2021-12-13 09:54 | Day surgery (SDC) | payer BC, SELFPAY ==
[2021-12-13] MEDS: ertapenem 1,000 MG in sodium chloride 0.9% (plus) 100 ML 200 MG IV (10:30)
[2021-12-13 10:41] VITALS: BMI 36.0
[2021-12-13 10:42] VITALS: BP 155/74; PULSE 87; RESP 18; TEMP 36.1; O2SAT 99
== END ==
PROVIDERS: PCP Family Medicine; Visit Provider Internal Medicine Medical Oncology
DX: I26.99 Other pulmonary embolism without acute cor pulmonale (principal); E06.4 Drug-induced thyroiditis; C34.12 Malignant neoplasm of upper lobe, left bronchus or lung
CPT/HCPCS: 96365; J1335

== ENCOUNTER 2021-12-14 08:02 | Outpatient (CLI) | payer BC, SELFPAY ==
[2021-12-14 08:30] LABS: Basophils # 0.1 10^3/uL (0.0-0.1); Basophils % 0.5 %; Eosinophils # 0.1 10^3/uL (0.0-0.8); Eosinophils % 0.7 %; Hemoglobin 8.7 g/dL (11.5-15.3); Lymphocytes # 0.5 10^3/uL (0.8-4.8); Lymphocytes % 4.3 %; Mean Corpuscular HGB Conc 32.2 g/dL (30.0-36.0); Mean Corpuscular Hemoglobin 30.6 pg (28.0-34.0); Mean Corpuscular Volume 95.1 fl (81-99); Monocytes # 0.9 10^3/uL (0.2-0.9); Monocytes % 8.8 %; Neutrophils # 8.55 10^3/uL (1.8-7.7); Neutrophils % 80.7 %; Nucleated Red Blood Cells % 0.2 %; Platelet Count 818 10^3/cmm (130-400); Red Blood Count 2.84 10^6/uL (4.1-5.3); Red Cell Distribution Width 21.1 % (12.1-15.1); White Blood Count 10.6 10^3/uL (4.0-10.0)
[2021-12-14 09:29] LABS: Alanine Aminotransferase 12 U/L (0-33); Albumin Level 3.1 g/dL (3.5-5.2); Alkaline Phosphatase 152 IU/L (35-105); Anion Gap 15.8 (5-19); Aspartate Amino Transferase 8 U/L (0-32); Blood Urea Nitrogen 8 mg/dL (6-20); Calcium 9.6 mg/dL (8.5-10.5); Carbon Dioxide 20 mmol/L (22-29); Chloride 93 mmol/L (98-107); Globulin 3.1 g/dL (1.3-4.6); Glomerular Filtration Rate 76.6 mL/min (90-130); Glucose 90 mg/dL (65-115); Osmolality Calculated 258 mOsm/kg (285-295); Potassium 3.8 mmol/L (3.5-5.1); Sodium 125 mmol/L (136-145); Total Bilirubin 0.3 mg/dL (0.15-1.2); Total Protein 6.2 g/dL (6.6-8.7)
== END 2021-12-14 08:03 | disposition home or self-care (01) ==
PROVIDERS: PCP Family Medicine; Visit Provider Internal Medicine Medical Oncology
DX: C34.12 Malignant neoplasm of upper lobe, left bronchus or lung (principal); I26.99 Other pulmonary embolism without acute cor pulmonale; K21.9 Gastro-esophageal reflux disease without esophagitis; D50.9 Iron deficiency anemia, unspecified; Z86.718 Personal history of other venous thrombosis and embolism; Z79.899 Other long term (current) drug therapy
CPT/HCPCS: 36591; 80053; 85025

== ENCOUNTER 2021-12-14 10:12 | Inpatient (IN) | payer BC, SELFPAY ==
[2021-12-14] VITALS (9 sets, daily range): BP systolic 109–124; BP diastolic 72–77; PULSE 87–95; RESP 14–20; TEMP 36.6–36.7; O2SAT 97–100
--- NOTE | 2021-12-14 10:12 | P.HP_ITS ---
Providers/Chief Complaint Admitting Physician: Musa Solano MD Primary Care Provider: Vinh Barry MD Chief Complaint: Pneumonia History of Present Illness Luz Elena Alvarez is a 46 year old female with history of metastatic non-small cell lung cancer presenting from her oncologist's office with worsening pneumonia symptoms failing outpatient treatment. She reports she is coughing quite a bit, and cannot lay flat. Symptomatology has been going on for several weeks, worsened lately. For the last 5 days she has got IV ertapenem. She denies any fever at home. She was coughing up some blood, dark in nature. This has been reduced slightly in the last several days. She reports she feels cold at all times, but does not necessarily have chills. She is anorexic, but still able to drink fluids. No vomiting, or choking when she eats. She denies any significant heartburn or reflux. She is noticed no blood in her stools or black or tarry stools. She does have history of a heme positive stool in the hospital as well as anemia for which her anticoagulation was reduced to half dose. She was put on this anticoagulation at her hospital stay in November when she was d iagnosed with pulmonary emboli. Secondary to her clinical worsening, a bronchoscopy has been arranged tomorrow with pulmonary. Review of Systems General: Reports: 10 or more systems reviewed and unremarkable except in HPI and below Const: Reports: fatigue and malaise; Denies: fever(s) or chills Eyes: Denies: change in vision ENMT: Denies: throat pain Card: Reports: orthopnea; Denies: chest pain Resp: Reports: dyspnea, productive cough and hemoptysis GI: Reports: abdominal pain (Some epigastric pain) and nausea; Denies: vomiting : Denies: flank pain Musc: Reports: muscle weakness Skin/Breast: Denies: rash Neuro: Denies: headache(s) Psych: Denies: anxiety (Associated with shortness of breath) Endo: Denies: polyuria Barak/Lymph: Reports: easy bleeding; Denies: easy bruising All/Imm: Denies: urticaria Medications/Allergies Home Medications Medication Instructions Recorded Confirmed Last Taken Type benzonatate 200 mg capsule 200 mg PO Q8H PRN 02/16/21 12/13/21 12/12/21 History citalopram 20 mg tablet 20 mg PO BEDTIME 02/16/21 12/13/21 12/11/21 History omeprazole 20 mg capsule,delayed 20 mg PO DAILY@16 02/16/21 12/13/21 12/11/21 History release afatinib 20 mg tablet 40 mg PO BEDTIME 11/23/21 12/13/21 12/11/21 History calcium carbonate 500 mg calcium 1,000 mg PO BID 11/23/21 12/13/21 12/12/21 History (1,250 mg) chewable tablet cyclobenzaprine 5 mg tablet 5 mg PO TID PRN 11/23/21 12/13/21 Unknown History furosemide 40 mg tablet 40 mg PO DAILY 11/23/21 12/13/21 11/26/21 History multivitamin 1 tab PO DAILY 11/23/21 12/13/21 12/07/21 History oxycodone 5 mg tablet 5 - 10 mg PO Q4H PRN 11/23/21 12/13/21 12/12/21 History prednisone 5 mg tablet 5 mg PO TID 11/23/21 12/13/21 12/12/21 History acetaminophen 500 mg tablet 1,000 mg PO TID PRN 11/24/21 12/13/21 12/12/21 History gabapentin 100 mg capsule 100 mg PO BID 11/24/21 12/13/21 12/12/21 History potassium chloride 20 mEq 20 meq PO DAILY 11/24/21 12/13/21 12/12/21 History tablet,extended release ferrous sulfate 325 mg (65 mg 325 mg PO DAILY #30 tab 11/26/21 12/13/21 12/11/21 Rx iron) tablet (Feosol) levothyroxine 137 mcg tablet 137 mcg PO QAM 60 Days #60 tab 11/26/21 12/13/21 12/12/21 Rx enoxaparin 60 mg/0.6 mL 60 mg (0.6 mL) SUBCUT Q12H 30 Days 11/27/21 12/13/21 12/12/21 Rx subcutaneous syringe (Lovenox) #36 ml guaifenesin 1,200 mg tablet, 1,200 mg PO BID #20 tab 11/29/21 12/13/21 Unknown Rx extended release 12 hr levalbuterol tartrate 45 2 inh INHALATION Q6H PRN #15 g 0312/13/21 12/12/21 Rx mcg/actuation aerosol inhaler (Xopenex HFA) Allergies Allergy/AdvReac Type Severity Reaction Status Date / Time levofloxacin [From Levaquin] Allergy Unknown Verified 11/26/21 18:30 paclitaxel Allergy Unknown Verified 11/26/21 18:30 PFSH Acute PFSH: Medical History (Updated 12/14/21 @ 10:35 by Musa Solano MD) Acute on chronic anemia Anemia Cancer Depression Elevated troponin Fatigue GERD (gastroesophageal reflux disease) Hypothyroidism Leukocytosis Metastatic lung cancer (metastasis from lung to other site) Non-small cell lung cancer diagnosed 2020 initially stage IIIb, metastatic to liver, adrenal. Neuropathy Postobstructive pneumonia Pulmonary embolism Sepsis Surgical History H/O partial adrenalectomy H/O splenectomy History of nephrectomy History of partial pancreatectomy Port-A-Cath in place Social History (Updated 12/14/21 @ 10:25 by Musa Solano MD) Smoking and tobacco status: never smoked Alcohol intake: never Substance/Drug Use: never Lives independently: Yes Household members: spouse Marital status: Female Reproductive History: Date of last menstrual period: 12/12/19 Other PFSH information: Supplemental PFSH Information: Family history reviewed, not significant, no family history of cancer Physical Exam Narrative: General exam is a white female, who appears cold and wrapped up in a blanket. HEENT: Atraumatic normocephalic. Pupils equally round. Oropharynx clear. No obvious thrush. Neck is supple no lymphadenopathy, thyromegaly Cardiovascular regular rate and rhythm, no murmur Lungs diminished breath sounds bilaterally. No wheezes, crackles Abdomen is soft. Slight tenderness in the epigastric area. Bowel sounds are noted. No obvious organomegaly. exam is deferred Extremities trace to 1+ edema bilaterally. No cyanosis or clubbing. Cap refill brisk Skin no rash Neuro no obvious focal deficits Data Other Labs: Laboratory done earlier today demonstrated a white blood cell count of 10.6, hemoglobin 8.7, platelet count 818,000. Sodium 125, potassium 3.8, chloride 93, bicarb 20, BUN 8, creatinine 0.8, glucose 90, calcium 9.6 LFTs normal with exception of alk phos of 152 Albumin 3.1 Recent Covid and influenza testing done November 29 - Recent CT chest demonstrated a large area of consolidation with air bronchograms left lung in this patient with known partial cavitation from lung cancer. Mesh in the left upper abdomen and stenting into the left lower thorax demonstrates some adjacent Air pockets, unchanged from prior Decrease in size of supraclavicular lymph nodes, metastatic lesion in liver Recent CTA November 23 demonstrated pulmonary emboli, right side Recent echocardiogram November 24 demonstrated a preserved ejection fraction of 55% and no right heart strain Previous sputum culture in November demonstrated corynebacterium species A&P Assessment and plan (1) Pneumonia: Significant pneumonia, with failure of outpatient treatment to provide symptom relief. She is still coughing a significant, unable to lie flat despite being on 5 days of ertapenem. She has had MRSA PCR testing recently and was negative. Previous sputum culture grew corynebacterium Sputum culture, blood culture Initiate vancomycin and Zosyn Pulmonary consult for bronchoscopy in the morning Oxygen as needed DuoNeb every 6 hours, budesonide Status: Acute (2) Hyponatremia: May have SIADH Continue to monitor sodium closely As she will be n.p.o. after midnight for bronchoscopy in the morning, placed on normal saline at 50 cc an hour Status: Acute (3) Anemia: Continue to monitor hemoglobin Placed on Protonix 40 mg twice daily as she has history of heme positive stool in the past, not grossly bloody. EGD and colonoscopy was discussed on previous hospitalization but not thought to be useful at this point in her disease progression. Status: Acute (4) Pulmonary embolism: Continue Lovenox, low-dose Hold dose prior to bronchoscopy Status: Acute (5) Metastatic lung cancer (metastasis from lung to other site): Currently on oral chemotherapy. This will be held in the face of treatment for pneumonia, with reassessment after discharge. Status: Acute Qualifiers: Laterality: unspecified laterality Qualified Code(s): C34.90 - Malignant neoplasm of unspecified part of unspecified bronchus or lung Plan Multiple other medical problems as outlined in past medical history Continue Lovenox, low-dose secondary recent diagnosis of pulmonary emboli. Will hold nighttime dose for bronchoscopy in the morning. Limited code. She would not want CPR. Other interventions can occur. Attestations Medical Necessity Statement*: Will need greater than 2 midnight stay for everett luation and treatment of pneumonia, failing outpatient treatment. Coding Level of Care Code Acute Didactic Program In Dietetics Director for Chg Fwd Diagnoses Pneumonia J18.9 Hyponatremia E87.1 Anemia D64.9 Pulmonary embolism I26.99 Metastatic lung cancer (metastasis from lung to other site) C34.90 Laterality: unspecified laterality
[2021-12-14] MEDS: ipratropium-albuterol 3 mL Neb INHALATION (11:36)
[2021-12-14] MEDS: sodium chloride 0.9% 1,000 ML 50 ML IV (12:05)
[2021-12-14] MEDS: vancomycin 1,500 MG/300 ML PIGGYBACK 250 MG IV (12:11)
--- NOTE | 2021-12-14 14:58 | XR_ITS ---
WS: [id number] XR chest 1V portable [id number] REASON FOR EXAM: pneumonia FINDINGS: Compared to the examination of 11/29/2021, dense calcification of the left lower lung with air broncho grams is again noted. Since the previous examination a collection of gas has formed outlining a portion of the serpiginous radiopaque material in the medial left subdiaphragmatic region demonstrated on multiple previous CT s cans. Presumably this is related to a subinterval change as above. Diaphragmatic abscess and/or tumor necrosis. The right lung remains clear. XR/XR chest 1V portable [id number] IMPRESSION: Complex abnormality of the left lower chest and left subdiaphragmatic region ky th
--- NOTE | 2021-12-14 17:06 | P.CONIM_ITS ---
Providers/Reason For Consult Consulting Physician/Specialty*: Pulmonary critical care medicine Reason for Consult*: Necrotizing pneumonia, metastatic lung cancer Attending Physician: Musa Solano MD Primary Care Provider: Vinh Barry MD History of Present Illness History of Present Illness Luz Elena Alvarez is a 46 year old female with a history of metastatic lung cancer. Her metastasis is diffuse. She was initially diagnosed with stage IIIb lung cancer in September 2019. The plan for her was to undergo bronchoscopic evaluation as outpatient tomorrow however given her clinical decline she was hospitalized today to receive the bronchoscopy procedure as an inpatient. The reason for the bronchoscopy evaluation is the recent CT scans. The latest CT scan was on December 11 which revealed left lung infiltrate with evidence of necrotizing pneumonia. The patient has diffuse metastatic lung cancer. She recently underwent resection of metastatic lesion involving the adrenal gland, kidney and spleen. The surgical procedure was performed at [facility] and she had significant complications. For the time being, the patient had been receiving outpatient ertapenem for suspected pneumonia. However, her respiratory symptoms have continued to worsen. The patient has cough, sputum production, exertional shortness of breath. When the patient was evaluated in her room, she was sitting in a recliner as she is unable to lay flat at all. Her was in the room. The patient also recently suffered from multiple pulmonary embolism and is currently on Lovenox therapy. So far, no evidence of GI bleed. Review of Systems Narrative: General: No fever but complains of fatigue and malaise Skin: No rash HEENT: No nasal congestion, rhinitis, sinusitis, sneezing, hoarseness of voice Neck: There is no neck swelling, mass or swollen glands. Respiratory: Cough, sputum production, shortness of breath and hemoptysis Cardiovascular: No chest pain, orthopnea, bilateral lower extremity swelling Gastrointestinal: Epigastric pain and nausea Musculoskeletal: Significant muscle weakness Neurological: Patient is awake alert and oriented x3, no paralysis, gross motor function is normal. Psychiatric: No anxiety Medications/Allergies Home Medications Medication Instructions Recorded Confirmed Last Taken Type benzonatate 200 mg capsule 200 mg PO Q8H PRN 02/16/21 12/14/21 12/14/21 History 0700 citalopram 20 mg tablet 20 mg PO BEDTIME 02/16/21 12/14/21 12/13/21 12:00 History omeprazole 20 mg capsule,delayed 20 mg PO DAILY@16 02/16/21 12/14/21 12/13/21 12:00 History release afatinib 20 mg tablet 40 mg PO BEDTIME 11/23/21 12/14/21 12/12/21 21:00 History calcium carbonate 500 mg calcium 1,000 mg PO BID 11/23/21 12/14/21 12/14/21 History (1,250 mg) chewable tablet 0700 cyclobenzaprine 5 mg tablet 5 mg PO TID PRN 11/23/21 12/14/21 Unknown History furosemide 40 mg tablet 40 mg PO DAILY 11/23/21 12/14/21 11/26/21 History multivitamin 1 tab PO DAILY 11/23/21 12/14/21 12/10/21 History oxycodone 5 mg tablet 5 - 10 mg PO Q4H PRN 11/23/21 12/14/21 12/14/21 07:00 History prednisone 5 mg tablet 5 mg PO TID 11/23/21 12/14/21 12/14/21 07:00 History acetaminophen 500 mg tablet 1,000 mg PO TID PRN 11/24/21 12/14/21 12/14/21 History 0600 gabapentin 100 mg capsule 100 mg PO BID 11/24/21 12/14/21 12/14/21 07:00 History potassium chloride 20 mEq 20 meq PO DAILY 11/24/21 12/14/21 12/14/21 06:00 History tablet,extended release ferrous sulfate 325 mg (65 mg 325 mg PO DAILY #30 tab 11/26/21 12/14/21 12/14/21 07:00 Rx iron) tablet (Feosol) levothyroxine 137 mcg tablet 137 mcg PO QAM 60 Days #60 tab 11/26/21 12/14/21 12/14/21 05:30 Rx enoxaparin 60 mg/0.6 mL 60 mg (0.6 mL) SUBCUT Q12H 30 Days 11/27/21 12/14/21 12/14/21 06:00 Rx subcutaneous syringe (Lovenox) #36 ml guaifenesin 1,200 mg tablet, 1,200 mg PO BID #20 tab 11/29/21 12/14/21 Unknown Rx extended release 12 hr levalbuterol tartrate 45 2 inh INHALATION Q6H PRN #15 g 11/29/21 12/14/21 12/14/21 07:30 Rx mcg/actuation aerosol inhaler (Xopenex HFA) amoxicillin-pot clavulanate PO BID 12/14/21 12/14/21 07:00 History Allergies Allergy/AdvReac Type Severity Reaction Status Date / Time levofloxacin [From Levaquin] Allergy Unknown Verified 11/26/21 18:30 paclitaxel Allergy Unknown Verified 11/26/21 18:30 Current Medications Generic Name Dose Route Start Last Admin Trade Name Freq PRN Reason Stop Dose Admin Albuterol/Ipratropium 3 ml 12/14/21 10:45 12/14/21 11:36 Ipratropium-Albuterol 3 Ml Neb INHALATION 3 ml Q6H JULITA Administration Sodium Chloride 1,000 mls @ 30 mls/hr 12/14/21 10:15 12/14/21 12:05 Sodium Chloride 0.9% IV 50 mls/hr .Q24H JULITA Administration Vancomycin/PEG/NADA/Lysine/Water 1,500 mg in 300 mls @ 250 mls/hr 12/14/21 10:45 12/14/21 12:11 Vancocin IV 250 mls/hr Q12H JULITA Administration PFSH Acute PFSH: Medical History Acute on chronic anemia Anemia Cancer Depression Elevated troponin Fatigue GERD (gastroesophageal reflux disease) Hypothyroidism Leukocytosis Metastatic lung cancer (metastasis from lung to other site) Non-small cell lung cancer diagnosed 2020 initially stage IIIb, metastatic to liver, adrenal. Neuropathy Postobstructive pneumonia Pulmonary embolism Sepsis Surgical History H/O partial adrenalectomy H/O splenectomy History of nephrectomy History of partial pancreatectomy Port-A-Cath in place Social History Smoking and tobacco status: never smoked Alcohol intake: never Substance/Drug Use: never Lives independently: Yes Household members: spouse Marital status: Female Reproductive History: Date of last menstrual period: 12/12/19 Vitals/I&O/Wt Last Vital Signs Pulse 87 12/14/21 12:00 Resp 14 12/14/21 12:00 BP 109/77 12/14/21 12:00 Pulse Ox 100 12/14/21 12:00 Physical Exam Narrative: General: Patient is awake alert and oriented, in no distress while resting but appears very tired. She is in recliner and under several layers of covering Neck: No JVD Respiratory: Auscultation: Reduced breath sound in the left hemithorax compared to the right, crackles at left lower lung base posteriorly, no wheezing or rhonchi Cardiovascular: Regular rate and rhythm, S1-S2 present, no murmur, bilateral peripheral edema. Abdomen: Soft, nontender, nondistended, positive bowel sound, previous surgical scars Skin: No rash Neuro: Mental status is normal, gross normal motor function Data Micro: Microbiology 12/14/21 10:59 Blood Culture - Preliminary Blood SPECIMEN COLLECTED 12/14/21 Unknown Blood Culture - Preliminary Blood SPECIMEN COLLECTED Other data: I have reviewed the patient's laboratory, microbiologic and radiologic data. Patient is anemic with hemoglobin of 8.7. Borderline WBC count of 10.6 thousand. This is reduced from 21,000 on December 08. The patient has thrombocytosis with a platelet count of 818,000. She is hyponatremic with a sodium of 125. Non-anion gap metabolic acidosis. Chest x-ray today in the hospital revealed gas shadowing the left lower lung zone likely consistent with necrotizing pneumonia with abscess or progression of necrotizing lung cancer. A&P Assessment and plan (1) Metastatic lung cancer (metastasis from lung to other site): This is a 46-year-old unfortunate lady with metastatic non-small cell lung cancer. The patient has diffuse metastatic disease. Initially when she was diagnosed in September 2019 this was stage IIIb with a large left upper lobe lung mass. However, this has progressed throughout her body. The patient now has evidence of necrotizing lung lesion. It is difficult to a scertain whether this is only necrotizing pneumonia or there is a component of malignancy in addition to necrotizing pneumonia or this is all just malignancy. The patient appears to be very frail. She has been following up with Dr. Mahoney. I had a discussion with the patient and her today. Depending on the conversation my understanding is that if we can provide support for her which wo uld result in meaningful surviving for few months they would want to proceed with that. Status: Acute Qualifiers: Laterality: unspecified laterality Qualified Code(s): C34.90 - Malignant neoplasm of unspecified part of unspecified bronchus or lung (2) Pneumonia: The patient is currently on broad-spectrum antibiotic. She had been receiving ertapenem as outpatient. My plan is to perform a bronchoscopy with as little sedation as possible. The patient has difficulty laying flat. There is always a risk involved of respiratory arrest or inadequate respiratory reserve requiring intubation during these procedures. I am hoping that we will be able to obtain the bronchoscopy and BAL without any complications. However, there is always a chance that the patient may end up being on a ventilator. I have discussed all this with the patient and her . Status: Acute (3) Pulmonary embolism: The patient is currently on Lovenox. Will hold the morning dose. The patient is very sick and nearly terminal at this point. Status: Acute Coding Level of Care Code Acute Retail Grocer for Armando Antunez Diagnoses Metastatic lung cancer (metastasis from lung to other site) C34.90 Laterality: unspecified laterality Pneumonia J18.9 Pulmonary embolism I26.99
[2021-12-14] MEDS: pantoprazole DR 40 mg Tablet PO (17:17)
[2021-12-14] MEDS: predniSONE 5 mg Tablet PO ×2 (17:17→21:27)
[2021-12-14] MEDS: oxyCODONE 5 mg IR Tab/Cap PO ×2 (17:17→21:27)
[2021-12-14] MEDS: benzonatate 100 mg Capsule PO ×2 (17:17→22:31)
[2021-12-14] MEDS: gabapentin 100 mg Capsule PO (17:18)
[2021-12-14] MEDS: enoxaparin 60 mg/0.6 mL Syringe SUBCUT (17:18)
[2021-12-14] MEDS: piperacillin-tazobactam 3.375 GM in sodium chloride 0.9% (plus) 50 ML IV (19:53)
[2021-12-15] VITALS (16 sets, daily range): BP systolic 93–126; BP diastolic 58–78; PULSE 78–105; RESP 14–20; TEMP 36.1–37.1; O2SAT 91–100; BMI 27.7
[2021-12-15] MEDS: vancomycin 1,500 MG/300 ML PIGGYBACK 250 MG IV ×2 (04:00→16:01)
[2021-12-15 05:07] LABS: Hemoglobin 7.9 g/dL (11.5-15.3); Mean Corpuscular HGB Conc 31.6 g/dL (30.0-36.0); Mean Corpuscular Hemoglobin 30.6 pg (28.0-34.0); Mean Corpuscular Volume 96.9 fl (81-99); Mean Platelet Volume 9.2 fL (7.4-10.4); Platelet Count 749 10^3/cmm (130-400); Red Blood Count 2.58 10^6/uL (4.1-5.3); Red Cell Distribution Width 21.4 % (12.1-15.1); White Blood Count 5.7 10^3/uL (4.0-10.0)
[2021-12-15 05:24] LABS: Alanine Aminotransferase 11 U/L (0-33); Albumin Level 2.8 g/dL (3.5-5.2); Alkaline Phosphatase 142 IU/L (35-105); Anion Gap 14.9 (5-19); Aspartate Amino Transferase 7 U/L (0-32); Blood Urea Nitrogen 7 mg/dL (6-20); Calcium 9.2 mg/dL (8.5-10.5); Carbon Dioxide 21 mmol/L (22-29); Chloride 97 mmol/L (98-107); Glomerular Filtration Rate 76.6 mL/min (90-130); Glucose 94 mg/dL (65-115); Magnesium 1.3 mg/dL (1.7-2.3); Osmolality Calculated 266 mOsm/kg (285-295); Potassium 3.9 mmol/L (3.5-5.1); Sodium 129 mmol/L (136-145); Total Bilirubin 0.3 mg/dL (0.15-1.2); Total Protein 5.8 g/dL (6.6-8.7)
[2021-12-15] MEDS: piperacillin-tazobactam 3.375 GM in sodium chloride 0.9% (plus) 50 ML IV ×2 (05:29→20:27)
[2021-12-15 06:01] LABS: Absolute Segmented Neutrophil 4.3 10/cmm (1.6-7.1); Segmented Neutrophils 76 %; Total Cells Counted 100 (0-100)
[2021-12-15 06:02] LABS: Absolute Neutrophil 4.6 10^3/cmm (1.4-6.5); Band Neutrophils Absolute 0.3 10^3/cmm (0.0-1.2); Eosinophils 1 %; Lymphocytes 7 %; Lymphocytes Absolute 0.4 10^3/cmm (1.2-3.4); Monocytes Absolute 0.5 10^3/cmm (0.1-0.6); Platelet Estimate Increased (Normal)
[2021-12-15 06:05] LABS: Acanthocytes 1+; Anisocytosis 1+; Ovalocytes Trace
[2021-12-15 06:06] LABS: Hypochromasia 1+; Poikilocytosis 1+
[2021-12-15] MEDS: magnesium sulfate premix 2 GM/50 ML PIGGYBACK IV (07:40)
--- NOTE | 2021-12-15 08:34 | PM.PN ---
Subjective Subjective: Luz Elena reports she is about the same as yesterday. Still producing little sputum. No blood in it. Still having coughing fits. Was able to sleep last night. No chest pain, abdominal pain, or nausea. Medications: Reviewed: Yes Vitals/I&O/Wt Last Vital Signs Temp 98.2 F 12/15/21 07:27 Pulse 83 12/15/21 08:09 Resp 18 12/15/21 08:09 BP 111/75 12/15/21 07:27 Pulse Ox 100 12/15/21 08:09 12/14/21 12/15/21 12/15/21 22:59 06:59 14:59 Intake Total 400 / 660 450 / 1110 Balance 400 / 660 450 / 1110 Weight last 48 hrs Weight 80.399 kg Physical Exam Narrative: General exam is a white female, with frequent coughing episodes Neck is supple no lymphadenopathy, thyromegaly Cardiovascular regular rate and rhythm, no murmur Lungs diminished breath sounds bilaterally. No wheezes, crackles Abdomen is soft. Nontender today. Positive bowel sounds exam is deferred Extremities trace to 1+ edema bilaterally. No cyanosis or clubbing. Cap refill brisk Skin no rash Data : 12/15/21 04:03 12/15/21 04:03 Micro: Microbiology 12/14/21 Unknown Blood Culture - Preliminary Blood NEGATIVE TO DATE 12/14/21 10:59 Blood Culture - Preliminary Blood SPECIMEN COLLECTED A&P Assessment and plan (1) Pneumonia: Significant pneumonia, with failure of outpatient treatment to provide symptom relief. She is still coughing a significant, unable to lie flat despite being on 5 days of ertapenem. She has had MRSA PCR testing recently and was negative. Previous sputum culture grew corynebacterium Sputum culture, blood culture are pending Continue vancomycin and Zosyn started on admission Bronchoscopy planned by pulmonary today Currently on 2 L of oxygen which is her baseline Continue pulmonary toilet with DuoNeb every 6 hours, budesonide Status: Acute (2) Hyponatremia: May have SIADH Continue to monitor sodium closely As she will be n.p.o. after midnight for bronchoscopy in the morning, placed on normal saline at 50 cc an hour. Today her sodium is improved. Status: Acute (3) Anemia: Continue to monitor hemoglobin Placed on Protonix 40 mg twice daily as she has history of heme positive stool in the past, not grossly bloody. EGD and colonoscopy was discussed on previous hospitalization but not thought to be useful at this point in her disease progression. Hemoglobin has drifted down to 7.9. If tomorrow this continues to decrease, consider transfusion as she is on anticoagulant, and has history of heme positive stool. Status: Acute (4) Pulmonary embolism: Continue Lovenox, low-dose, to resume after bronchoscopy Status: Acute (5) Metastatic lung cancer (metastasis from lung to other site): Currently on oral chemotherapy. This will be held in the face of treatment for pneumonia, with reassessment after discharge. Status: Acute Qualifiers: Laterality: unspecified laterality Qualified Code(s): C34.90 - Malignant neoplasm of unspecified part of unspecified bronchus or lung Plan Multiple other medical problems as outlined in past medical history Lovenox and SCDs for DVT prophylaxis Limited code. She would not want CPR. Other interventions can occur. Attestations Medical Necessity Statement*: Needs continued hospitalization for IV antibiotics related to pneumonia Coding Level of Care Code Acute Pharmacy Scheduler for [facility] Fwd Diagnoses Pneumonia J18.9 Hyponatremia E87.1 Anemia D64.9 Pulmonary embolism I26.99 Metastatic lung cancer (metastasis from lung to other site) C34.90 Laterality: unspecified laterality
[2021-12-15] MEDS: sodium chloride 0.9% 1,000 ML 30 ML IV (09:23)
--- NOTE | 2021-12-15 09:24 | ANES.PREANE2 ---
Pre-Anesthetic Assessment Height/Weight: Height 1.7 m Weight 80.399 kg Temp Pulse Resp BP Pulse Ox 97.9 F 87 18 117/68 98 12/15/21 09:20 12/15/21 09:20 12/15/21 09:20 12/15/21 09:20 12/15/21 09:20 Preop Diagnosis: Left lung infiltrate w/ necrotizing pneumonia Operation Date: 12/15/21 09:50 Proposed Procedures p Bronchoscopy with transbronchial lung biopsy [id number]/*j18.9/c34.9(Not Applicable) - Biplab MD James Familial anesthetic complications: None Was Beta Monica taken within 24 hours: N/A Last intake: 12/14/21 Social No alcohol and No tobacco Exam alert, oriented x 3 and regular rate & rhythm B/L breath sounds diminished Airway Submandibular: Other (Less than 2 finger breadths ) Cervical ROM: within normal limits Mallampati: Class II Dentition: chipped Pulmonary Exertional Dyspnea, Othopnea and Shortness of Breath Hx of PE and post opstructive pneumonia Metastatic lung cancer On NC O2 Cough CT Chest 12/11/21 CT/CT chest w con* [id number] IMPRESSION: ? 1.? Large area of consolidation with air bronchograms LEFT lung. Patient has a known lung cancer with partial cavitation and mild progression into the LEFT upper lobe since the prior study. The progression may be atelectasis. 2.? There is a mesh graft noted in the LEFT upper abdomen extending into the LEFT lower thorax with adjacent air pockets. Similar to the prior study. 3.? Significant decrease in size of the LEFT supraclavicular lymph nodes since 11/23/2021. 4.? Decrease in size of the metastatic lesion in the superior liver. 5.? No central pulmonary emboli. This study was not ordered as a CT angiogram therefore evaluation of the recently described distal emboli is limited. ? ? CV/HEM Anemia TTE 11/2021 CONCLUSIONS ?LV systolic function is borderline normal with EF 50 to 55%.? No ?regional wall motion abnormality seen. ?Right ventricle is normal in size and function. ?Trace mitral regurgitation. ?Trace tricuspid regurgitation. ?Pulmonary artery systolic pressure is normal. ?No comparison studies are available Sinus Rythm on EKG 11/23/21 Hyponatremia Hypochloremia GI Gastroesophageal Reflux Disease Metabolic Thyroid Disease (Hypothyroidism ) History of partial adrenalectomy, splenectomy, nephrectomy, pancreatectomy Total of 15 mg prednisone per day [facility] [place] None reported Neuropsych Depression Anesthetic Plan ASA status: 4 (46 year old female w/ complex surgical hx with metastatic disease to multiple organs with progression to necrotizing cavitation in left lung. ) Anesthesia: Anesthesia Evaluation and MAC Other: I discussed with the patient risks, goals, and benefits of MAC and general anesthesia. We discussed spectrum of MAC anesthesia including conversion to general as well as possibility of recall of intraoperative stimuli including discomfort/pain. Patient agrees to proceed with MAC. Risk of > 500 ml blood loss (7ml/kg in children): No Medications/Allergies Home Medications Medication Instructions Recorded Confirmed Last Taken Type benzonatate 200 mg capsule 200 mg PO Q8H PRN 02/16/21 12/14/21 12/14/21 History 0700 citalopram 20 mg tablet 20 mg PO BEDTIME 02/16/21 12/14/21 12/13/21 12:00 History omeprazole 20 mg capsule,delayed 20 mg PO DAILY@16 02/16/21 12/14/21 12/13/21 12:00 History release afatinib 20 mg tablet 40 mg PO BEDTIME 11/23/21 12/14/21 12/12/21 21:00 History calcium carbonate 500 mg calcium 1,000 mg PO BID 11/23/21 12/14/21 12/14/21 History (1,250 mg) chewable tablet 0700 cyclobenzaprine 5 mg tablet 5 mg PO TID PRN 11/23/21 12/14/21 Unknown History furosemide 40 mg tablet 40 mg PO DAILY 11/23/21 12/14/21 11/26/21 History multivitamin 1 tab PO DAILY 11/23/21 12/14/21 12/10/21 History oxycodone 5 mg tablet 5 - 10 mg PO Q4H PRN 11/23/21 12/14/21 12/14/21 07:00 History prednisone 5 mg tablet 5 mg PO TID 11/23/21 12/14/21 12/14/21 07:00 History acetaminophen 500 mg tablet 1,000 mg PO TID PRN 11/24/21 12/14/21 12/14/21 History 0600 gabapentin 100 mg capsule 100 mg PO BID 11/24/21 12/14/21 12/14/21 07:00 History potassium chloride 20 mEq 20 meq PO DAILY 11/24/21 12/14/21 12/14/21 06:00 History tablet,extended release ferrous sulfate 325 mg (65 mg 325 mg PO DAILY #30 tab 11/26/21 12/14/21 12/14/21 07:00 Rx iron) tablet (Feosol) levothyroxine 137 mcg tablet 137 mcg PO QAM 60 Days #60 tab 11/26/21 12/14/21 12/14/21 05:30 Rx enoxaparin 60 mg/0.6 mL 60 mg (0.6 mL) SUBCUT Q12H 30 Days 11/27/21 12/14/21 12/14/21 06:00 Rx subcutaneous syringe (Lovenox) #36 ml guaifenesin 1,200 mg tablet, 1,200 mg PO BID #20 tab 11/29/21 12/14/21 Unknown Rx extended release 12 hr levalbuterol tartrate 45 2 inh INHALATION Q6H PRN #15 g 11/29/21 12/14/21 12/14/21 07:30 Rx mcg/actuation aerosol inhaler (Xopenex HFA) amoxicillin-pot clavulanate PO BID 12/14/21 12/14/21 07:00 History Allergies Allergy/AdvReac Type Severity Reaction Status Date / Time levofloxacin [From Levaquin] Allergy Unknown Verified 11/26/21 18:30 paclitaxel Allergy Unknown Verified 11/26/21 18:30 Current Medications Generic Name Dose Route Start Last Admin Trade Name Freq PRN Reason Stop Dose Admin Albuterol/Ipratropium 3 ml 12/14/21 21:00 12/15/21 03:42 Ipratropium-Albuterol 3 Ml Neb INHALATION Not Given Q6H.RESPIRATORY JULITA Benzonatate 100 mg 12/14/21 14:33 12/14/21 22:31 Benzonatate 100 Mg Capsule PO 100 mg TID PRN Administration COUGH Budesonide 0.5 mg 12/14/21 20:00 12/14/21 21:16 Budesonide 0.5 Mg/2 Ml Neb INHALATION Not Given BID.RESPIRATORY JULITA Gabapentin 100 mg 12/14/21 18:00 12/14/21 17:18 Gabapentin 100 Mg Capsule PO 100 mg BID JULITA Administration Guaifenesin 1,200 mg 12/14/21 18:00 12/14/21 17:12 Guaifenesin 600 Mg Tablet PO Not Given BID JULITA Piperacillin Sod/Tazobactam 50 mls @ 12.5 mls/hr 12/14/21 12:00 12/15/21 05:29 Sod 3.375 gm/ Sodium Chloride IV 12.5 mls/hr Q8H JULITA Administration Protocol Sodium Chloride 1,000 mls @ 30 mls/hr 12/14/21 10:15 12/14/21 12:05 Sodium Chloride 0.9% IV 50 mls/hr .Q24H JULITA Administration Vancomycin/PEG/NADA/Lysine/Water 1,500 mg in 300 mls @ 250 mls/hr 12/15/21 05:00 12/15/21 05:12 Vancocin IV Infused Q12H JULITA Infusion Sodium Chloride 1,000 mls @ 30 mls/hr 12/15/21 09:15 12/15/21 09:23 Sodium Chloride 0.9% IV 12/16/21 09:14 30 mls/hr .Q24H JULITA Administration Levothyroxine Sodium 112 mcg/ 137 mcg 12/15/21 06:00 12/15/21 05:30 Levothyroxine Sodium 25 mcg PO 137 mcg QAM JULITA Administration Oxycodone HCl 5 mg 12/14/21 13:55 12/14/21 21:27 Oxycodone 5 Mg Ir Tab/Cap PO 5 mg Q4H PRN Administration MODERATE PAIN Pantoprazole Sodium 40 mg 12/14/21 18:00 12/14/21 17:[address] 40 Mg Tablet PO 40 mg BID JULITA Administration Prednisone 5 mg 12/14/21 15:00 12/14/21 21:27 Prednisone 5 Mg Tablet PO 5 mg TID JULITA Administration PFSH Anesthesia Medical History Acute on chronic anemia Anemia Cancer Depression Elevated troponin Fatigue GERD (gastroesophageal reflux disease) Hypothyroidism Leukocytosis Metastatic lung cancer (metastasis from lung to other site) Neuropathy Postobstructive pneumonia Pulmonary embolism Sepsis Surgical History H/O partial adrenalectomy H/O splenectomy History of nephrectomy History of partial pancreatectomy Port-A-Cath in place Social History Smoking and tobacco status: never smoked Alcohol intake: never Substance/Drug Use: never Lives independently: Yes Household members: spouse Marital status: Supplemental [facility] Information Family history reviewed, not significant, no family history of cancer Female Reproductive History Date of last menstrual period: 12/12/19 Data Anesthesia : 12/15/21 04:03 12/15/21 04:03 Short CBC 12/15/21 Range/Units 04:03 WBC 5.7 (4.0-10.0) 10^3/uL Hgb 7.9 L (11.5-15.3) g/dL Hct 25.0 L (37.0-47.0) % MCV 96.9 (81-99) fl Plt Count 749 H (130-400) 10^3/cmm BMP 12/15/21 04:03 Sodium 129 L Potassium 3.9 Chloride 97 L Carbon Dioxide 21 L BUN 7 Creatinine 0.8 Glucose 94 Calcium 9.2 Liver Function 12/15/21 Range/Units 04:03 Total Bilirubin 0.3 (0.15-1.2) mg/dL AST 7 (0-32) U/L ALT 11 (0-33) U/L Alkaline Phosphatase 142 H (35-105) IU/L Albumin 2.8 L (3.5-5.2) g/dL Microbiology 12/14/21 Unknown Blood Culture - Preliminary Blood NEGATIVE TO DATE 12/14/21 10:59 Blood Culture - Preliminary Blood SPECIMEN COLLECTED Cardiac Studies: Echocardiogram 11/24/21
--- NOTE | 2021-12-15 11:44 | PM.OP ---
Operative Report Date of procedure: December 15, 2021 Pre-op diagnosis: Preop Diagnosis Left lung infiltrate w/ necrotizing pneumonia Brief History: This is a 46-year-old lady with metastatic lung cancer coming in for bronchoscopic evaluation for necrotizing pneumonia involving left lung. Procedure: Name of the procedure: Bronchoscopy with bronchoalveolar lavage and control of bleeding. Indication: Necrotizing pneumonia involving left lung Anesthesia: Monitored anesthesia care. Local anesthesia: 1% lidocaine instilled on the vocal cords, 3 mL, 1% lidocaine in the airway and paula a total of 7 mL. Description of the procedure: The patient was positioned optimally. Monitored anesthesia care was initiated by the anesthesia team. The bronchoscope was advanced through the mouth. The vocal cords and epiglottis were anesthetized with 1% lidocaine. The bronchoscope was passed through the vocal cords and the airway was anesthetized with 1% lidocaine again. Secretion was noted in the upper and lower trachea. The paula, right and left mainstem bronchi were anesthetized with 1% lidocaine. The bronchial tree was then examined in a systematic manner. The bronchoscope was introduced in the right mainstem bronchus. The right upper lobe, middle lobe and lower lobe bronchi were examined for the third subsegmental level. There was diffuse erythema. Thin secretion was cleared out. No endobronchial lesion was identified. The bronchoscope was then introduced into the left mainstem bronchus. There was thick mucoid secretion in the left mainstem, upper lobe and lower lobe bronchi. This was cleared out. Bronchoalveolar lavage was performed from the left lower lobe. A total of 60 cc of normal saline was introduced, fluid return was 25 mL. The fluid was cloudy. The bronchoalveolar lavage specimen was sent for Gram stain and culture, fungal stain and culture, AFB stain and culture, fungal work-up and cytology. Complications: There is no immediate complications. She tolerated the procedure very well Duration of the procedure:3
--- NOTE | 2021-12-15 12:51 | ANE.PACU2 ---
Inpatient post-anesthesia follow up: Airway intact: Yes Vital signs: Temperature 97.8 F Pulse Rate 84 Respiratory Rate 14 Blood Pressure 115/74 Pulse Oximetry 98 Oxygen Delivery Me thod Nasal Cannula Oxygen Flow Rate 3 Fraction of Inspir ed Oxygen Hydration adequate: Yes Nausea and vomiting: No Pain level: 1 Mental status: Baseline
[2021-12-15] MEDS: predniSONE 5 mg Tablet PO ×3 (13:01→20:39)
[2021-12-15] MEDS: potassium chloride ER 20 mEq Tablet PO (13:01)
[2021-12-15] MEDS: pantoprazole DR 40 mg Tablet PO ×2 (13:01→20:26)
[2021-12-15] MEDS: gabapentin 100 mg Capsule PO ×2 (13:01→20:26)
[2021-12-15] MEDS: citalopram 20 mg Tablet PO (13:02)
[2021-12-15] MEDS: ferrous sulfate EC 325 mg Tablet PO (13:02)
[2021-12-15] MEDS: FUROsemide 40 mg Tablet PO (13:02)
[2021-12-15] MEDS: oxyCODONE 5 mg IR Tab/Cap PO ×3 (13:04→21:18)
--- NOTE | 2021-12-15 15:38 | PC.PHAR ---
Addendum entered by Augusta Mccray 12/15/21 15:39: pts states the pt has mag ox at home but hasnt taken for a month or so last filled 09/02/21 120d/s for 400mg daily-pts states the pt hasnt taken fluconazole for a couple weeks Original Note: pts verified the pts medications- ozh has rx on hold for lovenox 100mg from 11/26/21 and 60mg on hold from 11/27/21-pts states he is unsure the mg the pt is taking-pt states he has been using whatever he had from [place] states he has been giving a half of a shot q12h states maybe 50mg but states he cant be sure-notes are made in the pharmacy comments
[2021-12-15] MEDS: enoxaparin 60 mg/0.6 mL Syringe SUBCUT (17:12)
--- NOTE | 2021-12-15 17:29 | PC.NURSE ---
PATIENT HAS BEEN RESTING IN THE RECLINER ON AND OFF TODAY. PAIN CONTROLLED WITH ORAL PAIN MEDICATION. PATIENT TOLERATED BRONCH PROCEDURE TODAY. SMALL AMOUNTS OF PO INTAKE. PATIENT EDEMATOUS, LEGS ELEVATED. AT BEDSIDE. NO COMPLAINTS AT THIS TIME.
[2021-12-16] VITALS (12 sets, daily range): BP systolic 104–109; BP diastolic 64–69; PULSE 78–100; RESP 14–18; TEMP 36.5–37; O2SAT 90–99
[2021-12-16] MEDS: piperacillin-tazobactam 3.375 GM in sodium chloride 0.9% (plus) 50 ML IV ×3 (03:28→20:11)
[2021-12-16 04:25] LABS: Basophils % 0.6 %; Eosinophils # 0.1 10^3/uL (0.0-0.8); Eosinophils % 0.9 %; Hematocrit 24.4 % (37.0-47.0); Hemoglobin 7.8 g/dL (11.5-15.3); Lymphocytes # 0.3 10^3/uL (0.8-4.8); Lymphocytes % 5.2 %; Mean Corpuscular Hemoglobin 30.8 pg (28.0-34.0); Mean Corpuscular Volume 96.4 fl (81-99); Mean Platelet Volume 9.1 fL (7.4-10.4); Monocytes # 0.7 10^3/uL (0.2-0.9); Monocytes % 10.8 %; Neutrophils # 4.69 10^3/uL (1.8-7.7); Neutrophils % 73.9 %; Nucleated Red Blood Cells % 0.5 %; Platelet Count 728 10^3/cmm (130-400); Red Blood Count 2.53 10^6/uL (4.1-5.3); Red Cell Distribution Width 21.4 % (12.1-15.1); White Blood Count 6.4 10^3/uL (4.0-10.0)
[2021-12-16 04:31] LABS: Anion Gap 15.4 (5-19); Blood Urea Nitrogen 8 mg/dL (6-20); Calcium 8.9 mg/dL (8.5-10.5); Carbon Dioxide 19 mmol/L (22-29); Chloride 102 mmol/L (98-107); Glomerular Filtration Rate 66.8 mL/min (90-130); Glucose 100 mg/dL (65-115); Osmolality Calculated 274 mOsm/kg (285-295); Potassium 3.4 mmol/L (3.5-5.1); Sodium 133 mmol/L (136-145)
[2021-12-16 04:41] LABS: Slide Review Slide Review Perform
[2021-12-16 05:01] LABS: Vancomycin Trough 42.1 ug/mL (10-15)
[2021-12-16] MEDS: enoxaparin 60 mg/0.6 mL Syringe SUBCUT (05:19)
[2021-12-16] MEDS: potassium chloride ER 20 mEq Tablet 40 MEQ PO (07:11)
[2021-12-16] MEDS: ipratropium-albuterol 3 mL Neb INHALATION ×2 (08:08→14:25)
[2021-12-16] MEDS: gabapentin 100 mg Capsule PO ×2 (08:55→17:59)
[2021-12-16] MEDS: ferrous sulfate EC 325 mg Tablet PO (08:55)
[2021-12-16] MEDS: citalopram 20 mg Tablet PO (08:55)
[2021-12-16] MEDS: pantoprazole DR 40 mg Tablet PO ×2 (08:55→17:59)
[2021-12-16] MEDS: FUROsemide 40 mg Tablet PO (08:55)
[2021-12-16] MEDS: potassium chloride ER 20 mEq Tablet PO (08:56)
[2021-12-16] MEDS: predniSONE 5 mg Tablet PO ×3 (08:58→20:10)
[2021-12-16] MEDS: oxyCODONE 5 mg IR Tab/Cap PO ×3 (09:08→20:10)
--- NOTE | 2021-12-16 10:49 | PM.PN ---
Subjective Subjective: Luz Elena reports she feels a little bit better than yesterday. Perhaps less sputum production, and cough. Not quite as short of breath with coughing episodes. No chest discomfort. Medications: Reviewed: Yes Vitals/I&O/Wt Last Vital Signs Temp 98.2 F 12/16/21 04:00 Pulse 80 12/16/21 08:18 Resp 16 12/16/21 09:08 BP 108/69 12/16/21 04:00 Pulse Ox 99 12/16/21 09:08 12/15/21 12/16/21 12/16/21 22:59 06:59 14:59 Intake Total 1350 / 0 50 / 2100 50 / 50 Balance 1350 / 0 50 / 2100 50 / 50 Weight last 48 hrs Weight 80.399 kg Physical Exam Narrative: General exam is a white female, who appears somewhat brighter, and conversant. Neck is supple no lymphadenopathy, thyromegaly Cardiovascular regular rate and rhythm, no murmur Lungs diminished breath sounds bilaterally. No wheezes, crackles Abdomen is soft. Nontender today. Positive bowel sounds exam is deferred Extremities trace to 1+ edema bilaterally. No cyanosis or clubbing. Cap refill brisk Skin no rash Data : 12/16/21 04:04 12/16/21 04:04 Micro: Microbiology 12/15/21 11:24 Gram Stain - Final Lung Left Lower Lobe 12/14/21 10:59 Blood Culture - Preliminary Blood NEGATIVE TO DATE A&P Assessment and plan (1) Pneumonia: Significant pneumonia, with failure of outpatient treatment to provide symptom relief. She is still coughing a significant, unable to lie flat despite being on 5 days of ertapenem prior to admission. She has had MRSA PCR testing recently and was negative. Previous sputum culture grew corynebacterium Blood culture negative to date Status post bronchoscopy December with pending cultures Continue vancomycin and Zosyn started on admission Currently on 2-3 L of oxygen which is her baseline Continue pulmonary toilet with DuoNeb every 6 hours, budesonide Status: Acute (2) Hyponatremia: May have SIADH Sodium has improved with treatment of illness and low-dose saline Discontinue IV fluids Status: Acute (3) Anemia: Continue to monitor hemoglobin Placed on Protonix 40 mg twice daily as she has history of heme positive stool in the past, not grossly bloody. EGD and colonoscopy was discussed on previous hospitalization but not thought to be useful at this point in her disease progression. Hemoglobin continues to remain stable from yesterday, with a level of 7.8 Status: Acute (4) Pulmonary embolism: Continue Lovenox, low-dose, to resume after bronchoscopy Status: Acute (5) Metastatic lung cancer (metastasis from lung to other site): Currently on oral chemotherapy. This will be held in the face of treatment for pneumonia, with reassessment after discharge. Status: Acute Qualifiers: Laterality: unspecified laterality Qualified Code(s): C34.90 - Malignant neoplasm of unspecified part of unspecified bronchus or lung Plan Mild hypokalemia, supplement multiple other medical problems as outlined in past medical history Lovenox and SCDs for DVT prophylaxis Limited code. She would not want CPR. Other interventions can occur. Attestations Medical Necessity Statement*: Needs continued hospitalization for IV antibiotics secondary to pneumonia failing outpatient therapy while awaiting bronchoscopy cultures. 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
[2021-12-16 17:49] LABS: Vancomycin Trough 32.1 ug/mL (10-15)
--- NOTE | 2021-12-16 17:51 | PC.NURSE ---
Notified Dr. Solano of a critical vanomycin 32.1
--- NOTE | 2021-12-16 17:52 | PC.NURSE ---
notified Ryan in Pharmacy of critical vancomycin
[2021-12-16] MEDS: enoxaparin 80 mg/0.8 mL Syringe SUBCUT (17:59)
[2021-12-16] MEDS: benzonatate 100 mg Capsule PO (20:17)
[2021-12-17] VITALS (11 sets, daily range): BP systolic 108–122; BP diastolic 70–75; PULSE 79–88; RESP 14–21; TEMP 36.7–36.8; O2SAT 92–98
[2021-12-17] MEDS: piperacillin-tazobactam 3.375 GM in sodium chloride 0.9% (plus) 50 ML IV ×3 (03:22→21:26)
[2021-12-17] MEDS: enoxaparin 80 mg/0.8 mL Syringe SUBCUT ×2 (05:04→16:59)
[2021-12-17 05:07] LABS: Basophils # 0.1 10^3/uL (0.0-0.1); Eosinophils % 0.5 %; Hematocrit 26.1 % (37.0-47.0); Hemoglobin 8.4 g/dL (11.5-15.3); Lymphocytes # 0.5 10^3/uL (0.8-4.8); Mean Corpuscular HGB Conc 32.2 g/dL (30.0-36.0); Mean Corpuscular Hemoglobin 30.8 pg (28.0-34.0); Mean Corpuscular Volume 95.6 fl (81-99); Mean Platelet Volume 9.3 fL (7.4-10.4); Monocytes # 0.5 10^3/uL (0.2-0.9); Monocytes % 7.8 %; Neutrophils # 4.04 10^3/uL (1.8-7.7); Neutrophils % 67.4 %; Nucleated Red Blood Cells % 0.7 %; Platelet Count 786 10^3/cmm (130-400); Red Blood Count 2.73 10^6/uL (4.1-5.3); Red Cell Distribution Width 21.8 % (12.1-15.1)
[2021-12-17 05:23] LABS: Anion Gap 17.8 (5-19); Blood Urea Nitrogen 7 mg/dL (6-20); Calcium 9.6 mg/dL (8.5-10.5); Carbon Dioxide 19 mmol/L (22-29); Chloride 99 mmol/L (98-107); Glomerular Filtration Rate 66.8 mL/min (90-130); Glucose 123 mg/dL (65-115); Magnesium 1.7 mg/dL (1.7-2.3); Osmolality Calculated 273 mOsm/kg (285-295); Potassium 3.8 mmol/L (3.5-5.1); Sodium 132 mmol/L (136-145)
[2021-12-17 05:24] LABS: Slide Review Slide Review Perform
[2021-12-17] MEDS: FUROsemide 40 mg Tablet PO (07:31)
[2021-12-17] MEDS: gabapentin 100 mg Capsule PO ×2 (08:31→16:59)
[2021-12-17] MEDS: pantoprazole DR 40 mg Tablet PO ×2 (08:32→16:59)
[2021-12-17] MEDS: predniSONE 5 mg Tablet PO ×3 (08:32→21:26)
[2021-12-17] MEDS: potassium chloride ER 20 mEq Tablet PO (08:32)
[2021-12-17] MEDS: citalopram 20 mg Tablet PO (08:32)
[2021-12-17] MEDS: ferrous sulfate EC 325 mg Tablet PO (08:32)
--- NOTE | 2021-12-17 08:37 | PM.PN ---
Subjective Subjective: Luz Elena reports she is still having coughing fits. There is severe at times, but perhaps less frequent. This has been going on for quite some time. No chills. No chest discomfort. Medications: Reviewed: Yes Vitals/I&O/Wt Last Vital Signs Temp 98.0 F 12/17/21 04:00 Pulse 82 12/17/21 04:00 Resp 14 12/17/21 04:00 BP 118/75 12/17/21 04:00 Pulse Ox 92 12/17/21 04:00 12/16/21 12/17/21 12/17/21 22:59 06:59 14:59 Intake Total 290 / 480 170 / 650 50 / 50 Balance 290 / 480 170 / 650 50 / 50 Physical Exam Narrative: General exam is a white female, no distress, conversant Neck is supple no lymphadenopathy, thyromegaly Cardiovascular regular rate and rhythm, no murmur Lungs diminished breath sounds bilaterally. No wheezes, crackles Abdomen is soft. Nontender today. Positive bowel sounds exam is deferred Extremities trace to 1+ edema bilaterally. No cyanosis or clubbing. Cap refill brisk Skin no rash Data : 12/17/21 04:07 12/17/21 04:07 Micro: Microbiology 12/15/21 11:24 Mycobacterial Smear - Preliminary Body Fluids - Bronchial 12/15/21 15:22 Gram Stain - Final Sputum - Expectorated Sputum 12/15/21 11:24 Gram Stain - Final Lung Left Lower Lobe Bronchial Washings Culture - Preliminary A&P Assessment and plan (1) Pneumonia: Significant pneumonia, with failure of outpatient treatment to provide symptom relief. She is still coughing a significant, unable to lie flat despite being on 5 days of ertapenem prior to admission. She has had MRSA PCR testing recently and was negative. Previous sputum culture grew corynebacterium Sputum culture, bronchoscopy results negative to date. Some still pending. Blood culture negative to date Continue vancomycin and Zosyn started on admission Currently on 2-3 L of oxygen which is her baseline Continue pulmonary toilet with DuoNeb every 6 hours, budesonide Overall feels slightly better. Status: Acute (2) Hyponatremia: May have SIADH Sodium has improved with treatment of illness and low-dose saline IV fluids discontinued December 16. Status: Acute (3) Anemia: Continue to monitor hemoglobin Placed on Protonix 40 mg twice daily as she has history of heme positive stool in the past, not grossly bloody. EGD and colonoscopy was discussed on previous hospitalization but not thought to be useful at this point in her disease progression. Hemoglobin continues to remain stable from yesterday, with a level of 7.8 Status: Acute (4) Pulmonary embolism: Continue Lovenox currently. Pharmacy adjusted to normal dose Status: Acute (5) Metastatic lung cancer (metastasis from lung to other site): Currently on oral chemotherapy. This will be held in the face of treatment for pneumonia, with reassessment after discharge. I discussed this with Dr. Mahoney today and he recommends resuming after discharge. Status: Acute Qualifiers: Laterality: unspecified laterality Qualified Code(s): C34.90 - Malignant neoplasm of unspecified part of unspecified bronchus or lung Plan Mild hypokalemia, resolved multiple other medical problems as outlined in past medical history Lovenox and SCDs for DVT prophylaxis Limited code. She would not want CPR. Other interventions can occur. Probable discharge tomorrow on oral antibiotics if no growth noted on bronchoscopy and patient clinically stable. 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
[2021-12-17] MEDS: ipratropium-albuterol 3 mL Neb INHALATION ×2 (10:08→21:00)
[2021-12-17] MEDS: budesonide 0.5 mg/2 mL Neb INHALATION ×2 (10:08→21:00)
--- NOTE | 2021-12-17 15:19 | PC.NURSE ---
Shift note Patient was very sleepy. Rested most of the shift. Visited with family. Still could not rest in the bed laying flat. Resting in recliner with at bedside. Port a cath flushed and working well. Patient reported no pain this shift so far. No nausea reported either. Ate minimal for all meals.
[2021-12-17] MEDS: oxyCODONE 5 mg IR Tab/Cap PO ×2 (16:58→21:26)
[2021-12-17] MEDS: benzonatate 100 mg Capsule PO (21:26)
[2021-12-18] VITALS (14 sets, daily range): BP systolic 111–132; BP diastolic 70–80; PULSE 76–87; RESP 14–18; TEMP 36.4–36.8; O2SAT 93–98
[2021-12-18] MEDS: piperacillin-tazobactam 3.375 GM in sodium chloride 0.9% (plus) 50 ML IV (05:01)
[2021-12-18] MEDS: enoxaparin 80 mg/0.8 mL Syringe SUBCUT (05:02)
[2021-12-18 05:31] LABS: Hematocrit 24.1 % (37.0-47.0); Hemoglobin 7.8 g/dL (11.5-15.3); Mean Corpuscular HGB Conc 32.4 g/dL (30.0-36.0); Mean Corpuscular Hemoglobin 30.8 pg (28.0-34.0); Mean Corpuscular Volume 95.3 fl (81-99); Mean Platelet Volume 9.2 fL (7.4-10.4); Platelet Count 723 10^3/cmm (130-400); Red Blood Count 2.53 10^6/uL (4.1-5.3); Red Cell Distribution Width 21.5 % (12.1-15.1); White Blood Count 8.3 10^3/uL (4.0-10.0)
[2021-12-18 05:45] LABS: Slide Review Slide Review Perform
[2021-12-18 05:46] LABS: Absolute Neutrophil 6.7 10^3/cmm (1.4-6.5); Absolute Segmented Neutrophil 6.1 10/cmm (1.6-7.1); Acanthocytes 1+; Anisocytosis 2+; Band Neutrophils Absolute 0.7 10^3/cmm (0.0-1.2); Eosinophils 0 %; Giant Platelets Trace; Lymphocytes 6 %; Lymphocytes Absolute 0.5 10^3/cmm (1.2-3.4); Monocytes Absolute 0.7 10^3/cmm (0.1-0.6); Platelet Estimate Increased (Normal); Poikilocytosis 1+; Segmented Neutrophils 73 %; Target Cells 1+; Total Cells Counted 100 (0-100); Toxic Granulation 1+
[2021-12-18 05:47] LABS: Anion Gap 15.9 (5-19); Blood Urea Nitrogen 7 mg/dL (6-20); Calcium 9.3 mg/dL (8.5-10.5); Carbon Dioxide 23 mmol/L (22-29); Chloride 98 mmol/L (98-107); Glomerular Filtration Rate 59.2 mL/min (90-130); Glucose 113 mg/dL (65-115); Osmolality Calculated 275 mOsm/kg (285-295); Potassium 3.9 mmol/L (3.5-5.1); Sodium 133 mmol/L (136-145)
[2021-12-18 05:48] LABS: Vancomycin Random 12.7 ug/mL (20.0-40.0)
--- NOTE | 2021-12-18 08:53 | P.DS_ITS ---
Discharge Providers Date of Admission: 12/14/21 10:12 Date of Discharge: December 18, 2021 Attending Provider at Admission: Jeanine Solano MD Attending Provider at Discharge: Musa Solano MD Primary Care Provider: Vinh Barry MD Diagnoses at Discharge Discharge Diagnosis (1) Pneumonia: Status: Acute (2) Hyponatremia: Status: Acute (3) Anemia: Status: Acute (4) Pulmonary embolism: Status: Acute (5) Metastatic lung cancer (metastasis from lung to other site): Status: Acute Qualifiers: Laterality: unspecified laterality Qualified Code(s): C34.90 - Malignant neoplasm of unspecified part of unspecified bronchus or lung Reason for Visit Reason for Visit: Pneumonia Hospital Course Hospital Course Luz Elena is a 46-year-old female with history of metastatic non-small cell cancer of the lung who presented as a direct admission for concerns of worsening pneumonia failing outpatient treatment. She had been on 5 days of IV ertapenem secondary to persistent cough, inability to lay flat. She had had a recent hospitalization for pulmonary embolism, for which she is on low-dose anticoagulation secondary to anemia with heme positive stool. Recent CT had shown consolidation with air bronchograms in the left with known partial cavitation from lung cancer. Decrease in size of supraclavicular lymph nodes and metastatic lesion in the liver was noted. She was placed in the hospital on IV vancomycin and Zosyn. Blood cultures were obtained. Pulmonary critical care was consulted for possible bronchoscopy. She underwent this on December 15, and no endobronchial lesion was noted. Lavage was performed and cultures sent. During her hospital stay she had minimal improvement in her coughing episodes. She would have 4 to 6/day, lasting for 30 minutes or so with significant for sputum production. She had significant anxiety during these episodes. She remained afebrile, and white blood cell count was normal. At time of discharge cultures from BAL were still negative. It was thought on December 18 she could transition home on 5 more days of antibiotics consisting of cefdinir and doxycycline. This would complete a 10-day regimen started in the hospital on admission, and 14 to 15-day regimen if ertapenem she received outpatient was considered. I suspect her coughing is secondary to necrotic lung and lung cancer. I also talked with her regarding her significant anxiety, occurring when a coughing episode started. Risks and benefits of Xanax as needed, if a significant coughing episode was discussed and this will be prescribed on discharge. I also reviewed her blood counts with her, and blood count on discharge was 7.8. Considering heme positive stools in the past, and continued anticoagulation I will transfuse her 1 unit of packed red blood cells prior to discharge. She will have laboratory in 3 days, Tuesday, and follow-up with her oncologist. She will resume her oral chemotherapy afatinib tomorrow. She will also start scheduled breathing treatments 4 times a day with albuterol and Atrovent as well as budesonide twice a day. Hopefully these measures will improve the quality of her life some. Physical Exam Narrative: General exam is no distress, 2 L of oxygen which is her baseline Neck is supple Cardiovascular regular rate and rhythm Lungs clear but with diminished breath sounds left lung Abdomen is soft, positive bowel sounds Extremities trace edema Discharge Data Studies Completed and Pending Completed Studies During Hospitalization Category Date Time Status XR chest 1V portable [id number] Routine Exams 12/14/21 14:58 Completed Pending at discharge Category Date Time Status Aspergillus Antigen, EIA BAL Routine Lab 12/15/21 11:24 Received Blood Culture Stat Lab 12/14/21 10:59 Results Fungal Culture not HR/SK/BL Routine Lab 12/15/21 11:24 Received Histoplasma Quantitative AG Routine Lab 12/15/21 11:28 Received Mycobacteria, Culture w/Fluor Routine Lab 12/15/21 11:24 Results PRBC [Leukocyte Reduced RBC] Routine Lab 12/18/21 08:49 Ordered Pneumocystis jirovecii, DFA Routine Lab 12/15/21 11:28 Received Pneumocystis jirovecii, QT PCR Routine Lab 12/15/21 11:28 Received Sputum Culture and Gram Stain Routine Lab 12/14/21 10:12 Results Type and Screen Routine Lab 12/18/21 08:49 Ordered Cytology [PTH] Routine Pth 12/15/21 11:25 Received Radiology Impressions Chest X-Ray 12/14/21 14:58 IMPRESSION: Complex abnormality of the left lower chest and left subdiaphragmatic region with Laboratory Results WBC 8.3 10^3/uL (4.0-10.0) 12/18/21 05:07 RBC 2.53 10^6/uL (4.1-5.3) L 12/18/21 05:07 Hgb 7.8 g/dL (11.5-15.3) L 12/18/21 05:07 Hct 24.1 % (37.0-47.0) L 12/18/21 05:07 MCV 95.3 fl (81-99) 12/18/21 05:07 MCH 30.8 pg (28.0-34.0) 12/18/21 05:07 MCHC 32.4 g/dL (30.0-36.0) 12/18/21 05:07 RDW 21.5 % (12.1-15.1) H 12/18/21 05:07 Plt Count 723 10^3/cmm (130-400) H 12/18/21 05:07 MPV 9.2 fL (7.4-10.4) 12/18/21 05:07 Neut % (Auto) 67.4 % 12/17/21 04:07 Lymph % (Auto) Not Reportable 12/18/21 05:07 [place] % (Auto) Not Reportable 12/18/21 05:07 Eos % (Auto) 0.5 % 12/17/21 04:07 Baso % (Auto) 1.0 % 12/17/21 04:07 Neut # (Auto) 4.04 10^3/uL (1.8-7.7) 12/17/21 04:07 Lymph # (Auto) Not Reportable 12/18/21 05:07 [place] # (Auto) Not Reportable 12/18/21 05:07 Eos # (Auto) 0.0 10^3/uL (0.0-0.8) 12/17/21 04:07 Baso # (Auto) 0.1 10^3/uL (0.0-0.1) 12/17/21 04:07 Nucleated RBC % (auto) 0.7 % 12/17/21 04:07 Total Counted 100 (0-100) 12/18/21 05:07 Atypical Lymphs % 0.0 % (0-5) 12/18/21 05:07 Absolute Neutrophils 6.7 10^3/cmm (1.4-6.5) H 12/18/21 05:07 Segmented Neutrophils 73 % 12/18/21 05:07 Abs Segm Neuts (Man) 6.1 10/cmm (1.6-7.1) 12/18/21 05:07 Band Neutrophils 8.0 % 12/18/21 05:07 Abs Band Neuts (Man) 0.7 10^3/cmm (0.0-1.2) 12/18/21 05:07 Absolute Lymphocytes 0.5 10^3/cmm (1.2-3.4) L 12/18/21 05:07 Lymphocytes (Manual) 6 % 12/18/21 05:07 Monocytes (Manual) 8.0 % 12/18/21 05:07 Absolute Monocytes 0.7 10^3/cmm (0.1-0.6) H 12/18/21 05:07 Eosinophils (Manual) 0 % 12/18/21 05:07 Absolute Eosinophils 0.0 10^3/cmm (0.0-0.7) 12/18/21 05:07 Basophils (Manual) 0.0 % 12/18/21 05:07 Absolute Basophils 0.0 10^3/cmm (0.0-0.2) 12/18/21 05:07 Metamyelocytes 3.0 % 12/18/21 05:07 Myelocytes 2.0 % 12/18/21 05:07 Nucleated RBCs 1.0 /100WBC (0-1) 12/15/21 04:03 Nucleated RBCs # 0.0 /100WBC 12/17/21 04:07 Toxic Granulation 1+ H 12/18/21 05:07 Platelet Estimate Increased (Normal) H 12/18/21 05:07 Giant Platelets Trace 12/18/21 05:07 Hypochromasia 1+ H 12/15/21 04:03 Poikilocytosis 1+ H 12/18/21 05:07 Anisocytosis 2+ H 12/18/21 05:07 Target Cells 1+ H 12/18/21 05:07 Ovalocytes Trace 12/15/21 04:03 Acanthocytes (Spur) 1+ H 12/18/21 05:07 Sodium 133 mmol/L (136-145) L 12/18/21 05:07 Potassium 3.9 mmol/L (3.5-5.1) 12/18/21 05:07 Chloride 98 mmol/L (98-107) 12/18/21 05:07 Carbon Dioxide 23 mmol/L (22-29) 12/18/21 05:07 Anion Gap 15.9 (5-19) 12/18/21 05:07 BUN 7 mg/dL (6-20) 12/18/21 05:07 Creatinine 1.0 mg/dL (0.5-0.9) H 12/18/21 05:07 GFR Calculation 59.2 mL/min (90-130) L 12/18/21 05:07 Glucose 113 mg/dL (65-115) 12/18/21 05:07 Calculated Osmolality 275 mOsm/kg (285-295) L 12/18/21 05:07 Calcium 9.3 mg/dL (8.5-10.5) 12/18/21 05:07 Magnesium 1.7 mg/dL (1.7-2.3) 12/17/21 04:07 Total Bilirubin 0.3 mg/dL (0.15-1.2) 12/15/21 04:03 AST 7 U/L (0-32) 12/15/21 04:03 ALT 11 U/L (0-33) 12/15/21 04:03 Alkaline Phosphatase 142 IU/L (35-105) H 12/15/21 04:03 Total Protein 5.8 g/dL (6.6-8.7) L 12/15/21 04:03 Albumin 2.8 g/dL (3.5-5.2) L 12/15/21 04:03 Globulin 3.0 g/dL (1.3-4.6) 12/15/21 04:03 Fluid Source Cancelled 12/15/21 11:27 Vancomycin Trough 32.1 ug/mL (10-15) H* 12/16/21 16:40 Random Vancomycin 12.7 ug/mL (20.0-40.0) L 12/18/21 05:07 Pneumocystis DNA (PCR) Cancelled 12/15/21 11:27 Pneumocyst Special Info Cancelled 12/15/21 11:27 Misc Test Reference Cancelled 12/15/21 11:24 Misc Test Reference Cancelled 12/15/21 11:24 Misc Test Reference Cancelled 12/15/21 11:24 Vitals Last Vital Signs Temp 97.9 F 12/18/21 07:38 Pulse 82 12/18/21 07:38 Resp 18 12/18/21 07:38 BP 120/77 12/18/21 07:38 Pulse Ox 97 12/18/21 07:38 Discharge Plan Discharge Patient Disposition: Home Condition: Stable Prescriptions: New Xanax 0.5 mg tablet 0.25 mg PO TID PRN (Reason: anxiety) Qty: 30 0RF pantoprazole 40 mg Tablet,Delayed Release (Dr/Ec) 40 mg PO BID Qty: 60 0RF cefdinir 300 mg capsule 300 mg PO BID 5 Days Qty: 10 0RF doxycycline hyclate 100 mg capsule 100 mg PO BID 5 Days Qty: 10 0RF budesonide 0.5 mg/2 mL suspension for nebulization 0.5 mg inhalation BID Qty: 60 0RF ipratropium-albuterol 0.5 mg-3 mg(2.5 mg base)/3 mL solution for nebulization 3 ml inhalation QID Qty: 180 0RF Continued benzonatate 200 mg capsule 200 mg PO Q8H PRN (Reason: Cough) 0RF citalopram 20 mg tablet 20 mg PO BEDTIME 0RF oxycodone 5 mg tablet 5 mg PO QID PRN (Reason: Pain) 0RF multivitamin Tablet 1 tab PO DAILY 0RF furosemide 40 mg Tablet 40 mg PO DAILY PRN (Reason: Edema) 0RF prednisone 5 mg Tablet 5 mg PO TID 0RF calcium carbonate 500 mg calcium (1,250 mg) Tablet,Chewable 1,000 mg PO BID 0RF cyclobenzaprine 5 mg Tablet 5 mg PO TID PRN (Reason: Pain) 0RF afatinib 20 mg Tablet 40 mg PO BEDTIME 0RF Rx Instructions: must be taken on empty stomach; no food 1 hr after or 2-3 hrs before dose potassium chloride 20 mEq Tablet Extended Release 20 meq PO DAILY 0RF gabapentin 100 mg Capsule 100 mg PO BID 0RF acetaminophen 500 mg Tablet 1,000 mg PO TID PRN (Reason: Pain) 0RF levothyroxine 137 mcg Tablet 137 mcg PO QAM 60 Days Qty: 60 3RF ferrous sulfate [Feosol] 325 mg (65 mg iron) tablet 325 mg PO DAILY Qty: 30 0RF enoxaparin [Lovenox] 60 mg/0.6 mL syringe 60 mg SUBCUT Q12H 30 Days Qty: 36 0RF Label Comments: daren has rx on hold for 100mg from 11/26/21 and 60mg on hold from 11/27/21-pts states he is unsure the mg the pt is taking-pts states he has been using whatever he had from young states he has been giving a half of a shot q12h states maybe 50mg but states he cant be sure Xopenex HFA 45 mcg/actuation HFA aerosol inhaler 2 inh inhalation Q4H PRN (Reason: shortness of breath or wheezing) 0RF Discontinued omeprazole 20 mg Capsule,Delayed Release(Dr/Ec) 20 mg PO DAILY 0RF amoxicillin-pot clavulanate 875-125 mg tablet 1 tab PO Q12H 0RF Discharge Orders: Discharge Order (Routine); Ordered 12/18/21 Ordered By: Musa Solano Other Ambulatory Orders: Basic Metabolic Panel (Routine) Timeframe: 3 Days Facility: [facility] - Location: Lab - Main Lab Ordered By: Musa Solano Complete Blood Count w/Auto (Routine) Timeframe: 3 Days Location: Determined by Patient Ordered By: Musa Solano DME: Nebulizer with Neb Kit (Order) Location: None Selected Ordered By: Musa Solano Referrals: Beni Mahoney MD [Hospitalist] - 4-7 days ([facility] will call you to set up this appointment to get a CBC and BMP drawn next week.) Discharge Diet: Usual diet Discharge Activity: Increase activity as tolerated Patient Instructions: Opioid Safety Activity Restrictions/Additional Instructions: Do not take any anti-inflammatories. Resume your Lovenox at 60 mg subcutaneous every 12 hours Do not discharge until after blood transfusion Take all medicine as prescribed Follow-up with Dr. Mahoney on Tuesday for CBC and BMP. Home health could also draw a BMP and CBC on Tuesday. Discharge Attestations Time Spent in Discharge Care*: greater than 30 min Status at Discharge: Cognitive status at discharge: cognitively intact , Behavioral status at discharge: cooperative , Quality Metrics Clinical Quality Measures [ No reported AMI, CVA or VTE this stay] Coding Level of Care Code Acute Chg FW DC note Diagnoses Pneumonia J18.9 Hyponatremia E87.1 Anemia D64.9 Pulmonary embolism I26.99 Metastatic lung cancer (metastasis from lung to other site) C34.90 Laterality: unspecified laterality
[2021-12-18] MEDS: ipratropium-albuterol 3 mL Neb INHALATION (09:08)
[2021-12-18] MEDS: budesonide 0.5 mg/2 mL Neb INHALATION (09:08)
[2021-12-18] MEDS: predniSONE 5 mg Tablet PO (09:15)
[2021-12-18] MEDS: gabapentin 100 mg Capsule PO (09:16)
[2021-12-18] MEDS: pantoprazole DR 40 mg Tablet PO (09:16)
[2021-12-18] MEDS: potassium chloride ER 20 mEq Tablet PO (09:16)
[2021-12-18] MEDS: ferrous sulfate EC 325 mg Tablet PO (09:16)
[2021-12-18] MEDS: oxyCODONE 5 mg IR Tab/Cap PO ×2 (09:16→14:13)
[2021-12-18] MEDS: citalopram 20 mg Tablet PO (09:16)
--- NOTE | 2021-12-18 15:03 | PC.NURSE ---
Report to Yamile CASTELLANOS
--- NOTE | 2021-12-18 15:13 | PC.NURSE ---
Port a Cath flushed with 2 flushes and then de-accessed. Patient tolerated well. Patient is A&Ox3. Respirations even and non-labored on 2 liters of oxygen by MD. Reviewed patient discharge with patient and at this time. Patient and verbalized understanding of discharge instructions and follow up appointment. Patient wheel chaired to private.
[2021-12-18 21:53] LABS: Pneumocystis Jirovecii Carinii NOT DETECTED; Pneumocystis Jirovecii Source BAL
[2021-12-19 17:48] LABS: Aspergillus AG,EIA NOT DETECTED; Aspergillus AG,EIA, Index <0.50
[2021-12-21 16:26] LABS: Histoplasma Antigen (Quant) NONE DETECTED; Histoplasma Antigen Interpreta NEGATIVE
== END 2021-12-18 15:00 | disposition home health service (06) | DRG 193 ==
PROVIDERS: Internal Medicine Critical Care Medicine; Admitting Provider Family Medicine; PCP Family Medicine; Visit Provider Internal Medicine
PROC: 0B9J8ZX Drainage of Left Lower Lung Lobe, Via Natural or Artificial Opening Endoscopic, Diagnostic (ICD-10-PCS; CPT 31624; principal; 2021-12-15 09:40)
PROC: 0BJ08ZZ Inspection of Tracheobronchial Tree, Via Natural or Artificial Opening Endoscopic (ICD-10-PCS; CPT 31622; 2021-12-15 09:40)
DX: J18.9 Pneumonia, unspecified organism (principal); I26.99 Other pulmonary embolism without acute cor pulmonale; C34.12 Malignant neoplasm of upper lobe, left bronchus or lung; C78.7 Secondary malignant neoplasm of liver and intrahepatic bile duct; C77.0 Secondary and unspecified malignant neoplasm of lymph nodes of head, face and neck; C78.01 Secondary malignant neoplasm of right lung; C79.72 Secondary malignant neoplasm of left adrenal gland; E89.6 Postprocedural adrenocortical (-medullary) hypofunction; E87.1 Hypo-osmolality and hyponatremia; Z90.5 Acquired absence of kidney; Z90.81 Acquired absence of spleen; Z90.411 Acquired partial absence of pancreas; D64.9 Anemia, unspecified; Z79.01 Long term (current) use of anticoagulants; Z79.899 Other long term (current) drug therapy; R19.5 Other fecal abnormalities; F41.9 Anxiety disorder, unspecified; Z79.52 Long term (current) use of systemic steroids; Z79.891 Long term (current) use of opiate analgesic
CPT/HCPCS: 31624; 36415; 36430; 36591; 71045; 80048; 80053; 80202; 83735; 85007; 85025; 86850; 86900; 86920; 87015; 87040; 87070; 87102; 87116; 87205; 87206; 87281; 87305; 87385; 87799; 87801; 88108; 88305; 94640; 96372; J1650; J2543; J3370; J3475; J7030; J7512; J7626; P9016

== ENCOUNTER 2021-12-21 13:54 | Outpatient (CLI) | payer BC, SELFPAY ==
[2021-12-21 14:16] LABS: Hematocrit 27.6 % (37.0-47.0); Hemoglobin 8.9 g/dL (11.5-15.3); Mean Corpuscular HGB Conc 32.2 g/dL (30.0-36.0); Mean Corpuscular Volume 96.2 fl (81-99); Mean Platelet Volume 9.7 fL (7.4-10.4); Platelet Count 628 10^3/cmm (130-400); Red Blood Count 2.87 10^6/uL (4.1-5.3); Red Cell Distribution Width 20.9 % (12.1-15.1); White Blood Count 10.6 10^3/uL (4.0-10.0)
[2021-12-21 14:37] LABS: Anion Gap 13.5 (5-19); Blood Urea Nitrogen 10 mg/dL (6-20); Calcium 9.3 mg/dL (8.5-10.5); Carbon Dioxide 26 mmol/L (22-29); Chloride 100 mmol/L (98-107); Glomerular Filtration Rate 89.3 mL/min (90-130); Glucose 108 mg/dL (65-115); Osmolality Calculated 280 mOsm/kg (285-295); Potassium 4.5 mmol/L (3.5-5.1); Sodium 135 mmol/L (136-145)
[2021-12-21 14:42] LABS: Slide Review Slide Review Perform
[2021-12-21 14:46] LABS: Absolute Segmented Neutrophil 8.8 10/cmm (1.6-7.1); Band Neutrophils Absolute 0.7 10^3/cmm (0.0-1.2); Eosinophils 0 %; Lymphocytes 5 %; Lymphocytes Absolute 0.5 10^3/cmm (1.2-3.4); Monocytes Absolute 0.2 10^3/cmm (0.1-0.6); Segmented Neutrophils 83 %; Total Cells Counted 100 (0-100)
[2021-12-21 14:47] LABS: Absolute Neutrophil 9.5 10^3/cmm (1.4-6.5); Anisocytosis 2+; Macrocytosis Trace; Platelet Estimate Increased (Normal); Poikilocytosis Trace; Smudge Cells 1+
== END 2021-12-21 13:55 | disposition home or self-care (01) ==
LOC: LAB 13:55
PROVIDERS: PCP Family Medicine; Visit Provider Internal Medicine Medical Oncology
DX: J18.9 Pneumonia, unspecified organism (principal)
CPT/HCPCS: 80048; 85007; 85025

== ENCOUNTER 2021-12-29 15:47 | Outpatient (CLI) | payer BC, SELFPAY | END 2021-12-29 15:48 | disposition home or self-care (01) | PROVIDERS: PCP Family Medicine; Visit Provider Internal Medicine Medical Oncology | DX: J18.9 Pneumonia, unspecified organism (principal) | CPT/HCPCS: 87070 ==

== ENCOUNTER 2021-12-31 14:59 | Outpatient (CLI) | payer BC, SELFPAY ==
[2021-12-31 15:30] LABS: Hemoglobin 9.9 g/dL (11.5-15.3); Mean Corpuscular HGB Conc 31.9 g/dL (30.0-36.0); Mean Corpuscular Hemoglobin 31.9 pg (28.0-34.0); Mean Platelet Volume 9.4 fL (7.4-10.4); Platelet Count 692 10^3/cmm (130-400); Red Cell Distribution Width 20.3 % (12.1-15.1); White Blood Count 5.5 10^3/uL (4.0-10.0)
[2021-12-31 16:01] LABS: Slide Review Slide Review Perform
[2021-12-31 16:02] LABS: Absolute Neutrophil 3.8 10^3/cmm (1.4-6.5); Absolute Segmented Neutrophil 3.5 10/cmm (1.6-7.1); Anisocytosis 1+; Band Neutrophils Absolute 0.3 10^3/cmm (0.0-1.2); Eosinophils 0 %; Hypochromasia 1+; Lymphocytes 10 %; Lymphocytes Absolute 0.6 10^3/cmm (1.2-3.4); Monocytes Absolute 0.7 10^3/cmm (0.1-0.6); Platelet Estimate Increased (Normal); Poikilocytosis 1+; Segmented Neutrophils 63 %; Total Cells Counted 100 (0-100)
[2021-12-31 16:19] LABS: Alanine Aminotransferase 14 U/L (0-33); Albumin Level 3.1 g/dL (3.5-5.2); Alkaline Phosphatase 137 IU/L (35-105); Aspartate Amino Transferase 11 U/L (0-32); Blood Urea Nitrogen 17 mg/dL (6-20); Calcium 8.9 mg/dL (8.5-10.5); Carbon Dioxide 28 mmol/L (22-29); Chloride 99 mmol/L (98-107); Glomerular Filtration Rate 66.8 mL/min (90-130); Glucose 106 mg/dL (65-115); Iron 41 ug/dL (37-145); Osmolality Calculated 286 mOsm/kg (285-295); Percent Saturation 20.6 % (20-50); Sodium 137 mmol/L (136-145); Total Bilirubin 0.2 mg/dL (0.15-1.2); Total Iron Binding Capacity 199 mcg/dl; Total Protein 6.1 g/dL (6.6-8.7); Unsaturated Iron Binding 158 ug/dL (112-347)
== END 2021-12-31 15:00 | disposition home or self-care (01) ==
LOC: ONCMED 15:01
PROVIDERS: PCP Family Medicine; Visit Provider Internal Medicine Medical Oncology
DX: C34.90 Malignant neoplasm of unspecified part of unspecified bronchus or lung (principal)
CPT/HCPCS: 36591; 80053; 83540; 83550; 85007; 85025

== ENCOUNTER 2022-01-12 14:23 | Outpatient (CLI) | payer BC, SELFPAY ==
[2022-01-12 15:27] LABS: Urine Appearance Cloudy (CLEAR); Urine Color Straw (Yellow); pH Urine 6 (5-7)
[2022-01-12 15:28] LABS: Add Urine Microscopic? YES; Bilirubin Urine Neg (Negative); Blood Urine 2+ (Negative); Glucose Urine UA Norm (Normal); Ketones Urine Negative (Negative); Leukocyte Esterase Urine 2+ (Negative); Nitrate Urine Negative (Negative); Protein Urine Neg (Negative); Urobilinogen Urine Norm (Negative)
[2022-01-12 15:29] LABS: Bacteria Urine 4+ /hpf; Squamous Epithelial Cell Urine RARE /hpf (0-5); WBC Urine TOO NUMEROUS TO CNT /hpf (0-5)
[2022-01-12 15:30] LABS: Add Urine Culture? No
== END 2022-01-12 14:24 | disposition home or self-care (01) ==
PROVIDERS: PCP Family Medicine; Visit Provider Internal Medicine Medical Oncology
DX: R30.0 Dysuria (principal); J18.9 Pneumonia, unspecified organism
CPT/HCPCS: 81001; 87077; 87086; 87186

== ENCOUNTER 2022-01-13 14:23 | Outpatient (CLI) | payer BC, SELFPAY ==
[2022-01-13 14:52] LABS: Basophils % 0.4 %; Eosinophils % 0.2 %; Hematocrit 28.6 % (37.0-47.0); Lymphocytes # 0.4 10^3/uL (0.8-4.8); Lymphocytes % 3.1 %; Mean Corpuscular HGB Conc 31.5 g/dL (30.0-36.0); Mean Corpuscular Hemoglobin 30.3 pg (28.0-34.0); Mean Corpuscular Volume 96.3 fl (81-99); Mean Platelet Volume 9.4 fL (7.4-10.4); Monocytes # 0.7 10^3/uL (0.2-0.9); Monocytes % 5.7 %; Neutrophils # 9.91 10^3/uL (1.8-7.7); Neutrophils % 87.1 %; Nucleated Red Blood Cells % 0.2 %; Platelet Count 590 10^3/cmm (130-400); Red Blood Count 2.97 10^6/uL (4.1-5.3); Red Cell Distribution Width 18.2 % (12.1-15.1); White Blood Count 11.4 10^3/uL (4.0-10.0)
[2022-01-13 15:17] LABS: Alanine Aminotransferase 6 U/L (0-33); Albumin Level 2.9 g/dL (3.5-5.2); Alkaline Phosphatase 140 IU/L (35-105); Anion Gap 17.3 (5-19); Aspartate Amino Transferase 5 U/L (0-32); Blood Urea Nitrogen 9 mg/dL (6-20); Calcium 9.5 mg/dL (8.5-10.5); Carbon Dioxide 22 mmol/L (22-29); Chloride 94 mmol/L (98-107); Globulin 2.9 g/dL (1.3-4.6); Glucose 101 mg/dL (65-115); Osmolality Calculated 267 mOsm/kg (285-295); Potassium 4.3 mmol/L (3.5-5.1); Sodium 129 mmol/L (136-145); Total Bilirubin 0.2 mg/dL (0.15-1.2); Total Protein 5.8 g/dL (6.6-8.7)
== END 2022-01-13 14:24 | disposition home or self-care (01) ==
PROVIDERS: PCP Family Medicine; Visit Provider Internal Medicine Medical Oncology
DX: J18.9 Pneumonia, unspecified organism (principal)
CPT/HCPCS: 80053; 85025

== ENCOUNTER 2022-01-20 08:00 | Emergency (ER) | payer BC, SELFPAY ==
[2022-01-20] VITALS (9 sets, daily range): BP systolic 113–145; BP diastolic 65–107; PULSE 84–95; RESP 14–24; TEMP 36; O2SAT 94–100; BMI 26.6
--- NOTE | 2022-01-20 08:13 | W.ED.ABDPA2 ---
HPI - Abdominal Pain General: Chief Complaint: Shortness of Breath/Dyspnea Stated Complaint: SOB, ABD pain Time Seen by Provider: 01/20/22 08:04 Source: patient Mode of arrival: ambulatory Limitations: no limitations History of Present Illness: 46-year-old female presents emergency room with complaint of poor appetite shortness of breath generalized abdominal pain. Patient has a known history of lung CA with mets to the liver and bone. She still taking some oral chemotherapy. She has been very short of breath no hemoptysis. Family relates they had considered hospice previously. MD elicited complaint: abdominal pain Pertinent past history: other (Stage IV lung CA) Onset (ago): month(s) Pain Consistency: constant Location: Diffuse Severity: moderate Quality: cramping and aching Exacerbating factors: nothing Associated Symptoms: Reports anorexia, bloating, GI cramping, nausea and poor appetite; Denies belching, change in bowel habits, change in stool character, chills, coffee ground emesis, constipation, diarrhea, dyspepsia, dysuria, excessive flatus, fever(s), heartburn, hematochezia, hematuria, hematemesis, fecal incontinence, loose stools, melena, syncope and vomiting Related Data: Date of Last Menstrual Period: 12/12/19 Review of Systems Const: Denies: fever(s) or chills Card: Denies: syncope GI: Reports: nausea, bloating and GI cramping; Denies: vomiting, hematemesis, coffee ground emesis, heartburn, diarrhea, constipation, belching, excessive flatus, fecal incontinence, change in bowel habits, change in stool character, hematochezia or melena : Denies: dysuria or hematuria PFSH ED PFSH: Medical History Acute on chronic anemia Anemia Cancer Depression Elevated troponin Fatigue GERD (gastroesophageal reflux disease) Hypothyroidism Leukocytosis Metastatic lung cancer (metastasis from lung to other site) Neuropathy Postobstructive pneumonia Pulmonary embolism Sepsis Surgical History H/O partial adrenalectomy H/O splenectomy History of nephrectomy History of partial pancreatectomy Port-A-Cath in place Social History Smoking and tobacco status: never smoked Alcohol intake: never Lives independently: Yes Household members: spouse Marital status: Female Reproductive History: Date of last menstrual period: 12/12/19 Physical Exam Const: GENERAL APPEARANCE: disheveled, ill appearing and frail appearing ORIENTATION/CONSCIOUSNESS: Yes awake, Yes oriented to person, Yes oriented to place and Yes oriented to time HENMT: COMMON NORMALS: normocephalic, atraumatic and hearing grossly normal bilaterally HEAD & SCALP: normocephalic and atraumatic Resp: COMMON NORMALS: normal respiratory effort, No retractions, No use of accessory muscles and clear to auscultation bilaterally AUSCULTATION: clear to auscultation bilaterally Cardio: COMMON NORMALS: regular rate, regular rhythm and No murmurs present (Cardio) RATE: regular rate RHYTHM: regular rhythm GI: COMMON NORMALS: Soft to palpation and No hepatosplenomegaly present AUSCULTATION: Yes normoactive bowel sounds PALPATION: Yes Soft to palpation, Yes Tenderness to palpation present (GI), No Guarding due to palpation present (GI) and Yes No hepatosplenomegaly present : COMMON NORMALS: Yes no CVA tenderness BLADDER/KIDNEY EXAM: Yes no CVA tenderness Back/Pelvis: COMMON NORMALS: no CVA tenderness Extremity: COMMON NORMALS: normal to inspection, capillary refill normal, no clubbing, cyanosis or edema, no calf tenderness and no pedal edema Neuro: SENSORIUM/ORIENTATION: Yes oriented to person, Yes oriented to place and Yes oriented to time Skin: COMMON NORMALS: no rashes or lesions noted GENERAL SKIN EXAM: no rashes or lesions noted Course Vital Signs: Vital signs: Vital Signs Temperature 96.8 F L 01/20/22 08:08 Pulse Rate 84 01/20/22 16:12 Respiratory Rate 20 H 01/20/22 16:12 Blood Pressure 145/65 01/20/22 16:12 Pulse Oximetry 94 01/20/22 16:12 MDM - Abdominal Pain Medical Decision Making Long discussion with family ultimately decided to discharge patient home and consult hospice. Medical Records I reviewed the patient's medical records. Lab Data I reviewed the patient's lab results. : 01/20/22 08:50 01/20/22 08:50 Labs/Radiology: Radiology Impressions Chest X-Ray 01/20/22 08:28 IMPRESSION: Stable abnormal chest. Abdomen/Pelvis CT 01/20/22 10:19 IMPRESSION: 1. No acute abdominal or pelvic abnormalities are identified. 2. Metastatic lesion superior liver measures 2.5 x 1.9 cm has been previously described. 3. Cavitary lesion with mesh grafting and mixed solid and fluid components at the LEFT lung base has been previously described in detail. No change since 12/11/2021. 4. Prior partial pancreatectomy, splenectomy, LEFT nephrectomy and LEFT adrenalectomy. 5. This study is compromised by significant breathing and motion artifact. Laboratory Results WBC 14.5 10^3/uL (4.0-10.0) H 01/20/22 08:50 RBC 3.34 10^6/uL (4.1-5.3) L 01/20/22 08:50 Hgb 10.2 g/dL (11.5-15.3) L 01/20/22 08:50 Hct 32.6 % (37.0-47.0) L 01/20/22 08:50 MCV 97.6 fl (81-99) 01/20/22 08:50 MCH 30.5 pg (28.0-34.0) 01/20/22 08:50 MCHC 31.3 g/dL (30.0-36.0) 01/20/22 08:50 RDW 17.9 % (12.1-15.1) H 01/20/22 08:50 Plt Count 621 10^3/cmm (130-400) H 01/20/22 08:50 MPV 9.6 fL (7.4-10.4) 01/20/22 08:50 Neut % (Auto) 87.7 % 01/20/22 08:50 Lymph % (Auto) 2.1 % 01/20/22 08:50 [place] % (Auto) 7.5 % 01/20/22 08:50 Eos % (Auto) 0.1 % 01/20/22 08:50 Baso % (Auto) 0.4 % 01/20/22 08:50 Neut # (Auto) 12.66 10^3/uL (1.8-7.7) H 01/20/22 08:50 Lymph # (Auto) 0.3 10^3/uL (0.8-4.8) L 01/20/22 08:50 [place] # (Auto) 1.1 10^3/uL (0.2-0.9) H 01/20/22 08:50 Eos # (Auto) 0.0 10^3/uL (0.0-0.8) 01/20/22 08:50 Baso # (Auto) 0.1 10^3/uL (0.0-0.1) 01/20/22 08:50 Nucleated RBC % (auto) 0 % 01/20/22 08:50 Nucleated RBCs # 0.0 /100WBC 01/20/22 08:50 Sodium 126 mmol/L (136-145) L 01/20/22 08:50 Potassium 3.3 mmol/L (3.5-5.1) L 01/20/22 08:50 Chloride 92 mmol/L (98-107) L 01/20/22 08:50 Carbon Dioxide 21 mmol/L (22-29) L 01/20/22 08:50 Anion Gap 16.3 (5-19) 01/20/22 08:50 BUN 11 mg/dL (6-20) 01/20/22 08:50 Creatinine 0.7 mg/dL (0.5-0.9) 01/20/22 08:50 GFR Calculation 89.3 mL/min (90-130) L 01/20/22 08:50 Glucose 105 mg/dL (65-115) 01/20/22 08:50 Calculated Osmolality 262 mOsm/kg (285-295) L 01/20/22 08:50 Calcium 9.7 mg/dL (8.5-10.5) 01/20/22 08:50 Total Bilirubin 0.2 mg/dL (0.15-1.2) 01/20/22 08:50 AST 5 U/L (0-32) 01/20/22 08:50 ALT < 5 U/L (0-33) 01/20/22 08:50 Alkaline Phosphatase 129 IU/L (35-105) H 01/20/22 08:50 Total Protein 6.1 g/dL (6.6-8.7) L 01/20/22 08:50 Albumin 2.7 g/dL (3.5-5.2) L 01/20/22 08:50 Globulin 3.4 g/dL (1.3-4.6) 01/20/22 08:50 Urine Color Yellow (Yellow) 01/20/22 10:20 Urine Appearance Clear (CLEAR) 01/20/22 10:20 Urine pH 5 (5-7) 01/20/22 10:20 Ur Specific [place] 1.025 (1.005-1.030) 01/20/22 10:20 Urine Protein Neg (Negative) 01/20/22 10:20 Urine Glucose (UA) Norm (Normal) 01/20/22 10:20 Urine Ketones 1+ (Negative) H 01/20/22 10:20 Urine Blood 2+ (Negative) H 01/20/22 10:20 Urine Nitrate Negative (Negative) 01/20/22 10:20 Urine Bilirubin Neg (Negative) 01/20/22 10:20 Urine Urobilinogen Norm mg/dL (Negative) 01/20/22 10:20 Ur Leukocyte Esterase Trace (Negative) H 01/20/22 10:20 Urine RBC 0-4 /hpf (0-2) H 01/20/22 10:20 Urine WBC 0-4 /hpf (0-5) H 01/20/22 10:20 Ur Squamous Epith Cells 0-4 /hpf (0-5) H 01/20/22 10:20 Amorphous Sediment Not Reportable 01/20/22 10:20 Urine Bacteria 1+ /hpf (NONE) H 01/20/22 10:20 Urine Mucus 1+ /hpf 01/20/22 10:20 Urine Yeast 1+ /hpf H 01/20/22 10:20 Discharge Plan Discharge Patient Disposition: Home Clinical Impression: Metastatic lung cancer (metastasis from lung to other site), Anemia Condition: Stable Prescriptions: New ondansetron HCl 4 mg tablet 4 mg PO Q6H PRN (Reason: nausea and vomiting) Qty: 20 0RF Discontinued nitrofurantoin monohyd/m-cryst [Macrobid] 100 mg capsule 100 mg PO Q12H 7 Days Qty: 14 0RF Rx Instructions: must administer with a meal/food afatinib 40 mg Tablet 40 mg PO BEDTIME 0RF Rx Instructions: must be taken on empty stomach; no food 1 hr after or 2-3 hrs before dose No Action budesonide 0.5 mg/2 mL suspension for nebulization 0.5 mg inhalation BID Qty: 60 0RF oxycodone 5 mg tablet 5 mg PO QID PRN (Reason: Pain) 30 Days Qty: 60 0RF codeine-guaifenesin 10-100 mg/5 mL liquid 5 ml PO Q6H PRN (Reason: allergy symptoms) Qty: 240 0RF benzonatate 200 mg capsule 200 mg PO Q8H PRN (Reason: Cough) 0RF multivitamin Tablet 1 tab PO DAILY 0RF furosemide 40 mg Tablet 40 mg PO DAILY PRN (Reason: Edema) 0RF prednisone 5 mg Tablet 5 mg PO TID 0RF cyclobenzaprine 5 mg Tablet 5 mg PO TID PRN (Reason: Pain) 0RF potassium chloride 20 mEq Tablet Extended Release 20 meq PO DAILY 0RF gabapentin 100 mg Capsule 100 mg PO BID 0RF acetaminophen 500 mg Tablet 500 mg PO TID PRN (Reason: Pain) 0RF levothyroxine 137 mcg Tablet 137 mcg PO QAM 60 Days Qty: 60 3RF ferrous sulfate [Feosol] 325 mg (65 mg iron) tablet 325 mg PO DAILY Qty: 30 0RF levalbuterol tartrate [Xopenex HFA] 45 mcg/actuation HFA aerosol inhaler 2 inh inhalation Q4H PRN (Reason: shortness of breath or wheezing) 0RF alprazolam [Xanax] 0.5 mg tablet 0.25 mg PO TID PRN (Reason: anxiety) Qty: 30 0RF Tums 200 mg calcium (500 mg) Tablet,Chewable 1,000 mg PO BID 0RF ipratropium-albuterol 0.5 mg-3 mg(2.5 mg base)/3 mL solution for nebulization 3 ml inhalation BID 0RF Prilosec 20 mg Capsule,Delayed Release(Dr/Ec) 20 mg PO DAILY 0RF fluoxetine 20 mg tablet 20 mg PO DAILY 0RF enoxaparin 60 mg/0.6 mL syringe 60 mg SUBCUT BID 0RF Discharge Orders: Discharge ED (Routine); Ordered 01/20/22 Ordered By: Surjit Dye Referrals: Vinh Barry MD [Primary Care Provider] - Discharge Diet: Usual diet Discharge Activity: Limit activity as instructed Patient Instructions: Opioid Safety Activity Restrictions/Additional Instructions: Hospice come passes will consult with you. Coding Level of Care Code ED Typewriter Operator Automatic for Armando Antunez
--- NOTE | 2022-01-20 08:28 | XR_ITS ---
WS: [id number] XR chest 1V portable [id number] REASON FOR EXAM: dyspnea/cough FINDINGS: Chemotherapy infusion port overlying the left anterolateral chest with transvenous left subclavian ve in catheter with tip position was. The cava. Complex opacity of the lower left hemithorax which includes lung consolidation, pleural effusion, and convoluted mesh. Left hemithorax appears relatively unchanged compared to 12/14/2021. The right hemithorax remains clear. No new findings. XR/XR chest 1V portable [id number] IMPRESSION: Stable abnormal chest.
[2022-01-20 09:01] LABS: Basophils # 0.1 10^3/uL (0.0-0.1); Basophils % 0.4 %; Eosinophils % 0.1 %; Hematocrit 32.6 % (37.0-47.0); Hemoglobin 10.2 g/dL (11.5-15.3); Lymphocytes # 0.3 10^3/uL (0.8-4.8); Lymphocytes % 2.1 %; Mean Corpuscular HGB Conc 31.3 g/dL (30.0-36.0); Mean Corpuscular Hemoglobin 30.5 pg (28.0-34.0); Mean Corpuscular Volume 97.6 fl (81-99); Mean Platelet Volume 9.6 fL (7.4-10.4); Monocytes # 1.1 10^3/uL (0.2-0.9); Monocytes % 7.5 %; Neutrophils # 12.66 10^3/uL (1.8-7.7); Neutrophils % 87.7 %; Nucleated Red Blood Cells % 0 %; Platelet Count 621 10^3/cmm (130-400); Red Blood Count 3.34 10^6/uL (4.1-5.3); Red Cell Distribution Width 17.9 % (12.1-15.1); White Blood Count 14.5 10^3/uL (4.0-10.0)
[2022-01-20] MEDS: ondansetron 2 mg/ML SDV 2 mL 4 MG IVP (09:01)
[2022-01-20] MEDS: sodium chloride 0.9% 1,000 ML 999 ML IV ×2 (09:01→15:03)
[2022-01-20] MEDS: morphine 4 mg/mL SDV 1 mL IVP (09:01)
[2022-01-20 09:24] LABS: Alanine Aminotransferase < 5 U/L (0-33); Albumin Level 2.7 g/dL (3.5-5.2); Alkaline Phosphatase 129 IU/L (35-105); Anion Gap 16.3 (5-19); Aspartate Amino Transferase 5 U/L (0-32); Blood Urea Nitrogen 11 mg/dL (6-20); Calcium 9.7 mg/dL (8.5-10.5); Carbon Dioxide 21 mmol/L (22-29); Chloride 92 mmol/L (98-107); Globulin 3.4 g/dL (1.3-4.6); Glomerular Filtration Rate 89.3 mL/min (90-130); Glucose 105 mg/dL (65-115); Osmolality Calculated 262 mOsm/kg (285-295); Potassium 3.3 mmol/L (3.5-5.1); Sodium 126 mmol/L (136-145); Total Bilirubin 0.2 mg/dL (0.15-1.2); Total Protein 6.1 g/dL (6.6-8.7)
--- NOTE | 2022-01-20 09:29 | PC.NURSE ---
Patient given warm blankets, patient states that pain is now 3/10.
--- NOTE | 2022-01-20 09:48 | PC.NURSE ---
Patient unable to urinate at this time, half of fluid bolus done, she states she will try after that is complete.
--- NOTE | 2022-01-20 09:48 | PC.NURSE ---
Patient on 3 liters of NC, patient uses this at home.
--- NOTE | 2022-01-20 10:13 | PC.NURSE ---
Patient on commode at this time.
--- NOTE | 2022-01-20 10:19 | CT_ITS ---
WS: [id number] CT ABDOMEN AND PELVIS WITH CONTRAST HISTORY: abd pain/lung ca TECHNIQUE: Imaging performed of the abdomen and pelvis with IV contrast. Single phase imaging of the abdomen. Coronal and sagittal reformats are submitted. All CT scans at [facility] use at [facility] [address] one of these dose optimization techniques: automated exposure control; mA and/or kV adjustment per patient size (includes targeted exams where dose is matched to clinical indication); or iterative re construction. IV CONTRAST: Omnipaque 350; 50 mL IV. Oral contrast: No DLP: 1599.06 mGy.cm COMPARISON: CT chest 12/11/[address] abdomen and pelvis 10/27/2021 Lower thorax: Again noted is a consolidation at the LEFT lung base with a central cavitation and mesh graft. Small LEFT pleural effusion. LEFT lung base is clear.. Heart is normal size. No hiatal hernia . Liver/biliary system: Again noted is the low-attenuation lesion in the superior liver measuring 2.5 x 1.9 cm. Similar to the prior examination of 12/11/2021. Gallbladder: Status post cholecystectomy. Pancreas: Limited by motion and breathing artifact. No abnormality is identified. The tail is very po cassie visualized and may have been surgically removed. Spleen: Prior splenectomy. Adrenal glands: RIGHT adrenal gland is normal. LEFT has been surgically removed. Right kidney: Significantly limited by motion. Left kidney: Prior nephrectomy. Aorta: Normal. Lymphadenopathy: None. Free fluid: None. GI tract: Increased amount of air throughout the colon. No obstructive pattern. Stomach is mildly dis tended with fluid. The appendix is not identified. Abdominal wall: Unremarkable abdominal wall. No hernia. Pelvis: No free fluid or adenopathy. Uterus is atrophic and anteverted. Bones: No osteoblastic or osteolytic bone changes. CT/CT abdomen pelvis w con* [id number] IMPRESSION: 1. No acute abdominal or pelvic abnormalities are identified. 2. Metastatic lesion superior liver measures 2.5 x 1.9 cm has been previously described. 3. Cavitary lesion with mesh grafting and mixed solid and fluid components at the LEFT lung base has been previously described in detail. No change since 12/11. 4. Prior partial pancreatectomy, splenectomy, LEFT nephrectomy and LEFT adrena lectomy. 5. This study is compromised by significant breathing and motion artifact.
[2022-01-20 10:56] LABS: Specific Gravity, Urine 1.025 (1.005-1.030); Urine Appearance Clear (CLEAR); Urine Color Yellow (Yellow); pH Urine 5 (5-7)
[2022-01-20 10:57] LABS: Add Urine Microscopic? YES; Bilirubin Urine Neg (Negative); Blood Urine 2+ (Negative); Glucose Urine UA Norm (Normal); Ketones Urine 1+ (Negative); Leukocyte Esterase Urine Trace (Negative); Nitrate Urine Negative (Negative); Protein Urine Neg (Negative); Urobilinogen Urine Norm (Negative)
[2022-01-20 11:00] LABS: Add Urine Culture? Yes; Bacteria Urine 1+ /hpf; Mucus Urine 1+ /hpf; RBC Urine 0-4 /hpf (0-2); Squamous Epithelial Cell Urine 0-4 /hpf (0-5); WBC Urine 0-4 /hpf (0-5)
[2022-01-20] MEDS: iohexol 300 mg/mL 100 mL Btl IV (12:25)
[2022-01-20] MEDS: cefTRIAXone 1,000 MG in sodium chloride 0.9% (plus) 50 ML 100 MG IV (15:01)
--- NOTE | 2022-01-20 15:03 | PC.NURSE ---
Patient fluids infusing at this time. d/c after fluids and antibiotic.
== END 2022-01-20 16:20 | disposition home or self-care (01) ==
PROVIDERS: Emergency Provider Family Medicine; PCP Family Medicine
DX: C78.00 Secondary malignant neoplasm of unspecified lung (principal); C80.1 Malignant (primary) neoplasm, unspecified; D64.9 Anemia, unspecified
CPT/HCPCS: 71045; 74177; 80053; 81001; 85025; 87086; 96361; 96365; 96375; 99284; J0696; J2270; J2405; J7030; Q9967

== ENCOUNTER 2022-01-26 12:25 | Outpatient (CLI) | payer BC, SELFPAY ==
[2022-01-26 13:22] LABS: Basophils % 0.1 %; Eosinophils % 0.1 %; Hematocrit 29.7 % (37.0-47.0); Hemoglobin 9.3 g/dL (11.5-15.3); Lymphocytes # 0.5 10^3/uL (0.8-4.8); Lymphocytes % 3.5 %; Mean Corpuscular HGB Conc 31.3 g/dL (30.0-36.0); Mean Corpuscular Hemoglobin 30.1 pg (28.0-34.0); Mean Corpuscular Volume 96.1 fl (81-99); Mean Platelet Volume 10.9 fL (7.4-10.4); Monocytes # 1.1 10^3/uL (0.2-0.9); Monocytes % 8.2 %; Neutrophils # 11.32 10^3/uL (1.8-7.7); Neutrophils % 83.2 %; Nucleated Red Blood Cells # 0.1 /100WBC; Nucleated Red Blood Cells % 0.4 %; Platelet Count 616 10^3/cmm (130-400); Red Blood Count 3.09 10^6/uL (4.1-5.3); Red Cell Distribution Width 18.5 % (12.1-15.1); White Blood Count 13.6 10^3/uL (4.0-10.0)
[2022-01-26 13:44] LABS: Alanine Aminotransferase < 5 U/L (0-33); Albumin Level 2.8 g/dL (3.5-5.2); Alkaline Phosphatase 115 IU/L (35-105); Anion Gap 15.2 (5-19); Aspartate Amino Transferase 5 U/L (0-32); Blood Urea Nitrogen 7 mg/dL (6-20); Calcium 7.8 mg/dL (8.5-10.5); Carbon Dioxide 26 mmol/L (22-29); Chloride 94 mmol/L (98-107); Globulin 2.4 g/dL (1.3-4.6); Glomerular Filtration Rate 106.7 mL/min (90-130); Glucose 87 mg/dL (65-115); Osmolality Calculated 271 mOsm/kg (285-295); Potassium 3.2 mmol/L (3.5-5.1); Sodium 132 mmol/L (136-145); Total Bilirubin 0.2 mg/dL (0.15-1.2); Total Protein 5.2 g/dL (6.6-8.7)
== END 2022-01-26 12:26 | disposition home or self-care (01) ==
PROVIDERS: Internal Medicine; PCP Family Medicine; Visit Provider Internal Medicine Medical Oncology
DX: C34.90 Malignant neoplasm of unspecified part of unspecified bronchus or lung (principal); E87.1 Hypo-osmolality and hyponatremia; D64.9 Anemia, unspecified
CPT/HCPCS: 80048; 80053; 85025

== ENCOUNTER 2022-02-03 11:07 | Oncology outpatient (recurring) (ONCR) | payer BC, SELFPAY ==
[2022-02-03 11:46] LABS: Add Urine Microscopic? YES; Bilirubin Urine Neg (Negative); Blood Urine Neg (Negative); Glucose Urine UA Norm (Normal); Ketones Urine Negative (Negative); Leukocyte Esterase Urine 2+ (Negative); Nitrate Urine Positive (Negative); Protein Urine Neg (Negative); RBC Urine 0-4 /hpf (0-2); Urine Appearance Hazy (CLEAR); Urine Color Yellow (Yellow); Urobilinogen Urine Norm (Negative); WBC Urine TOO NUMEROUS TO CNT /hpf (0-5); pH Urine 5 (5-7)
[2022-02-03 11:47] LABS: Add Urine Culture? Yes; Bacteria Urine 4+ /hpf; Squamous Epithelial Cell Urine 0-4 /hpf (0-5)
== END 2022-02-09 23:59 | disposition home or self-care (01) ==
PROVIDERS: PCP Family Medicine; Visit Provider Internal Medicine Medical Oncology
DX: N39.0 Urinary tract infection, site not specified (principal)
CPT/HCPCS: 81001; 87077; 87086; 87186

== ENCOUNTER 2022-02-12 14:23 | Outpatient (CLI) | payer BC, SELFPAY ==
[2022-02-12 14:45] LABS: Hematocrit 31.3 % (37.0-47.0); Hemoglobin 9.7 g/dL (11.5-15.3); Mean Corpuscular Hemoglobin 29.7 pg (28.0-34.0); Mean Corpuscular Volume 95.7 fl (81-99); Mean Platelet Volume 10.3 fL (7.4-10.4); Platelet Count 580 10^3/cmm (130-400); Red Blood Count 3.27 10^6/uL (4.1-5.3); Red Cell Distribution Width 18.1 % (12.1-15.1); White Blood Count 20.8 10^3/uL (4.0-10.0)
[2022-02-12 15:05] LABS: Glucose Urine UA Norm (Normal); Protein Urine Neg (Negative); Urine Appearance Clear (CLEAR); Urine Color Yellow (Yellow); pH Urine 7 (5-7)
[2022-02-12 15:06] LABS: Bilirubin Urine Neg (Negative); Blood Urine Neg (Negative); Ketones Urine Negative (Negative); Leukocyte Esterase Urine Negative (Negative); Nitrate Urine Negative (Negative); Urobilinogen Urine Norm (Negative)
[2022-02-12 15:17] LABS: Alanine Aminotransferase 10 U/L (0-33); Albumin Level 2.9 g/dL (3.5-5.2); Alkaline Phosphatase 173 IU/L (35-105); Anion Gap 17.5 (5-19); Aspartate Amino Transferase 7 U/L (0-32); Blood Urea Nitrogen 12 mg/dL (6-20); Calcium 9.1 mg/dL (8.5-10.5); Carbon Dioxide 27 mmol/L (22-29); Chloride 91 mmol/L (98-107); Glomerular Filtration Rate 76.6 mL/min (90-130); Glucose 98 mg/dL (65-115); Osmolality Calculated 272 mOsm/kg (285-295); Potassium 4.5 mmol/L (3.5-5.1); Sodium 131 mmol/L (136-145); Total Bilirubin 0.2 mg/dL (0.15-1.2); Total Protein 5.9 g/dL (6.6-8.7)
[2022-02-12 15:19] LABS: Slide Review Slide Review Perform
[2022-02-12 15:20] LABS: Absolute Eosinophils 0.4 10^3/cmm (0.0-0.7); Absolute Neutrophil 18.3 10^3/cmm (1.4-6.5); Absolute Segmented Neutrophil 17.5 10/cmm (1.6-7.1); Band Neutrophils Absolute 0.8 10^3/cmm (0.0-1.2); Eosinophils 2 %; Lymphocytes 2 %; Lymphocytes Absolute 0.4 10^3/cmm (1.2-3.4); Monocytes Absolute 1.2 10^3/cmm (0.1-0.6); Platelet Estimate Increased (Normal); Segmented Neutrophils 84 %; Total Cells Counted 100 (0-100)
[2022-02-12 15:21] LABS: Anisocytosis Trace
[2022-02-12 16:19] LABS: Bacteria Urine TRACE /hpf; RBC Urine RARE /hpf (0-2); Squamous Epithelial Cell Urine 0-4 /hpf (0-5); Transitional Epi Cells Urine 0-4 /hpf; WBC Urine 0-4 /hpf (0-5)
[2022-02-12 16:20] LABS: Add Urine Culture? No; Mucus Urine TRACE /hpf
== END 2022-02-12 14:24 | disposition home or self-care (01) ==
PROVIDERS: Internal Medicine Hematology & Oncology; PCP Family Medicine; Visit Provider Internal Medicine Medical Oncology
DX: C34.90 Malignant neoplasm of unspecified part of unspecified bronchus or lung (principal); N39.0 Urinary tract infection, site not specified
CPT/HCPCS: 80053; 81001; 85007; 85025